=== PATIENT | female | born 1955 | race Caucasian/White ===

== ENCOUNTER 2020-11-18 19:48 | Emergency (ER) | payer BC, OTHER ==
[2020-11-18] MEDS ORDERED: BENADRYL 50 MG/ML IM ONE (20:22)
[2020-11-18] MEDS ORDERED: solu-MEDROL 125 MG, Sterile H2O 10 ml 2 ML IM ONE ×2 (20:22)
[2020-11-18] MEDS ORDERED: Pepcid 20 MG PO ONE (20:22)
--- NOTE | 2020-11-18 20:29 | ERPHSYRPT ---
- History of Present Illness Time Seen by Provider: 11/18/20 19:53 Source: patient Exam Limitations: no limitations Physician History: 67 years old left-handed dominant female, up to date with tetanus tetanus, history of diabetes mellitus, hypertension presented in the ER after got stung by bee while working in her yard in the right hand second metacarpal phalangeal joint area with associated increasing swelling and moderate intensity sharp throbbing pain without limitation movements of fingers. No difficulty breathing, throat closing sensation. No palpitations or chest pain reported. Timing/Duration: hour(s) (0.5), constant, sudden, worse Quality: burning, painful Severity: moderate Location: hands Possible Causes: insect sting Associated Symptoms: rash, swelling/mass/lumps Allergies/Adverse Reactions: erythromycin base Allergy (Intermediate, Verified 11/18/20 20:06) Nausea and Vomiting Penicillins Allergy (Intermediate, Verified 11/18/20 20:06) Nausea and Vomiting tetracycline Allergy (Intermediate, Verified 11/18/20 20:06) Nausea and Vomiting Home Medications: Amlodipine Besylate 5 mg [Norvasc 5 mg] 5 mg PO BID 11/18/20 [History] Apixaban [Eliquis] 5 mg PO BID 11/18/20 [History] Glipizide [Glipizide ER] 5 mg PO DAILY 11/18/20 [History] Hydrocortisone 10 mg PO BID 11/18/20 [History] Oxybutynin Chloride 5 mg PO DAILY 11/18/20 [History] PANTOPRAZOLE 40 mg Tablet [Protonix 40MG Tablet] 40 mg PO BID 11/18/20 [History] Prochlorperazine Maleate 10 mg [Compazine 10 mg] 10 mg PO Q4-6HPRN PRN 11/18/20 [History] lisinopriL [Lisinopril] 20 mg PO BID 11/18/20 [History] - Review of Systems Constitutional: No Symptoms Ears, Nose, & Throat: No Symptoms Respiratory: No Symptoms Cardiac: No Symptoms Musculoskeletal: No Symptoms Skin: Rash, Skin Lesions Neurological: No Symptoms Psychological: No Symptoms Endocrine: No Symptoms - Past Medical History Pertinent Past Medical History: Yes Neurological History: No Pertinent History ENT History: No Pertinent History Cardiac History: Hypertension Respiratory History: No Pertinent History Endocrine Medical History: Diabetes Type I Musculoskeletal History: No Pertinent History GI Medical History: GERD History: No Pertinent History Psycho-Social History: No Pertinent History Female Reproductive Disorders: No Pertinent History - Past Surgical History Past Surgical History: Yes Neuro Surgical History: No Pertinent History Cardiac: Cardiac Catheterization Respiratory: No Pertinent History Gastrointestinal: Cholecystectomy, Hernia Repair Genitourinary: No Pertinent History Musculoskeletal: Orthopedic Surgery Female Surgical History: Hysterectomy Other Surgical History: Left Knee Replacement. Fusion of 5th and 6th Vertebre - Social History Drug Use: none - Nursing Vital Signs Nursing Vital Signs: Initial Vital Signs Temperature 97.1 F 11/18/20 19:48 Pulse Rate 78 11/18/20 19:48 Respiratory Rate 20 11/18/20 19:48 Blood Pressure 142/71 11/18/20 19:48 O2 Sat by Pulse Oximetry 100 11/18/20 19:48 Pain Scale Pain Intensity 5 - Physical Exam General Appearance: no apparent distress, alert Eye Exam: PERRL/EOMI Ears, Nose, Throat Exam: normal ENT inspection, TMs normal, pharynx normal Neck Exam: normal inspection, non-tender, supple, full range of motion Respiratory Exam: normal breath sounds, lungs clear Cardiovascular Exam: regular rate/rhythm, normal heart sounds Extremity Exam: inflammation (Right hand dorsal lateral aspect at second metacarpophalangeal joint area sting migel with associated swelling extending proximally and mild distally on the index finger proximal phalanx. Warm and mildly tender to touch. Intact range of motion of the fingers. Distal neurovascular well intact. 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 We will continue with these meds to go home. She is advised to monitor her blood sugar regularly while being on steroids. Discussed signs symptoms of worsening needing return to ER which she seems understanding. No signs of anaphylaxis, lungs clear to auscultation, not in any distress, do not think needs any further evaluation or observation in the ER and is stable for discharge. Counseled pt/family regarding: diagnosis, need for follow-up - Departure Departure Disposition: Home Clinical Impression: Local reaction to bee sting Qualifiers: Encounter type: initial encounter Injury intent: accidental or unintentional Qualified Code(s): T63.441A - Toxic effect of venom of bees, accidental (unintentional), initial encounter Condition: Stable Critical Care Time: No Referrals: APURVA REEDER MD [Primary Care Provider] - (1-2 days for reevaluation) Instructions: Insect Bites and Stings (DC), Anaphylaxis (DC) Additional Instructions: Take Tylenol as needed for pain. Monitor your blood sugar regularly while being on steroids and call your primary care for adjustment in medication if needed. Follow-up with primary care physician for reevaluation. Return to ER for worsening swelling, difficulty movements of hand/finger etc. Prescriptions: Diphenhydramine HCl 25 mg [Benadryl 25 mg Capsule] 25 mg PO Q4H PRN PRN #20 cap PRN Reason: Allergies Hydrocortisone 1% Cream [Cortisone 1% Cream] 30 gm TP BID #1 Prednisone 20 mg [Deltasone 20 mg] 60 mg PO DAILY 5 Days #15 tablet Famotidine 20 mg [Pepcid 20 MG] 20 mg PO BID #10 tablet
[2020-11-18] MEDS ORDERED: BENADRYL 50 MG/ML ONE (20:53)
[2020-11-18] MEDS ORDERED: Sterile H2O 10 ml IJ ONE (20:54)
[2020-11-18] MEDS ORDERED: Pepcid 20 MG ONE (20:54)
[2020-11-18] MEDS ORDERED: solu-MEDROL ONE (20:54)
[2020-11-18 21:16] VITALS: BP 136/68; PULSE 76; O2SAT 99
== END 2020-11-18 21:13 | disposition home or self-care (01) ==
LOC: ED 19:48
DX: T63.441A Toxic effect of venom of bees, accidental (unintentional), initial encounter (principal); I10 Essential (primary) hypertension; Z79.01 Long term (current) use of anticoagulants; Z79.899 Other long term (current) drug therapy; E10.9 Type 1 diabetes mellitus without complications
CPT/HCPCS: 96372; 99283; J1200; J2930; A9270-GY

== ENCOUNTER 2020-11-20 11:38 | Emergency (ER) | payer OTHER ==
--- NOTE | 2020-11-20 12:06 | ERPHSYRPT ---
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 It hurts and tingles, my pain is a 10/10. Triage Nursing Assessment: Pt presents to ER with complaints of hornet sting to left 4th toe. Toe is slightly red and swollen. Pt rates pain 10/10 scale. Pt is alert and oriented x 3. Pt skin is pink, warm, and dry. Pt is able to ambulate. Pt respiations are unlabored at this time. Pt denies shortness of breath. Physician History: 65 yo wf stung by a hornet on L 2nd toe 1 hour before arrival. Pt was seen in the ER several days ago for a bee sting and was started on a steroid which she has not been taking. She denies dyspnea/dysphagia. Timing/Duration: other (1hr before arrival) Modifying Factors: Improves With: movement Associated Symptoms: No nausea, No vomiting, No abdominal pain, No shortness of breath, No heartburn, No diaphoresis, No cough, No chills, No chest pain, No fever, No headaches, No loss of appetite, No malaise, No rash, No syncope, No seizure, No weakness Allergies/Adverse Reactions: erythromycin base Allergy (Intermediate, Verified 11/20/20 11:48) Nausea and Vomiting Penicillins Allergy (Intermediate, Verified 11/20/20 11:48) Nausea and Vomiting tetracycline Allergy (Intermediate, Verified 11/20/20 11:48) Nausea and Vomiting Home Medications: Amlodipine Besylate 5 mg [Norvasc 5 mg] 5 mg PO BID 11/18/20 [History] Apixaban [Eliquis] 5 mg PO BID 11/18/20 [History] Glipizide [Glipizide ER] 5 mg PO DAILY 11/18/20 [History] Hydrocortisone 10 mg PO BID 11/18/20 [History] Oxybutynin Chloride 5 mg PO DAILY 11/18/20 [History] PANTOPRAZOLE 40 mg Tablet [Protonix 40MG Tablet] 40 mg PO BID 11/18/20 [History] Prochlorperazine Maleate 10 mg [Compazine 10 mg] 10 mg PO Q4-6HPRN PRN 11/18/20 [History] lisinopriL [Lisinopril] 20 mg PO BID 11/18/20 [History] Hx Tetanus, Diphtheria Vaccination/Date Given: Yes Hx Influenza Vaccination/Date Given: No Hx Pneumococcal Vaccination/Date Given: No Immunizations Up to Date: Yes Travel Risk - International Travel Have you traveled outside of the country in past 3 weeks: No - Coronavirus Screening Are you exhibiting any of the following symptoms?: No Close contact with a COVID-19 positive Pt in past 14-21 Days: No - Vaccine Status Have you recieved a Covid-19 vaccination: Yes 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: [employer] - Vaccination Dates Date of 2cond Vaccination (if applicable): unknown - Review of Systems Constitutional: No Symptoms Eyes: No Symptoms Ears, Nose, & Throat: No Symptoms Respiratory: No Symptoms Cardiac: No Symptoms Abdominal/Gastrointestinal: No Symptoms Genitourinary Symptoms: No Symptoms Musculoskeletal: No Symptoms Skin: Rash Neurological: No Symptoms Psychological: No Symptoms Endocrine: No Symptoms Hematologic/Lymphatic: No Symptoms Immunological/Allergic: No Symptoms - Past Medical History Pertinent Past Medical History: Yes Neurological History: No Pertinent History ENT History: No Pertinent History Cardiac History: Hypertension Respiratory History: No Pertinent History Endocrine Medical History: Diabetes Type I Musculoskeletal History: No Pertinent History GI Medical History: GERD History: No Pertinent History Psycho-Social History: No Pertinent History Female Reproductive Disorders: No Pertinent History - Past Surgical History Past Surgical History: Yes Neuro Surgical History: No Pertinent History Cardiac: Cardiac Catheterization Respiratory: No Pertinent History Gastrointestinal: Cholecystectomy, Hernia Repair Genitourinary: No Pertinent History Musculoskeletal: Orthopedic Surgery Female Surgical History: Hysterectomy Other Surgical History: Left Knee Replacement. Fusion of 5th and 6th Vertebre - Social History Smoking Status: Never smoker Exposure to second hand smoke: No Drug Use: none Patient Lives Alone: Yes Significant Family History: no pertinent family hx - Female History Hx Now: No - Nursing Vital Signs Nursing Vital Signs: Initial Vital Signs Temperature 97.4 F 11/20/20 11:44 Pulse Rate 95 H 11/20/20 11:44 Respiratory Rate 16 11/20/20 11:44 Blood Pressure 168/88 11/20/20 11:44 O2 Sat by Pulse Oximetry 99 11/20/20 11:44 Pain Scale Pain Intensity 10 Hypertensive - Physical Exam General Appearance: no apparent distress Eye Exam: PERRL/EOMI, eyes nml inspection Ears, Nose, Throat Exam: normal ENT inspection, TMs normal, pharynx normal, moist mucous membranes Neck Exam: normal inspection, non-tender, supple, full range of motion, No meningismus, No mass, No Brudzinski, No Kernig's, No carotid bruit Respiratory Exam: normal breath sounds, lungs clear, airway intact, No chest tenderness, No respiratory distress Cardiovascular Exam: regular rate/rhythm, normal heart sounds, normal peripheral pulses, No murmur Gastrointestinal/Abdomen Exam: soft, normal bowel sounds, No tenderness Back Exam: normal inspection, normal range of motion, No CVA tenderness, No vertebral tenderness Extremity Exam: other (Mild erythema and edema L 2nd toe/Good pedal pulse, distal sensation, and capillary return) Skin Exam: other (See exgtremity exam) Lymphatic Exam: No adenopathy SpO2 Interpretation: normal SpO2: 99 O2 Delivery: Room Air - Course Nursing assessment & vital signs reviewed: Yes - Progress Progress Note: 11/20/20 12:06 Most likely local reaction, will continue benadryl at home. Counseled pt/family regarding: diagnosis, need for follow-up - Departure Departure Disposition: Home Clinical Impression: Sting from hornet, wasp, or bee Condition: Stable Critical Care Time: No Referrals: APURVA REEDER MD [ACTIVE STAFF] - Instructions: Insect Bites and Stings (DC) Additional Instructions: Elevate foot Continue benadryl 25-50mg every 6 hours as needed EpiPen as needed Return to ER for increased swelling/redness/shortness of breath/Trouble swallowing Prescriptions: Epinephrine [Epipen] 0.3 mg IM BID PRN PRN #2 PRN Reason: Allergies Epinephrine [Epipen] 0.3 mg IM BIDPRN PRN #2 each PRN Reason: Allergies
[2020-11-20 12:38] VITALS: BP 138/81; PULSE 85
[2020-11-20 19:07] VITALS: O2SAT 99
== END 2020-11-20 12:38 | disposition home or self-care (01) ==
LOC: ED 11:38
DX: T63.441A Toxic effect of venom of bees, accidental (unintentional), initial encounter (principal); M79.675 Pain in left toe(s); R20.2 Paresthesia of skin; M79.89 Other specified soft tissue disorders; Z79.01 Long term (current) use of anticoagulants; Z79.899 Other long term (current) drug therapy
CPT/HCPCS: 99282

== ENCOUNTER 2020-11-21 16:23 | Emergency (ER) | payer OTHER ==
[2020-11-21] MEDS ORDERED: Sodium Chloride 0.9% 1000 ML 1,000 ML IV STA (16:43)
--- NOTE | 2020-11-21 16:43 | ERPHSYRPT ---
- History of Present Illness Time Seen by Provider: 11/21/20 16:35 Source: patient Physician History: Patient is a 65-year-old female with history of diabetes presents to our ED for evaluation of dizziness. Patient states that her blood glucose has been running approximately 400. Patient was in our ED a couple days ago and was treated for an allergic reaction to an insect bite. Patient was given a dose of steroids. Patient was advised that her blood glucose would go up. Patient is attributing her current symptoms to the hyperglycemia. Patient admits to feeling vague chest pressure. No veto chest pain. No nausea or vomiting. No diarrhea. Patient symptomology from the allergic reaction to the insect sting is significantly improved. Patient son at bedside. They voiced no other complaints or concerns at this time. Timing/Duration: today Severity: moderate Modifying Factors: Improves With: nothing Associated Symptoms: chest pain, No nausea, No vomiting, No shortness of breath, No diaphoresis, No cough, No chills, No fever, No headaches, No loss of appetite, No malaise, No rash, No syncope, No seizure, No weakness Allergies/Adverse Reactions: bee venom protein (honey bee) Allergy (Severe, Verified 11/21/20 16:43) Swelling erythromycin base Allergy (Intermediate, Verified 11/20/20 11:48) Nausea and Vomiting Penicillins Allergy (Intermediate, Verified 11/20/20 11:48) Nausea and Vomiting tetracycline Allergy (Intermediate, Verified 11/20/20 11:48) Nausea and Vomiting Home Medications: Amlodipine Besylate 5 mg [Norvasc 5 mg] 5 mg PO BID 11/18/20 [History] Apixaban [Eliquis] 5 mg PO BID 11/18/20 [History] Glipizide [Glipizide ER] 5 mg PO DAILY 11/18/20 [History] Hydrocortisone 10 mg PO BID 11/18/20 [History] Oxybutynin Chloride 5 mg PO DAILY 11/18/20 [History] PANTOPRAZOLE 40 mg Tablet [Protonix 40MG Tablet] 40 mg PO BID 11/18/20 [History] Prochlorperazine Maleate 10 mg [Compazine 10 mg] 10 mg PO Q4-6HPRN PRN 11/18/20 [History] lisinopriL [Lisinopril] 20 mg PO BID 11/18/20 [History] Hx Tetanus, Diphtheria Vaccination/Date Given: Yes Hx Influenza Vaccination/Date Given: No Hx Pneumococcal Vaccination/Date Given: No Travel Risk - Vaccine Status Have you recieved a Covid-19 vaccination: Yes [employer]: [employer] - Vaccination Dates Date of 2cond Vaccination (if applicable): unknown - Review of Systems Constitutional: No Symptoms, No Fever, No Chills Eyes: No Symptoms Ears, Nose, & Throat: No Symptoms Respiratory: No Symptoms, No Cough, No Dyspnea Cardiac: No Symptoms, No Chest Pain, No Edema, No Syncope Abdominal/Gastrointestinal: No Symptoms, No Abdominal Pain, No Nausea, No Vomiting, No Diarrhea Genitourinary Symptoms: No Symptoms, No Dysuria Musculoskeletal: No Symptoms, No Back Pain, No Neck Pain Skin: No Symptoms, No Rash Neurological: No Symptoms, No Dizziness, No Focal Weakness, No Sensory Changes Psychological: No Symptoms Endocrine: No Symptoms Hematologic/Lymphatic: No Symptoms Immunological/Allergic: No Symptoms All Other Systems: Reviewed and Negative - Past Medical History Pertinent Past Medical History: Yes Neurological History: No Pertinent History ENT History: No Pertinent History Cardiac History: Hypertension Respiratory History: No Pertinent History Endocrine Medical History: Diabetes Type I Musculoskeletal History: No Pertinent History GI Medical History: GERD History: No Pertinent History Psycho-Social History: No Pertinent History Female Reproductive Disorders: No Pertinent History - Past Surgical History Past Surgical History: Yes Neuro Surgical History: No Pertinent History Cardiac: Cardiac Catheterization Respiratory: No Pertinent History Gastrointestinal: Cholecystectomy, Hernia Repair Genitourinary: No Pertinent History Musculoskeletal: Orthopedic Surgery Female Surgical History: Hysterectomy Other Surgical History: Left Knee Replacement. Fusion of 5th and 6th Vertebre - Social History Smoking Status: Never smoker Exposure to second hand smoke: No Drug Use: none Patient Lives Alone: Yes Significant Family History: no pertinent family hx - Nursing Vital Signs Nursing Vital Signs: Initial Vital Signs Temperature 97.6 F 11/21/20 16:30 Pulse Rate 100 H 11/21/20 16:30 Respiratory Rate 24 11/21/20 16:30 Blood Pressure 190/101 11/21/20 16:30 O2 Sat by Pulse Oximetry 100 11/21/20 16:30 Pain Scale Pain Intensity 8 - Physical Exam General Appearance: no apparent distress, alert Eye Exam: PERRL/EOMI, eyes nml inspection Ears, Nose, Throat Exam: normal ENT inspection, TMs normal, pharynx normal, moist mucous membranes Neck Exam: normal inspection, non-tender, supple, full range of motion Respiratory Exam: normal breath sounds, lungs clear, No respiratory distress Cardiovascular Exam: regular rate/rhythm, normal heart sounds, normal peripheral pulses Gastrointestinal/Abdomen Exam: soft, normal bowel sounds, No tenderness, No mass Back Exam: normal inspection, normal range of motion, No CVA tenderness, No vertebral tenderness Extremity Exam: normal inspection, normal range of motion, pelvis stable Neurologic Exam: alert, oriented x 3, cooperative, normal mood/affect, nml cerebellar function, nml station & gait, sensation nml, No motor deficits Skin Exam: normal color, warm, dry, No rash Lymphatic Exam: No adenopathy - Course Nursing assessment & vital signs reviewed: Yes EKG Interpreted by Me: RATE (76), Sinus Rhythm, NORMAL AXIS, NORMAL INTERVALS - Radiology Exams Chest X-ray Interpretation: Teleradiologist Report (No infiltrates to suggest pneumonia or other acute cardiopulmonary disease is seen. The radiographic appearance of the lungs is similar to 05/24/2007. A loop recorder is seen overlying the medial left lung base.) Ordered Tests: Active Orders 24 hr Category Date Time Status Automotive Parts Specialist STAT Care 11/21/20 16:44 Active EKG-ER Only STAT Care 11/21/20 16:43 Active IV Insertion STAT Care 11/21/20 16:43 Active Pulse Oximetry (ED) STAT Care 11/21/20 16:43 Active CHEST 1 VIEW (PORTABLE) Stat Exams 11/21/20 16:44 Completed CBC W DIFF Stat Lab 11/21/20 18:08 Completed CMP Stat Lab 11/21/20 18:08 Completed CMP Stat Lab 11/21/20 21:20 Completed POCT GLUCOSE Stat Lab 11/21/20 21:25 Completed TROPONIN Q3H Lab 11/21/20 18:08 Completed TROPONIN Q3H Lab 11/21/20 19:45 Completed TROPONIN Q3H Lab 11/21/20 22:45 Ordered TROPONIN Q3H Lab 11/22/20 01:45 Ordered TROPONIN Q3H Lab 11/22/20 04:45 Ordered UA W/RFX UR CULTURE Stat Lab 11/21/20 16:44 Completed Medication Summary Discontinued Medications Generic Name Dose Route Start Last Admin Trade Name Freq PRN Reason Stop Dose Admin Acetaminophen 1,000 mg 11/21/20 18:29 11/21/20 18:32 Tylenol Extra Strength 500 Mg PO 11/21/20 18:30 1,000 mg STAT STA Administration Acetaminophen Confirm 11/21/20 18:30 Tylenol Extra Strength 500 Mg Administered 11/21/20 18:31 Dose 1,000 mg .ROUTE .STK-MED ONE Sodium Chloride 1,000 mls @ 999 mls/hr 11/21/20 16:43 11/21/20 19:48 Sodium Chloride 0.9% 1000 Ml IV 11/21/20 17:43 Infused .Q1H1M STA Infusion Sodium Chloride Confirm 11/21/20 18:30 Sodium Chloride 0.9% 1000 Ml Administered 11/21/20 18:31 Dose 1,000 mls @ ud .ROUTE .STK-MED ONE Insulin Human Regular 6 unit 11/21/20 19:10 11/21/20 19:14 Humulin R SQ 11/21/20 19:11 6 unit ONCE STA Administration Insulin Human Regular Confirm 11/21/20 19:13 Humulin R Administered 11/21/20 19:14 Dose 6 unit .ROUTE .STK-MED ONE Ondansetron HCl 4 mg 11/21/20 21:23 11/21/20 21:27 Zofran 4 Mg/2 Ml Vial IV 11/21/20 21:24 4 mg STAT ONE Administration Ondansetron HCl Confirm 11/21/20 21:26 Zofran 4 Mg/2 Ml Vial Administered 11/21/20 21:27 Dose 4 mg .ROUTE .STK-MED ONE Lab/Rad Data: Laboratory Result Diagrams 11/21/20 18:08 11/21/20 21:20 Laboratory Results 11/21/20 11/21/20 11/21/20 Range/Units 21:25 21:20 19:45 WBC (4.0-10.5) K/mm3 RBC (4.1-5.4) M/mm3 Hgb (12.0-16.0) gm/dl Hct (35-47) % MCV (78-100) fl MCH (26-32) pg MCHC (32-36) g/dl RDW (11.5-14.0) % Plt Count (150-450) K/mm3 MPV (7.5-11.0) fl Gran % (36.0-66.0) % Eos # (Auto) (0-0.5) Absolute Lymphs (auto) (1.0-4.6) Absolute Monos (auto) (0.0-1.3) Lymphocytes % (24.0-44.0) % Monocytes % (0.0-12.0) % Eosinophils % (0.00-5.0) % Basophils % (0.0-0.4) % Absolute Granulocytes (1.4-6.9) Basophils # (0-0.4) Sodium 133 L (137-145) mmol/L Potassium 4.0 (3.5-5.1) mmol/L Chloride 100 (98-107) mmol/L Carbon Dioxide 24 (22-30) mmol/L Anion Gap 12.9 (5-15) MEQ/L BUN 18 H (7-17) mg/dL Creatinine 0.67 (0.52-1.04) mg/dL Estimated GFR > 60.0 ML/MIN Glucose 236 H (74-106) mg/dL POC Glucometer 211 H (74 to 106) mg/dL Calcium 8.8 (8.4-10.2) mg/dL Total Bilirubin 0.40 (0.2-1.3) mg/dL AST 22 (14-36) U/L ALT 25 (0-35) U/L Alkaline Phosphatase 57 (38-126) U/L Troponin I < 0.012 (0.000-0.034) ng/mL Serum Total Protein 7.1 (6.3-8.2) g/dL Albumin 4.0 (3.5-5.0) g/dL Urine Color (YELLOW) Urine Appearance (CLEAR) Urine pH (5-6) Ur Specific [place] (1.005-1.025) Urine Protein (Negative) Urine Ketones (NEGATIVE) Urine Blood (0-5) Shaka/ul Urine Nitrite (NEGATIVE) Urine Bilirubin (NEGATIVE) Urine Urobilinogen (0-1) mg/dL Ur Leukocyte Esterase (NEGATIVE) Urine WBC (Auto) (0-5) /HPF Urine RBC (Auto) (0-2) /HPF U Epithel Cells (Auto) (FEW) /HPF Urine Bacteria (Auto) (NEGATIVE) /HPF Urine Mucus (Auto) (NEGATIVE) /HPF Urine Culture Reflexed (NO) Urine Glucose (NEGATIVE) mg/dL 08/18/21 08/18/21 08/18/21 Range/Units 18:08 18:08 18:08 WBC 10.4 (4.0-10.5) K/mm3 RBC 4.68 (4.1-5.4) M/mm3 Hgb 14.1 (12.0-16.0) gm/dl Hct 43.7 (35-47) % MCV 93.4 (78-100) fl MCH 30.1 (26-32) pg MCHC 32.3 (32-36) g/dl RDW 14.0 (11.5-14.0) % Plt Count 342 (150-450) K/mm3 MPV 9.3 (7.5-11.0) fl Gran % 90.2 H (36.0-66.0) % Eos # (Auto) 0 (0-0.5) Absolute Lymphs (auto) 0.74 L (1.0-4.6) Absolute Monos (auto) 0.27 (0.0-1.3) Lymphocytes % 7.1 L (24.0-44.0) % Monocytes % 2.6 (0.0-12.0) % Eosinophils % 0.0 (0.00-5.0) % Basophils % 0.1 (0.0-0.4) % Absolute Granulocytes 9.35 H (1.4-6.9) Basophils # 0.01 (0-0.4) Sodium 132 L (137-145) mmol/L Potassium 4.8 (3.5-5.1) mmol/L Chloride 94 L (98-107) mmol/L Carbon Dioxide 24 (22-30) mmol/L Anion Gap 17.9 H (5-15) MEQ/L BUN 21 H (7-17) mg/dL Creatinine 0.79 (0.52-1.04) mg/dL Estimated GFR > 60.0 ML/MIN Glucose 335 H (74-106) mg/dL POC Glucometer (74 to 106) mg/dL Calcium 9.7 (8.4-10.2) mg/dL Total Bilirubin 0.50 (0.2-1.3) mg/dL AST 23 (14-36) U/L ALT 27 (0-35) U/L Alkaline Phosphatase 63 (38-126) U/L Troponin I < 0.012 (0.000-0.034) ng/mL Serum Total Protein 7.4 (6.3-8.2) g/dL Albumin 4.3 (3.5-5.0) g/dL Urine Color (YELLOW) Urine Appearance (CLEAR) Urine pH (5-6) Ur Specific [place] (1.005-1.025) Urine Protein (Negative) Urine Ketones (NEGATIVE) Urine Blood (0-5) Shaka/ul Urine Nitrite (NEGATIVE) Urine Bilirubin (NEGATIVE) Urine Urobilinogen (0-1) mg/dL Ur Leukocyte Esterase (NEGATIVE) Urine WBC (Auto) (0-5) /HPF Urine RBC (Auto) (0-2) /HPF U Epithel Cells (Auto) (FEW) /HPF Urine Bacteria (Auto) (NEGATIVE) /HPF Urine Mucus (Auto) (NEGATIVE) /HPF Urine Culture Reflexed (NO) Urine Glucose (NEGATIVE) mg/dL 11/21/20 Range/Units 16:44 WBC (4.0-10.5) K/mm3 RBC (4.1-5.4) M/mm3 Hgb (12.0-16.0) gm/dl Hct (35-47) % MCV (78-100) fl MCH (26-32) pg MCHC (32-36) g/dl RDW (11.5-14.0) % Plt Count (150-450) K/mm3 MPV (7.5-11.0) fl Gran % (36.0-66.0) % Eos # (Auto) (0-0.5) Absolute Lymphs (auto) (1.0-4.6) Absolute Monos (auto) (0.0-1.3) Lymphocytes % (24.0-44.0) % Monocytes % (0.0-12.0) % Eosinophils % (0.00-5.0) % Basophils % (0.0-0.4) % Absolute Granulocytes (1.4-6.9) Basophils # (0-0.4) Sodium (137-145) mmol/L Potassium (3.5-5.1) mmol/L Chloride (98-107) mmol/L Carbon Dioxide (22-30) mmol/L Anion Gap (5-15) MEQ/L BUN (7-17) mg/dL Creatinine (0.52-1.04) mg/dL Estimated GFR ML/MIN Glucose (74-106) mg/dL POC Glucometer (74 to 106) mg/dL Calcium (8.4-10.2) mg/dL Total Bilirubin (0.2-1.3) mg/dL AST (14-36) U/L ALT (0-35) U/L Alkaline Phosphatase (38-126) U/L Troponin I (0.000-0.034) ng/mL Serum Total Protein (6.3-8.2) g/dL Albumin (3.5-5.0) g/dL Urine Color COLORLESS (YELLOW) Urine Appearance CLEAR (CLEAR) Urine pH 6.0 (5-6) Ur Specific [place] 1.008 (1.005-1.025) Urine Protein NEGATIVE (Negative) Urine Ketones NEGATIVE (NEGATIVE) Urine Blood NEGATIVE (0-5) Shaka/ul Urine Nitrite NEGATIVE (NEGATIVE) Urine Bilirubin NEGATIVE (NEGATIVE) Urine Urobilinogen NEGATIVE (0-1) mg/dL Ur Leukocyte Esterase NEGATIVE (NEGATIVE) Urine WBC (Auto) NONE (0-5) /HPF Urine RBC (Auto) 0-2 (0-2) /HPF U Epithel Cells (Auto) NONE (FEW) /HPF Urine Bacteria (Auto) NONE (NEGATIVE) /HPF Urine Mucus (Auto) SLIGHT (NEGATIVE) /HPF Urine Culture Reflexed NO (NO) Urine Glucose >=500 (NEGATIVE) mg/dL - Progress Progress: improved Progress Note: Patient reassessed. She feels much better. Patient mildly nauseous. She was treated with Zofran. A prescription for Zofran was forwarded the patient's pharmacy. It appears that the prednisone patient was prescribed is making her sick and increasing her blood sugar levels. Patient will discontinue the prednisone. She took a dose today she will skip tomorrow's dose. Patient will continue Benadryl and Pepcid. Patient does have EpiPen prescription as well. Patient advised to keep her EpiPen with her in the event that symptoms worsen. Patient will continue to monitor her symptoms. She states she is ready for discharge. She agrees to follow-up with her primary care doctor, Dr. Ortiz tomorrow morning for reevaluation. Patient voices no other complaints at this time. 11/21/20 22:00 Portions of this note were created with voice recognition technology. 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 The patient was counseled regarding Diagnosis,Lab results, Imaging studies, need for follow up and when to return to the Emergency Room. Prescriptions given: Discharge Note I have spoken with the patient and/or caregivers. I have explained the patient's condition, diagnosis and treatment plan based on the information available to me at this time. I have answered the patient's and/or caregiver's questions and addressed any concerns. The patient and/or caregivers have as good understanding of the patient's diagnosis, condition and treatment plan as can be expected at this point. The vital signs have been stable. The patient's condition is stable and appropriate for discharge from the emergency department. The patient will pursue further outpatient evaluation with the primary care physician or other designated or consulting physician as outlined in the discharge instructions. The patient and/or caregivers are agreeable to this plan of care and follow-up instructions have been explained in detail. The patient and/or caregivers have received these instruction. The patient/and or caregivers are aware that any significant change in condition or worsening of symptoms should prompt an immediate return to this or the closest emergency department or call 911. Prescriptions: Ondansetron ODT 4 MG [Zofran Odt 4 mg] 4 mg PO Q6H PRN PRN #10 tablet PRN Reason: Vomiting
--- NOTE | 2020-11-21 17:21 | XRAY ---
Exam: AP upright portable chest film from 11/21/2020. Comparison: Two-view chest from 05/24/2007. Indication: Pneumonia? The transverse heart size appears within normal limits. There is an electronic loop recorder overlying the medial left lung base. Minimal vascular calcification within aortic arch and mild tortuosity of the distal descending thoracic aorta are seen. The mor and mediastinal structures appear unremarkable. There is slight hazy density at the medial right lung base which is unchanged from 05/24/2007 and is believed to be due to the patient's pectus excavatum. I see no definite airspace infiltrate, vascular congestion, pneumothorax, or pleural fluid. Moderate lateral osteophyte formation is seen within the lower thoracic spine. Impression: 1. No infiltrates to suggest pneumonia or other other acute cardiopulmonary disease is seen. The radiographic appearance of the lungs is similar to 05/24/2007. 2. A loop recorder is seen overlying the medial left lung base.
[2020-11-21 17:38] LABS: Appearance CLEAR (CLEAR); Bilirubin NEGATIVE (NEGATIVE); Blood NEGATIVE Ery/ul (0-5); Glucose >=500 mg/dL (NEGATIVE); Ketones NEGATIVE (NEGATIVE); Leukocyte Esterase NEGATIVE (NEGATIVE); Mucus SLIGHT /HPF (NEGATIVE); Nitrite NEGATIVE (NEGATIVE); Protein,Urine Dip NEGATIVE (Negative); RBC 0-2 /HPF (0-2); Specific Gravity 1.008 (1.005-1.025); Urobilinogen NEGATIVE mg/dL (0-1)
[2020-11-21] MEDS ORDERED: TYLENOL EXTRA STRENGTH 500 MG PO STA (18:29)
[2020-11-21] MEDS ORDERED: TYLENOL EXTRA STRENGTH 500 MG ONE (18:30)
[2020-11-21] MEDS ORDERED: Sodium Chloride 0.9% 1000 ML 1,000 ML ONE (18:30)
[2020-11-21 18:38] LABS: Absolute Neutrophil Ct (ANC) 9.35 (1.4-6.9); BASOPHIL % 0.1 % (0.0-0.4); Basophil (Absolute #) 0.01 (0-0.4); Eosinophil (Absolute #) 0 (0-0.5); Hematocrit 43.7 % (35-47); Hemoglobin 14.1 gm/dl (12.0-16.0); Lymphocyte (Absolute #) 0.74 (1.0-4.6); Lymphocytes % 7.1 % (24.0-44.0); Mean Cell Volume 93.4 fl (78-100); Mean Corpuscular Hemoglobin 30.1 pg (26-32); Mean Corpuscular Hgb Concent. 32.3 g/dl (32-36); Mean Platelet Volume 9.3 fl (7.5-11.0); Monocyte (Absolute #) 0.27 (0.0-1.3); Monocytes % 2.6 % (0.0-12.0); Neutrophil % 90.2 % (36.0-66.0); Platelet Count 342 K/mm3 (150-450); Red Blood Count 4.68 M/mm3 (4.1-5.4); White Blood Count 10.4 K/mm3 (4.0-10.5)
[2020-11-21 18:46] LABS: ALBUMIN 4.3 g/dL (3.5-5.0); ALKALINE PHOSPHATASE 63 U/L (38-126); ANION GAP 17.9 MEQ/L (5-15); BLOOD UREA NITROGEN 21 mg/dL (7-17); CHLORIDE 94 mmol/L (98-107); Calcium 9.7 mg/dL (8.4-10.2); Carbon Dioxide 24 mmol/L (22-30); Creatinine 1 0.79 mg/dL (0.52-1.04); EST GLOMERULAR FILTRATION RATE > 60.0 ML/MIN; Glucose 335 mg/dL (74-106); Potassium 4.8 mmol/L (3.5-5.1); SGOT/AST 23 U/L (14-36); SGPT/ALT 27 U/L (0-35); SODIUM 132 mmol/L (137-145); Total Protein 7.4 g/dL (6.3-8.2)
[2020-11-21] MEDS ORDERED: HUMULIN R SQ STA (19:10)
[2020-11-21] MEDS ORDERED: HUMULIN R ONE (19:13)
[2020-11-21 20:32] VITALS: O2SAT 98
[2020-11-21] MEDS ORDERED: Zofran 4 MG/2 ML VIAL IV ONE (21:23)
[2020-11-21] MEDS ORDERED: Zofran 4 MG/2 ML VIAL ONE (21:26)
[2020-11-21 21:48] LABS: ALKALINE PHOSPHATASE 57 U/L (38-126); ANION GAP 12.9 MEQ/L (5-15); BLOOD UREA NITROGEN 18 mg/dL (7-17); CHLORIDE 100 mmol/L (98-107); Calcium 8.8 mg/dL (8.4-10.2); Carbon Dioxide 24 mmol/L (22-30); Creatinine 1 0.67 mg/dL (0.52-1.04); EST GLOMERULAR FILTRATION RATE > 60.0 ML/MIN; Glucose 236 mg/dL (74-106); SGOT/AST 22 U/L (14-36); SGPT/ALT 25 U/L (0-35); SODIUM 133 mmol/L (137-145); Total Protein 7.1 g/dL (6.3-8.2)
[2020-11-21 22:28] VITALS: BP 142/74; PULSE 76
== END 2020-11-21 22:37 | disposition home or self-care (01) ==
LOC: ED 16:23
DX: M47.814 Spondylosis without myelopathy or radiculopathy, thoracic region (principal); R42 Dizziness and giddiness; R07.9 Chest pain, unspecified; R11.0 Nausea; E10.65 Type 1 diabetes mellitus with hyperglycemia; I10 Essential (primary) hypertension; Z79.899 Other long term (current) drug therapy; Z79.01 Long term (current) use of anticoagulants
CPT/HCPCS: 36000; 36415; 71045; 80053; 81001; 82947; 84484; 85025; 93005; 93041; 94760; 96372; 96374; 99284; J1815; J2405; A9270-GY

== ENCOUNTER 2021-06-09 10:34 | Inpatient (IN) | payer OTHER ==
[2021-06-09] MEDS ORDERED: Sodium Chloride 0.9% 1000 ML 1,000 ML IV STA (10:53)
--- NOTE | 2021-06-09 10:53 | ERPHSYRPT ---
- History of Present Illness Time Seen by Provider: 06/09/21 10:49 Source: patient, family Exam Limitations: no limitations Physician History: pt had syncopal episode yesterday and fell down steps striking back and pelvis right knee and left ankle now wiuth swelling, and still having dizziness. May have hit head and is on Elliquis so discussed CT head and pt wishes to proceed. tender right knee and ankle with swelling. tender abd and pelvis and lower back slight tenderness back of head and neck. Occurred: yesterday Reason for Fall: fainted Injuries/Pain Location: head, neck, abdomen, back, pelvis, lower extremity Loss of Consciousness: brief (seconds) Quality: aching, sharpness Severity of Pain-Max: moderate Severity of Pain-Current: moderate Associated Symptoms (Fall): back pain, dizziness Allergies/Adverse Reactions: bee venom protein (honey bee) Allergy (Severe, Verified 06/09/21 10:50) Swelling erythromycin base Allergy (Intermediate, Verified 06/09/21 10:50) Nausea and Vomiting Penicillins Allergy (Intermediate, Verified 06/09/21 10:50) Nausea and Vomiting tetracycline Allergy (Intermediate, Verified 06/09/21 10:50) Nausea and Vomiting Home Medications: Amlodipine Besylate 5 mg [Norvasc 5 mg] 5 mg PO BID 11/18/20 [History] Apixaban [Eliquis] 5 mg PO BID 11/18/20 [History] Hydrocortisone 10 mg PO BID 11/18/20 [History] PANTOPRAZOLE 40 mg Tablet [Protonix 40MG Tablet] 40 mg PO DAILY 11/18/20 [History] lisinopriL [Lisinopril] 20 mg PO BID 11/18/20 [History] Ezetimibe 10 mg [Zetia 10 MG] 10 mg PO DAILY 06/09/21 [History] Gabapentin 300 mg [Neurontin 300 mg] 300 mg PO TID 06/09/21 [History] Liraglutide [Victoza 2-Kodak] 1.8 mg SQ DAILY 06/09/21 [History] Metoprolol Tartrate 25 mg [Lopressor 25MG Tab] 25 mg PO BID 06/09/21 [History] Mirtazapine 7.5 mg PO HS 06/09/21 [History] Hx Tetanus, Diphtheria Vaccination/Date Given: Yes Hx Influenza Vaccination/Date Given: No Hx Pneumococcal Vaccination/Date Given: No Travel Risk - Vaccine Status Have you recieved a Covid-19 vaccination: Yes 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[employer] - Vaccination Dates Date of 2cond Vaccination (if applicable): unknown - Review of Systems Constitutional: No Fever, No Chills Eyes: No Symptoms Ears, Nose, & Throat: No Symptoms Respiratory: No Cough, No Dyspnea Cardiac: No Chest Pain, No Edema, No Syncope Abdominal/Gastrointestinal: Abdominal Pain, No Nausea, No Vomiting, No Diarrhea Genitourinary Symptoms: No Dysuria Musculoskeletal: Joint Pain, Joint Swelling, No Back Pain, No Neck Pain Skin: No Rash Neurological: No Dizziness, No Focal Weakness, No Sensory Changes Psychological: No Symptoms Endocrine: No Symptoms All Other Systems: Reviewed and Negative - Past Medical History Pertinent Past Medical History: Yes Neurological History: No Pertinent History ENT History: No Pertinent History Cardiac History: Hypertension Respiratory History: No Pertinent History Endocrine Medical History: Diabetes Type I Musculoskeletal History: No Pertinent History GI Medical History: GERD History: No Pertinent History Psycho-Social History: No Pertinent History Female Reproductive Disorders: No Pertinent History - Past Surgical History Past Surgical History: Yes Neuro Surgical History: No Pertinent History Cardiac: Cardiac Catheterization Respiratory: No Pertinent History Gastrointestinal: Cholecystectomy, Hernia Repair Genitourinary: No Pertinent History Musculoskeletal: Orthopedic Surgery Female Surgical History: Hysterectomy Other Surgical History: Left Knee Replacement. Fusion of 5th and 6th Vertebre - Social History Smoking Status: Never smoker Exposure to second hand smoke: No Drug Use: none Patient Lives Alone: Yes Significant Family History: no pertinent family hx - Nursing Vital Signs Nursing Vital Signs: Initial Vital Signs Temperature 98.2 F 06/09/21 10:35 Pulse Rate 76 06/09/21 10:35 Respiratory Rate 18 06/09/21 10:35 Blood Pressure 145/85 06/09/21 10:35 O2 Sat by Pulse Oximetry 98 06/09/21 10:35 Pain Scale Pain Intensity 5 - Gerardo Coma Score Best Eye Response (Gerardo): (4) open spontaneously Best Verbal Response (Gerardo): (5) oriented Best Motor Response (Shasta): (6) obeys commands Shasta Total: 15 - Physical Exam General Appearance: no apparent distress, alert Head Injury: no evidence of injury Eye Exam: PERRL/EOMI ENT Exam: airway nml Neck Exam: normal inspection, No tenderness Respiratory/Chest Exam: normal breath sounds, No chest tenderness, No respiratory distress Cardiovascular Exam: normal heart sounds, regular rate/rhythm Gastrointestinal Exam: soft, tenderness, guarding, No distention, No ecchymosis Back Exam: normal inspection, vertebral tenderness, muscle spasm Extremity Exam: pelvis stable, contusions, joint swelling, limited range of motion, evidence of injury, No deformities Peripheral Pulses: carotid (R): 2+, carotid (L): 2+, femoral (R): 2+, femoral (L): 2+, dorsalis-pedis (R): 2+, dorsalis-pedis (L): 2+ Neurologic Exam: alert, oriented x 3, cooperative, transportation clerk II-XII nml as tested, sensation nml, No motor deficits Skin Exam: normal color, warm, dry SpO2 Interpretation: normal - Course Nursing assessment & vital signs reviewed: Yes EKG Interpreted by Me: Sinus Rhythm, Non-specific ST Changes, Other (LVH) - Radiology Exams Left Ankle X-ray Interpretation: Reviewed by me, Other (STS verticle line may be occult Fx) Right Knee X-ray Interpretation: Reviewed by me, Other (overlap may be nondisplaced tibial plateau fx. ) - CT Exams Head CT Interpretation: Tele-radiologist Report, No/Intracranial Hemorrhag Cervical Spine CT Interpretation: Tele-radiologist Report, DJD, No Fracture Chest CT Interpretation: Tele-radiologist Report, No Fracture, No PE Abdomen/Pelvis CT Interpretation: Tele-radiologist Report, Normal Appendix, No Fracture, Other (rt fkank stranding/contussion) Lumbar Spine CT Interpretation: Tele-radiologist Report, No Fracture Ordered Tests: Active Orders 24 hr Category Date Time Status EKG-ER Only STAT Care 06/09/21 10:53 Active IV Insertion STAT Care 06/09/21 10:53 Active ABDOMEN AND PELVIS W/0 CONTRAS [CT] Stat Exams 06/09/21 12:01 Taken ANKLE (3 VIEWS) Stat Exams 06/09/21 10:59 Taken CERVICAL SPINE WO CONTRAST [CT] Stat Exams 06/09/21 11:47 Taken CHEST WITH CONTRAST [CT] Stat Exams 06/09/21 12:18 Taken HEAD WITHOUT CONTRAST [CT] Stat Exams 06/09/21 10:56 Taken KNEE (3 VIEWS) Stat Exams 06/09/21 12:45 Taken RECONSTRUCTION [CT] Routine Exams 06/09/21 12:19 Taken CBC W DIFF Stat Lab 06/09/21 10:53 Completed CMP Stat Lab 06/09/21 10:53 Completed CULTURE,URINE Stat Lab 06/09/21 12:30 Received D-DIMER QUANTITATIVE Stat Lab 06/09/21 11:23 Completed HCG QUALITATIVE,SERUM Stat Lab 06/09/21 11:23 Completed INFLUENZA A+B ELISA Stat Lab 06/09/21 Completed Lactic Acid Stat Lab 06/09/21 10:53 Completed NT PRO BNP Stat Lab 06/09/21 10:53 Completed TROPONIN Q3H Lab 06/09/21 11:23 Completed TROPONIN Q3H Lab 06/09/21 14:00 Ordered TROPONIN Q3H Lab 06/09/21 17:00 Ordered TROPONIN Q3H Lab 06/09/21 20:00 Ordered TROPONIN Q3H Lab 06/09/21 23:00 Ordered UA W/RFX UR CULTURE Stat Lab 06/09/21 12:30 Completed Medication Summary Discontinued Medications Generic Name Dose Route Start Last Admin Trade Name Ruiz PRN Reason Stop Dose Admin Sodium Chloride 1,000 mls @ 999 mls/hr 06/09/21 10:53 06/09/21 12:21 Sodium Chloride 0.9% 1000 Ml IV 06/09/21 11:53 Infused .Q1H1M STA Infusion Sodium Chloride Confirm 06/09/21 11:17 Sodium Chloride 0.9% 1000 Ml Administered 06/09/21 11:18 Dose 1,000 mls @ ud .ROUTE .STK-MED ONE Lab/Rad Data: Laboratory Result Diagrams 06/09/21 10:53 06/09/21 10:53 Laboratory Results 06/09/21 06/09/21 06/09/21 Range/Units Unknown 12:30 11:23 WBC (4.0-10.5) K/mm3 RBC (4.1-5.4) M/mm3 Hgb (12.0-16.0) gm/dl Hct (35-47) % MCV (78-100) fl MCH (26-32) pg MCHC (32-36) g/dl RDW (11.5-14.0) % Plt Count (150-450) K/mm3 MPV (7.5-11.0) fl Gran % (36.0-66.0) % Eos # (Auto) (0-0.5) Absolute Lymphs (auto) (1.0-4.6) Absolute Monos (auto) (0.0-1.3) Lymphocytes % (24.0-44.0) % Monocytes % (0.0-12.0) % Eosinophils % (0.00-5.0) % Basophils % (0.0-0.4) % Absolute Granulocytes (1.4-6.9) Basophils # (0-0.4) D-Dimer 1751 H* (215-500) ng/mL Sodium (137-145) mmol/L Potassium (3.5-5.1) mmol/L Chloride (98-107) mmol/L Carbon Dioxide (22-30) mmol/L Anion Gap (5-15) MEQ/L BUN (7-17) mg/dL Creatinine (0.52-1.04) mg/dL Estimated GFR ML/MIN Glucose (74-106) mg/dL Lactic Acid (0.4-2.0) Calcium (8.4-10.2) mg/dL Total Bilirubin (0.2-1.3) mg/dL AST (14-36) U/L ALT (0-35) U/L Alkaline Phosphatase (38-126) U/L Troponin I (0.000-0.034) ng/mL NT-Pro-B Natriuret Pep (0-900) pg/mL Serum Total Protein (6.3-8.2) g/dL Albumin (3.5-5.0) g/dL Serum , Qual (Negative) Urine Color [place] (YELLOW) Urine Appearance CLOUDY (CLEAR) Urine pH 6.0 (5-6) Ur Specific [place] 1.024 (1.005-1.025) Urine Protein 100 (Negative) Urine Ketones TRACE (NEGATIVE) Urine Blood NEGATIVE (0-5) Shaka/ul Urine Nitrite NEGATIVE (NEGATIVE) Urine Bilirubin NEGATIVE (NEGATIVE) Urine Urobilinogen 4 (0-1) mg/dL Ur Leukocyte Esterase NEGATIVE (NEGATIVE) Urine WBC (Auto) 6-10 (0-5) /HPF Urine RBC (Auto) 0-2 (0-2) /HPF U Hyaline Cast (Auto) 3-5 (0-2) /LPF U Epithel Cells (Auto) RARE (FEW) /HPF Urine Bacteria (Auto) RARE (NEGATIVE) /HPF Urine Mucus (Auto) SLIGHT (NEGATIVE) /HPF Urine Culture Reflexed YES (NO) Urine Glucose NEGATIVE (NEGATIVE) mg/dL Influenza Type A Ag NEGATIVE (NEGATIVE) Influenza Type B Ag NEGATIVE (NEGATIVE) 06/09/21 06/09/21 06/09/21 Range/Units 11:23 11:23 10:53 WBC (4.0-10.5) K/mm3 RBC (4.1-5.4) M/mm3 Hgb (12.0-16.0) gm/dl Hct (35-47) % MCV (78-100) fl MCH (26-32) pg MCHC (32-36) g/dl RDW (11.5-14.0) % Plt Count (150-450) K/mm3 MPV (7.5-11.0) fl Gran % (36.0-66.0) % Eos # (Auto) (0-0.5) Absolute Lymphs (auto) (1.0-4.6) Absolute Monos (auto) (0.0-1.3) Lymphocytes % (24.0-44.0) % Monocytes % (0.0-12.0) % Eosinophils % (0.00-5.0) % Basophils % (0.0-0.4) % Absolute Granulocytes (1.4-6.9) Basophils # (0-0.4) D-Dimer (215-500) ng/mL Sodium 134 L (137-145) mmol/L Potassium 4.5 (3.5-5.1) mmol/L Chloride 97 L (98-107) mmol/L Carbon Dioxide 29 (22-30) mmol/L Anion Gap 12.0 (5-15) MEQ/L BUN 9 (7-17) mg/dL Creatinine 0.74 (0.52-1.04) mg/dL Estimated GFR > 60.0 ML/MIN Glucose 154 H (74-106) mg/dL Lactic Acid (0.4-2.0) Calcium 8.7 (8.4-10.2) mg/dL Total Bilirubin 0.80 (0.2-1.3) mg/dL AST 23 (14-36) U/L ALT 22 (0-35) U/L Alkaline Phosphatase 55 (38-126) U/L Troponin I < 0.012 (0.000-0.034) ng/mL NT-Pro-B Natriuret Pep 80.6 (0-900) pg/mL Serum Total Protein 7.6 (6.3-8.2) g/dL Albumin 4.3 (3.5-5.0) g/dL Serum , Qual NEGATIVE (Negative) Urine Color (YELLOW) Urine Appearance (CLEAR) Urine pH (5-6) Ur Specific [place] (1.005-1.025) Urine Protein (Negative) Urine Ketones (NEGATIVE) Urine Blood (0-5) Shaka/ul Urine Nitrite (NEGATIVE) Urine Bilirubin (NEGATIVE) Urine Urobilinogen (0-1) mg/dL Ur Leukocyte Esterase (NEGATIVE) Urine WBC (Auto) (0-5) /HPF Urine RBC (Auto) (0-2) /HPF U Hyaline Cast (Auto) (0-2) /LPF U Epithel Cells (Auto) (FEW) /HPF Urine Bacteria (Auto) (NEGATIVE) /HPF Urine Mucus (Auto) (NEGATIVE) /HPF Urine Culture Reflexed (NO) Urine Glucose (NEGATIVE) mg/dL Influenza Type A Ag (NEGATIVE) Influenza Type B Ag (NEGATIVE) 06/09/21 06/09/21 Range/Units 10:53 10:53 WBC 9.4 (4.0-10.5) K/mm3 RBC 4.69 (4.1-5.4) M/mm3 Hgb 14.4 (12.0-16.0) gm/dl Hct 43.1 (35-47) % MCV 91.9 (78-100) fl MCH 30.7 (26-32) pg MCHC 33.4 (32-36) g/dl RDW 13.6 (11.5-14.0) % Plt Count 356 (150-450) K/mm3 MPV 8.7 (7.5-11.0) fl Gran % 72.4 H (36.0-66.0) % Eos # (Auto) 0.10 (0-0.5) Absolute Lymphs (auto) 1.86 (1.0-4.6) Absolute Monos (auto) 0.59 (0.0-1.3) Lymphocytes % 19.8 L (24.0-44.0) % Monocytes % 6.3 (0.0-12.0) % Eosinophils % 1.1 (0.00-5.0) % Basophils % 0.4 (0.0-0.4) % Absolute Granulocytes 6.79 (1.4-6.9) Basophils # 0.04 (0-0.4) D-Dimer (215-500) ng/mL Sodium (137-145) mmol/L Potassium (3.5-5.1) mmol/L Chloride (98-107) mmol/L Carbon Dioxide (22-30) mmol/L Anion Gap (5-15) MEQ/L BUN (7-17) mg/dL Creatinine (0.52-1.04) mg/dL Estimated GFR ML/MIN Glucose (74-106) mg/dL Lactic Acid 1.7 (0.4-2.0) Calcium (8.4-10.2) mg/dL Total Bilirubin (0.2-1.3) mg/dL AST (14-36) U/L ALT (0-35) U/L Alkaline Phosphatase (38-126) U/L Troponin I (0.000-0.034) ng/mL NT-Pro-B Natriuret Pep (0-900) pg/mL Serum Total Protein (6.3-8.2) g/dL Albumin (3.5-5.0) g/dL Serum , Qual (Negative) Urine Color (YELLOW) Urine Appearance (CLEAR) Urine pH (5-6) Ur Specific [place] (1.005-1.025) Urine Protein (Negative) Urine Ketones (NEGATIVE) Urine Blood (0-5) Shaka/ul Urine Nitrite (NEGATIVE) Urine Bilirubin (NEGATIVE) Urine Urobilinogen (0-1) mg/dL Ur Leukocyte Esterase (NEGATIVE) Urine WBC (Auto) (0-5) /HPF Urine RBC (Auto) (0-2) /HPF U Hyaline Cast (Auto) (0-2) /LPF U Epithel Cells (Auto) (FEW) /HPF Urine Bacteria (Auto) (NEGATIVE) /HPF Urine Mucus (Auto) (NEGATIVE) /HPF Urine Culture Reflexed (NO) Urine Glucose (NEGATIVE) mg/dL Influenza Type A Ag (NEGATIVE) Influenza Type B Ag (NEGATIVE) - Progress Progress: improved, re-examined Progress Note: 06/09/21 14:47 DIscussed with pt and Dr. Arceo and all agree best to place pt in for obs and f ollow trops/monitor. and stay on elliquis but monitor hgb with flank bruise. Will also do PT for right knee and left ankle with Ortho f/u. Discussed with : Kirstin Will see patient in: hospital (observation) Counseled pt/family regarding: lab results, diagnosis, need for follow-up, rad results - Departure Departure Disposition: Observation Clinical Impression: Syncopal episodes, right knee occult fx concern, left ankle occult fx concern, right flank contussion /hematoma, Diabetes Condition: Good Critical Care Time: No Referrals: DOCTOR,NO FAMILY [Primary Care Provider] - Follow up/PCP as directed
[2021-06-09] MEDS ORDERED: Sodium Chloride 0.9% 1000 ML 1,000 ML ONE (11:17)
[2021-06-09 11:33] LABS: Absolute Neutrophil Ct (ANC) 6.79 (1.4-6.9); Basophil (Absolute #) 0.04 (0-0.4); Eosinophil % 1.1 % (0.00-5.0); Hematocrit 43.1 % (35-47); Hemoglobin 14.4 gm/dl (12.0-16.0); Lymphocyte (Absolute #) 1.86 (1.0-4.6); Lymphocytes % 19.8 % (24.0-44.0); Mean Cell Volume 91.9 fl (78-100); Mean Corpuscular Hemoglobin 30.7 pg (26-32); Mean Corpuscular Hgb Concent. 33.4 g/dl (32-36); Mean Platelet Volume 8.7 fl (7.5-11.0); Monocyte (Absolute #) 0.59 (0.0-1.3); Monocytes % 6.3 % (0.0-12.0); Neutrophil % 72.4 % (36.0-66.0); Platelet Count 356 K/mm3 (150-450); Red Blood Count 4.69 M/mm3 (4.1-5.4); Red Cell Distribution Width 13.6 % (11.5-14.0); White Blood Count 9.4 K/mm3 (4.0-10.5)
[2021-06-09 11:44] LABS: ALBUMIN 4.3 g/dL (3.5-5.0); ALKALINE PHOSPHATASE 55 U/L (38-126); BLOOD UREA NITROGEN 9 mg/dL (7-17); CHLORIDE 97 mmol/L (98-107); Calcium 8.7 mg/dL (8.4-10.2); Carbon Dioxide 29 mmol/L (22-30); Creatinine 1 0.74 mg/dL (0.52-1.04); EST GLOMERULAR FILTRATION RATE > 60.0 ML/MIN; Glucose 154 mg/dL (74-106); NT PRO BNP 80.6 pg/mL (0-900); Potassium 4.5 mmol/L (3.5-5.1); SGOT/AST 23 U/L (14-36); SGPT/ALT 22 U/L (0-35); SODIUM 134 mmol/L (137-145); Total Protein 7.6 g/dL (6.3-8.2)
[2021-06-09 12:48] LABS: Appearance CLOUDY (CLEAR); Bacteria RARE /HPF (NEGATIVE); Bilirubin NEGATIVE (NEGATIVE); Blood NEGATIVE Ery/ul (0-5); Epithelial Cells RARE /HPF (FEW); Glucose NEGATIVE (NEGATIVE); Ketones TRACE (NEGATIVE); Leukocyte Esterase NEGATIVE (NEGATIVE); Mucus SLIGHT /HPF (NEGATIVE); Nitrite NEGATIVE (NEGATIVE); Protein,Urine Dip 100 (Negative); RBC 0-2 /HPF (0-2); Specific Gravity 1.024 (1.005-1.025); Urobilinogen 4 mg/dL (0-1)
[2021-06-09 13:15] LABS: INFLUENZA A NEGATIVE (NEGATIVE); INFLUENZA B NEGATIVE (NEGATIVE)
[2021-06-09] MEDS ORDERED: MORPHINE SULFATE 10 MG/ML IV ONE (15:08)
[2021-06-09 15:53] LABS: INFLUENZA A NEGATIVE (NEGATIVE); INFLUENZA B NEGATIVE (NEGATIVE); RESPIRATORY SYNCTIAL VIRUS NEGATIVE (Negative); SARS-CoV-2 Xpert Express NEGATIVE (NEGATIVE)
[2021-06-09] MEDS ORDERED: MORPHINE SULFATE 4 MG INJ ONE (16:08)
[2021-06-09] MEDS: Sodium Chloride 0.9% 1000 ML 1,000 ML IV SCH (17:34)
[2021-06-09] MEDS: OXYCODONE-ACETAMINOPHEN 10-325 PO PRN ×2 (17:34→23:25)
[2021-06-09] MEDS ORDERED: Protonix 40MG Tablet PO ONE (18:00)
[2021-06-09] MEDS: Zofran 4 MG/2 ML VIAL IV PRN ×2 (18:46→23:26)
--- NOTE | 2021-06-09 18:56 | XRAY ---
Indication: Pain following fall. Comparison: None 3 view left ankle demonstrates soft tissue swelling, osteopenia, small heel spurs, and tiny spurring distal tibia. No other bony, articular, or soft tissue abnormalities.
--- NOTE | 2021-06-09 18:56 | XRAY ---
Indication: Pain following fall. Comparison: None 3 view right knee demonstrates osteopenia and mild/moderate tricompartmental degenerative changes greatest patellofemoral. 4mm well circumscribed heterotopic ossification medial to tibial spine. No other bony, articular, or soft tissue abnormalities.
--- NOTE | 2021-06-09 19:00 | XRAY ---
Indication: Status post fall. Flu symptoms. Weakness. Multiple contiguous axial images obtained through the head without contrast. Comparison: None Normal appearing brain parenchyma, ventricles, and bony calvarium for patient's age. Paranasal sinuses and mastoid air cells are clear. Impression: Normal CT head without contrast exam. Comment: Preliminary interpretation made by [facility]. No critical discrepancy.
--- NOTE | 2021-06-09 19:02 | XRAY ---
Indication: Status post fall. Flu symptoms. Weakness. Multiple contiguous axial images obtained through the cervical spine. Sagittal and coronal reformatted images obtained. Comparison: None Axial images negative for acute fracture, suspicious bony lesions, or spinal canal stenosis. Minimal/mild multilevel degenerative endplate spurring greatest at C5-C6. Also mild atlantoaxial degenerative arthropathy and multilevel bilateral degenerative facet hypertrophy. Sagittal and coronal reformatted images demonstrate normal alignment. C5-C6 disc space loss. No acute compression fracture, subluxation, or jumped facet. Normal appearing craniocervical junction. Visualized noncontrasted soft tissues demonstrates small heterogeneous thyroid gland. Major arteries and veins are normal in course and caliber. CT head and CT chest reported separately. Impression: 1. Negative acute fracture/subluxation. 2. Multilevel degenerative changes. Comment: Preliminary interpretation made by [facility]. No critical discrepancy.
--- NOTE | 2021-06-09 19:04 | XRAY ---
Indication: Status post fall. Positive flu. Weakness. Elevated d-dimer. Multiple contiguous axial images obtained through the chest using 100 cc Isovue 370 contrast and PE protocol. Comparison: None There is good opacification of the pulmonary arteries to include the lobar and segmental branches. No pulmonary embolus. Heart not enlarged. No pathologic mediastinal/hilar lymphadenopathy. Lungs are mistreats mild bilateral dependent atelectasis. No suspicious pulmonary mass, infiltrate, or effusion. Bony thorax intact with mild degenerative changes throughout the spine. CT abdomen/pelvis reported separately. Impression: Negative pulmonary embolus. No acute cardiopulmonary abnormalities or fracture. Comment: Preliminary interpretation made by [facility]. No critical discrepancy.
--- NOTE | 2021-06-09 19:09 | XRAY ---
Indication: Status post fall. Pain. Weakness. Multiple contiguous axial images obtained through the abdomen and pelvis without contrast. Comparison: None CT chest reported separately. Noncontrasted stomach and bowel loops appear nonobstructed with normal appendix. Mild diffuse scatter colonic fecal debris greatest in the ascending and transverse colon. Previous post cystectomy and hysterectomy. No free fluid/air. Remaining liver, pancreas, spleen, adrenal glands, kidneys, ureters, and bladder are unremarkable for noncontrast exam. Minimal scattered aortoiliac calcifications without AAA. Osseous structures intact with minimal/mild degenerative changes throughout the thoracolumbar spine and both hips. Right gluteus demonstrates mild subcutaneous induration either posttraumatic versus inflammatory/infectious. Impression: 1. Mild fecal stasis and chronic bony findings. 2. Right gluteal subcutaneous induration either posttraumatic versus inflammatory/infectious. 3. Remaining CT abdomen/pelvis without contrast exam is negative. Comment: Preliminary interpretation made by [facility]. No critical discrepancy.
--- NOTE | 2021-06-09 19:11 | XRAY ---
Indication: Status post fall. Low back/tailbone pain. Axial, coronal, and sagittal reformatted images of the lumbar spine obtained using the raw data from same-day CT abdomen/pelvis. Comparison: None Axial images negative for acute fracture, suspicious bony lesions, or spinal canal stenosis. Minimal/mild multilevel bilateral degenerative facet arthropathy and mild bilateral SI joint degenerative changes. Visualized sacrum unremarkable. Sagittal and coronal reformatted images demonstrate normal alignment with vertebral body heights/disc spaces maintained. No acute compression fracture or subluxation. CT abdomen/pelvis reported separately. Impression: Degenerative changes. No acute findings. Comment: Preliminary interpretation made by [facility] [place]. No critical discrepancy.
[2021-06-09] MEDS ORDERED: MORPHINE SULFATE 4 MG INJ IV PRN (20:45)
[2021-06-09] MEDS: MORPHINE SULFATE 10 MG/ML IV PRN (20:51)
[2021-06-09] MEDS ORDERED: REMERON 30 MG ONE (21:14)
[2021-06-09] MEDS: Lopressor 25MG Tab PO SCH (21:16)
[2021-06-09] MEDS: Zestril 20 MG PO SCH (21:17)
[2021-06-09] MEDS: NORVASC 5 MG PO SCH (21:17)
[2021-06-09] MEDS ORDERED: MIRTAZAPINE PO ONE (22:00)
[2021-06-10] MEDS: Zofran 4 MG/2 ML VIAL IV PRN ×4 (03:36→15:34)
[2021-06-10] MEDS: Sodium Chloride 0.9% 1000 ML 1,000 ML IV SCH ×2 (04:14→18:39)
[2021-06-10] MEDS: OXYCODONE-ACETAMINOPHEN 10-325 PO PRN (04:24)
[2021-06-10 06:13] LABS: Absolute Neutrophil Ct (ANC) 4.19 (1.4-6.9); Basophil (Absolute #) 0.04 (0-0.4); Eosinophil % 4.9 % (0.00-5.0); Eosinophil (Absolute #) 0.42 (0-0.5); Hematocrit 43.1 % (35-47); Hemoglobin 13.8 gm/dl (12.0-16.0); Lymphocytes % 37.3 % (24.0-44.0); Mean Cell Volume 95.6 fl (78-100); Mean Corpuscular Hemoglobin 30.6 pg (26-32); Monocyte (Absolute #) 0.74 (0.0-1.3); Monocytes % 8.6 % (0.0-12.0); Neutrophil % 48.7 % (36.0-66.0); Platelet Count 322 K/mm3 (150-450); Red Blood Count 4.51 M/mm3 (4.1-5.4); White Blood Count 8.6 K/mm3 (4.0-10.5)
[2021-06-10 06:27] LABS: ALBUMIN 3.5 g/dL (3.5-5.0); ALKALINE PHOSPHATASE 47 U/L (38-126); ANION GAP 10.2 MEQ/L (5-15); BLOOD UREA NITROGEN 9 mg/dL (7-17); CHLORIDE 104 mmol/L (98-107); Calcium 8.3 mg/dL (8.4-10.2); Carbon Dioxide 27 mmol/L (22-30); Creatinine 1 0.66 mg/dL (0.52-1.04); EST GLOMERULAR FILTRATION RATE > 60.0 ML/MIN; Glucose 90 mg/dL (74-106); Potassium 3.7 mmol/L (3.5-5.1); SGOT/AST 23 U/L (14-36); SGPT/ALT 19 U/L (0-35); SODIUM 138 mmol/L (137-145); Total Protein 6.5 g/dL (6.3-8.2)
[2021-06-10] MEDS: MORPHINE SULFATE 10 MG/ML IV PRN ×3 (07:30→15:33)
[2021-06-10] MEDS ORDERED: Cyclobenzaprine 10 MG PO PRN (08:42)
[2021-06-10] MEDS ORDERED: NON-FORMULARY ITEM (Apixaban [Eliquis] 5 MG Tablet) PO SCH (10:00)
[2021-06-10] MEDS ORDERED: NORVASC 5 MG PO SCH (10:00)
[2021-06-10] MEDS ORDERED: Ativan 2 MG/1 ML VIAL IV ONE (10:45)
[2021-06-10] MEDS ORDERED: Transderm Scop 1.5MG Patch TOP ONE (10:46)
[2021-06-10] MEDS: ELIQUIS 2.5 MG TABLET PO SCH (12:12)
[2021-06-10] MEDS: Lopressor 25MG Tab PO SCH (12:13)
[2021-06-10] MEDS: NEURONTIN 300 MG PO SCH ×2 (12:13→15:34)
[2021-06-10] MEDS: NORVASC 5 MG PO SCH (12:13)
[2021-06-10] MEDS: HYDROCORTISONE PO SCH ×2 (12:13→18:39)
[2021-06-10] MEDS: Zetia 10 MG PO SCH (12:13)
[2021-06-10] MEDS: Zestril 20 MG PO SCH (12:13)
--- NOTE | 2021-06-10 12:21 | PCM.HP ---
History of Present Illness - Chief Complaint Chief Complaint: Syncopal episodes, right knee/left ankle injuries, right flank contusion History of Present Illness: is a 65 year old female pt of Dr. Ortiz with MVP and paroxysmal tachycardia who was admitted through ER with syncope and falls. Two days ago, at 7:30 pm,she was walking down stairs and at 2 steps from the bottom she blacked out. Upon awakening, she crawled to the bar and pulled herself up. She had N and vertigo when she sat on the stool so she sat on the floor and on her way down had anther syncopal episode. Her CTs of the head, neck, abd/pelvis, and tailbone were all neg for acute fx. XR of knee and ankle neg for acute fracture. Her only other hx of syncope was 2 yrs ago when she was standing in line. She recently underwent a cardiac workup; had an event monitor of some type in Feb 2021 (saw Dr. Amezcua). Today she is c/o pain in the L ankle/foot, lower back, R knee. Hasn't been feeling well - her son's family has Flu A but she tested negative in ER. Has had sore throat x 5d with occ non-prod cough. She has not been tolerating po well while she's been feeling sick. - Review of Systems Ears, Nose, & Throat: Throat Pain Respiratory: Cough Cardiac: Edema (LE, intermittent - Dr. Feliz is to do a venous procedure), Palpitations (the other day) Abdominal/Gastrointestinal: Appetite Changes Genitourinary Symptoms: Dysuria All Other Systems: Reviewed and Negative Medications & Allergies Home Medications: Home Medication List Amlodipine Besylate 5 mg [Norvasc 5 mg] 5 mg PO BID 11/18/20 [History Confirmed 06/09/21] Apixaban [Eliquis] 5 mg PO BID 11/18/20 [History Confirmed 06/09/21] Hydrocortisone 10 mg PO DAILY 11/18/20 [History Confirmed 06/09/21] PANTOPRAZOLE 40 mg Tablet [Protonix 40MG Tablet] 40 mg PO 1800 11/18/20 [History Confirmed 06/09/21] lisinopriL [Lisinopril] 20 mg PO BID 11/18/20 [History Confirmed 06/09/21] Ezetimibe 10 mg [Zetia 10 MG] 10 mg PO DAILY 06/09/21 [History Confirmed 06/09/21] Gabapentin 300 mg [Neurontin 300 mg] 300 mg PO TID 06/09/21 [History Confirmed 06/09/21] Hydrocortisone 5 mg PO 1800 06/09/21 [History Confirmed 06/09/21] Liraglutide [Victoza 2-Kodak] 1.8 mg SQ DAILY 06/09/21 [History Confirmed 06/09/21] Metoprolol Tartrate 25 mg [Lopressor 25MG Tab] 25 mg PO BID 06/09/21 [History Confirmed 06/09/21] Mirtazapine 7.5 mg PO HS 06/09/21 [History Confirmed 06/09/21] Allergies/Adverse Reactions: Allergies Allergy/AdvReac Type Severity Reaction Status Date / Time bee venom protein (honey bee) Allergy Severe Swelling Verified 06/09/21 10:50 erythromycin base Allergy Intermediate Nausea and Verified 06/09/21 10:50 Vomiting Penicillins Allergy Intermediate Nausea and Verified 06/09/21 10:50 Vomiting tetracycline Allergy Intermediate Nausea and Verified 06/09/21 10:50 Vomiting - Past Medical History Past Medical History: Yes Neurological History: No Pertinent History ENT History: No Pertinent History Cardiac History: Angina, Arrhythmia, High Cholesterol, Hypertension Respiratory History: Asthma Endocrine Medical History: Diabetes Type II Musculoskelatal History: Fractures GI Medical History: GERD History: No Pertinent History Pyscho-Social History: No Pertinent History Reproductive Disorders: Abnormal Uterine Bleeding - Past Surgical History Past Surgical History: Yes Neuro Surgical History: No Pertinent History Cardiac History: Cardiac Catheterization, Other Respiratory Surgery: No Pertinent History GI Surgical History: Cholecystectomy, Hernia Repair Genitourinary Surgical Hx: No Pertinent History Musculskeletal Surgical Hx: Orthopedic Surgery Female Surgical History: Hysterectomy Other Surgical History: Left Knee Replacement. Fusion of 5th and 6th Vertebre - Social History Smoking Status: Never smoker Exposure to second hand smoke: No Alcohol: Occasionally Drug Use: none Significant Family History: no pertinent family hx - Physical Exam Vital Signs: Vital Signs - 24 hr Temp Pulse Resp BP Pulse Ox 06/10/21 07:53 97.9 F 82 16 177/105 94 L 06/10/21 07:29 94 L 06/10/21 03:43 98.0 F 64 20 95/54 95 06/10/21 00:04 97.3 F 61 14 113/55 95 06/09/21 23:38 95 06/09/21 19:56 97.7 F 73 17 113/62 95 06/09/21 17:22 98 06/09/21 16:42 98.0 F 78 15 162/77 93 L 06/09/21 16:30 98.0 F 78 16 162/77 93 L 06/09/21 16:23 98.0 F 78 16 162/77 93 L 06/09/21 14:00 81 18 135/83 100 06/09/21 13:00 82 18 136/82 98 General Appearance: mild distress, alert Neurologic Exam: oriented x 3, cooperative Eye Exam: eyes nml inspection Ears, Nose, Throat Exam: moist mucous membranes, No pharyngeal erythema Neck Exam: normal inspection, non-tender, No lymphadenopathy, No thyromegaly Cardiovascular Exam: regular rate/rhythm, normal heart sounds, No murmur Gastrointestinal/Abdomen Exam: soft, normal bowel sounds, other (L flank nttp), No tenderness, No distention, No mass, No guarding, No rebound Back Exam: normal inspection, No CVA tenderness, No rash Extremity Exam: other (L ankle in a brace. tr le edema L ankle with ttp and edema laterally; no crepitus.) Skin Exam: warm, dry, No rash Results - Labs Lab/Micro Results: Lab Results-Last 24 Hours 06/09/21 06/09/21 06/09/21 Range/Units 11:00 11:48 12:30 WBC (4.0-10.5) K/mm3 RBC (4.1-5.4) M/mm3 Hgb (12.0-16.0) gm/dl Hct (35-47) % MCV (78-100) fl MCH (26-32) pg MCHC (32-36) g/dl RDW (11.5-14.0) % Plt Count (150-450) K/mm3 MPV (7.5-11.0) fl Gran % (36.0-66.0) % Eos # (Auto) (0-0.5) Absolute Lymphs (auto) (1.0-4.6) Absolute Monos (auto) (0.0-1.3) Lymphocytes % (24.0-44.0) % Monocytes % (0.0-12.0) % Eosinophils % (0.00-5.0) % Basophils % (0.0-0.4) % Absolute Granulocytes (1.4-6.9) Basophils # (0-0.4) Sodium (137-145) mmol/L Potassium (3.5-5.1) mmol/L Chloride (98-107) mmol/L Carbon Dioxide (22-30) mmol/L Anion Gap (5-15) MEQ/L BUN (7-17) mg/dL Creatinine (0.52-1.04) mg/dL Estimated GFR ML/MIN Glucose (74-106) mg/dL POC Glucometer (74 to 106) mg/dL Hemoglobin A1c 6.53 H (4.5-6.0) % Calcium (8.4-10.2) mg/dL Total Bilirubin (0.2-1.3) mg/dL AST (14-36) U/L ALT (0-35) U/L Alkaline Phosphatase (38-126) U/L Troponin I (0.000-0.034) ng/mL Serum Total Protein (6.3-8.2) g/dL Albumin (3.5-5.0) g/dL Urine Color [place] (YELLOW) Urine Appearance CLOUDY (CLEAR) Urine pH 6.0 (5-6) Ur Specific Marcella 1.024 (1.005-1.025) Urine Protein 100 (Negative) Urine Ketones TRACE (NEGATIVE) Urine Blood NEGATIVE (0-5) Shaka/ul Urine Nitrite NEGATIVE (NEGATIVE) Urine Bilirubin NEGATIVE (NEGATIVE) Urine Urobilinogen 4 (0-1) mg/dL Ur Leukocyte Esterase NEGATIVE (NEGATIVE) Urine WBC (Auto) 6-10 (0-5) /HPF Urine RBC (Auto) 0-2 (0-2) /HPF U Hyaline Cast (Auto) 3-5 (0-2) /LPF U Epithel Cells (Auto) RARE (FEW) /HPF Urine Bacteria (Auto) RARE (NEGATIVE) /HPF Urine Mucus (Auto) SLIGHT (NEGATIVE) /HPF Urine Culture Reflexed YES (NO) Urine Glucose NEGATIVE (NEGATIVE) mg/dL Influenza Type A Ag NEGATIVE (NEGATIVE) Influenza Type B Ag NEGATIVE (NEGATIVE) RSV (PCR) NEGATIVE (Negative) SARS-CoV-2 (PCR) NEGATIVE (NEGATIVE) 06/09/21 06/09/21 06/09/21 Range/Units 15:15 16:52 17:24 WBC (4.0-10.5) K/mm3 RBC (4.1-5.4) M/mm3 Hgb (12.0-16.0) gm/dl Hct (35-47) % MCV (78-100) fl MCH (26-32) pg MCHC (32-36) g/dl RDW (11.5-14.0) % Plt Count (150-450) K/mm3 MPV (7.5-11.0) fl Gran % (36.0-66.0) % Eos # (Auto) (0-0.5) Absolute Lymphs (auto) (1.0-4.6) Absolute Monos (auto) (0.0-1.3) Lymphocytes % (24.0-44.0) % Monocytes % (0.0-12.0) % Eosinophils % (0.00-5.0) % Basophils % (0.0-0.4) % Absolute Granulocytes (1.4-6.9) Basophils # (0-0.4) Sodium (137-145) mmol/L Potassium (3.5-5.1) mmol/L Chloride (98-107) mmol/L Carbon Dioxide (22-30) mmol/L Anion Gap (5-15) MEQ/L BUN (7-17) mg/dL Creatinine (0.52-1.04) mg/dL Estimated GFR ML/MIN Glucose (74-106) mg/dL POC Glucometer 84 (74 to 106) mg/dL Hemoglobin A1c (4.5-6.0) % Calcium (8.4-10.2) mg/dL Total Bilirubin (0.2-1.3) mg/dL AST (14-36) U/L ALT (0-35) U/L Alkaline Phosphatase (38-126) U/L Troponin I < 0.012 < 0.012 (0.000-0.034) ng/mL Serum Total Protein (6.3-8.2) g/dL Albumin (3.5-5.0) g/dL Urine Color (YELLOW) Urine Appearance (CLEAR) Urine pH (5-6) Ur Specific Marcella (1.005-1.025) Urine Protein (Negative) Urine Ketones (NEGATIVE) Urine Blood (0-5) Shaka/ul Urine Nitrite (NEGATIVE) Urine Bilirubin (NEGATIVE) Urine Urobilinogen (0-1) mg/dL Ur Leukocyte Esterase (NEGATIVE) Urine WBC (Auto) (0-5) /HPF Urine RBC (Auto) (0-2) /HPF U Hyaline Cast (Auto) (0-2) /LPF U Epithel Cells (Auto) (FEW) /HPF Urine Bacteria (Auto) (NEGATIVE) /HPF Urine Mucus (Auto) (NEGATIVE) /HPF Urine Culture Reflexed (NO) Urine Glucose (NEGATIVE) mg/dL Influenza Type A Ag (NEGATIVE) Influenza Type B Ag (NEGATIVE) RSV (PCR) (Negative) SARS-CoV-2 (PCR) (NEGATIVE) 06/09/21 06/09/21 06/09/21 Range/Units 20:20 20:43 23:11 WBC (4.0-10.5) K/mm3 RBC (4.1-5.4) M/mm3 Hgb (12.0-16.0) gm/dl Hct (35-47) % MCV (78-100) fl MCH (26-32) pg MCHC (32-36) g/dl RDW (11.5-14.0) % Plt Count (150-450) K/mm3 MPV (7.5-11.0) fl Gran % (36.0-66.0) % Eos # (Auto) (0-0.5) Absolute Lymphs (auto) (1.0-4.6) Absolute Monos (auto) (0.0-1.3) Lymphocytes % (24.0-44.0) % Monocytes % (0.0-12.0) % Eosinophils % (0.00-5.0) % Basophils % (0.0-0.4) % Absolute Granulocytes (1.4-6.9) Basophils # (0-0.4) Sodium (137-145) mmol/L Potassium (3.5-5.1) mmol/L Chloride (98-107) mmol/L Carbon Dioxide (22-30) mmol/L Anion Gap (5-15) MEQ/L BUN (7-17) mg/dL Creatinine (0.52-1.04) mg/dL Estimated GFR ML/MIN Glucose (74-106) mg/dL POC Glucometer 99 (74 to 106) mg/dL Hemoglobin A1c (4.5-6.0) % Calcium (8.4-10.2) mg/dL Total Bilirubin (0.2-1.3) mg/dL AST (14-36) U/L ALT (0-35) U/L Alkaline Phosphatase (38-126) U/L Troponin I < 0.012 < 0.012 (0.000-0.034) ng/mL Serum Total Protein (6.3-8.2) g/dL Albumin (3.5-5.0) g/dL Urine Color (YELLOW) Urine Appearance (CLEAR) Urine pH (5-6) Ur Specific Marcella (1.005-1.025) Urine Protein (Negative) Urine Ketones (NEGATIVE) Urine Blood (0-5) Shaka/ul Urine Nitrite (NEGATIVE) Urine Bilirubin (NEGATIVE) Urine Urobilinogen (0-1) mg/dL Ur Leukocyte Esterase (NEGATIVE) Urine WBC (Auto) (0-5) /HPF Urine RBC (Auto) (0-2) /HPF U Hyaline Cast (Auto) (0-2) /LPF U Epithel Cells (Auto) (FEW) /HPF Urine Bacteria (Auto) (NEGATIVE) /HPF Urine Mucus (Auto) (NEGATIVE) /HPF Urine Culture Reflexed (NO) Urine Glucose (NEGATIVE) mg/dL Influenza Type A Ag (NEGATIVE) Influenza Type B Ag (NEGATIVE) RSV (PCR) (Negative) SARS-CoV-2 (PCR) (NEGATIVE) 06/09/21 06/10/21 06/10/21 Range/Units Unknown 05:30 05:30 WBC 8.6 (4.0-10.5) K/mm3 RBC 4.51 (4.1-5.4) M/mm3 Hgb 13.8 (12.0-16.0) gm/dl Hct 43.1 (35-47) % MCV 95.6 (78-100) fl MCH 30.6 (26-32) pg MCHC 32.0 (32-36) g/dl RDW 14.0 (11.5-14.0) % Plt Count 322 (150-450) K/mm3 MPV 9.0 (7.5-11.0) fl Gran % 48.7 (36.0-66.0) % Eos # (Auto) 0.42 (0-0.5) Absolute Lymphs (auto) 3.20 (1.0-4.6) Absolute Monos (auto) 0.74 (0.0-1.3) Lymphocytes % 37.3 (24.0-44.0) % Monocytes % 8.6 (0.0-12.0) % Eosinophils % 4.9 (0.00-5.0) % Basophils % 0.5 (0.0-0.4) % Absolute Granulocytes 4.19 (1.4-6.9) Basophils # 0.04 (0-0.4) Sodium 138 (137-145) mmol/L Potassium 3.7 (3.5-5.1) mmol/L Chloride 104 (98-107) mmol/L Carbon Dioxide 27 (22-30) mmol/L Anion Gap 10.2 (5-15) MEQ/L BUN 9 (7-17) mg/dL Creatinine 0.66 (0.52-1.04) mg/dL Estimated GFR > 60.0 ML/MIN Glucose 90 (74-106) mg/dL POC Glucometer (74 to 106) mg/dL Hemoglobin A1c (4.5-6.0) % Calcium 8.3 L (8.4-10.2) mg/dL Total Bilirubin 0.90 (0.2-1.3) mg/dL AST 23 (14-36) U/L ALT 19 (0-35) U/L Alkaline Phosphatase 47 (38-126) U/L Troponin I (0.000-0.034) ng/mL Serum Total Protein 6.5 (6.3-8.2) g/dL Albumin 3.5 (3.5-5.0) g/dL Urine Color (YELLOW) Urine Appearance (CLEAR) Urine pH (5-6) Ur Specific Marcella (1.005-1.025) Urine Protein (Negative) Urine Ketones (NEGATIVE) Urine Blood (0-5) Shaka/ul Urine Nitrite (NEGATIVE) Urine Bilirubin (NEGATIVE) Urine Urobilinogen (0-1) mg/dL Ur Leukocyte Esterase (NEGATIVE) Urine WBC (Auto) (0-5) /HPF Urine RBC (Auto) (0-2) /HPF U Hyaline Cast (Auto) (0-2) /LPF U Epithel Cells (Auto) (FEW) /HPF Urine Bacteria (Auto) (NEGATIVE) /HPF Urine Mucus (Auto) (NEGATIVE) /HPF Urine Culture Reflexed (NO) Urine Glucose (NEGATIVE) mg/dL Influenza Type A Ag NEGATIVE (NEGATIVE) Influenza Type B Ag NEGATIVE (NEGATIVE) RSV (PCR) (Negative) SARS-CoV-2 (PCR) (NEGATIVE) 06/10/21 06/10/21 Range/Units 07:35 12:00 WBC (4.0-10.5) K/mm3 RBC (4.1-5.4) M/mm3 Hgb (12.0-16.0) gm/dl Hct (35-47) % MCV (78-100) fl MCH (26-32) pg MCHC (32-36) g/dl RDW (11.5-14.0) % Plt Count (150-450) K/mm3 MPV (7.5-11.0) fl Gran % (36.0-66.0) % Eos # (Auto) (0-0.5) Absolute Lymphs (auto) (1.0-4.6) Absolute Monos (auto) (0.0-1.3) Lymphocytes % (24.0-44.0) % Monocytes % (0.0-12.0) % Eosinophils % (0.00-5.0) % Basophils % (0.0-0.4) % Absolute Granulocytes (1.4-6.9) Basophils # (0-0.4) Sodium (137-145) mmol/L Potassium (3.5-5.1) mmol/L Chloride (98-107) mmol/L Carbon Dioxide (22-30) mmol/L Anion Gap (5-15) MEQ/L BUN (7-17) mg/dL Creatinine (0.52-1.04) mg/dL Estimated GFR ML/MIN Glucose (74-106) mg/dL POC Glucometer 83 91 (74 to 106) mg/dL Hemoglobin A1c (4.5-6.0) % Calcium (8.4-10.2) mg/dL Total Bilirubin (0.2-1.3) mg/dL AST (14-36) U/L ALT (0-35) U/L Alkaline Phosphatase (38-126) U/L Troponin I (0.000-0.034) ng/mL Serum Total Protein (6.3-8.2) g/dL Albumin (3.5-5.0) g/dL Urine Color (YELLOW) Urine Appearance (CLEAR) Urine pH (5-6) Ur Specific Marcella (1.005-1.025) Urine Protein (Negative) Urine Ketones (NEGATIVE) Urine Blood (0-5) Shaka/ul Urine Nitrite (NEGATIVE) Urine Bilirubin (NEGATIVE) Urine Urobilinogen (0-1) mg/dL Ur Leukocyte Esterase (NEGATIVE) Urine WBC (Auto) (0-5) /HPF Urine RBC (Auto) (0-2) /HPF U Hyaline Cast (Auto) (0-2) /LPF U Epithel Cells (Auto) (FEW) /HPF Urine Bacteria (Auto) (NEGATIVE) /HPF Urine Mucus (Auto) (NEGATIVE) /HPF Urine Culture Reflexed (NO) Urine Glucose (NEGATIVE) mg/dL Influenza Type A Ag (NEGATIVE) Influenza Type B Ag (NEGATIVE) RSV (PCR) (Negative) SARS-CoV-2 (PCR) (NEGATIVE) Microbiology 06/09/21 12:30 Urine Culture - Preliminary Clean Catch Midstream <10K NORMAL SKIN MEE PROBABLE SKIN CONTAMINANT Accuchecks Date 06/10/21 Date 06/09/21 Time 12:00 Time 17:13 - Radiology Impressions Radiology Exams & Impressions: Radiology Procedures Category Date Time Status ABDOMEN AND PELVIS W/0 CONTRAS [CT] Stat Exams 06/09/21 12:01 Completed ANKLE (3 VIEWS) Stat Exams 06/09/21 10:59 Completed CERVICAL SPINE WO CONTRAST [CT] Stat Exams 06/09/21 11:47 Completed CHEST WITH CONTRAST [CT] Stat Exams 06/09/21 12:18 Completed ECHO W/2D AND DOPPLER [US] Routine Exams 06/10/21 Taken HEAD WITHOUT CONTRAST [CT] Stat Exams 06/09/21 10:56 Completed KNEE (3 VIEWS) Stat Exams 06/09/21 12:45 Completed MRI BRAIN W & W/O CONTRAST [MRI] Routine Exams 06/10/21 08:44 Ordered RECONSTRUCTION [CT] Routine Exams 06/09/21 12:19 Completed Assessment/Plan (1) Syncopal episodes Current Visit: Yes Status: Acute Qualifiers: Syncope type: unspecified Qualified Code(s): R55 - Syncope and collapse Assessment & Plan: Workup in progress. Consult cardiology as sounds like they had begun a cardiac workup late last year. Code(s): R55 - SYNCOPE AND COLLAPSE (2) Left ankle pain Current Visit: Yes Status: Acute Qualifiers: Chronicity: acute Qualified Code(s): M25.572 - Pain in left ankle and joints of left foot Assessment & Plan: No fracture. Brace in place (likely sprain). PT consulted. Code(s): M25.572 - PAIN IN LEFT ANKLE AND JOINTS OF LEFT FOOT (3) Right knee pain Current Visit: Yes Status: Acute Qualifiers: Chronicity: acute Qualified Code(s): M25.561 - Pain in right knee Code(s): M25.561 - PAIN IN RIGHT KNEE
[2021-06-10] MEDS: ANTIVERT 25 MG PO SCH (15:34)
[2021-06-10] MEDS ORDERED: Ativan 2 MG/1 ML VIAL IV PRN (16:55)
[2021-06-10] MEDS: Protonix 40MG Tablet PO SCH (18:39)
--- NOTE | 2021-06-10 18:55 | XRAY ---
Indication: Syncope. Sagittal, coronal, and axial MRI brain performed using pre-and post T1, T2, FLAIR, diffusion, and ADC sequences. 25 cc Dotarem contrast used. Comparison: None Several images/sequences are slightly degraded by motion. Age-appropriate global atrophy and mild periventricular degenerative micro-ischemia signal bilaterally. No acute intracranial hemorrhage, abnormal extra-axial fluid collection, or mass effect. Diffusion images are negative for restricted signal. Following gadolinium, there is no abnormal enhancing intra or extra-axial mass. Fourth ventricle is midline without hydrocephalus. 7/8 cranial nerve complex bilaterally symmetric. Normal flow void signal within the major intracerebral circulation. Normal appearing craniocervical junction and sella turcica. Minimal mucosal thickening both ethmoid sinuses. Impression: 1. Motion artifact. 2. Atrophy and degenerative micro-ischemia within normal limits for patient's age. 3. Minimal paranasal sinus disease. 4. Remaining MRI brain with contrast exam is negative.
[2021-06-10] MEDS ORDERED: NON-FORMULARY ITEM (Mirtazapine [Mirtazapine] 7.5 MG Tablet) PO SCH (22:00)
[2021-06-11] MEDS: Zestril 20 MG PO SCH ×2 (00:29→09:19)
[2021-06-11] MEDS: NORVASC 5 MG PO SCH ×2 (00:29→09:19)
[2021-06-11] MEDS: Lopressor 25MG Tab PO SCH ×2 (00:29→09:19)
[2021-06-11] MEDS: NEURONTIN 300 MG PO SCH ×3 (00:29→15:04)
[2021-06-11] MEDS: ANTIVERT 25 MG PO SCH ×3 (00:29→15:05)
[2021-06-11] MEDS: ELIQUIS 2.5 MG TABLET PO SCH ×2 (00:29→09:18)
[2021-06-11] MEDS: Sodium Chloride 0.9% 1000 ML 1,000 ML IV SCH ×2 (00:30→16:40)
[2021-06-11] MEDS: MIRTAZAPINE PO SCH (00:30)
[2021-06-11] MEDS: OXYCODONE-ACETAMINOPHEN 10-325 PO PRN (08:02)
[2021-06-11] MEDS: Zofran 4 MG/2 ML VIAL IV PRN ×2 (08:06→20:12)
--- NOTE | 2021-06-11 08:12 | PCM.NOTE ---
Date and Time: 06/11/21806 Subjective Assessment: Pt feeling "lousy" this morning, very sore. Some relief with flexeril. I woke pt; she does c/o 10/10 pain currently. No pain meds recently per pt. She was seen by ortho [employer] LEAD and cardiology yesterday, thank you. Feels like L ankle is more swollen medially this morning. Has very poor appetite. - Review of Systems Constitutional: No Fever Abdominal/Gastrointestinal: Appetite Changes Musculoskeletal: Injury, Joint Pain Objective Exam General Appearance: mild distress, alert (speaking to me quietly) Neurologic Exam: oriented x 3, cooperative Skin Exam: normal color, warm, dry, No rash Eye Exam: eyes nml inspection Ears, Nose, Throat Exam: moist mucous membranes Respiratory Exam: normal breath sounds, lungs clear, No crackles/rales, No rhonchi, No wheezing Cardiovascular Exam: regular rate/rhythm, normal heart sounds, No murmur Gastrointestinal/Abdomen Exam: soft, normal bowel sounds, No tenderness, No distention, No mass, No guarding, No rebound Extremity Exam: other (R knee in brace L ankle in brace to knee) OBJECTIVE DATA Vital Signs: Vital Signs - 24 hr Temp Pulse Resp BP Pulse Ox 06/11/21 04:00 98.6 F 104 H 16 133/60 92 L 06/11/21 00:00 97.3 F 86 16 140/67 94 L 06/10/21 20:06 97 06/10/21 19:34 97.1 F 70 16 162/82 92 L 06/10/21 16:00 97.9 F 76 17 136/64 95 06/10/21 12:00 98.4 F 72 13 134/70 91 L Pain Assessment - Last Documented Pain Intensity 10 Pain Scale Used 0-10 Pain Scale Intake and Output: Intake & Output 06/08/21 06/09/21 06/10/21 06/11/21 11:59 11:59 11:59 11:59 Intake Total 2388 240 Output Total 400 300 Balance 1987 Weight 98.4 kg 96.8 kg Lab Results: Lab Results-Last 24 Hours 06/10/21 06/10/21 06/10/21 Range/Units 12:00 16:00 16:44 POC Glucometer 91 93 (74 to 106) mg/dL Vitamin B12 564 (239-931) pg/mL 06/10/21 06/11/21 Range/Units 21:23 07:42 POC Glucometer 84 123 H (74 to 106) mg/dL Vitamin B12 (239-931) pg/mL Radiology Exams: Radiology Procedures Category Date Time Status ABDOMEN AND PELVIS W/0 CONTRAS [CT] Stat Exams 06/09/21 12:01 Completed ANKLE (3 VIEWS) Stat Exams 06/09/21 10:59 Completed CAROTID BILATERAL [US] Routine Exams 06/11/21 Ordered CERVICAL SPINE WO CONTRAST [CT] Stat Exams 06/09/21 11:47 Completed CHEST WITH CONTRAST [CT] Stat Exams 06/09/21 12:18 Completed ECHO W/2D AND DOPPLER [US] Routine Exams 06/10/21 Taken HEAD WITHOUT CONTRAST [CT] Stat Exams 06/09/21 10:56 Completed KNEE (3 VIEWS) Stat Exams 06/09/21 12:45 Completed LUMBAR LIMITED (2 OR 3 VIEWS) Routine Exams 06/10/21 18:40 Taken MRI BRAIN W & W/O CONTRAST [MRI] Routine Exams 06/10/21 08:44 Completed RECONSTRUCTION [CT] Routine Exams 06/09/21 12:19 Completed SACRUM AND COCCYX Routine Exams 06/10/21 18:40 Taken Assessment/Plan (1) Syncopal episodes Current Visit: Yes Status: Acute Qualifiers: Syncope type: unspecified Qualified Code(s): R55 - Syncope and collapse Assessment & Plan: Cardiology consulted, thank you. Agreed with current testing and added B12, TSH, and carotid doppler. Otherwise she is to f/u outpatient. Code(s): R55 - SYNCOPE AND COLLAPSE (2) Left ankle pain Current Visit: Yes Status: Acute Qualifiers: Chronicity: acute Qualified Code(s): M25.572 - Pain in left ankle and joints of left foot Assessment & Plan: Per ortho, thank you, she has a different brace. Await ortho and PT recs moving forward. Code(s): M25.572 - PAIN IN LEFT ANKLE AND JOINTS OF LEFT FOOT (3) Right knee pain Current Visit: Yes Status: Acute Qualifiers: Chronicity: acute Qualified Code(s): M25.561 - Pain in right knee Code(s): M25.561 - PAIN IN RIGHT KNEE (4) Poor appetite Current Visit: Yes Status: Acute Code(s): R63.0 - ANOREXIA (5) Fall Current Visit: Yes Status: Acute Qualifiers: Encounter type: subsequent encounter Qualified Code(s): W19.XXXD - Unspecified fall, subsequent encounter Assessment & Plan: somewhat better on flexeril; will change to baclofen to see if that helps more. Code(s): W19.XXXA - UNSPECIFIED FALL, INITIAL ENCOUNTER
--- NOTE | 2021-06-11 08:41 | XRAY ---
Indication: Pain following fall 2 days ago. Comparison: CT abdomen/pelvis one day earlier. 3 view sacrum/coccyx again demonstrates mild osteopenia, mild pubic symphysis degenerative changes, and a few pelvic phleboliths. No new/acute bony, articular, or soft tissue abnormalities.
--- NOTE | 2021-06-11 08:41 | XRAY ---
Indication: Pain following fall 2 days ago. Comparison: CT lumbar spine one day earlier. 3 view lumbar spine again demonstrates 5 lumbar segments in normal alignment with mild osteopenia and minimal/mild multilevel degenerative spondylosis. No new/acute bony, articular, or soft tissue abnormalities.
[2021-06-11] MEDS: Zetia 10 MG PO SCH (09:19)
[2021-06-11] MEDS: HYDROCORTISONE PO SCH ×2 (09:19→17:29)
[2021-06-11] MEDS: LIORESAL 10 MG PO SCH ×2 (11:18→15:04)
[2021-06-11] MEDS: Protonix 40MG Tablet PO SCH (17:28)
[2021-06-11] MEDS: PERCOCET TABLET 5/325MG PO PRN (17:28)
[2021-06-11] MEDS: MORPHINE SULFATE 10 MG/ML IV PRN (20:12)
[2021-06-12] MEDS: ELIQUIS 2.5 MG TABLET PO SCH ×3 (00:15→21:29)
[2021-06-12] MEDS: Sodium Chloride 0.9% 1000 ML 1,000 ML IV SCH ×3 (02:19→22:17)
[2021-06-12] MEDS: Lopressor 25MG Tab PO SCH ×3 (03:07→21:28)
[2021-06-12] MEDS: NEURONTIN 300 MG PO SCH ×4 (03:08→21:28)
[2021-06-12] MEDS: NORVASC 5 MG PO SCH ×3 (03:08→21:29)
[2021-06-12] MEDS: MIRTAZAPINE PO SCH ×2 (03:08→21:29)
[2021-06-12] MEDS: Zestril 20 MG PO SCH ×3 (03:09→21:29)
[2021-06-12] MEDS: MORPHINE SULFATE 10 MG/ML IV PRN (05:20)
[2021-06-12] MEDS: LIORESAL 10 MG PO SCH ×4 (05:32→21:28)
[2021-06-12] MEDS: ANTIVERT 25 MG PO SCH ×4 (05:33→21:29)
[2021-06-12 06:16] LABS: Appearance CLEAR (CLEAR); Bacteria MANY /HPF (NEGATIVE); Bilirubin NEGATIVE (NEGATIVE); Blood NEGATIVE Ery/ul (0-5); Epithelial Cells RARE /HPF (FEW); Glucose NEGATIVE (NEGATIVE); Ketones NEGATIVE (NEGATIVE); Leukocyte Esterase NEGATIVE (NEGATIVE); Nitrite NEGATIVE (NEGATIVE); Protein,Urine Dip NEGATIVE (Negative); RBC 0-2 /HPF (0-2); Specific Gravity 1.004 (1.005-1.025); Urobilinogen NEGATIVE mg/dL (0-1)
[2021-06-12] MEDS: Zofran 4 MG/2 ML VIAL IV PRN ×2 (06:32→11:58)
[2021-06-12 10:01] LABS: INFLUENZA A NEGATIVE (NEGATIVE); INFLUENZA B NEGATIVE (NEGATIVE)
--- NOTE | 2021-06-12 10:07 | XRAY ---
Indication: Pain. Comparison: None 3 view right ankle demonstrates soft tissue swelling, osteopenia, and small posterior/plantar heel spurs. No other bony, articular, or soft tissue abnormalities.
[2021-06-12] MEDS: PERCOCET TABLET 5/325MG PO PRN ×3 (10:29→18:24)
[2021-06-12] MEDS: Zetia 10 MG PO SCH (10:31)
[2021-06-12] MEDS: HYDROCORTISONE PO SCH ×2 (10:33→18:25)
[2021-06-12] MEDS: CHLORASEPTIC SPRAY 180 ML PO PRN (10:38)
[2021-06-12] MEDS: Mucinex 600MG ER Tabs PO SCH ×2 (10:39→21:28)
[2021-06-12] MEDS: HUMULIN R SQ PRN (11:54)
--- NOTE | 2021-06-12 13:12 | PCM.NOTE ---
Date and Time: 06/12/21 1305 Subjective Assessment: Pt still not feeling great today, having pain, however more awake than yesterday. Tells RN after visit that she is having R foot pain. After taking 10mg percocet yesterday she was quite somnolent, had a hard time working with PT then was sleeping soundly. We decreased the percocet to 5/325. This morning it looks like she last took it at 5:30 last night and then had IV morphine about 5:30 this morning. She is up in the chair eating. Family at bedside. - Review of Systems Constitutional: No Fever Abdominal/Gastrointestinal: No Vomiting Objective Exam General Appearance: no apparent distress, alert Neurologic Exam: oriented x 3, cooperative, normal mood/affect Skin Exam: normal color, warm, dry, No rash Eye Exam: eyes nml inspection Ears, Nose, Throat Exam: moist mucous membranes Neck Exam: normal inspection Respiratory Exam: normal breath sounds, lungs clear, No crackles/rales, No rhonchi, No wheezing Cardiovascular Exam: regular rate/rhythm, normal heart sounds, No murmur Gastrointestinal/Abdomen Exam: soft, normal bowel sounds, No tenderness, No distention, No mass, No guarding, No rebound Extremity Exam: other (L ankle in brace to knee.) OBJECTIVE DATA Vital Signs: Vital Signs - 24 hr Temp Pulse Resp BP Pulse Ox 06/12/21 12:00 97.5 F 56 L 16 128/58 100 06/12/21 08:14 94 L 06/12/21 07:30 97.1 F 54 L 16 116/56 99 06/12/21 03:32 97.1 F 60 18 132/62 94 L 06/11/21 23:49 97.1 F 63 18 108/58 100 06/11/21 20:00 97.3 F 65 18 107/60 95 06/11/21 18:50 95 06/11/21 16:00 96.3 F 64 19 105/57 95 Pain Assessment - Last Documented Pain Intensity 9 Pain Scale Used 0-10 Pain Scale Intake and Output: Intake & Output 06/10/21 06/11/21 06/12/21 06/13/21 11:59 11:59 11:59 11:59 Intake Total 2388 240 2548 Output Total 801 289 2503 Balance 1987 48 Weight 96.8 kg 99.8 kg 99.8 kg Lab Results: Lab Results-Last 24 Hours 06/10/21 06/11/21 06/11/21 Range/Units 05:00 16:09 20:50 POC Glucometer 153 H 126 H (74 to 106) mg/dL Urine Color STRAW (YELLOW) Urine Appearance CLEAR (CLEAR) Urine pH 6.0 (5-6) Ur Specific [place] 1.004 (1.005-1.025) Urine Protein NEGATIVE (Negative) Urine Ketones NEGATIVE (NEGATIVE) Urine Blood NEGATIVE (0-5) Shaka/ul Urine Nitrite NEGATIVE (NEGATIVE) Urine Bilirubin NEGATIVE (NEGATIVE) Urine Urobilinogen NEGATIVE (0-1) mg/dL Ur Leukocyte Esterase NEGATIVE (NEGATIVE) Urine WBC (Auto) 3-5 (0-5) /HPF Urine RBC (Auto) 0-2 (0-2) /HPF U Epithel Cells (Auto) RARE (FEW) /HPF Urine Bacteria (Auto) MANY (NEGATIVE) /HPF Urine Culture Reflexed YES (NO) Urine Glucose NEGATIVE (NEGATIVE) mg/dL Influenza Type A Ag (NEGATIVE) Influenza Type B Ag (NEGATIVE) Group A Strep Antibody (NEGATIVE) 06/12/21 06/12/21 06/12/21 Range/Units 07:12 09:35 09:35 POC Glucometer 123 H (74 to 106) mg/dL Urine Color (YELLOW) Urine Appearance (CLEAR) Urine pH (5-6) Ur Specific [place] (1.005-1.025) Urine Protein (Negative) Urine Ketones (NEGATIVE) Urine Blood (0-5) Shaka/ul Urine Nitrite (NEGATIVE) Urine Bilirubin (NEGATIVE) Urine Urobilinogen (0-1) mg/dL Ur Leukocyte Esterase (NEGATIVE) Urine WBC (Auto) (0-5) /HPF Urine RBC (Auto) (0-2) /HPF U Epithel Cells (Auto) (FEW) /HPF Urine Bacteria (Auto) (NEGATIVE) /HPF Urine Culture Reflexed (NO) Urine Glucose (NEGATIVE) mg/dL Influenza Type A Ag NEGATIVE (NEGATIVE) Influenza Type B Ag NEGATIVE (NEGATIVE) Group A Strep Antibody NOT DETECTED (NEGATIVE) 06/12/21 06/12/21 06/12/21 Range/Units 11:35 11:35 11:35 POC Glucometer 163 H 163 H 163 H (74 to 106) mg/dL Urine Color (YELLOW) Urine Appearance (CLEAR) Urine pH (5-6) Ur Specific [place] (1.005-1.025) Urine Protein (Negative) Urine Ketones (NEGATIVE) Urine Blood (0-5) Shaka/ul Urine Nitrite (NEGATIVE) Urine Bilirubin (NEGATIVE) Urine Urobilinogen (0-1) mg/dL Ur Leukocyte Esterase (NEGATIVE) Urine WBC (Auto) (0-5) /HPF Urine RBC (Auto) (0-2) /HPF U Epithel Cells (Auto) (FEW) /HPF Urine Bacteria (Auto) (NEGATIVE) /HPF Urine Culture Reflexed (NO) Urine Glucose (NEGATIVE) mg/dL Influenza Type A Ag (NEGATIVE) Influenza Type B Ag (NEGATIVE) Group A Strep Antibody (NEGATIVE) Radiology Exams: Radiology Procedures Category Date Time Status ANKLE (3 VIEWS) Routine Exams 06/12/21 09:43 Completed CAROTID BILATERAL [US] Routine Exams 06/11/21 13:53 Taken Multi-Disciplinary Progress Notes: Multi-Disciplinary Progress Notes 06/12/21 12:32 Case Management Note by Teresa Herbert REFERRAL FAXED TO [facility]- THEY WILL NEED NOTIFIED AT TIME OF DC AT [phone]. THEY WILL NEED FAXED THE DC INSTRUCTIONS, DC MED LIST, AND DC SUMMARY ( IF AVAILABLE) TO [phone] Initialized on 06/12/21 12:32 - END OF NOTE 06/12/21 12:31 Case Management Note by Teresa Herbert S/W PATIENT- SHE IS AGREEABLE TO [facility]. SHE HOWEVER PLANS TO RETURN HOME TO HER OWN HOME AT TIME OF DC INSTEAD OF STAYING WITH FAMILY SUGGESTED. PATIENT AGREEABLE TO [facility] THEY ARE IN NETWORK WITH HER INSURANCE. REFERRAL FAXED AT THIS TIME. ONEIDA BRAND ALSO ORDER THRU [facility] FOR DELIVERY TO HER HOME Initialized on 06/12/21 12:31 - END OF NOTE 06/11/21 13:55 Physical Therapy Note by [email or web address]/[id number] PT. SEEN BY Kaylee THIS A.M. REPORTS L ANKLE AND LBP AT 9.5/10. PT. LETHARGIC, STARING AT TIMES, AND SLIHGTLY DELAYED W/ REPONSES IN CONVERSATION. PT. NEEDED TO USE THE TOILET. PERFORMED SUPINE TO SIT W/ MIN ASSIST. PT. ABLE TO MAINTAIN BALANCE IN SITTING ON SIDE OF BED. SIT TO STAND PERFORMED W/ MIN ASSIST. TRANSFERRED TO COMMODE W/ MIN ASSIST WHILE WEARING CAM BOOT ON L ANKLE AND KNEE BRACE R KNEE. PT. ABLE TO DOFF PANTS AND UNDERWEAR W/ MIN ASSIST. PT. STOOD FROM COMMODE W/ CGA-MIN ASSIST. PT. PRIMARILY NEEDED CLOSE ASSIST D/T LETHARGY AND DECREASED ALERTNESS. PT. AMBULATED ~ 40' W/ ROLLER WALKER AND CGA-MIN ASSIST - C/O FEELING DIZZY AND NEEDING TO SIT DOWN ON BED BEFORE GETTING TO CHAIR BUT WAS ABLE TO MAKE IT TO CHAIR W/ MIN ASSIST. PT. ABLE TO DOFF PANTS W/ MIN ASSIST AND REMOVED BRACES FOR HER TO APPLY CP TO R KNEE AND L ANKLE. NOTED MODERATE TO SEVERE L ANKLE EDEMA. ASSISTED PT. W/ DONNING CLEAN UNDERWEAR AND PANTS AND THEN CP WAS APPLIED TO BOTH JOINTS. INSTRUCTED ONLINE MEDIA DIRECTOR TO LEAVE CP ON FOR 30' IF POSSIBLE. APPLIED TUBIGRIP TO L LL FOR EDEMA MG'T. PT. WOULD BENEFIT FROM CONT. P.T. EITHER VIA C OR OP UPON D/C. FEEL PN MED MG'T IS PRIORITY TO ALLOW FOR PN CONTROL W/ PROPER ALERTNESS FOR SAFETY. WILL CONT. P.T. 5X/WK UNTIL D/C. RX TIME - 11:15-11:55 Initialized on 06/11/21 13:55 - END OF NOTE Assessment/Plan (1) Syncopal episodes Current Visit: Yes Status: Acute Qualifiers: Syncope type: unspecified Qualified Code(s): R55 - Syncope and collapse Assessment & Plan: No more syncope here. Cardiac workup done; should f/u [facility] cardiology and neurology outpatient. Goal would be pain mgmt po, if pt can get around independently and pain is controlled, may be able to d/c home tonight or tomorrow. D/c morphine, start percocet 5 on more regular basis Code(s): R55 - SYNCOPE AND COLLAPSE (2) Left ankle pain Current Visit: Yes Status: Acute Qualifiers: Chronicity: acute Qualified Code(s): M25.572 - Pain in left ankle and joints of left foot Code(s): M25.572 - PAIN IN LEFT ANKLE AND JOINTS OF LEFT FOOT (3) Right knee pain Current Visit: Yes Status: Acute Qualifiers: Chronicity: acute Qualified Code(s): M25.561 - Pain in right knee Code(s): M25.561 - PAIN IN RIGHT KNEE (4) Poor appetite Current Visit: Yes Status: Acute Code(s): R63.0 - ANOREXIA (5) Fall Current Visit: Yes Status: Acute Qualifiers: Encounter type: subsequent encounter Qualified Code(s): W19.XXXD - Unspecified fall, subsequent encounter Code(s): W19.XXXA - UNSPECIFIED FALL, INITIAL ENCOUNTER
[2021-06-12] MEDS: Protonix 40MG Tablet PO SCH (18:25)
--- NOTE | 2021-06-13 08:51 | PCM.NOTE ---
Date and Time: 06/13/21 0847 Subjective Assessment: Pt had altered mental status last night, was confused, tore out her IV and thought she was in her car. Tearful this morning due to the events of last night. Eating well. Was up walking well yesterday. - Review of Systems Constitutional: No Fever Abdominal/Gastrointestinal: No Vomiting Psychological: Other (confusion) Objective Exam General Appearance: mild distress, alert Neurologic Exam: oriented x 3, cooperative Skin Exam: normal color, warm, dry, No rash Eye Exam: eyes nml inspection Ears, Nose, Throat Exam: moist mucous membranes Neck Exam: normal inspection Respiratory Exam: normal breath sounds, lungs clear, No crackles/rales, No rhonchi, No wheezing Cardiovascular Exam: regular rate/rhythm, normal heart sounds, No murmur Gastrointestinal/Abdomen Exam: soft, normal bowel sounds, No tenderness, No distention, No mass, No guarding, No rebound Extremity Exam: other (L ankle in brace to knee trace edema RLE) Back Exam: normal inspection, No rash OBJECTIVE DATA Vital Signs: Vital Signs - 24 hr Temp Pulse Resp BP Pulse Ox 06/13/21 08:00 97.5 F 73 16 137/65 100 06/13/21 07:00 96 06/13/21 04:00 59 L 20 96 06/13/21 00:00 97.3 F 58 L 20 140/67 96 06/12/21 20:00 97.0 F 63 20 139/74 98 06/12/21 18:30 94 L 06/12/21 16:00 97.5 F 63 18 139/66 98 06/12/21 12:00 97.5 F 56 L 16 128/58 100 Pain Assessment - Last Documented Pain Intensity 9 Pain Scale Used 0-10 Pain Scale Intake and Output: Intake & Output 06/10/21 06/11/21 06/12/21 06/13/21 11:59 11:59 11:59 11:59 Intake Total 2388 240 2548 1685 Output Total 377 447 2772 2625 Balance 1987 48 -940 Weight 96.8 kg 99.8 kg 99.8 kg 100 kg Lab Results: Lab Results-Last 24 Hours 06/12/21 06/12/21 06/12/21 Range/Units 09:35 09:35 11:35 POC Glucometer 163 H (74 to 106) mg/dL Influenza Type A Ag NEGATIVE (NEGATIVE) Influenza Type B Ag NEGATIVE (NEGATIVE) Group A Strep Antibody NOT DETECTED (NEGATIVE) 06/12/21 06/12/21 06/12/21 Range/Units 11:35 11:35 16:41 POC Glucometer 163 H 163 H 139 H (74 to 106) mg/dL Influenza Type A Ag (NEGATIVE) Influenza Type B Ag (NEGATIVE) Group A Strep Antibody (NEGATIVE) 06/12/21 Range/Units 16:41 POC Glucometer 139 H (74 to 106) mg/dL Influenza Type A Ag (NEGATIVE) Influenza Type B Ag (NEGATIVE) Group A Strep Antibody (NEGATIVE) Radiology Exams: Radiology Procedures Category Date Time Status ANKLE (3 VIEWS) Routine Exams 06/12/21 09:43 Completed CAROTID BILATERAL [US] Routine Exams 06/11/21 13:53 Taken CHEST 2 VIEWS (PA AND LAT) Routine Exams 06/13/21 Ordered Multi-Disciplinary Progress Notes: Multi-Disciplinary Progress Notes 06/12/21 16:58 Physical Therapy Note by [email or web address]/[id number],Aubree RX TIME- [id number] PT. SEEN BY P.T AGAIN THIS PM. RATES L ANKLE AND TAILBONE PN AT 6-10/13. IN BED ASLEEP UPON P.T. ARRIVAL TO ROOM. PT. AGREEABLE TO P.T. PERFORMED SUPINE TO SIT AND SIT TO STAND MOD I W/ RW. PT. AMBULATED ~ 100' W/ RW AND SBA-MOD I. DOES C/O L HEEL PN W/ WB. PT. DID MUCH BETTER W/ GAIT PATTERN AND PROPER NEGOTIATION OF WALKER THIS PM. PT. ABLE TO USE BEDSIDE COMMODE PERFORMING COMM ODE TRANSFER AND HYGIENE WELL DON/DOFF PANTS MOD I. PT. USED CP ON L ANKLE AND R KNEE INTERMITTENTLY THROUGHOUT THE DAY. PT. ALSO C/O COLD SX. PT. WILL CONT. TO HAVE C/O L ANKLE PN D/T SOFT TISSUE INJURY AND R KNEE PN D/T DJD A RESULT OF FALL FOR SEVERAL WKS. PT. IS SAFE TO D/C HOME W/ HHC AT THIS TIME FROM A MOBILITY STANDPOINT. WILL PROVIDE W/ HEP TO INITIATE ROM IN L ANKLE AND R KNEE. PT. DID ASK FOR PN MED AT END OF P.T. SESSION. DISCUSSED W/ PT'S RN AND IT WAS NOT TIME TO GIVE ANOTHER DOSE YET. WILL CONT. P.T. UNTIL D/C. Initialized on 06/12/21 16:58 - END OF NOTE 06/12/21 14:20 Physical Therapy Note by Rebeca/[id number],Amy PT. SEEN BY P.T. AGAIN THIS A.M. SON AND DAUGHTER PRESENT FOR RX. PT. C/O TAILBONE AND L ANKLE PN AT 10/13. HAS CAM BOOT ON L ANKLE AND KNEE BRACE ON R KNEE. PT. MORE ALERT TODAY D/T DECREASE IN PN MEDS. IN BED UPON P.T. ARRIVAL TO ROOM. SUPINE TO SIT PERFORMED W/ SBA. SIT TO STAND SBA. PT. AMBULATED ~ 80' W/ RW AND CGA-SBA. REQUIRED V.C. TO ROLL WALKER VS PICKING IT UP TO ADVANCE TO ALLOW FOR NL GAIT PATTERN. PT. EXHIBITED NL LICHA AND SLIGHTLY SHORTENED STRIDE LENGTH. PT. REPORTS SLIGHT DIZZINESS DURING WALK. SPOKE W/ PT., DAUGHTER, AND SON RE: CONCERNS ABOUT [facility] HOME SET-UP. PT. HAS BATHROOM ON LOWER LEVEL AND UPPER LEVELS ONLY WHICH REQUIRES STEP NEGOTIATION. PT. DOES NOT WANT TO STAY W/ CHILDREN. PT. WOULD BENEFIT FROM [facility] NSG AND P.T. TO INCREASE STRENGTH WELL R KNEE AND L ANKLE MOBILITY AND GAIT INDEPENDENCE. WILL CONT. P.T. 5X/WK TO ADDRESS FUNCTIONAL DEFICITS UNTIL D/C. Addendum entered and electronically signed by Rebeca/[id number],Amy, PT 06/12/21 17:06: RX TIME [id number] Initialized on 06/12/21 14:20 - END OF NOTE 06/12/21 12:32 Case Management Note by Teresa Herbert REFERRAL FAXED TO [facility]- THEY WILL NEED NOTIFIED AT TIME OF DC AT [phone]. THEY WILL NEED FAXED THE DC INSTRUCTIONS, DC MED LIST, AND DC SUMMARY ( IF AVAILABLE) TO [phone] Initialized on 06/12/21 12:32 - END OF NOTE 06/12/21 12:31 Case Management Note by Teresa Herbert S/W PATIENT- SHE IS AGREEABLE TO [facility]. SHE HOWEVER PLANS TO RETURN HOME TO HER OWN HOME AT TIME OF DC INSTEAD OF STAYING WITH FAMILY SUGGESTED. PATIENT AGREEABLE TO [facility] THEY ARE IN NETWORK WITH HER INSURANCE. REFERRAL FAXED AT THIS TIME. ONEIDA BRAND ALSO ORDER THRU [facility] FOR DELIVERY TO HER HOME Initialized on 06/12/21 12:31 - END OF NOTE Assessment/Plan (1) AMS (altered mental status) Current Visit: Yes Status: Acute Qualifiers: Altered mental status type: delirium Qualified Code(s): R41.0 - Disorientation, unspecified Assessment & Plan: resolved this morning. WIll do workup; already had MRI of the brain. Code(s): R41.82 - ALTERED MENTAL STATUS, UNSPECIFIED (2) Syncopal episodes Current Visit: Yes Status: Acute Qualifiers: Syncope type: unspecified Qualified Code(s): R55 - Syncope and collapse Assessment & Plan: Has been evaluated by cardiology - will f/u with cardiology and neurology outpatient. Code(s): R55 - SYNCOPE AND COLLAPSE (3) Left ankle pain Current Visit: Yes Status: Acute Qualifiers: Chronicity: acute Qualified Code(s): M25.572 - Pain in left ankle and joints of left foot Code(s): M25.572 - PAIN IN LEFT ANKLE AND JOINTS OF LEFT FOOT (4) Right knee pain Current Visit: Yes Status: Acute Qualifiers: Chronicity: acute Qualified Code(s): M25.561 - Pain in right knee Code(s): M25.561 - PAIN IN RIGHT KNEE (5) Poor appetite Current Visit: Yes Status: Resolved Code(s): R63.0 - ANOREXIA (6) Fall Current Visit: Yes Status: Acute Qualifiers: Encounter type: subsequent encounter Qualified Code(s): W19.XXXD - Uns pecified fall, subsequent encounter Code(s): W19.XXXA - UNSPECIFIED FALL, INITIAL ENCOUNTER
--- NOTE | 2021-06-13 09:24 | ECHO ---
DATE OF PROCEDURE: 06/10/2021 CLINICAL INFORMATION: Syncope. The M-mode 2D, and Doppler echocardiogram including color flow Doppler shows the left ventricle is normal in size at 4.3 cm. There is no thrombus present. The septal wall thickness is 1.1 cm. The left ventricular posterior wall thickness is 1.1 cm. There is normal contractility of the left ventricle. The ejection fraction is calculated to be 60%. The right ventricle is grossly normal. The left atrium is normal in size at 3.7 cm. The interatrial septum is intact. The right atrium is normal. The aortic valve opens well. There is no aortic regurgitation. The mitral valve is normal. The tricuspid valve is normal. The pulmonic valve is not well visualized. The aortic root is normal at 3.0 cm. There is no pericardial effusion present. IMPRESSION: 1) NORMAL CONTRACTILITY OF THE LEFT VENTRICLE. 2) BORDERLINE CONCENTRIC LEFT VENTRICULAR HYPERTROPHY.
--- NOTE | 2021-06-13 09:52 | XRAY ---
Indication: Acute mental status change. Syncope. Comparison: November 21, 2020. PA/lateral chest now demonstrate minimal left base discoid atelectasis/scarring. Remaining heart and lungs unremarkable. Bony thorax intact again with mild osteopenia and degenerative changes. Impression: Continued nonacute chest with chronic features.
[2021-06-13] MEDS: HYDROCODONE-ACETAMIN 10-325 MG PO PRN ×3 (10:31→21:37)
[2021-06-13] MEDS: ELIQUIS 2.5 MG TABLET PO SCH ×2 (10:32→21:38)
[2021-06-13] MEDS: ANTIVERT 25 MG PO SCH ×3 (10:32→21:38)
[2021-06-13] MEDS: CHLORASEPTIC SPRAY 180 ML PO PRN (10:32)
[2021-06-13] MEDS: Zetia 10 MG PO SCH (10:32)
[2021-06-13] MEDS: Cyclobenzaprine 10 MG PO SCH ×3 (10:32→21:51)
[2021-06-13] MEDS: NORVASC 5 MG PO SCH ×2 (10:32→21:39)
[2021-06-13] MEDS: Mucinex 600MG ER Tabs PO SCH ×2 (10:32→21:39)
[2021-06-13] MEDS: Lopressor 25MG Tab PO SCH ×2 (10:32→21:39)
[2021-06-13] MEDS: NEURONTIN 300 MG PO SCH ×3 (10:32→21:39)
[2021-06-13] MEDS: Zestril 20 MG PO SCH ×2 (10:33→21:38)
[2021-06-13] MEDS: HYDROCORTISONE PO SCH ×2 (10:33→17:20)
[2021-06-13 11:02] LABS: Absolute Neutrophil Ct (ANC) 4.39 (1.4-6.9); Basophil (Absolute #) 0.02 (0-0.4); Eosinophil % 6.4 % (0.00-5.0); Eosinophil (Absolute #) 0.47 (0-0.5); Hematocrit 41.6 % (35-47); Hemoglobin 13.3 gm/dl (12.0-16.0); Lymphocytes % 27.4 % (24.0-44.0); Mean Cell Volume 95.4 fl (78-100); Mean Corpuscular Hemoglobin 30.5 pg (26-32); Monocyte (Absolute #) 0.41 (0.0-1.3); Monocytes % 5.6 % (0.0-12.0); Neutrophil % 60.3 % (36.0-66.0); Platelet Count 307 K/mm3 (150-450); Red Blood Count 4.36 M/mm3 (4.1-5.4); Red Cell Distribution Width 13.8 % (11.5-14.0); White Blood Count 7.3 K/mm3 (4.0-10.5)
[2021-06-13 11:03] LABS: ALBUMIN 3.7 g/dL (3.5-5.0); ALKALINE PHOSPHATASE 49 U/L (38-126); ANION GAP 9.4 MEQ/L (5-15); BLOOD UREA NITROGEN 7 mg/dL (7-17); CHLORIDE 103 mmol/L (98-107); Calcium 8.5 mg/dL (8.4-10.2); Carbon Dioxide 30 mmol/L (22-30); Creatinine 1 0.69 mg/dL (0.52-1.04); EST GLOMERULAR FILTRATION RATE > 60.0 ML/MIN; Glucose 247 mg/dL (74-106); Potassium 3.9 mmol/L (3.5-5.1); SGOT/AST 23 U/L (14-36); SGPT/ALT 16 U/L (0-35); SODIUM 139 mmol/L (137-145); Total Protein 6.8 g/dL (6.3-8.2)
[2021-06-13 11:44] LABS: Appearance CLEAR (CLEAR); Bacteria MANY /HPF (NEGATIVE); Bilirubin NEGATIVE (NEGATIVE); Blood NEGATIVE Ery/ul (0-5); Epithelial Cells RARE /HPF (FEW); Glucose 50 mg/dL (NEGATIVE); Ketones NEGATIVE (NEGATIVE); Leukocyte Esterase NEGATIVE (NEGATIVE); Mucus SLIGHT /HPF (NEGATIVE); Nitrite NEGATIVE (NEGATIVE); Protein,Urine Dip NEGATIVE (Negative); Specific Gravity 1.008 (1.005-1.025); Urobilinogen 2 mg/dL (0-1)
[2021-06-13] MEDS: HUMULIN R SQ PRN ×3 (12:05→21:37)
[2021-06-13] MEDS: Protonix 40MG Tablet PO SCH (17:19)
[2021-06-13] MEDS: MIRTAZAPINE PO SCH (21:40)
[2021-06-14] MEDS: HYDROCODONE-ACETAMIN 10-325 MG PO PRN ×2 (02:24→06:16)
[2021-06-14 07:41] VITALS: BP 127/68; PULSE 75; O2SAT 96
--- NOTE | 2021-06-14 08:49 | PCM.DS ---
Discharge Summary Date of Admission: 06/11/21 08:00 Admitting Physician: JUANA COPELAND Consults: Consults on Case 06/09/21 16:23 Consult Ortho ROUTINE 06/10/21 08:41 Consult Cardiology ROUTINE Primary Care Provider: NO FAMILY DOCTOR Allergies Allergies bee venom protein (honey bee) Allergy (Severe, Verified 06/09/21 10:50) Swelling erythromycin base Allergy (Intermediate, Verified 06/09/21 10:50) Nausea and Vomiting Penicillins Allergy (Intermediate, Verified 06/09/21 10:50) Nausea and Vomiting tetracycline Allergy (Intermediate, Verified 06/09/21 10:50) Nausea and Vomiting Hospital Summary - Hospital Course Hospital Course: (patient was seen and cared for entire stay by Dr Arceo until date of discharge when she was seen by me) patient admitted through ER, had a syncopal episode with a fall, cardiology consult and brain MRI negative. c/o right knee, left ankle/foot and low back pain. xrays are all negative for fracture, admitted because she lives alone and for pain control, became very confused and agitated and required meds, workup was negative so likely related to medication reaction. she is alert, had a good night last night, able to ambulate with boot on left lower extremity and with right knee brace. no chest pain - Vitals & Intake/Output Vital Signs: Vital Signs Temperature 97.7 F 06/14/21 07:39 Pulse Rate 75 06/14/21 07:39 Respiratory Rate 18 06/14/21 07:39 Blood Pressure 127/68 06/14/21 07:39 O2 Sat by Pulse Oximetry 96 06/14/21 07:39 Intake & Output: Intake & Output 06/11/21 06/12/21 06/13/21 06/14/21 11:59 11:59 11:59 11:59 Intake Total 240 2548 1685 680 Output Total 300 5455 2629 2700 Balance -60 48 -940 -2020 Weight 99.8 kg 99.8 kg 100 kg 100.2 kg - Lab Result Diagrams: 06/13/21 10:51 06/13/21 10:51 Lab Results-Last 24 Hrs: Lab Results-Last 24 Hours 06/10/21 06/12/21 06/13/21 Range/Units 12:46 21:27 07:16 WBC (4.0-10.5) K/mm3 RBC (4.1-5.4) M/mm3 Hgb (12.0-16.0) gm/dl Hct (35-47) % MCV (78-100) fl MCH (26-32) pg MCHC (32-36) g/dl RDW (11.5-14.0) % Plt Count (150-450) K/mm3 MPV (7.5-11.0) fl Gran % (36.0-66.0) % Eos # (Auto) (0-0.5) Absolute Lymphs (auto) (1.0-4.6) Absolute Monos (auto) (0.0-1.3) Lymphocytes % (24.0-44.0) % Monocytes % (0.0-12.0) % Eosinophils % (0.00-5.0) % Basophils % (0.0-0.4) % Absolute Granulocytes (1.4-6.9) Basophils # (0-0.4) Sodium (137-145) mmol/L Potassium (3.5-5.1) mmol/L Chloride (98-107) mmol/L Carbon Dioxide (22-30) mmol/L Anion Gap (5-15) MEQ/L BUN (7-17) mg/dL Creatinine (0.52-1.04) mg/dL Estimated GFR ML/MIN Glucose (74-106) mg/dL POC Glucometer 148 H 95 (74 to 106) mg/dL Calcium (8.4-10.2) mg/dL Total Bilirubin (0.2-1.3) mg/dL AST (14-36) U/L ALT (0-35) U/L Alkaline Phosphatase (38-126) U/L Ammonia (9-30) umol/L Serum Total Protein (6.3-8.2) g/dL Albumin (3.5-5.0) g/dL TSH 3rd Generation 12.300 H (0.47-4.68) mIU/L Urine Color (YELLOW) Urine Appearance (CLEAR) Urine pH (5-6) Ur Specific [place] (1.005-1.025) Urine Protein (Negative) Urine Ketones (NEGATIVE) Urine Blood (0-5) Shaka/ul Urine Nitrite (NEGATIVE) Urine Bilirubin (NEGATIVE) Urine Urobilinogen (0-1) mg/dL Ur Leukocyte Esterase (NEGATIVE) Urine WBC (Auto) (0-5) /HPF Urine RBC (Auto) (0-2) /HPF U Epithel Cells (Auto) (FEW) /HPF Urine Bacteria (Auto) (NEGATIVE) /HPF Urine Mucus (Auto) (NEGATIVE) /HPF Urine Culture Reflexed (NO) Urine Glucose (NEGATIVE) mg/dL 06/13/21 06/13/21 06/13/21 Range/Units 10:51 10:51 10:51 WBC 7.3 (4.0-10.5) K/mm3 RBC 4.36 (4.1-5.4) M/mm3 Hgb 13.3 (12.0-16.0) gm/dl Hct 41.6 (35-47) % MCV 95.4 (78-100) fl MCH 30.5 (26-32) pg MCHC 32.0 (32-36) g/dl RDW 13.8 (11.5-14.0) % Plt Count 307 (150-450) K/mm3 MPV 9.0 (7.5-11.0) fl Gran % 60.3 (36.0-66.0) % Eos # (Auto) 0.47 (0-0.5) Absolute Lymphs (auto) 2.00 (1.0-4.6) Absolute Monos (auto) 0.41 (0.0-1.3) Lymphocytes % 27.4 (24.0-44.0) % Monocytes % 5.6 (0.0-12.0) % Eosinophils % 6.4 H (0.00-5.0) % Basophils % 0.3 (0.0-0.4) % Absolute Granulocytes 4.39 (1.4-6.9) Basophils # 0.02 (0-0.4) Sodium 139 (137-145) mmol/L Potassium 3.9 (3.5-5.1) mmol/L Chloride 103 (98-107) mmol/L Carbon Dioxide 30 (22-30) mmol/L Anion Gap 9.4 (5-15) MEQ/L BUN 7 (7-17) mg/dL Creatinine 0.69 (0.52-1.04) mg/dL Estimated GFR > 60.0 ML/MIN Glucose 247 H (74-106) mg/dL POC Glucometer (74 to 106) mg/dL Calcium 8.5 (8.4-10.2) mg/dL Total Bilirubin 0.70 (0.2-1.3) mg/dL AST 23 (14-36) U/L ALT 16 (0-35) U/L Alkaline Phosphatase 49 (38-126) U/L Ammonia < 9 L (9-30) umol/L Serum Total Protein 6.8 (6.3-8.2) g/dL Albumin 3.7 (3.5-5.0) g/dL TSH 3rd Generation (0.47-4.68) mIU/L Urine Color (YELLOW) Urine Appearance (CLEAR) Urine pH (5-6) Ur Specific [place] (1.005-1.025) Urine Protein (Negative) Urine Ketones (NEGATIVE) Urine Blood (0-5) Shaka/ul Urine Nitrite (NEGATIVE) Urine Bilirubin (NEGATIVE) Urine Urobilinogen (0-1) mg/dL Ur Leukocyte Esterase (NEGATIVE) Urine WBC (Auto) (0-5) /HPF Urine RBC (Auto) (0-2) /HPF U Epithel Cells (Auto) (FEW) /HPF Urine Bacteria (Auto) (NEGATIVE) /HPF Urine Mucus (Auto) (NEGATIVE) /HPF Urine Culture Reflexed (NO) Urine Glucose (NEGATIVE) mg/dL 06/13/21 06/13/21 06/13/21 Range/Units 11:39 15:52 21:32 WBC (4.0-10.5) K/mm3 RBC (4.1-5.4) M/mm3 Hgb (12.0-16.0) gm/dl Hct (35-47) % MCV (78-100) fl MCH (26-32) pg MCHC (32-36) g/dl RDW (11.5-14.0) % Plt Count (150-450) K/mm3 MPV (7.5-11.0) fl Gran % (36.0-66.0) % Eos # (Auto) (0-0.5) Absolute Lymphs (auto) (1.0-4.6) Absolute Monos (auto) (0.0-1.3) Lymphocytes % (24.0-44.0) % Monocytes % (0.0-12.0) % Eosinophils % (0.00-5.0) % Basophils % (0.0-0.4) % Absolute Granulocytes (1.4-6.9) Basophils # (0-0.4) Sodium (137-145) mmol/L Potassium (3.5-5.1) mmol/L Chloride (98-107) mmol/L Carbon Dioxide (22-30) mmol/L Anion Gap (5-15) MEQ/L BUN (7-17) mg/dL Creatinine (0.52-1.04) mg/dL Estimated GFR ML/MIN Glucose (74-106) mg/dL POC Glucometer 241 H 180 H 202 H (74 to 106) mg/dL Calcium (8.4-10.2) mg/dL Total Bilirubin (0.2-1.3) mg/dL AST (14-36) U/L ALT (0-35) U/L Alkaline Phosphatase (38-126) U/L Ammonia (9-30) umol/L Serum Total Protein (6.3-8.2) g/dL Albumin (3.5-5.0) g/dL TSH 3rd Generation (0.47-4.68) mIU/L Urine Color (YELLOW) Urine Appearance (CLEAR) Urine pH (5-6) Ur Specific [place] (1.005-1.025) Urine Protein (Negative) Urine Ketones (NEGATIVE) Urine Blood (0-5) Shaka/ul Urine Nitrite (NEGATIVE) Urine Bilirubin (NEGATIVE) Urine Urobilinogen (0-1) mg/dL Ur Leukocyte Esterase (NEGATIVE) Urine WBC (Auto) (0-5) /HPF Urine RBC (Auto) (0-2) /HPF U Epithel Cells (Auto) (FEW) /HPF Urine Bacteria (Auto) (NEGATIVE) /HPF Urine Mucus (Auto) (NEGATIVE) /HPF Urine Culture Reflexed (NO) Urine Glucose (NEGATIVE) mg/dL 06/13/21 06/14/21 Range/Units Unknown 07:03 WBC (4.0-10.5) K/mm3 RBC (4.1-5.4) M/mm3 Hgb (12.0-16.0) gm/dl Hct (35-47) % MCV (78-100) fl MCH (26-32) pg MCHC (32-36) g/dl RDW (11.5-14.0) % Plt Count (150-450) K/mm3 MPV (7.5-11.0) fl Gran % (36.0-66.0) % Eos # (Auto) (0-0.5) Absolute Lymphs (auto) (1.0-4.6) Absolute Monos (auto) (0.0-1.3) Lymphocytes % (24.0-44.0) % Monocytes % (0.0-12.0) % Eosinophils % (0.00-5.0) % Basophils % (0.0-0.4) % Absolute Granulocytes (1.4-6.9) Basophils # (0-0.4) Sodium (137-145) mmol/L Potassium (3.5-5.1) mmol/L Chloride (98-107) mmol/L Carbon Dioxide (22-30) mmol/L Anion Gap (5-15) MEQ/L BUN (7-17) mg/dL Creatinine (0.52-1.04) mg/dL Estimated GFR ML/MIN Glucose (74-106) mg/dL POC Glucometer 72 L (74 to 106) mg/dL Calcium (8.4-10.2) mg/dL Total Bilirubin (0.2-1.3) mg/dL AST (14-36) U/L ALT (0-35) U/L Alkaline Phosphatase (38-126) U/L Ammonia (9-30) umol/L Serum Total Protein (6.3-8.2) g/dL Albumin (3.5-5.0) g/dL TSH 3rd Generation (0.47-4.68) mIU/L Urine Color YELLOW (YELLOW) Urine Appearance CLEAR (CLEAR) Urine pH 6.0 (5-6) Ur Specific [place] 1.008 (1.005-1.025) Urine Protein NEGATIVE (Negative) Urine Ketones NEGATIVE (NEGATIVE) Urine Blood NEGATIVE (0-5) Shaka/ul Urine Nitrite NEGATIVE (NEGATIVE) Urine Bilirubin NEGATIVE (NEGATIVE) Urine Urobilinogen 2 (0-1) mg/dL Ur Leukocyte Esterase NEGATIVE (NEGATIVE) Urine WBC (Auto) 3-5 (0-5) /HPF Urine RBC (Auto) NONE (0-2) /HPF U Epithel Cells (Auto) RARE (FEW) /HPF Urine Bacteria (Auto) MANY (NEGATIVE) /HPF Urine Mucus (Auto) SLIGHT (NEGATIVE) /HPF Urine Culture Reflexed YES (NO) Urine Glucose 50 (NEGATIVE) mg/dL Micro Results-Entire Visit: Microbiology 06/10/21 05:00 Urine Culture - Final Clean Catch Midstream <10K NORMAL SKIN MEE PROBABLE SKIN CONTAMINANT 06/09/21 12:30 Urine Culture - Final Clean Catch Midstream <10K NORMAL SKIN MEE PROBABLE SKIN CONTAMINANT Accuchecks Date 06/13/21 Date 06/13/21 Date 06/13/21 Time 17:21 Time 12:09 - Radiology Exams Ordered Rad Exams-Entire Visit: Radiology Procedures Category Date Time Status ANKLE (3 VIEWS) Routine Exams 06/12/21 09:43 Completed CHEST 2 VIEWS (PA AND LAT) Routine Exams 06/13/21 09:37 Completed - Procedures and Test Procedures and Tests throughout Hospitalization: Therapy Orders & Screens 06/09/21 16:23 Respiratory Therapy Consult ROUTINE Comment: Reason For Exam: 06/10/21 08:44 PT Eval & Treat (MD Order) ONCE Reason for Eval:: fall, pain Diagnosis: Syncopal episodes, right knee/left ankle injuries, right flank contusion Discharge Exam General Appearance: no apparent distress, alert Neurologic Exam: alert, oriented x 3 Respiratory Exam: normal breath sounds, lungs clear, No respiratory distress Cardiovascular Exam: regular rate/rhythm, normal heart sounds Gastrointestinal/Abdomen Exam: soft, No tenderness, No mass Extremity Exam: other (boot on left lower foot/ankle, lateral ankle swelling and tenderness over deltoid ligaments. right knee in brace, no obvious laxity or bony deformity) Final Diagnosis/Problem List - Final Discharge Diagnosis/Problem (1) Syncopal episodes Current Visit: Yes Status: Acute Assessment & Plan: workup negative, will f/u with Dr Ortiz, MRI brain negative cardiology consult and workup negative, no further episodes. I insist she goes home with her son over the weekend and f/u with her PCP next week. Code(s): R55 - SYNCOPE AND COLLAPSE (2) AMS (altered mental status) Current Visit: Yes Status: Acute Code(s): R41.82 - ALTERED MENTAL STATUS, UNSPECIFIED (3) Fall Current Visit: Yes Status: Acute Code(s): W19.XXXA - UNSPECIFIED FALL, INITIAL ENCOUNTER (4) Left ankle pain Current Visit: Yes Status: Acute Code(s): M25.572 - PAIN IN LEFT ANKLE AND JOINTS OF LEFT FOOT (5) Right knee pain Current Visit: Yes Status: Acute Code(s): M25.561 - PAIN IN RIGHT KNEE - Discharge Disposition: Home, Self-Care Condition: Good Prescriptions: New Hydrocodone/Acetaminophen [Hydrocodone-Acetamin 10-325 mg] 1 tablet PO Q6H PRN PRN #20 tablet MDD 4 PRN Reason: Pain Hydrocodone/Acetaminophen [Hydrocodone-Acetamin 10-325 mg] 1 tablet PO Q6H PRN PRN #20 tablet MDD 4 PRN Reason: Pain Continue Hydrocortisone 10 mg PO DAILY Amlodipine Besylate 5 mg [Norvasc 5 mg] 5 mg PO BID PANTOPRAZOLE 40 mg Tablet [Protonix 40MG Tablet] 40 mg PO 1800 lisinopriL [Lisinopril] 20 mg PO BID Apixaban [Eliquis] 5 mg PO BID Ezetimibe 10 mg [Zetia 10 MG] 10 mg PO DAILY Metoprolol Tartrate 25 mg [Lopressor 25MG Tab] 25 mg PO BID Liraglutide [Victoza 2-Kodak] 1.8 mg SQ DAILY Gabapentin 300 mg [Neurontin 300 mg] 300 mg PO TID Hydrocortisone 5 mg PO 1800 Discontinued Mirtazapine 7.5 mg PO HS Additional Instructions: REFERRAL WAS SENT TO [facility]. THEY WILL MAKE CONTACT TO ARRANGE A VISIT. THEIR PHONE NUMBER IS [phone] Follow up with: NINO FUENTES [CONSULTING PHYSICIAN] - BRE ORTIZ [NON-STAFF PHY W/O PRIVILEGES] - 1 Week
[2021-06-14] MEDS: Zestril 20 MG PO SCH (09:55)
[2021-06-14] MEDS: ANTIVERT 25 MG PO SCH (09:55)
[2021-06-14] MEDS: NEURONTIN 300 MG PO SCH (09:55)
[2021-06-14] MEDS: Zetia 10 MG PO SCH (09:55)
[2021-06-14] MEDS: Mucinex 600MG ER Tabs PO SCH (09:55)
[2021-06-14] MEDS: NORVASC 5 MG PO SCH (09:55)
[2021-06-14] MEDS: Lopressor 25MG Tab PO SCH (09:55)
[2021-06-14] MEDS: ELIQUIS 2.5 MG TABLET PO SCH (09:55)
[2021-06-14] MEDS: HYDROCORTISONE PO SCH (09:56)
[2021-06-14] MEDS: Cyclobenzaprine 10 MG PO SCH (09:56)
--- NOTE | 2021-06-17 07:48 | XRAY ---
Indication: Syncope. Two-dimensional sonogram and color Doppler imaging of the carotid arteries of the neck performed. Comparison: None Examination of the right carotid circulation demonstrates widely patent common carotid, carotid bulb, internal carotid, and external carotid arteries. PSV of the CCA is 91 cm/s. PSV of the ICA is 89 cm/s. ICA/CC ratio is 1.0. Normal antegrade vertebral artery flow. Examination of the left carotid circulation demonstrates widely patent common carotid, carotid bulb, internal carotid, and external carotid arteries. PSV of the CCA is 98 cm/s. PSV of the ICA is 89 cm/s. ICA/CCA ratio 0.9. Normal antegrade vertebral artery flow. Impression: Left and right carotid arteries of the neck negative for critical stenosis/obstruction. Velocity measurements and ratios are also negative for hemodynamically significant flow-limiting stenosis.
== END 2021-06-14 11:30 | disposition home or self-care (01) | DRG 312 ==
LOC: ED 10:34 → MED SURG 16:20 → OBSVTOIN 06-11 08:00
PROVIDERS: ADMIT Family Medicine; ATTEND Family Medicine
DX: R55 Syncope and collapse (principal); R41.82 Altered mental status, unspecified; W19.XXXA Unspecified fall, initial encounter; M25.572 Pain in left ankle and joints of left foot; M25.561 Pain in right knee; E11.9 Type 2 diabetes mellitus without complications; I34.1 Nonrheumatic mitral (valve) prolapse; I47.9 Paroxysmal tachycardia, unspecified; I10 Essential (primary) hypertension; E78.00 Pure hypercholesterolemia, unspecified; R63.0 Anorexia; Z79.01 Long term (current) use of anticoagulants; Z79.899 Other long term (current) drug therapy
CPT/HCPCS: 0241U; 36000; 36415; 70450; 70553; 71046; 71260; 72100; 72125; 72220; 73562; 73610; 74176; 76376; 80053; 81001; 81025; 82140; 82607; 82947; 83036; 83605; 83880; 84443; 84484; 85025; 85379; 87086; 87400; 87651; 93005; 93268; 93306; 93880; 94762; 96360; 96374; 96375; 99284; J1815; J2060; J2270; J2405; L1830; Q3014; 97110-GP; A9270-GY; G0378

== ENCOUNTER 2021-12-13 05:52 | Day surgery (SDC) | payer OTHER ==
[2021-12-13] MEDS ORDERED: XYLOCAINE 1% HCL 20 ML MDV ONE (06:24)
[2021-12-13] MEDS ORDERED: Epinephrine Preservative Free 1 MG/ML ONE ×2 (06:24→08:21)
[2021-12-13] MEDS ORDERED: Marcaine Mpf 0.5% Vial 30 Ml ONE (06:30)
[2021-12-13] MEDS ORDERED: Lactated Ringers 1,000 ML IV SCH (06:30)
[2021-12-13] MEDS ORDERED: Decadron 4 MG INJ ONE ×2 (06:48→08:56)
[2021-12-13] MEDS ORDERED: Zofran 4 MG/2 ML VIAL ONE (06:48)
[2021-12-13] MEDS ORDERED: Xylocaine-Mpf 2% 5 Ml Vial ONE ×2 (06:48→08:56)
[2021-12-13] MEDS ORDERED: BRIDION 200MG/2ML IV ONE (06:49)
[2021-12-13] MEDS ORDERED: SUBLIMAZE 100 MCG/2 ML ONE ×2 (06:50→10:04)
[2021-12-13] MEDS ORDERED: CLINDAMYCIN-D5W 900 MG/50 ML IV ONE (07:19)
[2021-12-13] MEDS ORDERED: Pre-Attached Lta Kit TP ONE (07:38)
[2021-12-13] MEDS ORDERED: OFIRMEV 100 ML IV ONE (07:38)
[2021-12-13] MEDS ORDERED: Ephedrine Sulfate 50 MG/ML ONE (07:56)
[2021-12-13] MEDS ORDERED: DEXMEDETOMIDINE 80 MCG/20ML-NS IV ONE (08:47)
[2021-12-13] MEDS ORDERED: Marcaine 0.5%/Epinephrine 10 ML ONE (08:56)
[2021-12-13 10:40] VITALS: O2SAT 93
[2021-12-13 11:34] VITALS: BP 130/72
[2021-12-13 11:36] VITALS: PULSE 81
--- NOTE | 2021-12-13 11:57 | OP ---
SURGERY DATE/TIME: 12/13/2021 0740 PREOPERATIVE DIAGNOSES: 1) Left ankle synovitis. 2) Left ankle pain. 3) Loose body left ankle. 4) Peroneal tenosynovitis. 5) Peroneus brevis partial split tear. POSTOPERATIVE DIAGNOSES: 1) Left ankle synovitis. 2) Left ankle pain. 3) Loose body left ankle. 4) Peroneal tenosynovitis. 5) Peroneus brevis partial split tear. PROCEDURES: 1) Left ankle arthroscopy with synovectomy and removal of loose body. 2) Peroneal tendon tenosynovectomy. 3) Peroneus brevis tendon primary repair with tubularization. SURGEON: Kwame White DPM. CAMPUS SAFETY OFFICER: None. ANESTHESIA: General plus a postoperative regional block. See anesthesia report for details. HEMOSTASIS: Thigh tourniquet set to 350 mm of Mercury for approximately 25 minutes. ESTIMATED BLOOD LOSS: Less than 10 cc. INJECTABLES: See anesthesia report for details. INDICATION FOR PROCEDURE: Maggi is a very pleasant 66-year-old female who is well-known to my service for suffering an isolated posterior malleolar fracture approximately six months ago. The patient was dealt with conservatively as the posterior malleolar fracture was nondisplaced and MRI and CT scan demonstrated no other abnormalities other than the posterior malleolar fracture. Since then the patient has been having significant amount of ankle pain. The patient does admit that there was ankle pain prior to the injury. However at this point, the pain is excruciating. On clinical examination, she does have a positive Nicole's exam as well as catching within her ankle with weight bearing and gait. At this time she has started developing peroneal tendon pain and pain with eversion of the foot. We have tried anti-inflammatories, immobilization as well as physical therapy at this time with no success or at least no skilled nursing success of her symptoms. At this time, we have decided to proceed with ankle arthroscopy with synovectomy and definitive removal of loose bodies if encountered as well as peroneal tendon debridement. On MRI no tears were discovered on review of the imaging. However this has been made clear that MRI's are sometimes notorious for being unable to assess peroneal tendon pathology and for that reason we have left the peroneal tendon debridement, possibility of retubularization and possibility of transfer at the discretion of what is encountered intraoperatively. No guarantees were provided as to the outcome of surgical intervention at this time. Plenty of time was allowed for the patient to ask questions to her apparent satisfaction. It is with that we decided to proceed. DESCRIPTION OF PROCEDURE AND FINDINGS: The patient is brought into the OR and placed on the OR table in the supine position. At this time the patient was administered adequate anesthesia and the patient was sedated. The left lower extremity was prepped and draped in the typical sterile fashion. A well-padded thigh tourniquet was applied to the left thigh and the tourniquet was set to 350 mm of Mercury. At this time the left lower extremity was prepped and draped in the typical sterile fashion. Attention was directed to the anterior aspect of the ankle where mapping at the medial malleolus, lateral malleolus and the palpable dell at the articulation of the tibiotalar joint was palpated and mapped out for planning our scope. An anteromedial and anterolateral incision was made through the skin with an 11 blade and then probed down to the capsule utilizing a mini-curved hemostat. 30 cc of lactated Ringer's was introduced into the ankle joint to insufflate the joint. A blunt trocar and probe obturator was introduced into the anteromedial aspect of the joint. The obturator was then removed and the 30 degree 4.0 mm camera was introduced into the portal. The joint was then flushed and lights were turned off. Under internal scope visualization, the shaver was introduced to the lateral portal and synovectomy was performed. At this time relatively quickly the patient had a significant amount of synovitis and scar tissue as well as fibrous bands that were resected utilizing a combination of a shaver, punch, dye as well as graspers. Two relatively large loose bodies were encountered approximately 5 mm and 3 mm in length respectively. They were removed from the site. Final pictures were taken of the ankle joint. Under assessment of the ankle joint, the lateral aspect of the tibiotalar articulation at the talus was worn down similar to that groves or tire tracks within the talus this is likely due to the loose bodies in the articulation of them against the ankle joint with weightbearing. At this time the scopes were removed from this site. Esmarch was utilized to exsanguinate the leg and the tourniquet was inflated to 350 mm of Mercury. At this time a small incision was made approximately at the distal third of the lateral aspect of the leg just behind the fibula and a small incision was made just inferior to the superior peroneal retinaculum. The 4.0 mm 30 degree scope was introduced into this portal in order to visualize the peroneal tendon. The peroneus longus tendon sheath was entered and the peroneal tendon was deemed to be healthy this was then further down the peroneus brevis tendon sheath and a split tear was identified. At the distal aspect of the incision site, it was continued to lateral aspect of the foot exposing the peroneal tendon. The tenosynovitis was identified of the peroneus longus tendon which was resected and sent for pathological assessment. After this the peroneus brevis was identified in a split tear with these tendons identified approximately 4 cm in length. At this time the split tear was debrided of any diseased appearing tissue and retubularized utilizing a 4.0 PDS suture. The split tear was less than 50% of the tendon itself therefore repairing the tendon was deemed to be adequate. At this time the excursion was tested and deemed to be within normal limits. At this time copious amounts of sterile saline were utilized to flush the surgical site. 2-0 Vicryl were utilized to coapt the subcutaneous skin edges and the skin edges were coapted utilizing 3-0 Nylon in a horizontal mattress-type fashion to both incisions at the lateral aspect of the leg and ankle as well as the portal sites for the surgical intervention. The tourniquet was let down at 25 minutes total tourniquet time. A dressing consisting of Betadine, Adaptic, 4x4, Kerlix and a well-padded posterior splint was applied to the patient's left foot and ankle with the foot orthogonal relative to the longitudinal axis of the leg. At this time the patient was provided a postoperative popliteal and saphenous block. See anesthesia report for details. The patient was then returned to the postoperative anesthesia care unit with vital signs stable and vascular status intact. The patient handled the procedure as well as anesthesia without significant complication. Postoperative orders as indicated in the patient's discharge chart.
== END 2021-12-13 11:35 | disposition home or self-care (01) ==
LOC: SDC 05:52
PROVIDERS: ATTEND Podiatrist Foot & Ankle Surgery
DX: M65.872 Other synovitis and tenosynovitis, left ankle and foot (principal); M25.572 Pain in left ankle and joints of left foot; M24.072 Loose body in left ankle; S86.392A Other injury of muscle(s) and tendon(s) of peroneal muscle group at lower leg level, left leg, initial encounter; E11.9 Type 2 diabetes mellitus without complications
CPT/HCPCS: 27626; 28200; 29894; 64450; 76937; 76942; 82947; J0171; J1100; J2405; J3010

== ENCOUNTER 2022-07-24 12:19 | Observation (INO) | payer OTHER ==
--- NOTE | 2022-07-24 12:26 | ERPHSYRPT ---
- History of Present Illness Time Seen by Provider: 07/24/22 12:26 Source: patient Exam Limitations: no limitations Physician History: This is a 66-year-old white female patient who has noticed headache, body aches, nausea vomiting and diarrhea for 2 days. She has also been dizzy. She denies head trauma. She does state this is one of the worst headache she has had. Patient has a history of hypertension, she has a history of arrhythmias and she is on Eliquis. She has a history of gastroesophageal reflux disease, hypothyroidism, diabetes, asthma/bronchitis, hyperlipidemia and mitral valve prolapse. She also has a history of degenerative disc disease. Patient drove herself to the emergency department but states she can get a ride home. Patient denies chest pain. She denies cough. She denies shortness of breath. She denies abdominal pain. Timing/Duration: day(s) (2) Quality: throbbing Head Pain Location: global Severity of Pain-Max: moderate Severity of Pain-Current: moderate Recent Head Trauma: no recent headache/trauma, occasional headaches Modifying Factors: Improves With: exposure to light, noise Associated Symptoms: dizziness, nausea/vomiting, sensitive to light, No loss of consciousness, No neck pain, No speech problems, No vision changes Previous symptoms: no prior history, no recent treatment Allergies/Adverse Reactions: bee venom protein (honey bee) Allergy (Severe, Verified 12/13/21 06:05) Swelling erythromycin base Allergy (Intermediate, Verified 12/13/21 06:05) Nausea and Vomiting Penicillins Allergy (Intermediate, Verified 12/13/21 06:05) Nausea and Vomiting tetracycline Allergy (Intermediate, Verified 12/13/21 06:05) Nausea and Vomiting Home Medications: Amlodipine Besylate 5 mg [Norvasc 5 mg] 5 mg PO BID 11/18/20 [History] Apixaban [Eliquis] 5 mg PO BID 11/18/20 [History] Hydrocortisone 10 mg PO BID 11/18/20 [History] PANTOPRAZOLE 40 mg Tablet [Protonix 40MG Tablet] 40 mg PO BID 11/18/20 [History] lisinopriL [Lisinopril] 20 mg PO BID 11/18/20 [History] Ezetimibe 10 mg [Zetia 10 MG] 10 mg PO DAILY 06/09/21 [History] Gabapentin [Neurontin ] 300 mg PO BID 06/09/21 [History] Alendronate Sodium [Fosamax] 70 mg PO WEEKLY 12/05/21 [History] Furosemide 40 mg PO DAILY 12/05/21 [History] Levothyroxine Sodium [Euthyrox] 75 mcg PO DAILY 12/05/21 [History] Meclizine HCl 25 mg PO DAILY 12/05/21 [History] Metoprolol Tartrate 25 mg [Lopressor 25MG Tab] 25 mg PO DAILY 12/05/21 [History] Mirtazapine 7.5 mg PO HS 12/05/21 [History] Semaglutide [Ozempic] 2 mg SQ WEEKLY 12/05/21 [History] terbinafine HCL [Terbinafine HCl] 250 mg PO DAILY 12/05/21 [History] Potassium Chloride [Klor-Con 10] 10 meq PO DAILY 07/24/22 [History] Hx Tetanus, Diphtheria Vaccination/Date Given: Yes Hx Influenza Vaccination/Date Given: No Hx Pneumococcal Vaccination/Date Given: No Travel Risk - International Travel Have you traveled outside of the country in past 3 weeks: No - Coronavirus Screening Are you exhibiting any of the following symptoms?: No Close contact with a COVID-19 positive Pt in past 14-21 Days: No - Vaccine Status Have you recieved a Covid-19 vaccination: Yes 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[employer] - Vaccination Dates Date of 2cond Vaccination (if applicable): 06/25/20 - Review of Systems Constitutional: Weakness, No Fever Eyes: No Symptoms Ears, Nose, & Throat: No Symptoms Respiratory: No Symptoms Cardiac: No Symptoms Abdominal/Gastrointestinal: Nausea, Vomiting, Diarrhea Genitourinary Symptoms: No Symptoms Musculoskeletal: Arthralgias, Myalgias Skin: No Symptoms Neurological: Dizziness, Headache Psychological: No Symptoms Endocrine: No Symptoms Hematologic/Lymphatic: No Symptoms Immunological/Allergic: No Symptoms All Other Systems: Reviewed and Negative - Past Medical History Pertinent Past Medical History: Yes Neurological History: No Pertinent History ENT History: No Pertinent History Cardiac History: Arrhythmia, High Cholesterol, Hypertension, Other Respiratory History: Asthma, Bronchitis Endocrine Medical History: Diabetes Type I, Hypothyroidism Musculoskeletal History: Degenerative Disk Disease, Osteoarthritis, Other GI Medical History: GERD History: No Pertinent History Psycho-Social History: No Pertinent History Female Reproductive Disorders: Abnormal Uterine Bleeding Other Medical History: MITRAL VALVE PROLAPSE, HX LEFT FOOT SURGERY FOR TENDON/LIGAMENT DAMAGE 12/26, CERVICAL FUSION C5-6, LEFT KNEE REPLACEMENT 2010 - Past Surgical History Past Surgical History: Yes Neuro Surgical History: No Pertinent History Cardiac: Cardiac Catheterization, Other Respiratory: No Pertinent History Gastrointestinal: Cholecystectomy, Hernia Repair Genitourinary: No Pertinent History Musculoskeletal: Orthopedic Surgery Female Surgical History: Hysterectomy, Tubal Ligation Other Surgical History: Left Knee Replacement. Fusion of 5th and 6th Vertebre - Social History Smoking Status: Never smoker Exposure to second hand smoke: No Drug Use: none Patient Lives Alone: Yes Significant Family History: no pertinent family hx - Nursing Vital Signs Nursing Vital Signs: Initial Vital Signs Temperature 97.9 F 07/24/22 12:32 Pulse Rate 95 H 07/24/22 12:32 Respiratory Rate 20 07/24/22 12:32 Blood Pressure 175/94 07/24/22 12:32 O2 Sat by Pulse Oximetry 99 07/24/22 12:32 Pain Scale Pain Intensity 4 - Physical Exam General Appearance: mild distress, alert, anxiety Eye Exam: PERRL/EOMI, eyes nml inspection Ears, Nose, Throat Exam: normal ENT inspection, moist mucous membranes Neck Exam: normal inspection, non-tender, supple, full range of motion Respiratory Exam: normal breath sounds, lungs clear, airway intact, No chest tenderness, No respiratory distress Cardiovascular Exam: regular rate/rhythm, normal heart sounds, normal peripheral pulses Gastrointestinal/Abdominal Exam: soft, normal bowel sounds, No tenderness Back Exam: normal inspection, normal range of motion, No CVA tenderness Extremity Exam: normal inspection, normal range of motion, pelvis stable Mental Status Exam: alert, oriented x 3, 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 Exam: normal hearing, normal speech, PERRL Coordination/Gait Exam: normal finger to nose, normal gait, normal cerebellar function Motor/Sensory Exam: no motor deficit, no sensory deficit Skin Exam: normal color, warm, dry Lymphatic Exam: No adenopathy SpO2 Interpretation: normal O2 Delivery: Room Air - Course Nursing assessment & vital signs reviewed: Yes EKG Interpreted by Me: RATE (72), Sinus Rhythm, NORMAL AXIS, NORMAL INTERVALS, NORMAL QRS, NORMAL ST-T, Other (No acute ischemic changes on today's twelve-lead EKG) Ordered Tests: Active Orders 24 hr Category Date Time 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 Machine 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 STAT Care 07/24/22 12:40 Active EKG-ER Only STAT Care 07/24/22 12:40 Active IV Insertion STAT Care 07/24/22 12:40 Active Pulse Oximetry (ED) STAT Care 07/24/22 12:40 Active HEAD WITHOUT CONTRAST [CT] Stat Exams 07/24/22 12:40 Completed BLOOD CULTURE Stat Lab 07/24/22 13:15 Received CBC W DIFF Stat Lab 07/24/22 13:10 Completed CMP Stat Lab 07/24/22 13:10 Completed CULTURE,URINE Stat Lab 07/24/22 12:42 Received MONO SCREEN Stat Lab 07/24/22 13:10 Completed POTASSIUM, URINE RANDOM Stat Lab 07/24/22 14:31 Ordered Sodium, Urine Stat Lab 07/24/22 14:30 Ordered UA W/RFX UR CULTURE Stat Lab 07/24/22 12:42 Completed Transfer Order Routine Transfer 07/24/22 Ordered Medication Summary Discontinued Medications Generic Name Dose Route Start Last Admin Trade Name Freq PRN Reason Stop Dose Admin Sodium Chloride 500 mls @ 500 mls/hr 07/24/22 12:41 07/24/22 13:57 Sodium Chloride 0.9% 500 Ml IV 07/24/22 13:40 Infused .Q1H ONE Infusion Sodium Chloride Confirm 07/24/22 12:53 Sodium Chloride 0.9% 500 Ml Administered 07/24/22 12:54 Dose 500 mls @ ud IV .STK-MED ONE Sodium Chloride 1,000 mls @ 999 mls/hr 07/24/22 14:34 07/24/22 14:42 Sodium Chloride 0.9% 1000 Ml IV 07/24/22 15:34 999 mls/hr .Q1H1M STA Administration Levofloxacin/Dextrose 500 mg in 100 mls @ 100 mls/hr 07/24/22 14:34 07/24/22 14:42 Levofloxacin 500mg/100ml D5w IV 07/24/22 15:33 100 mls/hr STAT STA 100 mls/hr Administration Sodium Chloride Confirm 07/24/22 14:40 Sodium Chloride 0.9% 1000 Ml Administered 07/24/22 14:41 Dose 1,000 mls @ ud .ROUTE .STK-MED ONE Levofloxacin/Dextrose Confirm 07/24/22 14:40 Levofloxacin 500mg/100ml D5w Administered 07/24/22 14:41 Dose 500 mg in 100 mls @ ud IV .STK-MED ONE Morphine Sulfate 4 mg 07/24/22 14:01 07/24/22 14:10 Morphine Sulfate 4 Mg/Ml Injection IV 07/24/22 14:02 4 mg STAT ONE Administration Morphine Sulfate Confirm 07/24/22 14:09 Morphine Sulfate 4 Mg/Ml Injection Administered 07/24/22 14:10 Dose 4 mg .ROUTE .STK-MED ONE Morphine Sulfate 4 mg 07/24/22 15:15 07/24/22 15:20 Morphine Sulfate 4 Mg/Ml Injection IV 07/24/22 15:16 4 mg STAT ONE Administration Morphine Sulfate Confirm 07/24/22 15:19 Morphine Sulfate 4 Mg/Ml Injection Administered 07/24/22 15:20 Dose 4 mg .ROUTE .STK-MED ONE Ondansetron HCl 4 mg 07/24/22 14:01 07/24/22 14:10 Ondansetron Hcl 4 Mg/2 Ml Vial IV 07/24/22 14:02 4 mg STAT ONE Administration Ondansetron HCl Confirm 07/24/22 14:09 Ondansetron Hcl 4 Mg/2 Ml Vial Administered 07/24/22 14:10 Dose 4 mg .ROUTE .STK-MED ONE Lab/Rad Data: Laboratory Result Diagrams 07/24/22 13:10 07/24/22 13:10 Laboratory Results 07/24/22 07/24/22 07/24/22 Range/Units 13:10 13:10 13:10 WBC (4.0-10.5) x10^3/uL RBC (4.1-5.4) x10^6/uL Hgb (12.0-16.0) g/dL Hct (35-47) % MCV (78-100) fL MCH (26-32) pg MCHC (32-36) g/dL RDW (11.5-14.0) % Plt Count (150-450) x10^3/uL MPV (7.5-11.0) fL Gran % (36.0-66.0) % Immature Gran % (Auto) (0.00-0.4) % Nucleat RBC Rel Count (0.00-0.1) % Eos # (Auto) (0-0.5) x10^3/uL Immature Gran # (Auto) (0.00-0.03) x10^3u/L Absolute Lymphs (auto) (1.0-4.6) x10^3/uL Absolute Monos (auto) (0.0-1.3) x10^3/uL Absolute Nucleated RBC (0.00-0.01) x10^3u/L Lymphocytes % (24.0-44.0) % Monocytes % (0.0-12.0) % Eosinophils % (0.00-5.0) % Basophils % (0.0-0.4) % Absolute Granulocytes (1.4-6.9) x10^3/uL Basophils # (0-0.4) x10^3/uL Sodium (137-145) mmol/L Potassium (3.5-5.1) mmol/L Chloride (98-107) mmol/L Carbon Dioxide (22-30) mmol/L Anion Gap (5-15) MEQ/L BUN (7-17) mg/dL Creatinine (0.52-1.04) mg/dL Estimated GFR ML/MIN Glucose (74-106) mg/dL Calcium (8.4-10.2) mg/dL Total Bilirubin (0.2-1.3) mg/dL AST (14-36) U/L ALT (0-35) U/L Alkaline Phosphatase (38-126) U/L Serum Total Protein (6.3-8.2) g/dL Albumin (3.5-5.0) g/dL Urine Color (Yellow) Urine Appearance (Clear) Urine pH (4.6-8.0) Ur Specific Ewing (1.005-1.030) Urine Protein (Negative) Urine Glucose (UA) (Negative) mg/dL Urine Ketones (Negative) Urine Blood (Negative) Urine Nitrite (Negative) Urine Bilirubin (Negative) Urine Urobilinogen (0.2) mg/dL Ur Leukocyte Esterase (Negative) U Hyaline Cast (Auto) (0-2) /LPF Urine Microscopic RBC (0-5) /HPF Urine Microscopic WBC (0-5) /HPF Ur Epithelial Cells (None Seen) /HPF Urine Bacteria (None Seen) /HPF Urine Culture Reflexed (NO) Monoscreen NEGATIVE (NEGATIVE) Influenza Type A Ag NEGATIVE (NEGATIVE) Influenza Type B Ag NEGATIVE (NEGATIVE) RSV (PCR) NEGATIVE (NEGATIVE) SARS-CoV-2 (PCR) NEGATIVE (NEGATIVE) Group A Strep Antibody NOT DETECTED (NEGATIVE) 07/24/22 07/24/22 07/24/22 Range/Units 13:10 13:10 12:42 WBC 7.3 (4.0-10.5) x10^3/uL RBC 3.98 L (4.1-5.4) x10^6/uL Hgb 12.4 (12.0-16.0) g/dL Hct 35.6 (35-47) % MCV 89.4 (78-100) fL MCH 31.2 (26-32) pg MCHC 34.8 (32-36) g/dL RDW 13.0 (11.5-14.0) % Plt Count 337 (150-450) x10^3/uL MPV 8.5 (7.5-11.0) fL Gran % 57.8 (36.0-66.0) % Immature Gran % (Auto) 0.3 (0.00-0.4) % Nucleat RBC Rel Count 0.0 (0.00-0.1) % Eos # (Auto) 0.45 (0-0.5) x10^3/uL Immature Gran # (Auto) 0.02 (0.00-0.03) x10^3u/L Absolute Lymphs (auto) 1.84 (1.0-4.6) x10^3/uL Absolute Monos (auto) 0.71 (0.0-1.3) x10^3/uL Absolute Nucleated RBC 0.00 (0.00-0.01) x10^3u/L Lymphocytes % 25.3 (24.0-44.0) % Monocytes % 9.8 (0.0-12.0) % Eosinophils % 6.2 H (0.00-5.0) % Basophils % 0.6 (0.0-0.4) % Absolute Granulocytes 4.21 (1.4-6.9) x10^3/uL Basophils # 0.04 (0-0.4) x10^3/uL Sodium 124 L (137-145) mmol/L Potassium 4.4 (3.5-5.1) mmol/L Chloride 93 L (98-107) mmol/L Carbon Dioxide 21 L (22-30) mmol/L Anion Gap 14.2 (5-15) MEQ/L BUN 7 (7-17) mg/dL Creatinine 0.70 (0.52-1.04) mg/dL Estimated GFR > 60.0 ML/MIN Glucose 107 H (74-106) mg/dL Calcium 8.4 (8.4-10.2) mg/dL Total Bilirubin 0.80 (0.2-1.3) mg/dL AST 38 H (14-36) U/L ALT 24 (0-35) U/L Alkaline Phosphatase 51 (38-126) U/L Serum Total Protein 6.5 (6.3-8.2) g/dL Albumin 3.5 (3.5-5.0) g/dL Urine Color Dark Yellow A (Yellow) Urine Appearance Cloudy A (Clear) Urine pH 6.5 (4.6-8.0) Ur Specific Ewing 1.025 (1.005-1.030) Urine Protein 30 (Negative) Urine Glucose (UA) Negative (Negative) mg/dL Urine Ketones Trace A (Negative) Urine Blood Negative (Negative) Urine Nitrite Negative (Negative) Urine Bilirubin Small A (Negative) Urine Urobilinogen 1.0 A (0.2) mg/dL Ur Leukocyte Esterase Trace A (Negative) U Hyaline Cast (Auto) 3-5 A (0-2) /LPF Urine Microscopic RBC 3-5 (0-5) /HPF Urine Microscopic WBC 11-20 A (0-5) /HPF Ur Epithelial Cells Few (None Seen) /HPF Urine Bacteria Moderate A (None Seen) /HPF Urine Culture Reflexed YES (NO) Monoscreen (NEGATIVE) Influenza Type A Ag (NEGATIVE) Influenza Type B Ag (NEGATIVE) RSV (PCR) (NEGATIVE) SARS-CoV-2 (PCR) (NEGATIVE) Group A Strep Antibody (NEGATIVE) - Progress Progress: improved, re-examined, unchanged Air Movement: good Progress Note: 07/24/22 14:33 CT scan of the head without contrast was interpreted by the radiologist. I reviewed the impression. There are no acute intracranial abnormalities. 07/24/22 16:01 This patient's medical issue is 1 of high complexity. The level of complexity in the work-up performed is based on the patient's past medical history, review of the patient's medication list, review of the patient's drug allergy list, history of present illness and the physical findings on examination. Work-up includes placement of intravenous IV, infusion of normal saline solution, CAT scan of the head without contrast, twelve-lead EKG, urinalysis, CBC, CMP. Work- up results were evaluated by me. The patient has hyponatremia, headache and urinary tract infection as well as mild dehydration. I discussed this with the patient. I also contacted Dr. Hickey who is the hospitalist on-call at this time. I reviewed the above-stated history, physical exam findings of significance, work-up results. Together he and I formulated a plan to admit this patient in the hospital and provide her with IV hydration, recheck labs in the morning, antiemetic, pain medicine for headache, antibiotics to treat urinary tract infection and infusion of normal saline solution. Patient's symptoms have only mildly improved with treatment provided in the emergency department. She will need longer treatment and we will place her in observation. 07/24/22 16:04 Blood Culture(s) Obtained: Yes Antibiotics given: Yes Counseled pt/family regarding: lab results, diagnosis, need for follow-up, rad results Medical Desision Making - Discussion of managment Reviewed:: Test results, Need for additional workup Agreed on:: Treatment plan, decision to admit Will see patient: in hospital - Diagnostic Testing Diagnostic test were ordered, analyzed, and reviewed by me: Yes Radiological Interpretation: Reviewed by me, Teleradiologist Report - Risk of complications The pt has a high risk of morbidity or mortality based on: Decision regarding hospitilization or escalation of hosp level of care - Departure Departure Disposition: Observation Clinical Impression: Headache, Hyponatremia, Urinary tract infection, Dehydration Condition: Stable Critical Care Time: No Referrals: BRE HERNANDEZ [Primary Care Provider] - Follow up/PCP as directed
[2022-07-24] MEDS ORDERED: Sodium Chloride 0.9% 500 ML 500 ML IV ONE ×2 (12:41→12:53)
[2022-07-24 13:22] LABS: Absolute Neutrophil Ct (ANC) 4.21 x10^3/uL (1.4-6.9); BASOPHIL % 0.6 % (0.0-0.4); Basophil (Absolute #) 0.04 x10^3/uL (0-0.4); Eosinophil % 6.2 % (0.00-5.0); Eosinophil (Absolute #) 0.45 x10^3/uL (0-0.5); Hematocrit 35.6 % (35-47); Hemoglobin 12.4 g/dL (12.0-16.0); IMMATURE GRAN # 0.02 x10^3u/L (0.00-0.03); IMMATURE GRAN % 0.3 % (0.00-0.4); Lymphocyte (Absolute #) 1.84 x10^3/uL (1.0-4.6); Lymphocytes % 25.3 % (24.0-44.0); Mean Cell Volume 89.4 fL (78-100); Mean Corpuscular Hemoglobin 31.2 pg (26-32); Mean Corpuscular Hgb Concent. 34.8 g/dL (32-36); Mean Platelet Volume 8.5 fL (7.5-11.0); Monocyte (Absolute #) 0.71 x10^3/uL (0.0-1.3); Monocytes % 9.8 % (0.0-12.0); Neutrophil % 57.8 % (36.0-66.0); Platelet Count 337 x10^3/uL (150-450); Red Blood Count 3.98 x10^6/uL (4.1-5.4); White Blood Count 7.3 x10^3/uL (4.0-10.5)
[2022-07-24 13:29] LABS: Appearance Cloudy (Clear); Bilirubin Small (Negative); Blood Negative (Negative); Glucose, Urine Negative (Negative); Ketones Trace (Negative); Leukocyte Esterase Trace (Negative); Nitrite Negative (Negative); Ph 6.5 (4.6-8.0); Protein,Urine Dip 30 (Negative); Specific Gravity 1.025 (1.005-1.030)
[2022-07-24 13:40] LABS: ALBUMIN 3.5 g/dL (3.5-5.0); ALKALINE PHOSPHATASE 51 U/L (38-126); ANION GAP 14.2 MEQ/L (5-15); BLOOD UREA NITROGEN 7 mg/dL (7-17); CHLORIDE 93 mmol/L (98-107); Calcium 8.4 mg/dL (8.4-10.2); Carbon Dioxide 21 mmol/L (22-30); EST GLOMERULAR FILTRATION RATE > 60.0 ML/MIN; Glucose 107 mg/dL (74-106); Potassium 4.4 mmol/L (3.5-5.1); SGOT/AST 38 U/L (14-36); SGPT/ALT 24 U/L (0-35); SODIUM 124 mmol/L (137-145); Total Protein 6.5 g/dL (6.3-8.2)
[2022-07-24 13:49] LABS: ADD URINE CULTURE? YES (NO); Bacteria Moderate /HPF (None Seen); Epithelial Cells Few /HPF (None Seen)
[2022-07-24 14:01] LABS: INFLUENZA A NEGATIVE (NEGATIVE); INFLUENZA B NEGATIVE (NEGATIVE); RESPIRATORY SYNCTIAL VIRUS NEGATIVE (NEGATIVE); SARS-CoV-2 Xpert Express NEGATIVE (NEGATIVE)
[2022-07-24] MEDS ORDERED: Zofran 4 MG/2 ML VIAL IV ONE (14:01)
[2022-07-24] MEDS ORDERED: MORPHINE SULFATE 4 MG INJ IV ONE ×2 (14:01→15:15)
[2022-07-24] MEDS ORDERED: Zofran 4 MG/2 ML VIAL ONE (14:09)
[2022-07-24] MEDS ORDERED: MORPHINE SULFATE 4 MG INJ ONE ×2 (14:09→15:19)
--- NOTE | 2022-07-24 14:16 | XRAY ---
Indication: Headache and dizziness. Multiple contiguous axial images obtained through the head without contrast. Comparison: June 09, 2021 Normal appearing brain parenchyma, ventricles, and bony calvarium for patient's age. Visualized paranasal sinuses and mastoid air cells are clear. Impression: Continued normal CT head without contrast exam.
[2022-07-24] MEDS ORDERED: Levofloxacin 500MG/100ML D5W 500 MG/100 ML BAG IV STA (14:34)
[2022-07-24] MEDS ORDERED: Sodium Chloride 0.9% 1000 ML 1,000 ML IV STA (14:34)
[2022-07-24] MEDS ORDERED: Levofloxacin 500MG/100ML D5W 500 MG/100 ML BAG IV ONE (14:40)
[2022-07-24] MEDS ORDERED: Sodium Chloride 0.9% 1000 ML 1,000 ML ONE (14:40)
[2022-07-24] MEDS: TYLENOL 325 MG PO PRN ×2 (18:23→23:00)
[2022-07-24] MEDS ORDERED: NEURONTIN PO PRN (19:08)
[2022-07-24] MEDS ORDERED: Nitrostat 0.4 MG Tablet SL PRN (19:13)
[2022-07-24] MEDS ORDERED: ANTIVERT 25 MG PO PRN (19:15)
[2022-07-24] MEDS ORDERED: MIRTAZAPINE PO SCH (22:00)
[2022-07-24] MEDS: Zestril 20 MG PO SCH (23:00)
[2022-07-24] MEDS: NEURONTIN PO SCH (23:00)
[2022-07-24] MEDS: ELIQUIS 2.5 MG TABLET PO SCH (23:00)
[2022-07-24] MEDS: NORVASC 5 MG PO SCH (23:00)
[2022-07-24] MEDS: Protonix 40MG Tablet PO SCH (23:01)
[2022-07-24] MEDS: REMERON 30 MG PO SCH (23:04)
[2022-07-24] MEDS: HYDROCORTISONE PO SCH (23:07)
[2022-07-25] MEDS: TYLENOL 325 MG PO PRN ×3 (04:59→14:28)
[2022-07-25 05:19] LABS: Absolute Neutrophil Ct (ANC) 2.89 x10^3/uL (1.4-6.9); BASOPHIL % 0.6 % (0.0-0.4); Basophil (Absolute #) 0.03 x10^3/uL (0-0.4); Eosinophil % 6.5 % (0.00-5.0); Eosinophil (Absolute #) 0.33 x10^3/uL (0-0.5); Hematocrit 36.8 % (35-47); Hemoglobin 12.5 g/dL (12.0-16.0); IMMATURE GRAN # 0.02 x10^3u/L (0.00-0.03); IMMATURE GRAN % 0.4 % (0.00-0.4); Lymphocytes % 25.7 % (24.0-44.0); Mean Corpuscular Hemoglobin 31.3 pg (26-32); Mean Platelet Volume 8.7 fL (7.5-11.0); Monocyte (Absolute #) 0.49 x10^3/uL (0.0-1.3); Monocytes % 9.7 % (0.0-12.0); Neutrophil % 57.1 % (36.0-66.0); Platelet Count 315 x10^3/uL (150-450); Red Cell Distribution Width 13.4 % (11.5-14.0); White Blood Count 5.1 x10^3/uL (4.0-10.5)
[2022-07-25 05:39] LABS: ALBUMIN 3.5 g/dL (3.5-5.0); ALKALINE PHOSPHATASE 50 U/L (38-126); ANION GAP 10.5 MEQ/L (5-15); BLOOD UREA NITROGEN 5 mg/dL (7-17); CHLORIDE 98 mmol/L (98-107); Calcium 8.5 mg/dL (8.4-10.2); Carbon Dioxide 29 mmol/L (22-30); Creatinine 1 0.78 mg/dL (0.52-1.04); EST GLOMERULAR FILTRATION RATE > 60.0 ML/MIN; Glucose 101 mg/dL (74-106); Potassium 4.6 mmol/L (3.5-5.1); SGOT/AST 30 U/L (14-36); SGPT/ALT 21 U/L (0-35); SODIUM 133 mmol/L (137-145); Total Protein 6.5 g/dL (6.3-8.2)
[2022-07-25] MEDS ORDERED: NON-FORMULARY ITEM (Semaglutide [Ozempic] 2 MG/0.75 ML Pen.Injctr) SQ SCH (07:00)
[2022-07-25] MEDS ORDERED: MEDICATION INTERVENTION MC SCH ×2 (07:15)
[2022-07-25] MEDS: NEURONTIN PO SCH ×2 (08:31→21:43)
[2022-07-25] MEDS: MORPHINE SULFATE 4 MG INJ IV PRN ×3 (09:32→21:48)
[2022-07-25] MEDS: ELIQUIS 2.5 MG TABLET PO SCH ×2 (09:35→21:42)
[2022-07-25] MEDS: Imdur 60MG PO SCH (09:39)
[2022-07-25] MEDS: NORVASC 5 MG PO SCH ×2 (09:40→21:43)
[2022-07-25] MEDS: Klor Con PO SCH (09:40)
[2022-07-25] MEDS: Zetia 10 MG PO SCH (09:40)
[2022-07-25] MEDS: Lopressor 25MG Tab PO SCH (09:40)
[2022-07-25] MEDS: Protonix 40MG Tablet PO SCH ×2 (09:40→21:42)
[2022-07-25] MEDS: Zestril 20 MG PO SCH ×2 (09:42→21:49)
[2022-07-25] MEDS: Lasix 40 MG PO SCH (09:42)
[2022-07-25] MEDS: HYDROCORTISONE PO SCH ×2 (09:43→21:43)
[2022-07-25] MEDS: lamISIL 250 MG PO SCH (09:43)
[2022-07-25] MEDS: Glucotrol Xl 2.5 MG PO SCH (09:43)
[2022-07-25] MEDS ORDERED: SYNTHROID 75 MCG PO SCH (10:00)
[2022-07-25] MEDS ORDERED: PHENTERMINE HCL 37.5 MG PO SCH (10:00)
[2022-07-25] MEDS ORDERED: SYNTHROID 50 MCG PO SCH (10:00)
[2022-07-25] MEDS: Levofloxacin 500MG/100ML D5W 500 MG/100 ML BAG IV SCH (10:06)
[2022-07-25] MEDS: TORAdol 30 mg Injection IV PRN ×2 (12:25→20:11)
[2022-07-25] MEDS: Sodium Chloride 0.9% 1000 ML 1,000 ML IV SCH ×2 (12:38→21:49)
[2022-07-25] MEDS: Zofran 4 MG/2 ML VIAL IV PRN (18:48)
--- NOTE | 2022-07-25 19:51 | PCM.HP ---
History of Present Illness - Chief Complaint Chief Complaint: c/o headache for 1-2 days History of Present Illness: is a 66 year old female.who has noticed headache, body aches, nausea vomiting and diarrhea for 2 days. She has also been dizzy. She denies head trauma. She does state this is one of the worst headache she has had. Patient has a history of hypertension, she has a history of arrhythmias and she is on Eliquis. She has a history of gastroesophageal reflux disease, hypothyroidism, diabetes, asthma/bronchitis, hyperlipidemia and mitral valve prolapse. She also has a history of degenerative disc disease. Patient drove herself to the emergency department but states she can get a ride home. Patient denies chest pain. She denies cough. She denies shortness of breath. She denies abdominal pain. - Review of Systems Constitutional: Fatigue, Weakness, No Fever, No Chills Eyes: No Symptoms Ears, Nose, & Throat: No Symptoms Respiratory: No Cough, No Short Of Breath Cardiac: No Chest Pain, No Edema, No Syncope Abdominal/Gastrointestinal: No Abdominal Pain, No Nausea, No Vomiting, No Diarrhea Genitourinary Symptoms: No Dysuria Musculoskeletal: No Back Pain, No Neck Pain Skin: No Rash Neurological: Headache, No Dizziness, No Focal Weakness, No Sensory Changes Psychological: No Symptoms Endocrine: No Symptoms Hematologic/Lymphatic: No Symptoms Immunological/Allergic: No Symptoms Medications & Allergies Home Medications: Home Medication List Amlodipine Besylate 5 mg [Norvasc 5 mg] 2.5 mg PO BID 11/18/20 [History Confirmed 07/24/22] Apixaban [Eliquis] 5 mg PO BID 11/18/20 [History Confirmed 07/24/22] Hydrocortisone 10 mg PO BID 11/18/20 [History Confirmed 07/24/22] PANTOPRAZOLE 40 mg Tablet [Protonix 40MG Tablet] 40 mg PO BID 11/18/20 [History Confirmed 07/24/22] lisinopriL [Lisinopril] 20 mg PO BID 11/18/20 [History Confirmed 07/24/22] Ezetimibe 10 mg [Zetia 10 MG] 10 mg PO DAILY 06/09/21 [History Confirmed 07/24/22] Gabapentin [Neurontin ] 300 mg PO DAILY 06/09/21 [History Confirmed 07/24/22] Alendronate Sodium [Fosamax] 70 mg PO WEEKLY 12/05/21 [History Confirmed 07/24/22] Furosemide 40 mg PO DAILY 12/05/21 [History Confirmed 07/24/22] Levothyroxine Sodium [Euthyrox] 50 mcg PO DAILY 12/05/21 [History Confirmed 07/24/22] Meclizine HCl 25 mg PO TID PRN 12/05/21 [History Confirmed 07/24/22] Metoprolol Tartrate 25 mg [Lopressor 25MG Tab] 25 mg PO DAILY 12/05/21 [History Confirmed 07/24/22] Mirtazapine 7.5 mg PO HS 12/05/21 [History Confirmed 07/24/22] Semaglutide [Ozempic] 2 mg SQ WEEKLY 12/05/21 [History Confirmed 07/24/22] terbinafine HCL [Terbinafine HCl] 250 mg PO DAILY 12/05/21 [History Confirmed 07/24/22] Gabapentin [Neurontin ] 600 mg PO HS 07/24/22 [History Confirmed 07/24/22] Isosorbide Mononitrate [Isosorbide Mononitrate ER] 60 mg PO DAILY 07/24/22 [History Confirmed 07/24/22] Nitroglycerin 0.4 mg Tablet [Nitrostat 0.4 MG Tablet] 0.4 mg SL UD PRN 07/24/22 [History Confirmed 07/24/22] Phentermine HCl 37.5 mg PO DAILY 07/24/22 [History Confirmed 07/24/22] Potassium Chloride [Klor-Con 10] 20 meq PO DAILY 07/24/22 [History Confirmed 07/24/22] glipiZIDE [Glipizide ER] 2.5 mg PO DAILY 07/24/22 [History Confirmed 07/24/22] Allergies/Adverse Reactions: Allergies Allergy/AdvReac Type Severity Reaction Status Date / Time bee venom protein (honey bee) Allergy Severe Swelling Verified 12/13/21 06:05 erythromycin base Allergy Intermediate Nausea and Verified 12/13/21 06:05 Vomiting Penicillins Allergy Intermediate Nausea and Verified 12/13/21 06:05 Vomiting tetracycline Allergy Intermediate Nausea and Verified 12/13/21 06:05 Vomiting - Past Medical History Past Medical History: Yes Neurological History: No Pertinent History ENT History: No Pertinent History Cardiac History: Arrhythmia, High Cholesterol, Hypertension, Other Respiratory History: Asthma, Bronchitis Endocrine Medical History: Diabetes Type I, Hypothyroidism Musculoskelatal History: Degenerative Disk Disease, Osteoarthritis, Other GI Medical History: GERD History: No Pertinent History Pyscho-Social History: No Pertinent History Reproductive Disorders: Abnormal Uterine Bleeding Comment: MITRAL VALVE PROLAPSE, HX LEFT FOOT SURGERY FOR TENDON/LIGAMENT DAMAGE 12/26, CERVICAL FUSION C5-6, LEFT KNEE REPLACEMENT 2010 - Female History Are you now?: No - Past Surgical History Past Surgical History: Yes Neuro Surgical History: No Pertinent History Cardiac History: Cardiac Catheterization, Other Respiratory Surgery: No Pertinent History GI Surgical History: Cholecystectomy, Hernia Repair Genitourinary Surgical Hx: No Pertinent History Musculskeletal Surgical Hx: Orthopedic Surgery Female Surgical History: Hysterectomy, Tubal Ligation Other Surgical History: Left Knee Replacement. Fusion of 5th and 6th Vertebre - Social History Smoking Status: Never smoker Exposure to second hand smoke: No Alcohol: Occasionally Drug Use: none Significant Family History: no pertinent family hx - Physical Exam Vital Signs: Vital Signs - 24 hr Temp Pulse Resp BP Pulse Ox 07/25/22 19:47 97.0 F 68 18 133/68 96 07/25/22 16:00 97.1 F 69 17 137/76 95 07/25/22 11:31 97.1 F 69 17 137/76 95 07/25/22 06:48 96.9 F 63 17 111/60 95 07/25/22 04:00 97.5 F 67 17 145/70 93 L 07/25/22 00:00 18 07/24/22 23:38 97.5 F 75 18 115/59 94 L 07/24/22 20:00 16 General Appearance: no apparent distress, alert Neurologic Exam: alert, oriented x 3, cooperative, normal mood/affect, nml cerebellar function, nml station & gait, sensation nml, No motor deficits Eye Exam: PERRL/EOMI, eyes nml inspection Ears, Nose, Throat Exam: normal ENT inspection, TMs normal, pharynx normal, moist mucous membranes Neck Exam: normal inspection, non-tender, supple, full range of motion Respiratory Exam: normal breath sounds, lungs clear, No respiratory distress Cardiovascular Exam: regular rate/rhythm, normal heart sounds, normal peripheral pulses Gastrointestinal/Abdomen Exam: soft, normal bowel sounds, No tenderness, No mass Back Exam: normal inspection, normal range of motion, No CVA tenderness, No vertebral tenderness Extremity Exam: normal inspection, normal range of motion, pelvis stable Skin Exam: normal color, warm, dry, No rash Lymphatic Exam: No adenopathy Results - Labs Lab/Micro Results: Lab Results-Last 24 Hours 07/24/22 07/25/22 07/25/22 Range/Units 21:57 04:45 04:45 WBC 5.1 (4.0-10.5) x10^3/uL RBC 4.00 L (4.1-5.4) x10^6/uL Hgb 12.5 (12.0-16.0) g/dL Hct 36.8 (35-47) % MCV 92.0 (78-100) fL MCH 31.3 (26-32) pg MCHC 34.0 (32-36) g/dL RDW 13.4 (11.5-14.0) % Plt Count 315 (150-450) x10^3/uL MPV 8.7 (7.5-11.0) fL Gran % 57.1 (36.0-66.0) % Immature Gran % (Auto) 0.4 (0.00-0.4) % Nucleat RBC Rel Count 0.0 (0.00-0.1) % Eos # (Auto) 0.33 (0-0.5) x10^3/uL Immature Gran # (Auto) 0.02 (0.00-0.03) x10^3u/L Absolute Lymphs (auto) 1.30 (1.0-4.6) x10^3/uL Absolute Monos (auto) 0.49 (0.0-1.3) x10^3/uL Absolute Nucleated RBC 0.00 (0.00-0.01) x10^3u/L Lymphocytes % 25.7 (24.0-44.0) % Monocytes % 9.7 (0.0-12.0) % Eosinophils % 6.5 H (0.00-5.0) % Basophils % 0.6 (0.0-0.4) % Absolute Granulocytes 2.89 (1.4-6.9) x10^3/uL Basophils # 0.03 (0-0.4) x10^3/uL Sodium 133 L D (137-145) mmol/L Potassium 4.6 (3.5-5.1) mmol/L Chloride 98 (98-107) mmol/L Carbon Dioxide 29 (22-30) mmol/L Anion Gap 10.5 (5-15) MEQ/L BUN 5 L (7-17) mg/dL Creatinine 0.78 (0.52-1.04) mg/dL Estimated GFR > 60.0 ML/MIN Glucose 101 (74-106) mg/dL POC Glucometer 78 (74 to 106) mg/dL Calcium 8.5 (8.4-10.2) mg/dL Total Bilirubin 0.60 (0.2-1.3) mg/dL AST 30 (14-36) U/L ALT 21 (0-35) U/L Alkaline Phosphatase 50 (38-126) U/L Serum Total Protein 6.5 (6.3-8.2) g/dL Albumin 3.5 (3.5-5.0) g/dL 07/25/22 07/25/22 07/25/22 Range/Units 06:37 11:05 16:09 WBC (4.0-10.5) x10^3/uL RBC (4.1-5.4) x10^6/uL Hgb (12.0-16.0) g/dL Hct (35-47) % MCV (78-100) fL MCH (26-32) pg MCHC (32-36) g/dL RDW (11.5-14.0) % Plt Count (150-450) x10^3/uL MPV (7.5-11.0) fL Gran % (36.0-66.0) % Immature Gran % (Auto) (0.00-0.4) % Nucleat RBC Rel Count (0.00-0.1) % Eos # (Auto) (0-0.5) x10^3/uL Immature Gran # (Auto) (0.00-0.03) x10^3u/L Absolute Lymphs (auto) (1.0-4.6) x10^3/uL Absolute Monos (auto) (0.0-1.3) x10^3/uL Absolute Nucleated RBC (0.00-0.01) x10^3u/L Lymphocytes % (24.0-44.0) % Monocytes % (0.0-12.0) % Eosinophils % (0.00-5.0) % Basophils % (0.0-0.4) % Absolute Granulocytes (1.4-6.9) x10^3/uL Basophils # (0-0.4) x10^3/uL Sodium (137-145) mmol/L Potassium (3.5-5.1) mmol/L Chloride (98-107) mmol/L Carbon Dioxide (22-30) mmol/L Anion Gap (5-15) MEQ/L BUN (7-17) mg/dL Creatinine (0.52-1.04) mg/dL Estimated GFR ML/MIN Glucose (74-106) mg/dL POC Glucometer 112 H 96 92 (74 to 106) mg/dL Calcium (8.4-10.2) mg/dL Total Bilirubin (0.2-1.3) mg/dL AST (14-36) U/L ALT (0-35) U/L Alkaline Phosphatase (38-126) U/L Serum Total Protein (6.3-8.2) g/dL Albumin (3.5-5.0) g/dL Microbiology 07/24/22 12:42 Urine Culture - Preliminary Urine, Void NO GROWTH TO DATE Accuchecks Date 07/25/22 Date 07/25/22 Date 07/24/22 Time 16:23 Time 06:47 Time 22:05 - Radiology Impressions Radiology Exams & Impressions: Radiology Procedures Category Date Time Status HEAD WITHOUT CONTRAST [CT] Stat Exams 07/24/22 12:[address]/HEAD WITHOUT CONTRAST Indication: Headache and dizziness. Multiple contiguous axial images obtained through the head without contrast. Comparison: June 09, 2021 Normal appearing brain parenchyma, ventricles, and bony calvarium for patient's age. Visualized paranasal sinuses and mastoid air cells are clear. Impression: Continued normal CT head without contrast exam. Assessment/Plan (1) Hyponatremia Current Visit: Yes Status: Acute Assessment & Plan: Chief Complaint Diagnosis hyponatremia Allergies Allergy/AdvReac Type Severity Reaction Status Date / Time bee venom protein (honey bee) Allergy Severe Swelling Verified 12/13/21 06:05 erythromycin base Allergy Intermediate Nausea and Verified 12/13/21 06:05 Vomiting Penicillins Allergy Intermediate Nausea and Verified 12/13/21 06:05 Vomiting tetracycline Allergy Intermediate Nausea and Verified 12/13/21 06:05 Vomiting Vital Signs (Last 24 hours) Temp Pulse Resp BP Pulse Ox 07/25/22 19:47 97.0 F 68 18 133/68 96 07/25/22 16:00 97.1 F 69 17 137/76 95 07/25/22 11:31 97.1 F 69 17 137/76 95 07/25/22 06:48 96.9 F 63 17 111/60 95 07/25/22 04:00 97.5 F 67 17 145/70 93 L 07/25/22 00:00 18 07/24/22 23:38 97.5 F 75 18 115/59 94 L 07/24/22 20:00 16 Home Medications Medication Instructions Recorded Confirmed Last Taken Type Gabapentin [Neurontin ] 600 mg PO HS 07/24/22 07/24/22 Unknown History Isosorbide Mononitrate [Isosorbide 60 mg PO DAILY 07/24/22 07/24/22 Unknown History Mononitrate ER] Nitroglycerin 0.4 mg Tablet 0.4 mg SL UD PRN 07/24/22 07/24/22 Unknown History [Nitrostat 0.4 MG Tablet] Phentermine HCl 37.5 mg PO DAILY 07/24/22 07/24/22 Unknown History Potassium Chloride [Klor-Con 10] 20 meq PO DAILY 07/24/22 07/24/22 Unknown History glipiZIDE [Glipizide ER] 2.5 mg PO DAILY 07/24/22 07/24/22 Unknown History Current Medications Generic Name Dose Route Start Last Admin Trade Name Freq PRN Reason Stop Dose Admin Acetaminophen 650 mg 07/24/22 17:03 07/25/22 14:28 Acetaminophen 325 Mg Tablet PO 08/23/22 17:02 650 mg Q4H PRN PRN Administration PAIN, FEVER, HEADACHE Alendronate Sodium 70 mg 07/27/22 06:00 Alendronate Sodium 70 Mg Tablet PO 08/26/22 05:59 [place]ma RAE Amlodipine Besylate 2.5 mg 07/24/22 22:00 07/25/22 09:40 Amlodipine Besylate 5 Mg Tablet PO 08/23/22 21:59 2.5 mg BID RAE Administration Apixaban 5 mg 07/24/22 22:00 07/25/22 09:35 Apixaban 2.5 Mg Tablet PO 08/23/22 21:59 5 mg BID RAE Administration Ezetimibe 10 mg 07/25/22 10:00 07/25/22 09:40 Ezetimibe 10 Mg Tab PO 08/24/22 09:59 10 mg DAILY RAE Administration Furosemide 40 mg 07/25/22 10:00 07/25/22 09:42 Furosemide 40 Mg Tablet PO 08/24/22 09:59 40 mg DAILY RAE Administration Gabapentin 300 mg 07/25/22 10:00 07/25/22 08:31 Gabapentin 300 Mg Capsule PO 08/24/22 09:59 300 mg 1000 RAE Administration Gabapentin 600 mg 07/24/22 22:00 07/24/22 23:00 Gabapentin 300 Mg Capsule PO 08/23/22 21:59 600 mg HS RAE Administration Glipizide 2.5 mg 07/25/22 10:00 07/25/22 09:43 Glipizide 2.5 Mg Xl Tablet PO 08/24/22 09:59 2.5 mg DAILY RAE Administration Hydrocortisone 10 mg 07/24/22 22:00 07/25/22 09:43 Hydrocortisone 10 Mg Tablet PO 08/23/22 21:59 10 mg BID RAE Administration Levofloxacin/Dextrose 500 mg in 100 mls @ 100 mls/hr 07/25/22 10:00 07/25/22 10:06 Levofloxacin 500mg/100ml D5w IV 08/24/22 09:59 100 mls/hr Q24H10 RAE Administration Sodium Chloride 1,000 mls @ 100 mls/hr 07/25/22 12:00 07/25/22 12:38 Sodium Chloride 0.9% 1000 Ml IV 08/24/22 11:59 100 mls/hr .Q10H RAE Administration Isosorbide Mononitrate 60 mg 07/25/22 10:00 07/25/22 09:39 Isosorbide Mononitrate 60 Mg Tab PO 08/24/22 09:59 60 mg DAILY RAE Administration Ketorolac Tromethamine 30 mg 07/25/22 11:56 07/25/22 12:25 Ketorolac Tromethamine 30 Mg/Ml Inj IV 07/30/22 11:55 30 mg Q8H PRN PRN Administration PAIN Levothyroxine Sodium 50 mcg 07/26/22 06:00 Levothyroxine Sodium 50 Mcg Tablet PO 08/24/22 09:59 0600 RAE Lisinopril 20 mg 07/24/22 22:00 07/25/22 09:42 Lisinopril 20 Mg Tablet PO 08/23/22 21:59 20 mg BID RAE Administration Meclizine HCl 25 mg 07/24/22 19:15 Meclizine Hcl 25 Mg Tablet PO 08/23/22 19:14 TID PRN PRN dizziness Metoprolol Tartrate 25 mg 07/25/22 10:00 07/25/22 09:40 Metoprolol Tartrate 25 Mg Tab PO 08/24/22 09:59 25 mg DAILY RAE Administration Mirtazapine 7.5 mg 07/24/22 22:00 07/24/22 23:04 Mirtazapine 30 Mg Tablet PO 08/23/22 21:59 7.5 mg HS RAE Administration Miscellaneous Information 1 each 07/25/22 07:15 Medication Intervention 1 Each Each 08/24/22 07:14 .RN TO CHECK WITH PT RAE Miscellaneous Information 1 each 07/25/22 07:15 Medication Intervention 1 Each Each 08/24/22 07:14 .RN TO CHECK RAE Morphine Sulfate 4 mg 07/24/22 17:03 07/25/22 17:25 Morphine Sulfate 4 Mg/Ml Injection IV 07/29/22 17:02 4 mg Q4H PRN PRN Administration PAIN Nitroglycerin 0.4 mg 07/24/22 19:13 Nitroglycerin 0.4 Mg Tablet Bottle SL 08/23/22 19:12 Q5MIN PRN MR X 3 PRN CHEST PAIN Ondansetron HCl 4 mg 07/24/22 17:03 07/25/22 18:48 Ondansetron Hcl 4 Mg/2 Ml Vial IV 08/23/22 17:02 4 mg Q6H PRN PRN Administration NAUSEA/VOMITING Pantoprazole Sodium 40 mg 07/24/22 22:00 07/25/22 09:40 Protonix (Pantoprazole) 40 Mg Tablet PO 08/23/22 21:59 40 mg BID RAE Administration Potassium Chloride 20 meq 07/25/22 10:00 07/25/22 09:40 Potassium Chloride Tab 10 Meq Tab PO 08/24/22 09:59 20 meq DAILY RAE Administration Terbinafine HCl 250 mg 07/25/22 10:00 07/25/22 09:43 Terbinafine Hcl 250 Mg Tablet PO 08/24/22 09:59 250 mg DAILY RAE Administration Discontinued Medications Generic Name Dose Route Start Last Admin Trade Name Ruiz PRN Reason Stop Dose Admin Gabapentin 300 mg 07/24/22 19:08 Gabapentin 300 Mg Capsule PO 08/23/22 19:07 PRN PRN PAIN Sodium Chloride 500 mls @ 500 mls/hr 07/24/22 12:41 07/24/22 13:57 Sodium Chloride 0.9% 500 Ml IV 07/24/22 13:40 Infused .Q1H ONE Infusion Sodium Chloride Confirm 07/24/22 12:53 Sodium Chloride 0.9% 500 Ml Administered 07/24/22 12:54 Dose 500 mls @ ud IV .STK-MED ONE Sodium Chloride 1,000 mls @ 999 mls/hr 07/24/22 14:34 07/24/22 16:21 Sodium Chloride 0.9% 1000 Ml IV 07/24/22 15:34 Infused .Q1H1M STA Infusion Levofloxacin/Dextrose 500 mg in 100 mls @ 100 mls/hr 07/24/22 14:34 07/24/22 16:20 Levofloxacin 500mg/100ml D5w IV 07/24/22 15:33 Infused STAT STA Infusion Sodium Chloride Confirm 07/24/22 14:40 Sodium Chloride 0.9% 1000 Ml Administered 07/24/22 14:41 Dose 1,000 mls @ ud .ROUTE .STK-MED ONE Levofloxacin/Dextrose Confirm 07/24/22 14:40 Levofloxacin 500mg/100ml D5w Administered 07/24/22 14:41 Dose 500 mg in 100 mls @ ud IV .STK-MED ONE Sodium Chloride 1,000 mls @ 100 mls/hr 07/24/22 17:03 07/25/22 06:39 Sodium Chloride 0.45% 1000 Ml IV 08/23/22 17:02 100 mls/hr .Q10H RAE Administration Levothyroxine Sodium 50 mcg 07/25/22 10:00 07/25/22 09:39 Levothyroxine Sodium 50 Mcg Tablet PO 08/24/22 09:59 50 mcg DAILY RAE Administration Morphine Sulfate 4 mg 07/24/22 14:01 07/24/22 14:10 Morphine Sulfate 4 Mg/Ml Injection IV 07/24/22 14:02 4 mg STAT ONE Administration Morphine Sulfate Confirm 07/24/22 14:09 Morphine Sulfate 4 Mg/Ml Injection Administered 07/24/22 14:10 Dose 4 mg .ROUTE .STK-MED ONE Morphine Sulfate 4 mg 07/24/22 15:15 07/24/22 15:20 Morphine Sulfate 4 Mg/Ml Injection IV 07/24/22 15:16 4 mg STAT ONE Administration Morphine Sulfate Confirm 07/24/22 15:19 Morphine Sulfate 4 Mg/Ml Injection Administered 07/24/22 15:20 Dose 4 mg .ROUTE .STK-MED ONE Ondansetron HCl 4 mg 07/24/22 14:01 07/24/22 14:10 Ondansetron Hcl 4 Mg/2 Ml Vial IV 07/24/22 14:02 4 mg STAT ONE Administration Ondansetron HCl Confirm 07/24/22 14:09 Ondansetron Hcl 4 Mg/2 Ml Vial Administered 07/24/22 14:10 Dose 4 mg .ROUTE .STK-MED ONE Intake & Output (Last 24 hours) 07/23/22 07/24/22 07/25/22 07/26/22 11:59 11:59 11:59 11:59 Intake Total 3202 1826 Output Total 4200 1500 Balance -998 326 Weight 98.5 kg Microbiology Results (Last 24 hours) 07/24/22 12:42 Urine, Void Urine Culture - Preliminary NO GROWTH TO DATE Laboratory Results (Last 24 hours) 07/25/22 07/25/22 07/25/22 16:09 11:05 06:37 WBC RBC Hgb Hct MCV MCH MCHC RDW Plt Count MPV Gran % Immature Gran % (Auto) Nucleat RBC Rel Count Eos # (Auto) Immature Gran # (Auto) Absolute Lymphs (auto) Absolute Monos (auto) Absolute Nucleated RBC Lymphocytes % Monocytes % Eosinophils % Basophils % Absolute Granulocytes Basophils # Sodium Potassium Chloride Carbon Dioxide Anion Gap BUN Creatinine Estimated GFR Glucose POC Glucometer 92 96 112 H Calcium Total Bilirubin AST ALT Alkaline Phosphatase Serum Total Protein Albumin 07/25/22 07/25/22 07/24/22 04:45 04:45 21:57 WBC 5.1 RBC 4.00 L Hgb 12.5 Hct 36.8 MCV 92.0 MCH 31.3 MCHC 34.0 RDW 13.4 Plt Count 315 MPV 8.7 Gran % 57.1 Immature Gran % (Auto) 0.4 Nucleat RBC Rel Count 0.0 Eos # (Auto) 0.33 Immature Gran # (Auto) 0.02 Absolute Lymphs (auto) 1.30 Absolute Monos (auto) 0.49 Absolute Nucleated RBC 0.00 Lymphocytes % 25.7 Monocytes % 9.7 Eosinophils % 6.5 H Basophils % 0.6 Absolute Granulocytes 2.89 Basophils # 0.03 Sodium 133 L D Potassium 4.6 Chloride 98 Carbon Dioxide 29 Anion Gap 10.5 BUN 5 L Creatinine 0.78 Estimated GFR > 60.0 Glucose 101 POC Glucometer 78 Calcium 8.5 Total Bilirubin 0.60 AST 30 ALT 21 Alkaline Phosphatase 50 Serum Total Protein 6.5 Albumin 3.5 Orders (Last 24 hours) Category Date Time Status POCT Glucose Check [facility] Care 07/24/22 19:08 Active CBC W DIFF AM.LAB Lab 07/25/22 04:45 Completed CBC W DIFF AM.LAB Lab 07/26/22 04:00 Ordered CMP AM.LAB Lab 07/25/22 04:45 Completed CMP AM.LAB Lab 07/26/22 04:00 Ordered POCT GLUCOSE Stat Lab 07/24/22 21:57 Completed POCT GLUCOSE Stat Lab 07/25/22 06:37 Completed POCT GLUCOSE Stat Lab 07/25/22 11:05 Completed POCT GLUCOSE Stat Lab 07/25/22 16:09 Completed Alendronate Sodium 70 mg [Fosamax 70 MG] Med 07/27/22 06:00 Active 70 mg PO [place] Amlodipine Besylate 5 mg [Norvasc 5 mg] Med 07/24/22 22:00 Active 2.5 mg PO BID Apixaban [Eliquis 2.5 mg Tablet] Med 07/24/22 22:00 Active 5 mg PO BID Ezetimibe 10 mg [Zetia 10 MG] Med 07/25/22 10:00 Active 10 mg PO DAILY Furosemide 40 mg [Lasix 40 MG] Med 07/25/22 10:00 Active 40 mg PO DAILY Gabapentin [Neurontin ] Med 07/25/22 10:00 Active 300 mg PO 1000 Gabapentin [Neurontin ] Med 07/24/22 19:08 Discontinued 300 mg PO PRN PRN Gabapentin [Neurontin ] Med 07/24/22 22:00 Active 600 mg PO HS Glipizide 2.5 mg [Glucotrol Xl 2.5 MG] Med 07/25/22 10:00 Active 2.5 mg PO DAILY Hydrocortisone Med 07/24/22 22:00 Active 10 mg PO BID Isosorbide Mononitrate 60 mg [Imdur 60MG] Med 07/25/22 10:00 Active 60 mg PO DAILY KETOROLAC trometh 30 mg Inj [TORAdol 30 mg Injection Med 07/25/22 11:56 Active ] 30 mg IV Q8H PRN PRN Levofloxacin [Levofloxacin 500MG/100ML D5W] Med 07/25/22 10:00 Active 500 mg in 100 ml IV Q24H10 Levothyroxine Sodium 50 Mcg [Synthroid 50 Mcg] Med 07/26/22 06:00 Active 50 mcg PO 0600 Levothyroxine Sodium 50 Mcg [Synthroid 50 Mcg] Med 07/25/22 10:00 Discontinued 50 mcg PO DAILY Lisinopril 20 mg [Zestril 20 MG] Med 07/24/22 22:00 Active 20 mg PO BID Meclizine HCl 25 mg [Antivert 25 mg] Med 07/24/22 19:15 Active 25 mg PO TID PRN PRN Medication Intervention Med 07/25/22 07:15 Active 1 each MC .RN TO CHECK Medication Intervention Med 07/25/22 07:15 Active 1 each MC .RN TO CHECK WITH PT Metoprolol Tartrate 25 mg [Lopressor 25MG Tab] Med 07/25/22 10:00 Active 25 mg PO DAILY Mirtazapine 30 mg [Remeron 30 mg] Med 07/24/22 22:00 Active 7.5 mg PO HS NaCl 0.9% 1000 ml [Sodium Chloride 0.9% 1000 ML] 1,000 Med 07/25/22 12:00 Active ml IV 100 mls/hr Nitroglycerin 0.4 mg Tablet [Nitrostat 0.4 MG Tablet Med 07/24/22 19:13 Active ] 0.4 mg SL Q5MIN PRN MR X 3 PRN PANTOPRAZOLE 40 mg Tablet [Protonix 40MG Tablet] Med 07/24/22 22:00 Active 40 mg PO BID Potassium Chloride Tab* [Klor Con] Med 07/25/22 10:00 Active 20 meq PO DAILY Terbinafine HCl 250 mg [lamISIL 250 MG] Med 07/25/22 10:00 Active 250 mg PO DAILY Patient Care Notes (Last 24 hours) 07/25/22 12:02 Nursing Note by Padmini Wagner Rounded with Dr Hickey. Orders received. Initialized on 07/25/22 12:02 - END OF NOTE 07/25/22 09:27 Nursing Note by Padmini Wagner Spoke with Dr Hickey regarding pt continued headache as well as serum sodium level. No further orders received. Initialized on 07/25/22 09:27 - END OF NOTE Code(s): E87.1 - HYPO-OSMOLALITY AND HYPONATREMIA (2) Dehydration Current Visit: Yes Status: Acute Assessment & Plan: Last Vital Signs Temp 97.0 F 07/25/22 19:47 Pulse 68 07/25/22 19:47 Resp 18 07/25/22 19:47 BP 133/68 07/25/22 19:47 Pulse Ox 96 07/25/22 19:47 Allergies bee venom protein (honey bee) Allergy (Severe, Verified 12/13/21 06:05) Swelling erythromycin base Allergy (Intermediate, Verified 12/13/21 06:05) Nausea and Vomiting Penicillins Allergy (Intermediate, Verified 12/13/21 06:05) Nausea and Vomiting tetracycline Allergy (Intermediate, Verified 12/13/21 06:05) Nausea and Vomiting Active Medications Acetaminophen (Acetaminophen 325 Mg Tablet) 650 mg PO Q4H PRN PRN PRN Reason: PAIN, FEVER, HEADACHE Stop: 08/23/22 17:02 Last Admin: 07/25/22 14:28 Dose: 650 mg Alendronate Sodium (Alendronate Sodium 70 Mg Tablet) 70 mg PO [place]ma RAE Stop: 08/26/22 05:59 Amlodipine Besylate (Amlodipine Besylate 5 Mg Tablet) 2.5 mg PO BID RAE Stop: 08/23/22 21:59 Last Admin: 07/25/22 09:40 Dose: 2.5 mg Apixaban (Apixaban 2.5 Mg Tablet) 5 mg PO BID RAE Stop: 08/23/22 21:59 Last Admin: 07/25/22 09:35 Dose: 5 mg Ezetimibe (Ezetimibe 10 Mg Tab) 10 mg PO DAILY RAE Stop: 08/24/22 09:59 Last Admin: 07/25/22 09:40 Dose: 10 mg Furosemide (Furosemide 40 Mg Tablet) 40 mg PO DAILY RAE Stop: 08/24/22 09:59 Last Admin: 07/25/22 09:42 Dose: 40 mg Gabapentin (Gabapentin 300 Mg Capsule) 300 mg PO 1000 RAE Stop: 08/24/22 09:59 Last Admin: 07/25/22 08:31 Dose: 300 mg Gabapentin (Gabapentin 300 Mg Capsule) 600 mg PO HS RAE Stop: 08/23/22 21:59 Last Admin: 07/24/22 23:00 Dose: 600 mg Glipizide (Glipizide 2.5 Mg Xl Tablet) 2.5 mg PO DAILY RAE Stop: 08/24/22 09:59 Last Admin: 07/25/22 09:43 Dose: 2.5 mg Hydrocortisone (Hydrocortisone 10 Mg Tablet) 10 mg PO BID RAE Stop: 08/23/22 21:59 Last Admin: 07/25/22 09:43 Dose: 10 mg Levofloxacin/Dextrose (Levofloxacin 500mg/100ml D5w) 500 mg in 100 mls @ 100 mls/hr IV Q24H10 RAE Stop: 08/24/22 09:59 Last Admin: 07/25/22 10:06 Dose: 100 mls/hr Sodium Chloride (Sodium Chloride 0.9% 1000 Ml) 1,000 mls @ 100 mls/hr IV .Q10H RAE Stop: 08/24/22 11:59 Last Admin: 07/25/22 12:38 Dose: 100 mls/hr Isosorbide Mononitrate (Isosorbide Mononitrate 60 Mg Tab) 60 mg PO DAILY RAE Stop: 08/24/22 09:59 Last Admin: 07/25/22 09:39 Dose: 60 mg Ketorolac Tromethamine (Ketorolac Tromethamine 30 Mg/Ml Inj) 30 mg IV Q8H PRN PRN PRN Reason: PAIN Stop: 07/30/22 11:55 Last Admin: 07/25/22 12:25 Dose: 30 mg Levothyroxine Sodium (Levothyroxine Sodium 50 Mcg Tablet) 50 mcg PO 0600 RAE Stop: 08/24/22 09:59 Lisinopril (Lisinopril 20 Mg Tablet) 20 mg PO BID RAE Stop: 08/23/22 21:59 Last Admin: 07/25/22 09:42 Dose: 20 mg Meclizine HCl (Meclizine Hcl 25 Mg Tablet) 25 mg PO TID PRN PRN PRN Reason: dizziness Stop: 08/23/22 19:14 Metoprolol Tartrate (Metoprolol Tartrate 25 Mg Tab) 25 mg PO DAILY RAE Stop: 08/24/22 09:59 Last Admin: 07/25/22 09:40 Dose: 25 mg Mirtazapine (Mirtazapine 30 Mg Tablet) 7.5 mg PO HS RAE Stop: 08/23/22 21:59 Last Admin: 07/24/22 23:04 Dose: 7.5 mg Miscellaneous Information (Medication Intervention 1 Each Each) 1 each MC .RN TO CHECK WITH PT RAE Stop: 08/24/22 07:14 Miscellaneous Information (Medication Intervention 1 Each Each) 1 each MC .RN TO CHECK RAE Stop: 08/24/22 07:14 Morphine Sulfate (Morphine Sulfate 4 Mg/Ml Injection) 4 mg IV Q4H PRN PRN PRN Reason: PAIN Stop: 07/29/22 17:02 Last Admin: 07/25/22 17:25 Dose: 4 mg Nitroglycerin (Nitroglycerin 0.4 Mg Tablet Bottle) 0.4 mg SL Q5MIN PRN MR X 3 PRN PRN Reason: CHEST PAIN Stop: 08/23/22 19:12 Ondansetron HCl (Ondansetron Hcl 4 Mg/2 Ml Vial) 4 mg IV Q6H PRN PRN PRN Reason: NAUSEA/VOMITING Stop: 08/23/22 17:02 Last Admin: 04/21/23 18:48 Dose: 4 mg Pantoprazole Sodium (Protonix (Pantoprazole) 40 Mg Tablet) 40 mg PO BID [facility] Stop: 08/23/22 21:59 Last Admin: 07/25/22 09:40 Dose: 40 mg Potassium Chloride (Potassium Chloride Tab 10 Meq Tab) 20 meq PO DAILY RAE Stop: 08/24/22 09:59 Last Admin: 07/25/22 09:40 Dose: 20 meq Terbinafine HCl (Terbinafine Hcl 250 Mg Tablet) 250 mg PO DAILY RAE Stop: 08/24/22 09:59 Last Admin: 07/25/22 09:43 Dose: 250 mg Intake & Output 07/25/22 07/26/22 11:59 11:59 Intake Total 3202 1826 Output Total 4200 1500 Balance -998 326 Weight 98.5 kg Orders 07/24/22 19:08 POCT Glucose Check ACHS 07/24/22 19:13 Nitroglycerin 0.4 mg Tablet [Nitrostat 0.4 MG Tablet] 0.4 mg SL Q5MIN PRN MR X 3 PRN 07/24/22 19:15 Meclizine HCl 25 mg [Antivert 25 mg] 25 mg PO TID PRN PRN 07/24/22 22:00 Amlodipine Besylate 5 mg [Norvasc 5 mg] 2.5 mg PO BID Apixaban [Eliquis 2.5 mg Tablet] 5 mg PO BID Gabapentin [Neurontin ] 600 mg PO HS Hydrocortisone 10 mg PO BID Lisinopril 20 mg [Zestril 20 MG] 20 mg PO BID Mirtazapine 30 mg [Remeron 30 mg] 7.5 mg PO HS PANTOPRAZOLE 40 mg Tablet [Protonix 40MG Tablet] 40 mg PO BID 07/25/22 07:15 Medication Intervention 1 each MC .RN TO CHECK Medication Intervention 1 each MC .RN TO CHECK WITH PT 07/25/22 10:00 Ezetimibe 10 mg [Zetia 10 MG] 10 mg PO DAILY Furosemide 40 mg [Lasix 40 MG] 40 mg PO DAILY Gabapentin [Neurontin ] 300 mg PO 1000 Glipizide 2.5 mg [Glucotrol Xl 2.5 MG] 2.5 mg PO DAILY Isosorbide Mononitrate 60 mg [Imdur 60MG] 60 mg PO DAILY Metoprolol Tartrate 25 mg [Lopressor 25MG Tab] 25 mg PO DAILY Potassium Chloride Tab* [Klor Con] 20 meq PO DAILY Terbinafine HCl 250 mg [lamISIL 250 MG] 250 mg PO DAILY 07/25/22 11:56 KETOROLAC trometh 30 mg Inj [TORAdol 30 mg Injection] 30 mg IV Q8H PRN PRN 07/25/22 12:00 NaCl 0.9% 1000 ml [Sodium Chloride 0.9% 1000 ML] 1,000 ml IV 100 mls/hr 07/26/22 04:00 CBC W DIFF AM.LAB CMP AM.LAB 07/26/22 06:00 Levothyroxine Sodium 50 Mcg [Synthroid 50 Mcg] 50 mcg PO 0600 07/27/22 06:00 Alendronate Sodium 70 mg [Fosamax 70 MG] 70 mg PO [place] Lab Tests 07/24/22 07/25/22 07/25/22 21:57 04:45 04:45 WBC 5.1 RBC 4.00 L Hgb 12.5 Hct 36.8 MCV 92.0 MCH 31.3 MCHC 34.0 RDW 13.4 Plt Count 315 MPV 8.7 Gran % 57.1 Immature Gran % (Auto) 0.4 Nucleat RBC Rel Count 0.0 Eos # (Auto) 0.33 Immature Gran # (Auto) 0.02 Absolute Lymphs (auto) 1.30 Absolute Monos (auto) 0.49 Absolute Nucleated RBC 0.00 Lymphocytes % 25.7 Monocytes % 9.7 Eosinophils % 6.5 H Basophils % 0.6 Absolute Granulocytes 2.89 Basophils # 0.03 Sodium 133 L D Potassium 4.6 Chloride 98 Carbon Dioxide 29 Anion Gap 10.5 BUN 5 L Creatinine 0.78 Estimated GFR > 60.0 Glucose 101 POC Glucometer 78 Calcium 8.5 Total Bilirubin 0.60 AST 30 ALT 21 Alkaline Phosphatase 50 Serum Total Protein 6.5 Albumin 3.5 07/25/22 07/25/22 07/25/22 06:37 11:05 16:09 WBC RBC Hgb Hct MCV MCH MCHC RDW Plt Count MPV Gran % Immature Gran % (Auto) Nucleat RBC Rel Count Eos # (Auto) Immature Gran # (Auto) Absolute Lymphs (auto) Absolute Monos (auto) Absolute Nucleated RBC Lymphocytes % Monocytes % Eosinophils % Basophils % Absolute Granulocytes Basophils # Sodium Potassium Chloride Carbon Dioxide Anion Gap BUN Creatinine Estimated GFR Glucose POC Glucometer 112 H 96 92 Calcium Total Bilirubin AST ALT Alkaline Phosphatase Serum Total Protein Albumin Microbiology 07/24/22 12:42 Urine, Void Urine Culture - Preliminary NO GROWTH TO DATE Code(s): E86.0 - DEHYDRATION (3) Headache Current Visit: Yes Status: Acute Qualifiers: Headache type: tension-type Code(s): R51.9 - HEADACHE, UNSPECIFIED (4) Urinary tract infection Current Visit: Yes Status: Acute Code(s): N39.0 - URINARY TRACT INFECTION, SITE NOT SPECIFIED
[2022-07-25] MEDS: REMERON 30 MG PO SCH (21:42)
[2022-07-26] MEDS: Zofran 4 MG/2 ML VIAL IV PRN (00:18)
[2022-07-26] MEDS: MORPHINE SULFATE 4 MG INJ IV PRN ×2 (03:56→08:32)
[2022-07-26] MEDS: SYNTHROID 50 MCG PO SCH (05:45)
[2022-07-26 06:14] LABS: Absolute Neutrophil Ct (ANC) 2.29 x10^3/uL (1.4-6.9); BASOPHIL % 0.7 % (0.0-0.4); Basophil (Absolute #) 0.04 x10^3/uL (0-0.4); Eosinophil % 9.2 % (0.00-5.0); Hematocrit 36.1 % (35-47); Hemoglobin 11.8 g/dL (12.0-16.0); IMMATURE GRAN # 0.01 x10^3u/L (0.00-0.03); IMMATURE GRAN % 0.2 % (0.00-0.4); Lymphocyte (Absolute #) 2.11 x10^3/uL (1.0-4.6); Lymphocytes % 38.9 % (24.0-44.0); Mean Corpuscular Hemoglobin 31.1 pg (26-32); Mean Corpuscular Hgb Concent. 32.7 g/dL (32-36); Mean Platelet Volume 8.4 fL (7.5-11.0); Monocyte (Absolute #) 0.48 x10^3/uL (0.0-1.3); Monocytes % 8.8 % (0.0-12.0); Neutrophil % 42.2 % (36.0-66.0); Platelet Count 308 x10^3/uL (150-450); Red Cell Distribution Width 13.4 % (11.5-14.0); White Blood Count 5.4 x10^3/uL (4.0-10.5)
[2022-07-26 06:44] LABS: ALBUMIN 3.3 g/dL (3.5-5.0); ALKALINE PHOSPHATASE 44 U/L (38-126); ANION GAP 11.2 MEQ/L (5-15); BLOOD UREA NITROGEN 6 mg/dL (7-17); CHLORIDE 100 mmol/L (98-107); Calcium 8.1 mg/dL (8.4-10.2); Carbon Dioxide 29 mmol/L (22-30); Creatinine 1 0.79 mg/dL (0.52-1.04); EST GLOMERULAR FILTRATION RATE > 60.0 ML/MIN; Glucose 86 mg/dL (74-106); Potassium 4.1 mmol/L (3.5-5.1); SGOT/AST 23 U/L (14-36); SGPT/ALT 18 U/L (0-35); SODIUM 136 mmol/L (137-145); Total Protein 6.3 g/dL (6.3-8.2)
[2022-07-26] MEDS: Glucotrol Xl 2.5 MG PO SCH (10:04)
[2022-07-26] MEDS: lamISIL 250 MG PO SCH ×2 (10:04→10:05)
[2022-07-26] MEDS: HYDROCORTISONE PO SCH ×2 (10:05→22:19)
[2022-07-26] MEDS: Protonix 40MG Tablet PO SCH ×2 (10:06→22:20)
[2022-07-26] MEDS: Imdur 60MG PO SCH (10:06)
[2022-07-26] MEDS: Zetia 10 MG PO SCH (10:06)
[2022-07-26] MEDS: ELIQUIS 2.5 MG TABLET PO SCH ×2 (10:06→22:19)
[2022-07-26] MEDS: NORVASC 5 MG PO SCH ×2 (10:06→22:20)
[2022-07-26] MEDS: Lopressor 25MG Tab PO SCH (10:06)
[2022-07-26] MEDS: Klor Con PO SCH (10:07)
[2022-07-26] MEDS: Lasix 40 MG PO SCH (10:17)
[2022-07-26] MEDS: Compazine 5 MG PO PRN ×2 (10:17→18:13)
[2022-07-26] MEDS: BENADRYL 50 MG/ML IV PRN ×2 (10:18→18:13)
[2022-07-26] MEDS: Zestril 20 MG PO SCH ×2 (10:31→22:21)
[2022-07-26] MEDS: NEURONTIN PO SCH ×2 (10:31→22:20)
[2022-07-26] MEDS: Levofloxacin 500MG/100ML D5W 500 MG/100 ML BAG IV SCH (10:31)
[2022-07-26] MEDS: Reglan 10 MG PO SCH ×2 (11:21→16:19)
[2022-07-26] MEDS: TORAdol 30 mg Injection IV PRN ×2 (13:11→22:26)
[2022-07-26] MEDS: Sodium Chloride 0.9% 1000 ML 1,000 ML IV SCH (18:12)
[2022-07-26] MEDS: REMERON 30 MG PO SCH (22:20)
[2022-07-27] MEDS: Sodium Chloride 0.9% 1000 ML 1,000 ML IV SCH (05:32)
[2022-07-27] MEDS: SYNTHROID 50 MCG PO SCH (05:33)
[2022-07-27] MEDS ORDERED: Fosamax 70 MG PO SCH (06:00)
[2022-07-27 06:56] VITALS: O2SAT 97
[2022-07-27] MEDS: Reglan 10 MG PO SCH ×2 (06:58→11:27)
[2022-07-27] MEDS: TORAdol 30 mg Injection IV PRN (07:02)
[2022-07-27] MEDS: Protonix 40MG Tablet PO SCH (09:29)
[2022-07-27] MEDS: HYDROCORTISONE PO SCH (09:29)
[2022-07-27] MEDS: Glucotrol Xl 2.5 MG PO SCH (09:29)
[2022-07-27] MEDS: Zetia 10 MG PO SCH (09:29)
[2022-07-27] MEDS: ELIQUIS 2.5 MG TABLET PO SCH (09:29)
[2022-07-27] MEDS: Klor Con PO SCH (09:30)
[2022-07-27] MEDS: Imdur 60MG PO SCH (09:30)
[2022-07-27] MEDS: Zestril 20 MG PO SCH (09:30)
[2022-07-27] MEDS: Lopressor 25MG Tab PO SCH (09:30)
[2022-07-27] MEDS: Lasix 40 MG PO SCH (09:31)
[2022-07-27] MEDS: Levofloxacin 500MG/100ML D5W 500 MG/100 ML BAG IV SCH (09:31)
[2022-07-27] MEDS: NORVASC 5 MG PO SCH (09:31)
[2022-07-27] MEDS: NEURONTIN PO SCH (09:32)
[2022-07-27 10:13] LABS: Hematocrit 39.3 % (35-47); Hemoglobin 12.6 g/dL (12.0-16.0); Mean Cell Volume 97.5 fL (78-100); Mean Corpuscular Hemoglobin 31.3 pg (26-32); Mean Corpuscular Hgb Concent. 32.1 g/dL (32-36); Mean Platelet Volume 8.2 fL (7.5-11.0); Platelet Count 307 x10^3/uL (150-450); Red Blood Count 4.03 x10^6/uL (4.1-5.4); Red Cell Distribution Width 13.2 % (11.5-14.0); White Blood Count 6.3 x10^3/uL (4.0-10.5)
[2022-07-27 10:26] LABS: ALBUMIN 3.7 g/dL (3.5-5.0); ALKALINE PHOSPHATASE 47 U/L (38-126); ANION GAP 10.9 MEQ/L (5-15); BLOOD UREA NITROGEN 8 mg/dL (7-17); CHLORIDE 99 mmol/L (98-107); Calcium 8.4 mg/dL (8.4-10.2); Carbon Dioxide 31 mmol/L (22-30); Creatinine 1 0.92 mg/dL (0.52-1.04); EST GLOMERULAR FILTRATION RATE > 60.0 ML/MIN; Glucose 125 mg/dL (74-106); Potassium 4.5 mmol/L (3.5-5.1); SGOT/AST 24 U/L (14-36); SGPT/ALT 18 U/L (0-35); SODIUM 136 mmol/L (137-145); Total Protein 6.9 g/dL (6.3-8.2)
[2022-07-27 11:28] VITALS: BP 123/69; PULSE 69
--- NOTE | 2022-08-03 16:59 | PCM.DS ---
Discharge Summary Date of Admission: 07/24/22 17:01 Date of Discharge: 07/27/2022 Admitting Physician: KRISTOPHER RESTREPO Primary Care Provider: BRE HERNANDEZ Allergies Allergies bee venom protein (honey bee) Allergy (Severe, Verified 12/13/21 06:05) Swelling erythromycin base Allergy (Intermediate, Verified 12/13/21 06:05) Nausea and Vomiting Penicillins Allergy (Intermediate, Verified 12/13/21 06:05) Nausea and Vomiting tetracycline Allergy (Intermediate, Verified 12/13/21 06:05) Nausea and Vomiting Hospital Summary - Hospital Course Hospital Course: Pt. admitted to hospital with UTI, headache, hyponatremia, dehydration, after a couple of day of iv antibiotics and ivf, pt. was feeling much better and ready for discharge to home - Vitals & Intake/Output Vital Signs: Vital Signs Temperature 97.8 F 07/27/22 11:28 Pulse Rate 69 07/27/22 11:28 Respiratory Rate 16 07/27/22 12:00 Blood Pressure 123/69 07/27/22 11:28 O2 Sat by Pulse Oximetry 97 07/27/22 11:28 - Lab Result Diagrams: 07/27/22 10:10 07/27/22 10:10 Micro Results-Entire Visit: Microbiology 07/24/22 13:10 Blood Culture - Final Blood 07/24/22 13:15 Blood Culture - Final Blood 07/24/22 12:42 Urine Culture - Final Urine, Void MIXED MEE; 3 OR MORE TYPES. NO PREDOMINANT ORGANISM. NO FURTHER WORKUP. PLEASE RESUBMIT IF CLINICALLY INDICATED. Discharge Exam General Appearance: no apparent distress, alert Neurologic Exam: alert, oriented x 3, cooperative, normal mood/affect, nml cerebellar function, sensation nml, No motor deficits Eye Exam: PERRL, EOMI, eyes nml inspection Ears, Nose, Throat Exam: normal ENT inspection, pharynx normal, moist mucous membranes Neck Exam: normal inspection, non-tender, supple, full range of motion Respiratory Exam: normal breath sounds, lungs clear, No respiratory distress Cardiovascular Exam: regular rate/rhythm, normal heart sounds Gastrointestinal/Abdomen Exam: soft, No tenderness, No mass Pelvic Exam: deferred Rectal Exam: deferred Back Exam: normal inspection, normal range of motion, No CVA tenderness, No vertebral tenderness Extremity Exam: normal inspection, normal range of motion Skin Exam: normal color, warm, dry Final Diagnosis/Problem List - Final Discharge Diagnosis/Problem (1) Dehydration Status: Acute Code(s): E86.0 - DEHYDRATION (2) Headache Status: Acute Code(s): R51.9 - HEADACHE, UNSPECIFIED (3) Hyponatremia Status: Acute Code(s): E87.1 - HYPO-OSMOLALITY AND HYPONATREMIA (4) Urinary tract infection Status: Acute Code(s): N39.0 - URINARY TRACT INFECTION, SITE NOT SPECIFIED - Discharge Discharge Date: 07/27/22 Disposition: Home, Self-Care Condition: Stable Prescriptions: New levoFLOXacin [Levofloxacin] 500 mg PO DAILY 7 Days #7 tablet Metoclopramide HCl [Reglan] 5 mg PO AC 5 Days #16 tab Continue Hydrocortisone 10 mg PO BID Amlodipine Besylate 5 mg [Norvasc 5 mg] 2.5 mg PO BID PANTOPRAZOLE 40 mg Tablet [Protonix 40MG Tablet] 40 mg PO BID lisinopriL [Lisinopril] 20 mg PO BID Apixaban [Eliquis] 5 mg PO BID Ezetimibe 10 mg [Zetia 10 MG] 10 mg PO DAILY Gabapentin [Neurontin ] 300 mg PO DAILY Levothyroxine Sodium [Euthyrox] 50 mcg PO DAILY Alendronate Sodium [Fosamax] 70 mg PO WEEKLY terbinafine HCL [Terbinafine HCl] 250 mg PO DAILY Meclizine HCl 25 mg PO TID PRN PRN Reason: Dizziness Mirtazapine 7.5 mg PO HS Metoprolol Tartrate 25 mg [Lopressor 25MG Tab] 25 mg PO DAILY Semaglutide [Ozempic] 2 mg SQ WEEKLY Furosemide 40 mg PO DAILY Potassium Chloride [Klor-Con 10] 20 meq PO DAILY Phentermine HCl 37.5 mg PO DAILY Isosorbide Mononitrate [Isosorbide Mononitrate ER] 60 mg PO DAILY glipiZIDE [Glipizide ER] 2.5 mg PO DAILY Nitroglycerin 0.4 mg Tablet [Nitrostat 0.4 MG Tablet] 0.4 mg SL UD PRN PRN Reason: Chest Pain Gabapentin [Neurontin ] 600 mg PO HS Instructions: Urinary Tract Infection, Adult (DC), Hyponatremia (DC) Follow up with: BRE HERNANDEZ [Primary Care Provider] -
== END 2022-07-27 12:45 | disposition home or self-care (01) ==
LOC: ED 12:19 → MED SURG 17:01
PROVIDERS: ADMIT General Practice; ATTEND General Practice
DX: E86.0 Dehydration (principal); E87.1 Hypo-osmolality and hyponatremia; N39.0 Urinary tract infection, site not specified; R51.9 Headache, unspecified; I10 Essential (primary) hypertension; E78.5 Hyperlipidemia, unspecified; E10.9 Type 1 diabetes mellitus without complications; Z79.01 Long term (current) use of anticoagulants; Z79.899 Other long term (current) drug therapy; Z20.828 Contact with and (suspected) exposure to other viral communicable diseases
CPT/HCPCS: 0241U; 36000; 36415; 70450; 80053; 81001; 82947; 83036; 84133; 84300; 85025; 85027; 86308; 87040; 87086; 87651; 93005; 93041; 94760; 96360; 96361; 96365; 96374; 96375; 96376; 99285; G0378; J1200; J1885; J1956; J2270; J2405; A9270-GY

== ENCOUNTER 2022-09-07 17:58 | Emergency (ER) | payer OTHER ==
[2022-09-07] MEDS ORDERED: Sodium Chloride 0.9% 1000 ML 1,000 ML IV STA ×2 (18:33→19:29)
[2022-09-07] MEDS ORDERED: Zofran 4 MG/2 ML VIAL IV ONE ×2 (18:33→19:50)
[2022-09-07] MEDS ORDERED: Zofran 4 MG/2 ML VIAL ONE ×2 (18:40→19:53)
[2022-09-07] MEDS ORDERED: Sodium Chloride 0.9% 1000 ML 1,000 ML ONE ×2 (18:40→19:53)
[2022-09-07 18:49] LABS: Absolute Neutrophil Ct (ANC) 3.05 x10^3/uL (1.4-6.9); BASOPHIL % 1.1 % (0.0-0.4); Basophil (Absolute #) 0.07 x10^3/uL (0-0.4); Eosinophil % 5.1 % (0.00-5.0); Eosinophil (Absolute #) 0.34 x10^3/uL (0-0.5); Hematocrit 40.7 % (35-47); Hemoglobin 13.2 g/dL (12.0-16.0); IMMATURE GRAN # 0.02 x10^3u/L (0.00-0.03); IMMATURE GRAN % 0.3 % (0.00-0.4); Lymphocyte (Absolute #) 2.67 x10^3/uL (1.0-4.6); Lymphocytes % 40.4 % (24.0-44.0); Mean Cell Volume 94.7 fL (78-100); Mean Corpuscular Hemoglobin 30.7 pg (26-32); Mean Corpuscular Hgb Concent. 32.4 g/dL (32-36); Mean Platelet Volume 8.8 fL (7.5-11.0); Monocyte (Absolute #) 0.46 x10^3/uL (0.0-1.3); Neutrophil % 46.1 % (36.0-66.0); Platelet Count 409 x10^3/uL (150-450); Red Cell Distribution Width 13.3 % (11.5-14.0); White Blood Count 6.6 x10^3/uL (4.0-10.5)
[2022-09-07 18:55] LABS: Appearance Cloudy (Clear); Bacteria Many /HPF (None Seen); Bilirubin Small (Negative); Blood Negative (Negative); Epithelial Cells Many /HPF (None Seen); Glucose, Urine Negative (Negative); Ketones Trace (Negative); Leukocyte Esterase Trace (Negative); Nitrite Negative (Negative); Protein,Urine Dip 30 (Negative); RBC 0-2 /HPF (0-5); Specific Gravity >=1.030 (1.005-1.030)
[2022-09-07 18:56] LABS: ADD URINE CULTURE? YES (NO)
[2022-09-07 19:01] LABS: ANION GAP 14.5 MEQ/L (5-15); BILIRUBIN,TOTAL 0.7 mg/dL (0.2-1.3); Creatinine 1 1.09 mg/dL (0.52-1.04); EST GLOMERULAR FILTRATION RATE 53.7 ML/MIN; Potassium 3.6 mmol/L (3.5-5.1); Total Protein 7.4 g/dL (6.3-8.2)
[2022-09-07 19:03] VITALS: O2SAT 98
--- NOTE | 2022-09-07 19:04 | ERPHSYRPT ---
- History of Present Illness Historian: patient Exam Limitations: no limitations Patient Subjective Stated Complaint: Pt states "I have been throwing up on and off since thursday. Nothing is staying down." Triage Nursing Assessment: Pt presented alert and oriented X 3, skin pwd. pt ambulates with an upright steady gait, able to speak in clear full sentences. Pt in no apparent respiratory distress. Physician History: 66 yo WF w N/V x 7 days. Pt has been taking Ozempic x 2 years and has not increased the dose. She has minimal intermittant abdominal pain. Pt denies diarrhea/melena/hematochezia/dysuria/hematruia/fever/cough/coryza/dysuria/hemat uria/chest pain. Timing/Duration: other (7 days) Abdominal Pain Onset Location: generalized abdomen Pain Radiation: no radiation Severity of Pain-Max: mild Severity of Pain-Current: none Modifying Factors: Improves With: nothing Associated Symptoms: nausea, vomiting Previous symptoms: no prior history Allergies/Adverse Reactions: bee venom protein (honey bee) Allergy (Severe, Verified 12/13/21 06:05) Swelling erythromycin base Allergy (Intermediate, Verified 12/13/21 06:05) Nausea and Vomiting Penicillins Allergy (Intermediate, Verified 12/13/21 06:05) Nausea and Vomiting tetracycline Allergy (Intermediate, Verified 12/13/21 06:05) Nausea and Vomiting Home Medications: Amlodipine Besylate 5 mg [Norvasc 5 mg] 2.5 mg PO BID 11/18/20 [History] Apixaban [Eliquis] 5 mg PO BID 11/18/20 [History] PANTOPRAZOLE 40 mg Tablet [Protonix 40MG Tablet] 40 mg PO BID 11/18/20 [History] lisinopriL [Lisinopril] 20 mg PO BID 11/18/20 [History] Ezetimibe 10 mg [Zetia 10 MG] 10 mg PO DAILY 06/09/21 [History] Gabapentin [Neurontin ] 300 mg PO DAILY 06/09/21 [History] Alendronate Sodium [Fosamax] 70 mg PO WEEKLY 12/05/21 [History] Levothyroxine Sodium [Euthyrox] 50 mcg PO DAILY 12/05/21 [History] Meclizine HCl 25 mg PO TID PRN 12/05/21 [History] Metoprolol Tartrate 25 mg [Lopressor 25MG Tab] 25 mg PO DAILY 12/05/21 [History] Mirtazapine 7.5 mg PO HS 12/05/21 [History] Semaglutide [Ozempic] 2 mg SQ WEEKLY 12/05/21 [History] Gabapentin [Neurontin ] 600 mg PO HS 07/24/22 [History] Isosorbide Mononitrate [Isosorbide Mononitrate ER] 60 mg PO DAILY 07/24/22 [History] Nitroglycerin 0.4 mg Tablet [Nitrostat 0.4 MG Tablet] 0.4 mg SL UD PRN 07/24/22 [History] Phentermine HCl 37.5 mg PO DAILY 07/24/22 [History] Potassium Chloride [Klor-Con 10] 20 meq PO DAILY 07/24/22 [History] glipiZIDE [Glipizide ER] 2.5 mg PO DAILY 07/24/22 [History] Hx Tetanus, Diphtheria Vaccination/Date Given: No Hx Influenza Vaccination/Date Given: No Hx Pneumococcal Vaccination/Date Given: No Immunizations Up to Date: Yes Travel Risk - International Travel Have you traveled outside of the country in past 3 weeks: No - Coronavirus Screening Are you exhibiting any of the following symptoms?: Yes Symptoms: Vomiting/Diarrhea Close contact with a COVID-19 positive Pt in past 14-21 Days: No - Vaccine Status Have you recieved a Covid-19 vaccination: Yes 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: [employer] - Vaccination Dates Date of 2cond Vaccination (if applicable): 2020 - Review of Systems Constitutional: No Symptoms, Lethargy, Malaise, Weakness Eyes: No Symptoms Ears, Nose, & Throat: No Symptoms Respiratory: No Symptoms Cardiac: No Symptoms Abdominal/Gastrointestinal: No Symptoms, Nausea, Vomiting Genitourinary Symptoms: No Symptoms Musculoskeletal: No Symptoms Skin: No Symptoms Neurological: No Symptoms Psychological: No Symptoms Endocrine: No Symptoms Hematologic/Lymphatic: No Symptoms Immunological/Allergic: No Symptoms - Past Medical History Pertinent Past Medical History: Yes Neurological History: No Pertinent History ENT History: No Pertinent History Cardiac History: Arrhythmia, High Cholesterol, Hypertension, Other Respiratory History: Asthma, Bronchitis Endocrine Medical History: Diabetes Type I, Hypothyroidism Musculoskeletal History: Degenerative Disk Disease, Osteoarthritis, Other GI Medical History: GERD History: No Pertinent History Psycho-Social History: No Pertinent History Female Reproductive Disorders: Abnormal Uterine Bleeding Other Medical History: MITRAL VALVE PROLAPSE, HX LEFT FOOT SURGERY FOR TENDON/LIGAMENT DAMAGE 12/26, CERVICAL FUSION C5-6, LEFT KNEE REPLACEMENT 2010 - Past Surgical History Past Surgical History: Yes Neuro Surgical History: No Pertinent History Cardiac: Cardiac Catheterization, Other Respiratory: No Pertinent History Gastrointestinal: Cholecystectomy, Hernia Repair Genitourinary: No Pertinent History Musculoskeletal: Orthopedic Surgery Female Surgical History: Hysterectomy, Tubal Ligation Other Surgical History: Left Knee Replacement. Fusion of 5th and 6th Vertebre - Social History Smoking Status: Never smoker Exposure to second hand smoke: Yes Drug Use: none Patient Lives Alone: Yes Significant Family History: no pertinent family hx - Nursing Vital Signs Nursing Vital Signs: Initial Vital Signs Temperature 97.7 F 09/07/22 18:14 Pulse Rate 106 H 09/07/22 18:14 Respiratory Rate 20 09/07/22 18:14 Blood Pressure 128/80 09/07/22 18:14 O2 Sat by Pulse Oximetry 100 09/07/22 18:14 Pain Scale Pain Intensity 0 Tachy - Physical Exam General Appearance: no apparent distress Eye Exam: PERRL/EOMI, eyes nml inspection Ears, Nose, Throat Exam: normal ENT inspection, TMs normal, pharynx normal, moist mucous membranes Neck Exam: normal inspection, non-tender, supple, full range of motion, No meningismus, No mass, No Brudzinski, No Kernig's Respiratory Exam: normal breath sounds, lungs clear, airway intact, No chest tenderness, No respiratory distress Cardiovascular Exam: tachycardia, capillary refill <2 sec, No murmur Gastrointestinal/Abdomen Exam: soft, normal bowel sounds, tenderness (Mild LUQ wo guarding or rebound) Back Exam: normal inspection, normal range of motion, No CVA tenderness, No vertebral tenderness Extremity Exam: normal inspection, normal range of motion Neurologic Exam: alert, oriented x 3, cooperative, 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 II-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 nml as tested, no rmal mood/affect, nml cerebellar function, nml station & gait, sensation nml, No motor deficits, No sensory deficit Skin Exam: normal color Lymphatic Exam: No adenopathy SpO2 Interpretation: normal SpO2: 98 O2 Delivery: Room Air - Course Nursing assessment & vital signs reviewed: Yes - CT Exams Abdomen/Pelvis CT Interpretation: Tele-radiologist Report (Nothing acute) Ordered Tests: Active Orders 24 hr Category Date Time Status ABDOMEN AND PELVIS W/0 CONTRAS [CT] Stat Exams 09/07/22 18:58 Completed AMYLASE Stat Lab 09/07/22 18:45 Completed CBC W DIFF Stat Lab 09/07/22 18:45 Completed CMP Stat Lab 09/07/22 18:45 Completed CULTURE,URINE Stat Lab 09/07/22 18:35 Received LIPASE Stat Lab 09/07/22 18:45 Completed Lactic Acid Stat Lab 09/07/22 19:30 Completed TROPONIN Q4H Lab 09/07/22 19:00 Completed TROPONIN Q4H Lab 09/08/22 01:00 Ordered TROPONIN Q4H Lab 09/08/22 05:00 Ordered UA W/RFX UR CULTURE Stat Lab 09/07/22 18:35 Completed Medication Summary Discontinued Medications Generic Name Dose Route Start Last Admin Trade Name Freq PRN Reason Stop Dose Admin Sodium Chloride 1,000 mls @ 999 mls/hr 09/07/22 18:33 09/07/22 20:00 Sodium Chloride 0.9% 1000 Ml IV 09/07/22 19:33 Infused .Q1H1M STA Infusion Sodium Chloride Confirm 09/07/22 18:40 Sodium Chloride 0.9% 1000 Ml Administered 09/07/22 18:41 Dose 1,000 mls @ ud .ROUTE .STK-MED ONE Sodium Chloride 1,000 mls @ 999 mls/hr 09/07/22 19:29 09/07/22 19:54 Sodium Chloride 0.9% 1000 Ml IV 09/07/22 20:29 999 mls/hr .Q1H1M STA Administration Sodium Chloride Confirm 09/07/22 19:53 Sodium Chloride 0.9% 1000 Ml Administered 09/07/22 19:54 Dose 1,000 mls @ ud .ROUTE .STK-MED ONE Ceftriaxone Sodium/Dextrose 1 g in 50 mls @ 100 mls/hr 09/07/22 20:45 09/07/22 20:51 Rocephin 1 Gm-D5w 50 Ml Bag IV 09/07/22 21:14 100 ml/hr STAT STA 100 mls/hr Administration Ceftriaxone Sodium/Dextrose Confirm 09/07/22 20:50 Rocephin 1 Gm-D5w 50 Ml Bag Administered 09/07/22 20:51 Dose 1 g in 50 mls @ ud IV .STK-MED ONE Ondansetron HCl 4 mg 09/07/22 18:33 09/07/22 18:43 Ondansetron Hcl 4 Mg/2 Ml Vial IV 09/07/22 18:34 4 mg STAT ONE Administration Ondansetron HCl Confirm 09/07/22 18:40 Ondansetron Hcl 4 Mg/2 Ml Vial Administered 09/07/22 18:41 Dose 4 mg .ROUTE .STK-MED ONE Ondansetron HCl 4 mg 09/07/22 19:50 09/07/22 19:54 Ondansetron Hcl 4 Mg/2 Ml Vial IV 09/07/22 19:51 4 mg STAT ONE Administration Ondansetron HCl Confirm 09/07/22 19:53 Ondansetron Hcl 4 Mg/2 Ml Vial Administered 09/07/22 19:54 Dose 4 mg .ROUTE .STK-MED ONE Lab/Rad Data: Laboratory Result Diagrams 09/07/22 18:45 09/07/22 18:45 Laboratory Results 09/07/22 09/07/22 09/07/22 Range/Units 19:30 19:00 18:45 WBC (4.0-10.5) x10^3/uL RBC (4.1-5.4) x10^6/uL Hgb (12.0-16.0) g/dL Hct (35-47) % MCV (78-100) fL MCH (26-32) pg MCHC (32-36) g/dL RDW (11.5-14.0) % Plt Count (150-450) x10^3/uL MPV (7.5-11.0) fL Gran % (36.0-66.0) % Immature Gran % (Auto) (0.00-0.4) % Nucleat RBC Rel Count (0.00-0.1) % Eos # (Auto) (0-0.5) x10^3/uL Immature Gran # (Auto) (0.00-0.03) x10^3u/L Absolute Lymphs (auto) (1.0-4.6) x10^3/uL Absolute Monos (auto) (0.0-1.3) x10^3/uL Absolute Nucleated RBC (0.00-0.01) x10^3u/L Lymphocytes % (24.0-44.0) % Monocytes % (0.0-12.0) % Eosinophils % (0.00-5.0) % Basophils % (0.0-0.4) % Absolute Granulocytes (1.4-6.9) x10^3/uL Basophils # (0-0.4) x10^3/uL Sodium 134 L (137-145) mmol/L Potassium 3.6 (3.5-5.1) mmol/L Chloride 98 (98-107) mmol/L Carbon Dioxide 26 (22-30) mmol/L Anion Gap 14.5 (5-15) MEQ/L BUN 11 (7-17) mg/dL Creatinine 1.09 H (0.52-1.04) mg/dL Estimated GFR 53.7 ML/MIN Glucose 170 H (74-106) mg/dL Lactic Acid 1.8 (0.4-2.0) Calcium 9.0 (8.4-10.2) mg/dL Total Bilirubin 0.70 (0.2-1.3) mg/dL AST 32 (14-36) U/L ALT 20 (0-35) U/L Alkaline Phosphatase 48 (38-126) U/L Troponin I < 0.012 (0.000-0.034) ng/mL Serum Total Protein 7.4 (6.3-8.2) g/dL Albumin 4.0 (3.5-5.0) g/dL Amylase 54 (30-110) U/L Lipase 97 (23-300) U/L Urine Color (Yellow) Urine Appearance (Clear) Urine pH (4.6-8.0) Ur Specific [place] (1.005-1.030) Urine Protein (Negative) Urine Glucose (UA) (Negative) mg/dL Urine Ketones (Negative) Urine Blood (Negative) Urine Nitrite (Negative) Urine Bilirubin (Negative) Urine Urobilinogen (0.2) mg/dL Ur Leukocyte Esterase (Negative) U Hyaline Cast (Auto) (0-2) /LPF Urine Microscopic RBC (0-5) /HPF Urine Microscopic WBC (0-5) /HPF Ur Epithelial Cells (None Seen) /HPF Urine Bacteria (None Seen) /HPF Urine Culture Reflexed (NO) 09/07/22 09/07/22 Range/Units 18:45 18:35 WBC 6.6 (4.0-10.5) x10^3/uL RBC 4.30 (4.1-5.4) x10^6/uL Hgb 13.2 (12.0-16.0) g/dL Hct 40.7 (35-47) % MCV 94.7 (78-100) fL MCH 30.7 (26-32) pg MCHC 32.4 (32-36) g/dL RDW 13.3 (11.5-14.0) % Plt Count 409 (150-450) x10^3/uL MPV 8.8 (7.5-11.0) fL Gran % 46.1 (36.0-66.0) % Immature Gran % (Auto) 0.3 (0.00-0.4) % Nucleat RBC Rel Count 0.0 (0.00-0.1) % Eos # (Auto) 0.34 (0-0.5) x10^3/uL Immature Gran # (Auto) 0.02 (0.00-0.03) x10^3u/L Absolute Lymphs (auto) 2.67 (1.0-4.6) x10^3/uL Absolute Monos (auto) 0.46 (0.0-1.3) x10^3/uL Absolute Nucleated RBC 0.00 (0.00-0.01) x10^3u/L Lymphocytes % 40.4 (24.0-44.0) % Monocytes % 7.0 (0.0-12.0) % Eosinophils % 5.1 H (0.00-5.0) % Basophils % 1.1 (0.0-0.4) % Absolute Granulocytes 3.05 (1.4-6.9) x10^3/uL Basophils # 0.07 (0-0.4) x10^3/uL Sodium (137-145) mmol/L Potassium (3.5-5.1) mmol/L Chloride (98-107) mmol/L Carbon Dioxide (22-30) mmol/L Anion Gap (5-15) MEQ/L BUN (7-17) mg/dL Creatinine (0.52-1.04) mg/dL Estimated GFR ML/MIN Glucose (74-106) mg/dL Lactic Acid (0.4-2.0) Calcium (8.4-10.2) mg/dL Total Bilirubin (0.2-1.3) mg/dL AST (14-36) U/L ALT (0-35) U/L Alkaline Phosphatase (38-126) U/L Troponin I (0.000-0.034) ng/mL Serum Total Protein (6.3-8.2) g/dL Albumin (3.5-5.0) g/dL Amylase (30-110) U/L Lipase (23-300) U/L Urine Color Dark Yellow A (Yellow) Urine Appearance Cloudy A (Clear) Urine pH 5.0 (4.6-8.0) Ur Specific [place] >=1.030 A (1.005-1.030) Urine Protein 30 (Negative) Urine Glucose (UA) Negative (Negative) mg/dL Urine Ketones Trace A (Negative) Urine Blood Negative (Negative) Urine Nitrite Negative (Negative) Urine Bilirubin Small A (Negative) Urine Urobilinogen 1.0 A (0.2) mg/dL Ur Leukocyte Esterase Trace A (Negative) U Hyaline Cast (Auto) 3-5 A (0-2) /LPF Urine Microscopic RBC 0-2 (0-5) /HPF Urine Microscopic WBC 6-10 A (0-5) /HPF Ur Epithelial Cells Many A (None Seen) /HPF Urine Bacteria Many A (None Seen) /HPF Urine Culture Reflexed YES (NO) - Progress Progress: improved Progress Note: 09/07/22 22:00 Nursing note and vital signs reviewed No food or housing insecurities noted 1L NS bolus x2/4mg IV Zofran x 2 w improvement Nausea/vomiting due to UTI vs viral/Ozempic use All labs reviewed and shared w pt/daughter Additional history per daughter CT result reviewed and shared w pt/daughter 1gm IV Rocephin for UTI 09/07/22 22:03 Counseled pt/family regarding: lab results, diagnosis, need for follow-up, rad results Medical Desision Making - Independent Historian Additional History obtained from: Child - Diagnostic Testing Radiological Interpretation: Reviewed by me, Teleradiologist Report - Risk of complications The pt has a mod risk of morbidity or mortality based on: Need for prescription drug management - Departure Departure Disposition: Home Clinical Impression: UTI (urinary tract infection), Nausea & vomiting Condition: Stable Critical Care Time: No Referrals: BRE HERNANDEZ [Primary Care Provider] - Follow up/PCP as directed Instructions: Urinary Tract Infection, Adult (DC), Nausea and Vomiting, Adult (DC) Additional Instructions: Fluids Start Bactrim in the morning for Urinary tract infection Zofran for nausea/vomiting Follow up with your family MD in 1-2 days Return to ER for inability to hold down fluids, increasing abdominal pain, or temperature greater than 100.5 Prescriptions: Ondansetron ODT 4 MG [Zofran Odt 4 mg] 4 mg PO Q6H PRN PRN #10 tablet PRN Reason: Nausea Sulfamethoxazole/Trimethoprim [Bactrim Ds Tablet] 1 each PO BID #10 tablet
--- NOTE | 2022-09-07 20:39 | XRAY ---
CLINICAL HISTORY:Nausea/vomiting; COMPARISON:06/09/2021; TECHNIQUES:Contiguous, multislice, nonenhanced CT scan of the abdomen and pelvis in the axial plane with multiplanar reconstructions. Total exam DLP-515.29; CTDI-8.56; FINDINGS: Normal-sized liver showing homogeneous attenuation with no obvious focal mass lesion within the limitations of non-contrast study. Status postcholecystectomy. Normal-sized portal vein and CBD. Pancreas and spleen appear unremarkable. No adrenal mass. Both kidneys appear normal in size, shows normal contour and attenuation. Mild prominent extrarenal pelvis on both sides. No calculus, mass in either kidney. Mild perinephric fat stranding around both kidneys, stable when compared with prior study. No ascites. No para-aortic lymphadenopathy. Mild atherosclerotic calcification of the abdominal aorta and iliac vessels. Partially filled urinary bladder, appear free from intraluminal stones, mass or diverticular outpouching. Uterus is not visualized, likely surgically removed. No adnexal mass. No significant bowel wall thickening. No bowel dilatation. Multiple pelvic phleboliths. No acute osseous abnormalities or suspicious bony lesions. Degenerative changes in the visualized spine. Osteopenic bones. Visualized sections of lower chest shows no focal mass or consolidation. Age-related changes showing prominent lung markings especially basal with subpleural groundglass attenuation and interstitial changes. IMPRESSION: No acute intra-abdominal abnormality. Stable intra-abdominal subtle findings compared to the prior study. Electronically Signed by: Ralph Aj MD. (09/07/2022 19:27:47 CITY ADMINISTRATOR)
[2022-09-07] MEDS ORDERED: ROCEPHIN 1 Gm-D5w 50 ml Bag** 1 G/50 ML IVPB IV STA (20:45)
[2022-09-07] MEDS ORDERED: ROCEPHIN 1 Gm-D5w 50 ml Bag** 1 G/50 ML IVPB IV ONE (20:50)
[2022-09-07 21:19] VITALS: BP 149/70; PULSE 87
== END 2022-09-07 22:07 | disposition home or self-care (01) ==
LOC: ED 17:58
DX: N39.0 Urinary tract infection, site not specified (principal); R11.2 Nausea with vomiting, unspecified; E78.5 Hyperlipidemia, unspecified; I10 Essential (primary) hypertension; E10.9 Type 1 diabetes mellitus without complications; Z79.01 Long term (current) use of anticoagulants; Z79.85 Long-term (current) use of injectable non-insulin antidiabetic drugs; Z79.84 Long term (current) use of oral hypoglycemic drugs; Z79.899 Other long term (current) drug therapy
CPT/HCPCS: 36415; 74176; 80053; 81001; 82150; 83605; 83690; 84484; 85025; 87086; 96360; 96374; 99284; J0696; J2405

== ENCOUNTER 2022-09-13 21:55 | Emergency (ER) | payer OTHER ==
[2022-09-13] MEDS ORDERED: Sodium Chloride 0.9% 1000 ML 1,000 ML ONE (22:18)
[2022-09-13] MEDS ORDERED: Sodium Chloride 0.9% 1000 ML 1,000 ML IV STA (22:35)
[2022-09-13] MEDS ORDERED: MORPHINE SULFATE 4 MG INJ IV ONE (22:35)
[2022-09-13] MEDS ORDERED: Zofran 4 MG/2 ML VIAL IV ONE (22:35)
--- NOTE | 2022-09-13 22:40 | ERPHSYRPT ---
- History of Present Illness Time Seen by Provider: 09/13/22 22:01 Historian: patient Exam Limitations: no limitations Patient Subjective Stated Complaint: came to er with intractable vomiting one week ago. was diagnosed with uti and stopped a new diabetic med. was better until tonight and began severe shooting abdominal pain rating 9 on 1-10 pain scale also has vomited 6 times in past few hours. Triage Nursing Assessment: pt states she feels weak and nauseous. bowel sounds q4 quads. states pain has been constant sharp shooting for past 3-4 hours Physician History: 66 years old female with history of hypertension, diabetes mellitus, recent UTI presented in the ER with sudden onset periumbilical pain with multiple episodes of nonprojectile, nonbilious vomiting almost couple of hours ago. Patient denies any diarrhea fever or chills. Having similar episodes little over a week ago, was diagnosed with UTI at that time. Feeling weak fatigued tired and dehydrated. Timing/Duration: hour(s) (2), gradual onset, worse Activities at Onset: rest Quality: sharpness Abdominal Pain Onset Location: periumbilical, generalized abdomen Pain Radiation: no radiation Severity of Pain-Max: severe Severity of Pain-Current: severe Modifying Factors: Worsens With: vomiting Associated Symptoms: nausea, vomiting Previous symptoms: no prior history Allergies/Adverse Reactions: bee venom protein (honey bee) Allergy (Severe, Verified 09/13/22 22:15) Swelling erythromycin base Allergy (Intermediate, Verified 09/13/22 22:15) Nausea and Vomiting Penicillins Allergy (Intermediate, Verified 09/13/22 22:15) Nausea and Vomiting tetracycline Allergy (Intermediate, Verified 09/13/22 22:15) Nausea and Vomiting Home Medications: Amlodipine Besylate 5 mg [Norvasc 5 mg] 2.5 mg PO BID 11/18/20 [History] Apixaban [Eliquis] 5 mg PO BID 11/18/20 [History] PANTOPRAZOLE 40 mg Tablet [Protonix 40MG Tablet] 40 mg PO BID 11/18/20 [History] lisinopriL [Lisinopril] 20 mg PO BID 11/18/20 [History] Ezetimibe 10 mg [Zetia 10 MG] 10 mg PO DAILY 06/09/21 [History] Gabapentin [Neurontin ] 300 mg PO DAILY 06/09/21 [History] Alendronate Sodium [Fosamax] 70 mg PO WEEKLY 12/05/21 [History] Levothyroxine Sodium [Euthyrox] 50 mcg PO DAILY 12/05/21 [History] Meclizine HCl 25 mg PO TID PRN 12/05/21 [History] Metoprolol Tartrate 25 mg [Lopressor 25MG Tab] 25 mg PO DAILY 12/05/21 [History] Mirtazapine 7.5 mg PO HS 12/05/21 [History] Semaglutide [Ozempic] 2 mg SQ WEEKLY 12/05/21 [History] Gabapentin [Neurontin ] 600 mg PO HS 07/24/22 [History] Isosorbide Mononitrate [Isosorbide Mononitrate ER] 60 mg PO DAILY 07/24/22 [History] Nitroglycerin 0.4 mg Tablet [Nitrostat 0.4 MG Tablet] 0.4 mg SL UD PRN 07/24/22 [History] Phentermine HCl 37.5 mg PO DAILY 07/24/22 [History] Potassium Chloride [Klor-Con 10] 20 meq PO DAILY 07/24/22 [History] glipiZIDE [Glipizide ER] 2.5 mg PO DAILY 07/24/22 [History] Hx Tetanus, Diphtheria Vaccination/Date Given: No Hx Influenza Vaccination/Date Given: No Hx Pneumococcal Vaccination/Date Given: No Travel Risk - International Travel Have you traveled outside of the country in past 3 weeks: No - Coronavirus Screening Are you exhibiting any of the following symptoms?: Yes Symptoms: Vomiting/Diarrhea - Vaccine Status Have you recieved a Covid-19 vaccination: Yes 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[employer] - Vaccination Dates Date of 2cond Vaccination (if applicable): 2020 - Review of Systems Constitutional: Fatigue, Weakness Eyes: No Symptoms Ears, Nose, & Throat: No Symptoms Respiratory: No Symptoms Cardiac: No Symptoms Abdominal/Gastrointestinal: Abdominal Pain, Nausea, Vomiting Genitourinary Symptoms: No Symptoms Musculoskeletal: No Symptoms Skin: No Symptoms Neurological: No Symptoms Psychological: No Symptoms Endocrine: No Symptoms Hematologic/Lymphatic: No Symptoms Immunological/Allergic: No Symptoms - Past Medical History Pertinent Past Medical History: Yes Neurological History: No Pertinent History ENT History: No Pertinent History Cardiac History: Arrhythmia, High Cholesterol, Hypertension, Other Respiratory History: Asthma, Bronchitis Endocrine Medical History: Diabetes Type I, Hypothyroidism Musculoskeletal History: Degenerative Disk Disease, Osteoarthritis, Other GI Medical History: GERD History: No Pertinent History Psycho-Social History: No Pertinent History Female Reproductive Disorders: Abnormal Uterine Bleeding Other Medical History: MITRAL VALVE PROLAPSE, HX LEFT FOOT SURGERY FOR TENDON/LIGAMENT DAMAGE 12/26, CERVICAL FUSION C5-6, LEFT KNEE REPLACEMENT 2010 - Past Surgical History Past Surgical History: Yes Neuro Surgical History: No Pertinent History Cardiac: Cardiac Catheterization, Other Respiratory: No Pertinent History Gastrointestinal: Cholecystectomy, Hernia Repair Genitourinary: No Pertinent History Musculoskeletal: Orthopedic Surgery Female Surgical History: Hysterectomy, Tubal Ligation Other Surgical History: Left Knee Replacement. Fusion of 5th and 6th Vertebre - Social History Smoking Status: Never smoker Exposure to second hand smoke: Yes Drug Use: none Patient Lives Alone: Yes Significant Family History: no pertinent family hx - Nursing Vital Signs Nursing Vital Signs: Initial Vital Signs Temperature 96.0 F 09/13/22 22:01 Pulse Rate 79 09/13/22 22:01 Respiratory Rate 16 09/13/22 22:01 Blood Pressure 133/63 09/13/22 22:01 O2 Sat by Pulse Oximetry 97 09/13/22 22:01 Pain Scale Pain Intensity 8 - Physical Exam General Appearance: no apparent distress, alert Eye Exam: PERRL/EOMI Ears, Nose, Throat Exam: normal ENT inspection, TMs normal, pharynx normal, moist mucous membranes Neck Exam: normal inspection, non-tender, supple, full range of motion Respiratory Exam: normal breath sounds, lungs clear Cardiovascular Exam: regular rate/rhythm, normal heart sounds Gastrointestinal/Abdomen Exam: soft, tenderness (Hypoactive generalized), No normal bowel sounds Back Exam: normal inspection, normal range of motion Extremity Exam: normal inspection, normal range of motion Neurologic Exam: alert, oriented x 3, cooperative, film reader II-XII nml as tested, normal mood/affect, sensation nml, No motor deficits Skin Exam: normal color Lymphatic Exam: inguinal node tender (L) SpO2: 97 O2 Delivery: Room Air Ordered Tests: Active Orders 24 hr Category Date Time Status IV Insertion STAT Care 09/13/22 22:35 Active NPO (ED) STAT Care 09/13/22 22:35 Active ABDOMEN AND PELVIS W/0 CONTRAS [CT] Stat Exams 09/13/22 22:36 Completed CBC W DIFF Stat Lab 09/13/22 23:31 Completed CMP Stat Lab 09/13/22 23:31 Completed CULTURE,URINE Stat Lab 09/13/22 22:35 Received LIPASE Stat Lab 09/13/22 23:31 Completed UA W/RFX UR CULTURE Stat Lab 09/13/22 22:35 Completed Medication Summary Discontinued Medications Generic Name Dose Route Start Last Admin Trade Name Ruiz PRN Reason Stop Dose Admin Sodium Chloride Confirm 09/13/22 22:18 Sodium Chloride 0.9% 1000 Ml Administered 09/13/22 22:19 Dose 1,000 mls @ ud .ROUTE .STK-MED ONE Sodium Chloride 1,000 mls @ 999 mls/hr 09/13/22 22:35 09/14/22 01:15 Sodium Chloride 0.9% 1000 Ml IV 09/13/22 23:35 Infused .Q1H1M STA Infusion Ketorolac Tromethamine 30 mg 09/14/22 00:16 09/14/22 01:17 Ketorolac Tromethamine 30 Mg/Ml Inj IV 09/14/22 00:17 30 mg STAT ONE Administration Ketorolac Tromethamine Confirm 09/14/22 01:17 Ketorolac Tromethamine 30 Mg/Ml Inj Administered 09/14/22 01:18 Dose 30 mg .ROUTE .STK-MED ONE Morphine Sulfate 4 mg 09/13/22 22:35 09/13/22 23:11 Morphine Sulfate 4 Mg/Ml Injection IV 09/13/22 22:36 4 mg STAT ONE Administration Morphine Sulfate Confirm 09/13/22 22:44 Morphine Sulfate 4 Mg/Ml Injection Administered 09/13/22 22:45 Dose 4 mg .ROUTE .STK-MED ONE Ondansetron HCl 4 mg 09/13/22 22:35 09/13/22 23:11 Ondansetron Hcl 4 Mg/2 Ml Vial IV 09/13/22 22:36 4 mg STAT ONE Administration Ondansetron HCl Confirm 09/13/22 22:44 Ondansetron Hcl 4 Mg/2 Ml Vial Administered 09/13/22 22:45 Dose 4 mg .ROUTE .STK-MED ONE Lab/Rad Data: Laboratory Result Diagrams 09/13/22 23:31 09/13/22 23:31 Laboratory Results 09/13/22 09/13/22 09/13/22 Range/Units 23:31 23:31 22:35 WBC 11.0 H (4.0-10.5) x10^3/uL RBC 4.61 (4.1-5.4) x10^6/uL Hgb 14.2 (12.0-16.0) g/dL Hct 44.1 (35-47) % MCV 95.7 (78-100) fL MCH 30.8 (26-32) pg MCHC 32.2 (32-36) g/dL RDW 13.5 (11.5-14.0) % Plt Count 264 (150-450) x10^3/uL MPV 9.2 (7.5-11.0) fL Gran % 82.3 H (36.0-66.0) % Immature Gran % (Auto) 0.5 H (0.00-0.4) % Nucleat RBC Rel Count 0.0 (0.00-0.1) % Eos # (Auto) 0.16 (0-0.5) x10^3/uL Immature Gran # (Auto) 0.05 H (0.00-0.03) x10^3u/L Absolute Lymphs (auto) 1.14 (1.0-4.6) x10^3/uL Absolute Monos (auto) 0.54 (0.0-1.3) x10^3/uL Absolute Nucleated RBC 0.00 (0.00-0.01) x10^3u/L Lymphocytes % 10.3 L (24.0-44.0) % Monocytes % 4.9 (0.0-12.0) % Eosinophils % 1.5 (0.00-5.0) % Basophils % 0.5 (0.0-0.4) % Absolute Granulocytes 9.08 H (1.4-6.9) x10^3/uL Basophils # 0.05 (0-0.4) x10^3/uL Sodium 135 L (137-145) mmol/L Potassium 4.3 (3.5-5.1) mmol/L Chloride 99 (98-107) mmol/L Carbon Dioxide 28 (22-30) mmol/L Anion Gap 12.5 (5-15) MEQ/L BUN 10 (7-17) mg/dL Creatinine 1.05 H (0.52-1.04) mg/dL Estimated GFR 56.1 ML/MIN Glucose 117 H (74-106) mg/dL Calcium 8.6 (8.4-10.2) mg/dL Total Bilirubin 0.60 (0.2-1.3) mg/dL AST 29 (14-36) U/L ALT 18 (0-35) U/L Alkaline Phosphatase 65 (38-126) U/L Serum Total Protein 6.8 (6.3-8.2) g/dL Albumin 3.8 (3.5-5.0) g/dL Lipase 143 (23-300) U/L Urine Color Dark Yellow A (Yellow) Urine Appearance Cloudy A (Clear) Urine pH 6.0 (4.6-8.0) Ur Specific [place] 1.015 (1.005-1.030) Urine Protein Negative (Negative) Urine Glucose (UA) Negative (Negative) mg/dL Urine Ketones Negative (Negative) Urine Blood Negative (Negative) Urine Nitrite Negative (Negative) Urine Bilirubin Negative (Negative) Urine Urobilinogen 1.0 A (0.2) mg/dL Ur Leukocyte Esterase Small A (Negative) U Hyaline Cast (Auto) 3-5 A (0-2) /LPF Urine Microscopic RBC 0-2 (0-5) /HPF Urine Microscopic WBC 11-20 A (0-5) /HPF Ur Epithelial Cells Many A (None Seen) /HPF Urine Bacteria None Seen (None Seen) /HPF Urine Culture Reflexed YES (NO) - Progress Progress: improved, re-examined Progress Note: 09/13/22 22:40 66 years old female with history of hypertension, diabetes mellitus, recent UTI presented in the ER with sudden onset periumbilical pain with multiple episodes of nonprojectile, nonbilious vomiting almost couple of hours ago. Patient denies any diarrhea fever or chills. Having similar episodes little over a week ago, was diagnosed with UTI at that time. Feeling weak fatigued tired and dehydrated. Abdominal exam is soft with generalized tenderness and will obtain acute abdomen labs along with CT abdomen pelvis. We will give her hydration, symptomatic treatment with morphine and Zofran. 09/14/22 02:07 Patient is feeling much better on reevaluation after fluids and symptomatic treatment. Work-up showed white count of 11, fairly unremarkable chemistries and no definitive UTI. CT abdomen pelvis is negative for obstruction, perforat ion, acute pyelonephritis/stone, pancreatitis, did show some element of constipation. I have shared the results of lab work and CT with patient/family, recommended Tylenol and Zofran as needed for symptomatic relief and outpatient follow-up. Daily MiraLAX/stool softeners. Discussed signs symptoms of worsening needing return to ER which she seems understanding 09/14/22 02:11 Counseled pt/family regarding: lab results, diagnosis, need for follow-up, rad results Medical Desision Making - Independent Historian Additional History obtained from: Child - Diagnostic Testing Diagnostic test were ordered, analyzed, and reviewed by me: Yes Radiological Interpretation: Reviewed by me, Teleradiologist Report - Departure Departure Disposition: Home Clinical Impression: Periumbilical pain, Constipation, Nausea & vomiting Condition: Stable Critical Care Time: No Referrals: BRE HERNANDEZ [Primary Care Provider] - Follow up with PCP 1 day Instructions: Severe Abdominal Pain Additional Instructions: Take Tylenol/Zofran as needed. Daily MiraLAX and stool softener. Follow-up with primary care for reevaluation. Return to ER for any worsening of pain, intractable nausea vomiting/fever chills etc. Prescriptions: Ondansetron ODT 4 MG [Zofran Odt 4 mg] 1 ea PO QIDPRN PRN #7 tablet PRN Reason: n/v
[2022-09-13] MEDS ORDERED: MORPHINE SULFATE 4 MG INJ ONE (22:44)
[2022-09-13] MEDS ORDERED: Zofran 4 MG/2 ML VIAL ONE (22:44)
[2022-09-13 23:36] LABS: Absolute Neutrophil Ct (ANC) 9.08 x10^3/uL (1.4-6.9); BASOPHIL % 0.5 % (0.0-0.4); Basophil (Absolute #) 0.05 x10^3/uL (0-0.4); Eosinophil % 1.5 % (0.00-5.0); Eosinophil (Absolute #) 0.16 x10^3/uL (0-0.5); Hematocrit 44.1 % (35-47); Hemoglobin 14.2 g/dL (12.0-16.0); IMMATURE GRAN # 0.05 x10^3u/L (0.00-0.03); IMMATURE GRAN % 0.5 % (0.00-0.4); Lymphocyte (Absolute #) 1.14 x10^3/uL (1.0-4.6); Lymphocytes % 10.3 % (24.0-44.0); Mean Cell Volume 95.7 fL (78-100); Mean Corpuscular Hemoglobin 30.8 pg (26-32); Mean Corpuscular Hgb Concent. 32.2 g/dL (32-36); Mean Platelet Volume 9.2 fL (7.5-11.0); Monocyte (Absolute #) 0.54 x10^3/uL (0.0-1.3); Monocytes % 4.9 % (0.0-12.0); Neutrophil % 82.3 % (36.0-66.0); Platelet Count 264 x10^3/uL (150-450); Red Blood Count 4.61 x10^6/uL (4.1-5.4); Red Cell Distribution Width 13.5 % (11.5-14.0)
--- NOTE | 2022-09-13 23:46 | XRAY ---
CLINICAL HISTORY:vomiting/periubilical pain COMPARISON:None; TECHNIQUES:CT of the abdomen and pelvis was performed with axial images as well as sagittal and coronal reconstruction images without intravenous contrast. DLP: 399.82 mGy*cm. CTDI: 6.81 mGy; FINDINGS: The liver is normal in size, morphology and appears unremarkable with no intrahepatic or extrahepatic bile duct dilation. Gall bladder is surgically absent. Surgical kathe are noted in the gall bladder fossa. Unremarkable appearing pancreas. No pancreatic mass or ductal dilatation is seen. Unremarkable appearing spleen. The adrenal glands are normal. The kidneys appear unremarkable with no cysts, calculi, masses or hydronephrosis. Bilateral perinephric fat stranding again noted. The ureters are normal with no stones. Unremarkable abdominal aorta without specific evidence of aneurysm or dissection. IVC is normal. The stomach appears unremarkable. Unremarkable appearing duodenum. Small Bowel and colon are non-distended with no abnormality. Mild colonic fecal impaction. No CT findings to suggest acute appendicitis. No free air and no ascites. No free intraperitoneal air is seen. Bladder is unremarkable with no stones. Uterus is surgically absent. The vaginal stump is unremarkable. No adnexal or pelvic mass is seen. Mild degenerative changes seen in the visualized spine. No other bony abnormality detected. IMPRESSION: Mild colonic fecal impaction. No CT findings to suggest acute appendicitis. Rest of the findings are stable as the previous study. Electronically Signed by: Ralph Aj MD. 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
[2022-09-13 23:48] LABS: ALBUMIN 3.8 g/dL (3.5-5.0); ANION GAP 12.5 MEQ/L (5-15); BILIRUBIN,TOTAL 0.6 mg/dL (0.2-1.3); Calcium 8.6 mg/dL (8.4-10.2); Creatinine 1 1.05 mg/dL (0.52-1.04); EST GLOMERULAR FILTRATION RATE 56.1 ML/MIN; Potassium 4.3 mmol/L (3.5-5.1); Total Protein 6.8 g/dL (6.3-8.2)
[2022-09-14] MEDS ORDERED: TORAdol 30 mg Injection IV ONE (00:16)
[2022-09-14] MEDS ORDERED: TORAdol 30 mg Injection ONE (01:17)
[2022-09-14 01:55] LABS: ADD URINE CULTURE? YES (NO); Appearance Cloudy (Clear); Bacteria None Seen /HPF (None Seen); Bilirubin Negative (Negative); Blood Negative (Negative); Epithelial Cells Many /HPF (None Seen); Glucose, Urine Negative (Negative); Ketones Negative (Negative); Leukocyte Esterase Small (Negative); Nitrite Negative (Negative); Protein,Urine Dip Negative (Negative); RBC 0-2 /HPF (0-5); Specific Gravity 1.015 (1.005-1.030)
[2022-09-14 02:12] VITALS: O2SAT 97
[2022-09-14 02:54] VITALS: BP 117/65; PULSE 82
[2022-09-14] MEDS ORDERED: NORCO 5/325 MG ONE (02:55)
[2022-09-14] MEDS ORDERED: NORCO 5/325 MG PO ONE (03:00)
== END 2022-09-14 03:54 | disposition home or self-care (01) ==
LOC: ED 21:55
DX: R11.2 Nausea with vomiting, unspecified (principal); K59.00 Constipation, unspecified; R10.33 Periumbilical pain; R53.1 Weakness; R53.83 Other fatigue; I10 Essential (primary) hypertension; E11.9 Type 2 diabetes mellitus without complications; Z79.01 Long term (current) use of anticoagulants; Z79.85 Long-term (current) use of injectable non-insulin antidiabetic drugs; Z79.84 Long term (current) use of oral hypoglycemic drugs; Z79.899 Other long term (current) drug therapy
CPT/HCPCS: 36415; 74176; 80053; 81001; 83690; 85025; 87086; 96360; 96374; 96375; 99284; J1885; J2270; J2405; A9270-GY

== ENCOUNTER 2022-09-17 09:38 | Day surgery (SDC) | payer OTHER ==
[2022-09-17] MEDS ORDERED: Depo-Medrol 40 MG/ML IM ONE (09:39)
[2022-09-17] MEDS ORDERED: LIDOCAINE HCL 2% 100 MG/5 ML IJ ONE (09:39)
[2022-09-17] MEDS ORDERED: DIPRIVAN 200 MG/20 ML IV ONE (11:14)
[2022-09-17] MEDS ORDERED: Xylocaine-Mpf 2% 5 Ml Vial ONE (11:17)
--- NOTE | 2022-09-17 12:53 | XRAY ---
Indication: Bilateral L4-S1 MBB. Intraoperative fluoroscopy provided for 7 seconds. Single digital spot image submitted for interpretation demonstrates posterior needle tips projecting over the expected left and right L4-S1 nerve roots. Correlate with intraoperative findings/report.
--- NOTE | 2022-09-17 13:39 | XRAY ---
7 seconds of fluoroscopy was used in surgery for a bilateral L4-S1 MBB.
[2022-09-17] MEDS ORDERED: Lactated Ringers 1,000 ML IV ONE (15:44)
== END 2022-09-17 11:40 | disposition home or self-care (01) ==
LOC: SDC-PAIN 09:38
PROVIDERS: ATTEND Psychiatry & Neurology Pain Medicine
DX: M47.816 Spondylosis without myelopathy or radiculopathy, lumbar region (principal); E11.9 Type 2 diabetes mellitus without complications; Z79.899 Other long term (current) drug therapy
CPT/HCPCS: 64493; 64494; 72020; 77002; 82947; J1030; J2704

== ENCOUNTER 2022-10-30 09:27 | Day surgery (SDC) | payer OTHER ==
[2022-10-30] MEDS ORDERED: BUPIVACAINE 0.5% VIAL IJ ONE ×2 (09:28)
[2022-10-30] MEDS ORDERED: LIDOCAINE HCL 1% 50 MG/5 ML VL PF IJ ONE (09:28)
[2022-10-30] MEDS ORDERED: Depo-Medrol 40 MG/ML IM ONE ×2 (09:28)
[2022-10-30] MEDS ORDERED: DIPRIVAN 200 MG/20 ML IV ONE (11:36)
[2022-10-30] MEDS ORDERED: Lactated Ringers 1,000 ML IV ONE (12:30)
--- NOTE | 2022-10-30 13:15 | XRAY ---
Indication: Bilateral L4-S1 MBB. Intraoperative fluoroscopy provided for 14 seconds. Single digital spot image submitted for interpretation demonstrates posterior needle tips projecting over the expected left and right L4-S1 nerve roots. Correlate with intraoperative findings/report.
--- NOTE | 2022-10-30 13:22 | XRAY ---
14 seconds of fluoroscopy was used in surgery for a bilateral L4-S1 MBB.
== END 2022-10-30 12:04 | disposition home or self-care (01) ==
LOC: SDC-PAIN 09:27
PROVIDERS: ATTEND Psychiatry & Neurology Pain Medicine
DX: M47.816 Spondylosis without myelopathy or radiculopathy, lumbar region (principal); E11.9 Type 2 diabetes mellitus without complications; Z79.899 Other long term (current) drug therapy
CPT/HCPCS: 64493; 64494; 72020; 77002; 82947; J1030; J2001; J2704

== ENCOUNTER 2022-12-10 09:06 | Day surgery (SDC) | payer MEDICARE ==
[2022-12-10] MEDS ORDERED: Depo-Medrol 40 MG/ML IM ONE (09:07)
[2022-12-10] MEDS ORDERED: LIDOCAINE HCL 1% 50 MG/5 ML VL PF IJ ONE (09:07)
[2022-12-10] MEDS ORDERED: BUPIVACAINE 0.5% VIAL IJ ONE (09:07)
[2022-12-10] MEDS ORDERED: DIPRIVAN 200 MG/20 ML IV ONE (10:22)
--- NOTE | 2022-12-10 10:51 | XRAY ---
Indication: Right L4-S1 RFA. Intraoperative fluoroscopy provided for 16 seconds. 3 digital spot image submitted for interpretation demonstrates posterior needle tips projecting over the right L4-S1 nerve roots. Correlate with intraoperative findings/report.
--- NOTE | 2022-12-10 10:53 | XRAY ---
16 seconds of fluoroscopy was used in surgery for a right L4-S1 RFA.
[2022-12-10] MEDS ORDERED: Lactated Ringers 1,000 ML IV ONE (14:09)
== END 2022-12-10 10:51 | disposition home or self-care (01) ==
LOC: SDC-PAIN 09:06
PROVIDERS: ATTEND Psychiatry & Neurology Pain Medicine
DX: M47.816 Spondylosis without myelopathy or radiculopathy, lumbar region (principal); E11.9 Type 2 diabetes mellitus without complications; Z79.899 Other long term (current) drug therapy
CPT/HCPCS: 64635; 64636; 72100; 77002; 82947; J1030; J2001; J2704

== ENCOUNTER 2023-04-08 10:03 | Day surgery (SDC) | payer MEDICARE, OTHER ==
[2023-04-08] MEDS ORDERED: Depo-Medrol 40 MG/ML IM ONE (10:04)
[2023-04-08] MEDS ORDERED: XYLOCAINE-MPF 1% 5ML SDV IJ ONE (10:04)
[2023-04-08] MEDS ORDERED: BUPIVACAINE 0.5% VIAL IJ ONE (10:04)
[2023-04-08] MEDS ORDERED: DIPRIVAN 200 MG/20 ML IV ONE (12:10)
[2023-04-08] MEDS ORDERED: MORPHINE SULFATE 2 MG INJ ONE ×2 (12:33→12:57)
[2023-04-08] MEDS ORDERED: Zofran 4 MG/2 ML VIAL ONE (12:41)
--- NOTE | 2023-04-08 13:06 | XRAY ---
Indication: Left L4-S1 RFA. Intraoperative fluoroscopy provided for 22 seconds. 3 digital spot images submitted for interpretation demonstrates posterior needle tips projecting over the expected left L4-S1 nerve roots. Correlate with intraoperative findings/report.
--- NOTE | 2023-04-08 13:26 | XRAY ---
22 seconds of fluoroscopy was used in surgery for a left L4-S1 RFA.
[2023-04-08] MEDS ORDERED: Lactated Ringers 1,000 ML IV ONE (16:47)
== END 2023-04-08 13:17 | disposition home or self-care (01) ==
LOC: SDC-PAIN 10:03
PROVIDERS: ATTEND Psychiatry & Neurology Pain Medicine
DX: M47.817 Spondylosis without myelopathy or radiculopathy, lumbosacral region (principal); E11.9 Type 2 diabetes mellitus without complications
CPT/HCPCS: 64635; 64636; 72100; 77002; 82947; J1030; J2270; J2405; J2704

== ENCOUNTER 2023-06-27 16:54 | Emergency (ER) | payer MEDICARE, OTHER ==
[2023-06-27 18:09] VITALS: RESP 18; TEMP 97.9; O2SAT 99
[2023-06-27] MEDS ORDERED: Zofran 4 MG/2 ML VIAL IM ONE (18:13)
--- NOTE | 2023-06-27 18:19 | ERPHSYRPT ---
- History of Present Illness Time Seen by Provider: 06/27/23 18:14 Patient Subjective Stated Complaint: C/O nausea for a few weeks. Patient indicates she received Monjero injections weekly on Mondays and that they increased her dose a few weeks ago shortly before the symptoms began. Triage Nursing Assessment: Patient ambulated back to ER. She is alert and oriented. No cough. no SOB. Skin tone normal. [place] WNL. Denies abdominal pain. Physician History: C/O nausea for a few weeks. Patient indicates she received Monjero injections weekly on Mondays and that they increased her dose a few weeks ago shortly before the symptoms began. Timing/Duration: day(s) Activities at Onset: none Associated Symptoms: loss of appetite, nausea Allergies/Adverse Reactions: bee venom protein (honey bee) Allergy (Severe, Verified 06/27/23 17:44) Swelling erythromycin base Allergy (Intermediate, Verified 06/27/23 17:44) Nausea and Vomiting Penicillins Allergy (Intermediate, Verified 06/27/23 17:44) Nausea and Vomiting tetracycline Allergy (Intermediate, Verified 06/27/23 17:44) Nausea and Vomiting Home Medications: Amlodipine Besylate 5 mg [Norvasc 5 mg] 2.5 mg PO BID 11/18/20 [History] Apixaban [Eliquis] 5 mg PO BID 11/18/20 [History] PANTOPRAZOLE 40 mg Tablet [Protonix 40MG Tablet] 40 mg PO BID 11/18/20 [History] lisinopriL [Lisinopril] 20 mg PO BID 11/18/20 [History] Ezetimibe 10 mg [Zetia 10 MG] 10 mg PO DAILY 06/09/21 [History] Gabapentin [Neurontin ] 300 mg PO DAILY 06/09/21 [History] Alendronate Sodium [Fosamax] 70 mg PO WEEKLY 12/05/21 [History] Levothyroxine Sodium [Euthyrox] 50 mcg PO DAILY 12/05/21 [History] Meclizine HCl 25 mg PO TID PRN 12/05/21 [History] Metoprolol Tartrate 25 mg [Lopressor 25MG Tab] 25 mg PO DAILY 12/05/21 [History] Mirtazapine 7.5 mg PO HS 12/05/21 [History] Semaglutide [Ozempic] 2 mg SQ WEEKLY 12/05/21 [History] Gabapentin [Neurontin ] 600 mg PO HS 07/24/22 [History] Isosorbide Mononitrate [Isosorbide Mononitrate ER] 60 mg PO DAILY 07/24/22 [History] Nitroglycerin 0.4 mg Tablet [Nitrostat 0.4 MG Tablet] 0.4 mg SL UD PRN 07/24/22 [History] Phentermine HCl 37.5 mg PO DAILY 07/24/22 [History] Potassium Chloride [Klor-Con 10] 20 meq PO DAILY 07/24/22 [History] glipiZIDE [Glipizide ER] 2.5 mg PO DAILY 07/24/22 [History] Hx Tetanus, Diphtheria Vaccination/Date Given: Yes Hx Influenza Vaccination/Date Given: No Hx Pneumococcal Vaccination/Date Given: Yes Immunizations Up to Date: Yes Travel Risk - International Travel Have you traveled outside of the country in past 3 weeks: No - Emerging Infectious Disease Are you exhibiting symptoms associated with any current EIDs: Yes Symptoms: Vomitting - Review of Systems Constitutional: No Fever, No Chills Eyes: No Symptoms Ears, Nose, & Throat: No Symptoms Respiratory: No Cough, No Dyspnea Cardiac: No Chest Pain, No Edema, No Syncope Abdominal/Gastrointestinal: Nausea, No Abdominal Pain, No Vomiting, No Diarrhea Genitourinary Symptoms: No Dysuria Musculoskeletal: No Back Pain, No Neck Pain Skin: No Rash Neurological: No Dizziness, No Focal Weakness, No Sensory Changes Psychological: No Symptoms Endocrine: No Symptoms All Other Systems: Reviewed and Negative - Past Medical History Pertinent Past Medical History: Yes Neurological History: No Pertinent History ENT History: No Pertinent History Cardiac History: Arrhythmia, High Cholesterol, Hypertension, Other Respiratory History: Asthma, Bronchitis Endocrine Medical History: Diabetes Type I, Hypothyroidism Musculoskeletal History: Degenerative Disk Disease, Osteoarthritis, Other GI Medical History: GERD, Gallbladder Disease, Hernia History: No Pertinent History Psycho-Social History: No Pertinent History Female Reproductive Disorders: Abnormal Uterine Bleeding Other Medical History: MITRAL VALVE PROLAPSE, HX LEFT FOOT SURGERY FOR TENDON/LIGAMENT DAMAGE 12/26, CERVICAL FUSION C5-6, LEFT KNEE REPLACEMENT 2010 - Past Surgical History Past Surgical History: Yes Neuro Surgical History: No Pertinent History Cardiac: Cardiac Catheterization, Other Respiratory: No Pertinent History Gastrointestinal: Cholecystectomy, Hernia Repair Genitourinary: No Pertinent History Musculoskeletal: Orthopedic Surgery Female Surgical History: Hysterectomy, Tubal Ligation Other Surgical History: Left Knee Replacement. Fusion of 5th and 6th Vertebre Significant Family History: no pertinent family hx - Social History Smoking Status: Never smoker Exposure to second hand smoke: Yes Drug Use: none Patient Lives Alone: Yes - Nursing Vital Signs Nursing Vital Signs: Initial Vital Signs Temperature 97.9 F 06/27/23 17:40 Pulse Rate 76 06/27/23 17:40 Respiratory Rate 18 06/27/23 17:40 Blood Pressure 174/83 06/27/23 17:40 O2 Sat by Pulse Oximetry 99 06/27/23 17:40 Pain Scale Pain Intensity 0 - Physical Exam General Appearance: no apparent distress, alert Eye Exam: PERRL/EOMI, eyes nml inspection Ears, Nose, Throat Exam: normal ENT inspection, pharynx normal, moist mucous membranes Neck Exam: normal inspection, non-tender, supple, full range of motion Respiratory Exam: normal breath sounds, lungs clear, No respiratory distress Cardiovascular Exam: regular rate/rhythm, normal heart sounds Gastrointestinal/Abdomen Exam: soft, No tenderness, No mass Back Exam: normal inspection, normal range of motion, No CVA tenderness, No vert ebral tenderness Extremity Exam: normal inspection, normal range of motion, pelvis stable Neurologic Exam: alert, oriented x 3, cooperative, normal mood/affect, nml cerebellar function, sensation nml, No motor deficits Skin Exam: normal color, warm, dry SpO2: 99 - Course Nursing assessment & vital signs reviewed: Yes Ordered Tests: Active Orders 24 hr Category Date Time Status ABDOMEN AND PELVIS W/0 CONTRAS [CT] Stat Exams 06/27/23 17:51 Stop Req Medication Summary Generic Name Dose Route Start Last Admin Trade Name Freq PRN Reason Stop Dose Admin Ondansetron HCl 4 mg 06/27/23 18:13 Ondansetron Hcl 4 Mg/2 Ml Vial IM 06/27/23 18:14 STAT ONE - Progress Progress: unchanged Counseled pt/family regarding: diagnosis, need for follow-up Medical Desision Making - Independent Historian Additional History obtained from: Family - Diagnostic Testing Diagnostic test were ordered, analyzed, and reviewed by me: No - Risk of complications Minimal Risk: Minimal risk of morbidity - Departure Departure Disposition: Home Clinical Impression: Nausea in adult patient Adverse drug effect Qualifiers: Encounter type: initial encounter Qualified Code(s): T50.905A - Adverse effect of unspecified drugs, medicaments and biological substances, initial encounter Condition: Stable Critical Care Time: No Referrals: BRE HERNNADEZ [Primary Care Provider] - Follow up/PCP as directed Instructions: Adverse Drug Reactions, Adult (DC) Additional Instructions: You are experiencing side effects of Mounjaro which you have recently increased the dose. Please stop your 2 next dose which you are taking every Thursday of Mounjaro and then go back to 5 mg weekly dose. Let your insurance plan specialist know about this change. We have prescribed you some nausea medication take it as needed. Discharge/Care Plan LANIE CARLSON was seen on 06/27/23 in the Emergency Room. The patient was counseled regarding Diagnosis,Lab results, Imaging studies, need for follow up and when to return to the Emergency Room. Prescriptions given: Discharge Note I have spoken with the patient and/or caregivers. I have explained the patient's condition, diagnosis and treatment plan based on the information available to me at this time. I have answered the patient's and/or caregiver's questions and addressed any concerns. The patient and/or caregivers have as good understanding of the patient's diagnosis, condition and treatment plan as can be expected at this point. The vital signs have been stable. The patient's condition is stable and appropriate for discharge from the emergency department. The patient will pursue further outpatient evaluation with the primary care physician or other designated or consulting physician as outlined in the discharge instructions. The patient and/or caregivers are agreeable to this plan of care and follow-up instructions have been explained in detail. The patient and/or caregivers have received these instruction. The patient/and or caregivers are aware that any significant change in condition or worsening of symptoms should prompt an immediate return to this or the closest emergency department or call 911. LANIE CARLSON was seen on 06/27/23 n the Emergency Room. At that time you were treated for an emergent condition, during your visit Laboratory, Radiology and/or other procedures may have been ordered. It is very important that you follow-up with your Primary Care Physician BRE HERNANDEZ within the next 24-48 hours to review your Emergency Room visit and the final results of testing that was ordered. Some test results such as Urine Cultures, Blood Cultures, and other cultures if ordered will not be finalized for 24-48 hours. If you do not have a Primary Care Provider please call the medical records department at [phone] ext [phone] to obtain a copy of your results or you may sign into our patient portal to obtain these results by visiting us @ [email or web address] and completing the following steps: 1. Click on the Patient Portal link 2. Click the Patient Self Enrollment Link to complete the enrollment form and entering your 3. Once the enrollment form is completed you will receive an email with a temporary ID and password at the email address you provided. 4. Next choose a user name and password. Your user name must be at least 4 characters long and your password must be at least 4 characters long. 5. Choose a security question from the list and provide your answer to the question. If you already have signed into the Health Portal you may access your Health Care Information 27/10 by the following steps: 1. Login to our website @ [email or web address] 2. Enter your original user name and password. FAQS The [facility] Health Portal is an online tool that contains your Lab Results, Radiology Reports, Visit History, Discharge Instructions and Health Summary Lab and Radiology Results will not be available for 72 hours on the portal. The Portal is a secure site, passwords are encryted and URLs are re-written so they cannot be copied and pasted. You and authorized family members are the only ones who can access your Portal. Also there is a timeout feature that protects your information if you leave the Portal page open. If you have technical difficulty please use the Contact Us link on the page this will allow you to submit any questions you have regarding the Portal or you may contact the Medical Record Department at [phone] ext [phone]. Prescriptions: Ondansetron ODT 4 MG [Zofran Odt 4 mg] 1 ea PO QIDPRN PRN #7 tablet PRN Reason: n/v
[2023-06-27] MEDS ORDERED: ZOFRAN ODT 4 MG ONE (19:18)
[2023-06-27] MEDS: ZOFRAN ODT 4 MG PO ONE (19:19)
[2023-06-27 19:23] VITALS: BP 161/77; PULSE 77
== END 2023-06-27 19:28 | disposition home or self-care (01) ==
LOC: ED 16:54
DX: R11.0 Nausea (principal); T50.995A Adverse effect of other drugs, medicaments and biological substances, initial encounter; E78.5 Hyperlipidemia, unspecified; I10 Essential (primary) hypertension; E10.9 Type 1 diabetes mellitus without complications; Z79.01 Long term (current) use of anticoagulants; Z79.84 Long term (current) use of oral hypoglycemic drugs; Z79.85 Long-term (current) use of injectable non-insulin antidiabetic drugs; Z79.899 Other long term (current) drug therapy
CPT/HCPCS: 99281; Q0162

== ENCOUNTER 2023-08-22 17:06 | Emergency (ER) | payer MEDICARE ==
--- NOTE | 2023-08-22 17:09 | ERPHSYRPT ---
- History of Present Illness Time Seen by Provider: 08/22/23 17:08 Source: patient, family, EMS Exam Limitations: no limitations Physician History: This is a 67-year-old white female patient of Dr. Ortiz and quality assurance inspector Dr. Amezcua. Patient was brought in to the emergency department by the paramedics. Patient is syncopal episode. Paramedics provided additional, independent history. Patient was quiet and felt tired. She denies any type of pain. She is not short of breath. 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 She did lose consciousness. A standby individual who is currently at the bedside stated that it appeared as though she had a seizure. It was brief. Patient woke up seeing people standing all around here. Patient was given some jelly. Blood sugar at the scene was approximately 200. Patient is diabetic. Patient arrives to the emergency department with her vital signs stable. She denies headache. She denies chest pain. She did not have any visual changes. She denies hitting her head at any time prior to this event. Patient has never had anything like this in the past. Patient states that she is not under any different level of stress than typical for her. Patient denies new medications in her drug regimen. Patient has a history of hypertension, gastroesophageal reflux disease, hypothyroidism, diabetes, arrhythmia, degenerative disc disease and hyperlipidemia. Patient's orthostatic vital signs are negative. That is, they are within normal limits Timing/Duration: today Severity: mild Character of Deficits: none Deficits: no difficulties Baseline/Normal Cognition: alert oriented x 3 Current Cognition: alert oriented x 3 Baseline Gait: walks w/o assistance Associated Symptoms: other (Patient feels a little tired) Allergies/Adverse Reactions: bee venom protein (honey bee) Allergy (Severe, Verified 08/22/23 17:10) Swelling erythromycin base Allergy (Intermediate, Verified 08/22/23 17:10) Nausea and Vomiting Penicillins Allergy (Intermediate, Verified 08/22/23 17:10) Nausea and Vomiting tetracycline Allergy (Intermediate, Verified 08/22/23 17:10) Nausea and Vomiting Home Medications: Amlodipine Besylate 5 mg [Norvasc 5 mg] 2.5 mg PO BID 11/18/20 [History] Apixaban [Eliquis] 5 mg PO BID 11/18/20 [History] PANTOPRAZOLE 40 mg Tablet [Protonix 40MG Tablet] 40 mg PO BID 11/18/20 [History] lisinopriL [Lisinopril] 20 mg PO BID 11/18/20 [History] Ezetimibe 10 mg [Zetia 10 MG] 10 mg PO DAILY 06/09/21 [History] Gabapentin [Neurontin ] 300 mg PO DAILY 06/09/21 [History] Alendronate Sodium [Fosamax] 70 mg PO WEEKLY 12/05/21 [History] Levothyroxine Sodium [Euthyrox] 50 mcg PO DAILY 12/05/21 [History] Meclizine HCl 25 mg PO TID PRN 12/05/21 [History] Metoprolol Tartrate 25 mg [Lopressor 25MG Tab] 25 mg PO DAILY 12/05/21 [History] Mirtazapine 7.5 mg PO HS 12/05/21 [History] Semaglutide [Ozempic] 2 mg SQ WEEKLY 12/05/21 [History] Gabapentin [Neurontin ] 600 mg PO HS 07/24/22 [History] Isosorbide Mononitrate [Isosorbide Mononitrate ER] 60 mg PO DAILY 07/24/22 [History] Nitroglycerin 0.4 mg Tablet [Nitrostat 0.4 MG Tablet] 0.4 mg SL UD PRN 07/24/22 [History] Phentermine HCl 37.5 mg PO DAILY 07/24/22 [History] Potassium Chloride [Klor-Con 10] 20 meq PO DAILY 07/24/22 [History] glipiZIDE [Glipizide ER] 2.5 mg PO DAILY 07/24/22 [History] Hx Tetanus, Diphtheria Vaccination/Date Given: Yes Hx Influenza Vaccination/Date Given: No Hx Pneumococcal Vaccination/Date Given: Yes Travel Risk - International Travel Have you traveled outside of the country in past 3 weeks: No - Emerging Infectious Disease Are you exhibiting symptoms associated with any current EIDs: Yes Symptoms: Vomitting - Review of Systems Constitutional: Other (Patient states she feels a little tired) Eyes: No Symptoms Ears, Nose, & Throat: No Symptoms Respiratory: No Symptoms Cardiac: No Symptoms Abdominal/Gastrointestinal: No Symptoms Genitourinary Symptoms: No Symptoms Musculoskeletal: No Symptoms Skin: No Symptoms Neurological: Dizziness, Other (Lightheadedness, syncopal episode), No Headache Psychological: No Symptoms Endocrine: No Symptoms Hematologic/Lymphatic: No Symptoms Immunological/Allergic: No Symptoms All Other Systems: Reviewed and Negative - Past Medical History Pertinent Past Medical History: Yes Neurological History: No Pertinent History ENT History: No Pertinent History Cardiac History: Arrhythmia, High Cholesterol, Hypertension, Other Respiratory History: Asthma, Bronchitis Endocrine Medical History: Diabetes Type I, Hypothyroidism Musculoskeletal History: Degenerative Disk Disease, Osteoarthritis, Other GI Medical History: GERD, Gallbladder Disease, Hernia History: No Pertinent History Psycho-Social History: No Pertinent History Female Reproductive Disorders: Abnormal Uterine Bleeding Other Medical History: MITRAL VALVE PROLAPSE, HX LEFT FOOT SURGERY FOR TENDON/LIGAMENT DAMAGE 12/26, CERVICAL FUSION C5-6, LEFT KNEE REPLACEMENT 2010 - Past Surgical History Past Surgical History: Yes Neuro Surgical History: No Pertinent History Cardiac: Cardiac Catheterization, Other Respiratory: No Pertinent History Gastrointestinal: Cholecystectomy, Hernia Repair Genitourinary: No Pertinent History Musculoskeletal: Orthopedic Surgery Female Surgical History: Hysterectomy, Tubal Ligation Other Surgical History: Left Knee Replacement. Fusion of 5th and 6th Vertebre Significant Family History: no pertinent family hx - Social History Smoking Status: Never smoker Exposure to second hand smoke: Yes Drug Use: none Patient Lives Alone: Yes - Nursing Vital Signs Nursing Vital Signs: Initial Vital Signs Pulse Rate 61 08/22/23 17:11 Respiratory Rate 18 08/22/23 17:11 Blood Pressure 135/71 08/22/23 17:11 O2 Sat by Pulse Oximetry 99 08/22/23 17:11 Pain Scale Pain Intensity 0 - Gerardo Coma Scale Best Eye Response (Gerardo): (4) open spontaneously Best Verbal Response ([place]): (5) oriented Best Motor Response (Gerardo): (6) obeys commands Seymour Total: 15 - Physical Exam General Appearance: no apparent distress, alert, anxiety Eye Exam: bilateral eye: normal inspection, PERRL, EOMI Ears, Nose, Throat Exam: normal ENT inspection, moist mucous membranes Neck Exam: normal inspection, non-tender, supple, full range of motion Respiratory: normal breath sounds, lungs clear, airway intact, No chest tenderness, No respiratory distress Cardiovascular: regular rate/rhythm, normal heart sounds Gastrointestinal: soft, normal bowel sounds, No tenderness Pelvic Exam: not done Rectal Exam: not done Back Exam: normal inspection, normal range of motion, No CVA tenderness, No vertebral tenderness Extremity Exam: normal inspection, normal range of motion, pelvis stable Mental Status: alert, oriented x 3, 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 There are no changes on today's twelve-lead EKG when compared to EKG dated 07/24/2022) Ordered Tests: Active Orders 24 hr Category Date Time Status Machine Inspector STAT Care 08/22/23 18:21 Active Clean Catch Urine Specimen STAT Care 08/22/23 18:21 Active EKG-ER Only STAT Care 08/22/23 18:21 Active IV Insertion STAT Care 08/22/23 18:21 Active Pulse Oximetry (ED) STAT Care 08/22/23 18:21 Active HEAD WITHOUT CONTRAST [CT] Stat Exams 08/22/23 18:21 Completed CBC W DIFF Stat Lab 08/22/23 18:25 Completed CMP Stat Lab 08/22/23 18:25 Completed ETHYL ALCOHOL Stat Lab 08/22/23 18:25 Completed TROPONIN Q4H Lab 08/22/23 18:25 Completed TROPONIN Q4H Lab 08/22/23 22:30 Ordered TSH, 3RD Generation Stat Lab 08/22/23 18:25 Completed UA W/RFX UR CULTURE Stat Lab 08/22/23 19:31 Completed Urine Triage Profile Stat Lab 08/22/23 19:31 Received Medication Summary Discontinued Medications Generic Name Dose Route Start Last Admin Trade Name Freq PRN Reason Stop Dose Admin Sodium Chloride 500 mls @ 500 mls/hr 08/22/23 18:22 08/22/23 18:52 Sodium Chloride 0.9% 500 Ml IV 08/22/23 19:21 500 mls/hr .Q1H ONE Administration Sodium Chloride Confirm 08/22/23 18:49 Sodium Chloride 0.9% 500 Ml Administered 08/22/23 18:50 Dose 500 mls @ ud IV .STK-MED ONE Lab/Rad Data: Laboratory Result Diagrams 08/22/23 18:25 08/22/23 18:25 Laboratory Results 08/22/23 08/22/23 08/22/23 Range/Units 19:31 18:25 18:25 WBC (4.0-10.5) x10^3/uL RBC (4.1-5.4) x10^6/uL Hgb (12.0-16.0) g/dL Hct (35-47) % MCV (78-100) fL MCH (26-32) pg MCHC (32-36) g/dL RDW (11.5-14.0) % Plt Count (150-450) x10^3/uL MPV (7.5-11.0) fL Gran % (36.0-66.0) % Immature Gran % (Auto) (0.00-0.4) % Nucleat RBC Rel Count (0.00-0.1) % Eos # (Auto) (0-0.5) x10^3/uL Immature Gran # (Auto) (0.00-0.03) x10^3u/L Absolute Lymphs (auto) (1.0-4.6) x10^3/uL Absolute Monos (auto) (0.0-1.3) x10^3/uL Absolute Nucleated RBC (0.00-0.01) x10^3u/L Lymphocytes % (24.0-44.0) % Monocytes % (0.0-12.0) % Eosinophils % (0.00-5.0) % Basophils % (0.0-0.4) % Absolute Granulocytes (1.4-6.9) x10^3/uL Basophils # (0-0.4) x10^3/uL Sodium (135-145) mmol/L Potassium (3.5-5.1) mmol/L Chloride (98-107) mmol/L Carbon Dioxide (22-30) mmol/L Anion Gap (5-15) MEQ/L BUN (7-17) mg/dL Creatinine (0.52-1.04) mg/dL Estimated GFR ML/MIN Glucose (74-106) mg/dL Calcium (8.4-10.2) mg/dL Total Bilirubin (0.2-1.3) mg/dL AST (14-36) U/L ALT (0-35) U/L Alkaline Phosphatase (38-126) U/L Troponin I < 0.012 (0.000-0.033) ng/mL Serum Total Protein (6.3-8.2) g/dL Albumin (3.5-5.0) g/dL Free T4 1.18 (0.78-2.19) ng/dL TSH 3rd Generation 1.320 (0.470-4.680) mIU/L Urine Color Yellow (Yellow) Urine Appearance Clear (Clear) Urine pH 6.0 (4.6-8.0) Ur Specific [place] 1.010 (1.005-1.030) Urine Protein Negative (Negative) Urine Glucose (UA) Negative (Negative) mg/dL Urine Ketones Negative (Negative) Urine Blood Negative (Negative) Urine Nitrite Negative (Negative) Urine Bilirubin Negative (Negative) Urine Urobilinogen 1.0 A (0.2) mg/dL Ur Leukocyte Esterase Trace A (Negative) U Hyaline Cast (Auto) 6-10 A (0-2) /LPF Urine Microscopic RBC 0-2 (0-5) /HPF Urine Microscopic WBC 3-5 (0-5) /HPF Ur Epithelial Cells Few (None Seen) /HPF Urine Bacteria Few A (None Seen) /HPF Urine Culture Reflexed NO (NO) Ethyl Alcohol (0-10) mg/dL 08/22/23 08/22/23 Range/Units 18:25 18:25 WBC 9.9 (4.0-10.5) x10^3/uL RBC 3.91 L (4.1-5.4) x10^6/uL Hgb 11.8 L (12.0-16.0) g/dL Hct 35.8 (35-47) % MCV 91.6 (78-100) fL MCH 30.2 (26-32) pg MCHC 33.0 (32-36) g/dL RDW 15.0 H (11.5-14.0) % Plt Count 298 (150-450) x10^3/uL MPV 8.8 (7.5-11.0) fL Gran % 66.3 H (36.0-66.0) % Immature Gran % (Auto) 0.4 (0.00-0.4) % Nucleat RBC Rel Count 0.0 (0.00-0.1) % Eos # (Auto) 0.53 H (0-0.5) x10^3/uL Immature Gran # (Auto) 0.04 H (0.00-0.03) x10^3u/L Absolute Lymphs (auto) 1.95 (1.0-4.6) x10^3/uL Absolute Monos (auto) 0.79 (0.0-1.3) x10^3/uL Absolute Nucleated RBC 0.00 (0.00-0.01) x10^3u/L Lymphocytes % 19.7 L (24.0-44.0) % Monocytes % 8.0 (0.0-12.0) % Eosinophils % 5.3 H (0.00-5.0) % Basophils % 0.3 (0.0-0.4) % Absolute Granulocytes 6.57 (1.4-6.9) x10^3/uL Basophils # 0.03 (0-0.4) x10^3/uL Sodium 135 (135-145) mmol/L Potassium 4.0 (3.5-5.1) mmol/L Chloride 100 (98-107) mmol/L Carbon Dioxide 29 (22-30) mmol/L Anion Gap 9.7 (5-15) MEQ/L BUN 10 (7-17) mg/dL Creatinine 1.18 H (0.52-1.04) mg/dL Estimated GFR 51.3 ML/MIN Glucose 141 H (74-106) mg/dL Calcium 9.0 (8.4-10.2) mg/dL Total Bilirubin 0.80 (0.2-1.3) mg/dL AST 23 (14-36) U/L ALT 14 (0-35) U/L Alkaline Phosphatase 51 (38-126) U/L Troponin I (0.000-0.033) ng/mL Serum Total Protein 7.0 (6.3-8.2) g/dL Albumin 3.9 (3.5-5.0) g/dL Free T4 (0.78-2.19) ng/dL TSH 3rd Generation (0.470-4.680) mIU/L Urine Color (Yellow) Urine Appearance (Clear) Urine pH (4.6-8.0) Ur Specific [place] (1.005-1.030) Urine Protein (Negative) Urine Glucose (UA) (Negative) mg/dL Urine Ketones (Negative) Urine Blood (Negative) Urine Nitrite (Negative) Urine Bilirubin (Negative) Urine Urobilinogen (0.2) mg/dL Ur Leukocyte Esterase (Negative) U Hyaline Cast (Auto) (0-2) /LPF Urine Microscopic RBC (0-5) /HPF Urine Microscopic WBC (0-5) /HPF Ur Epithelial Cells (None Seen) /HPF Urine Bacteria (None Seen) /HPF Urine Culture Reflexed (NO) Ethyl Alcohol < 10 (0-10) mg/dL - Progress Progress: improved, re-examined Progress Note: 08/22/23 19:55 My decision making the assignment of moderate complexity to this patient's medical issue today is based on review of the patient's past medical history, review the patient's medication list, review patient drug allergy list, history present illness and physical findings on examination. The workup in this patient includes placement of intravenous line, infusion of normal saline solution, twelve-lead EKG, troponin level, urinalysis, urine drug screen, orthostatic vital signs, CT scan of the head. Differential diagnosis includes anxiety, stress, arrhythmia, electrolyte abnormality, dehydration, urinary tract infection, vasovagal response, CVA, TIA, myocardial infarction CT scan of the head without contrast was interpreted by the radiologist and I reviewed the impression. CT scan of the head without contrast is unremarkable per radiologist reading. Patient just informed me that she has an appointment to see her quality assurance inspector on 08/24/2023. 08/22/23 20:04 Patient has no history of coronary artery disease. She sees a quality assurance inspector because of her mitral valve prolapse. Counseled pt/family regarding: lab results, diagnosis, need for follow-up, rad results Medical Desision Making - Independent Historian Additional History obtained from: Family - Diagnostic Testing Diagnostic test were ordered, analyzed, and reviewed by me: Yes Radiological Interpretation: Reviewed by me, Teleradiologist Report - Risk of complications Low Risk: Low risk of morbidity from additional dx testing or treatment - Departure Departure Disposition: Home Clinical Impression: Episode of syncope Condition: Stable Critical Care Time: No Referrals: BRE ORTIZ [Primary Care Provider] - Follow up/PCP as directed Additional Instructions: Drink plenty of fluids. Keep your appointment with your quality assurance inspector on 08/24/2023. Stay at home in a cool comfortable environment over the weekend. Take all your medications as prescribed. Avoid driving and using machinery over the weekend. Call your primary care provider on 08/24/2023, to make arrangements for follow-up appointment to be seen in the next 3 days.
[2023-08-22 18:34] LABS: Absolute Neutrophil Ct (ANC) 6.57 x10^3/uL (1.4-6.9); BASOPHIL % 0.3 % (0.0-0.4); Basophil (Absolute #) 0.03 x10^3/uL (0-0.4); Eosinophil % 5.3 % (0.00-5.0); Eosinophil (Absolute #) 0.53 x10^3/uL (0-0.5); Hematocrit 35.8 % (35-47); Hemoglobin 11.8 g/dL (12.0-16.0); IMMATURE GRAN # 0.04 x10^3u/L (0.00-0.03); IMMATURE GRAN % 0.4 % (0.00-0.4); Lymphocyte (Absolute #) 1.95 x10^3/uL (1.0-4.6); Lymphocytes % 19.7 % (24.0-44.0); Mean Cell Volume 91.6 fL (78-100); Mean Corpuscular Hemoglobin 30.2 pg (26-32); Mean Platelet Volume 8.8 fL (7.5-11.0); Monocyte (Absolute #) 0.79 x10^3/uL (0.0-1.3); Neutrophil % 66.3 % (36.0-66.0); Platelet Count 298 x10^3/uL (150-450); Red Blood Count 3.91 x10^6/uL (4.1-5.4); White Blood Count 9.9 x10^3/uL (4.0-10.5)
[2023-08-22] MEDS ORDERED: Sodium Chloride 0.9% 500 ML 500 ML IV ONE (18:49)
[2023-08-22] MEDS: Sodium Chloride 0.9% 500 ML 500 ML IV ONE (18:52)
[2023-08-22 18:53] LABS: ALBUMIN 3.9 g/dL (3.5-5.0); ALKALINE PHOSPHATASE 51 U/L (38-126); ANION GAP 9.7 MEQ/L (5-15); BLOOD UREA NITROGEN 10 mg/dL (7-17); CHLORIDE 100 mmol/L (98-107); Carbon Dioxide 29 mmol/L (22-30); Creatinine 1 1.18 mg/dL (0.52-1.04); EST GLOMERULAR FILTRATION RATE 51.3 ML/MIN; ETHYL ALCOHOL < 10 mg/dL (0-10); Glucose 141 mg/dL (74-106); SGOT/AST 23 U/L (14-36); SGPT/ALT 14 U/L (0-35); SODIUM 135 mmol/L (135-145)
--- NOTE | 2023-08-22 19:10 | XRAY ---
CLINICAL HISTORY: Episode of syncope COMPARISON: None TECHNIQUE: An axial non-contrast CT scan of the brain was performed from the skull base to the high parietal region. Coronal and sagittal images were also acquired. One of the following dose reduction techniques was utilized for this exam: Automated exposure control, adjustment of the mA and/or kV according to patient size, and use of iterative reconstruction. FINDINGS: The cerebral parenchyma exhibits normal attenuation. Hoffman-white differentiation is well preserved. The ventricular system and subarachnoid CSF spaces are unremarkable. No midline shift was seen. Faint bilateral basal ganglia hyperdensities noted, nonspecific The brainstem and cerebellum are normal in morphology and attenuation. No fracture was seen. IMPRESSION: 1. Unremarkable non-enhanced CT study of the brain. 2. Early changes of acute stroke may sometimes not be detected on CT scans. If clinically needed, MRI with diffusion-weighted imaging may be recommended for further evaluation. Electronically Signed by: Ralph Aj MD. (08/22/2023 19:06:36 EDT)
[2023-08-22 19:30] LABS: TROPONIN < 0.012 ng/mL (0.000-0.033)
[2023-08-22 19:45] LABS: ADD URINE CULTURE? NO (NO); Appearance Clear (Clear); Bacteria Few /HPF (None Seen); Bilirubin Negative (Negative); Blood Negative (Negative); Epithelial Cells Few /HPF (None Seen); Glucose, Urine Negative (Negative); Ketones Negative (Negative); Leukocyte Esterase Trace (Negative); Nitrite Negative (Negative); Protein,Urine Dip Negative (Negative); RBC 0-2 /HPF (0-5)
[2023-08-22 19:54] LABS: Amphetamine,Urine NEGATIVE (NEGATIVE); Barbiturate,Urine NEGATIVE (NEGATIVE); Benzodiazepine,Urine NEGATIVE (NEGATIVE); Cocaine,Urine NEGATIVE (NEGATIVE); Methadone,Urine NEGATIVE (NEGATIVE); Opiate,Urine POSITIVE (NEGATIVE); PCP,Urine NEGATIVE (NEGATIVE); THC,Urine NEGATIVE (NEGATIVE)
[2023-08-22 20:13] VITALS: BP 129/67; PULSE 76; RESP 20; O2SAT 97
== END 2023-08-22 20:47 | disposition home or self-care (01) ==
LOC: ED 17:06
DX: R55 Syncope and collapse (principal); I10 Essential (primary) hypertension; E10.9 Type 1 diabetes mellitus without complications; E78.5 Hyperlipidemia, unspecified; Z79.01 Long term (current) use of anticoagulants; Z79.85 Long-term (current) use of injectable non-insulin antidiabetic drugs; Z79.84 Long term (current) use of oral hypoglycemic drugs; Z79.899 Other long term (current) drug therapy
CPT/HCPCS: 36000; 36415; 70450; 80053; 80307; 81001; 82077; 84439; 84443; 84484; 85025; 93005; 93041; 94760; 99284

== ENCOUNTER 2023-09-07 15:59 | Observation (INO) | payer MEDICARE ==
[2023-09-07] MEDS ORDERED: Sodium Chloride 0.9% 1000 ML 1,000 ML ONE ×3 (16:37→19:22)
[2023-09-07] MEDS: Sodium Chloride 0.9% 1000 ML 1,000 ML IV STA ×3 (16:41→19:22)
[2023-09-07 16:43] LABS: Absolute Neutrophil Ct (ANC) 8.63 x10^3/uL (1.4-6.9); BASOPHIL % 0.3 % (0.0-0.4); Basophil (Absolute #) 0.03 x10^3/uL (0-0.4); Eosinophil (Absolute #) 0 x10^3/uL (0-0.5); IMMATURE GRAN # 0.07 x10^3u/L (0.00-0.03); IMMATURE GRAN % 0.7 % (0.00-0.4); Lymphocyte (Absolute #) 0.91 x10^3/uL (1.0-4.6); Lymphocytes % 8.7 % (24.0-44.0); Mean Cell Volume 86.1 fL (78-100); Mean Corpuscular Hemoglobin 30.4 pg (26-32); Mean Corpuscular Hgb Concent. 35.3 g/dL (32-36); Mean Platelet Volume 8.7 fL (7.5-11.0); Monocytes % 7.7 % (0.0-12.0); Neutrophil % 82.6 % (36.0-66.0); Platelet Count 219 x10^3/uL (150-450); Red Blood Count 3.95 x10^6/uL (4.1-5.4); Red Cell Distribution Width 14.6 % (11.5-14.0); White Blood Count 10.4 x10^3/uL (4.0-10.5)
[2023-09-07 16:59] LABS: ALBUMIN 3.5 g/dL (3.5-5.0); ANION GAP 12.9 MEQ/L (5-15); BILIRUBIN,TOTAL 1.4 mg/dL (0.2-1.3); Calcium 8.2 mg/dL (8.4-10.2); Creatinine 1 1.35 mg/dL (0.52-1.04); EST GLOMERULAR FILTRATION RATE 43.6 ML/MIN; Potassium 3.5 mmol/L (3.5-5.1); Total Protein 7.2 g/dL (6.3-8.2)
[2023-09-07 17:11] LABS: INR 1.06 (0.8-3.0); PROTIME 11.5 SECONDS (9.4-12.5)
--- NOTE | 2023-09-07 17:12 | ERPHSYRPT ---
- History of Present Illness Patient Subjective Stated Complaint: Weakness Triage Nursing Assessment: Patient brought back to ED per w/c and transferred to bed with assist of 1. Patient A+O X 3. Patient's skin pink, warm and dry. Patient complains of weakness that has gotten worse since Thursday. Patient states she started vomiting and had fever on Thursday and has layed in bed all weekend. Patient states she is weak. Patient's lips noted to be dry. Patient denies pain or discomfort. Timing/Duration: day(s) (4) Activities at Onset: none Abdominal Pain Onset Location: generalized abdomen Severity of Pain-Max: mild Severity of Pain-Current: none Modifying Factors: Improves With: vomiting Associated Symptoms: nausea, vomiting, weakness Hx Tetanus, Diphtheria Vaccination/Date Given: Yes Hx Influenza Vaccination/Date Given: No Hx Pneumococcal Vaccination/Date Given: Yes Immunizations Up to Date: Yes <ROBBIE ISLAS - Last Filed: 09/07/23 19:32> - History of Present Illness Exam Limitations: no limitations <RANGEL HARPER - Last Filed: 09/07/23 20:50> - History of Present Illness Time Seen by Provider: 09/07/23 16:25 Physician History: Patient is a 67-year-old female who presents to the ER with complaint of weakness since Thursday she also has had nausea and vomiting multiple times.She became ill on Thursday or 4 days ago. She has minimal abdominal pain at present her oral membranes are dry and she appears dehydrated. (ROBBIE ISLAS) Allergies/Adverse Reactions: bee venom protein (honey bee) Allergy (Severe, Verified 09/07/23 16:15) Swelling erythromycin base Allergy (Intermediate, Verified 09/07/23 16:15) Nausea and Vomiting Penicillins Allergy (Intermediate, Verified 09/07/23 16:15) Nausea and Vomiting tetracycline Allergy (Intermediate, Verified 09/07/23 16:15) Nausea and Vomiting Home Medications: Amlodipine Besylate 5 mg [Norvasc 5 mg] 2.5 mg PO BID 11/18/20 [History] Apixaban [Eliquis] 5 mg PO BID 11/18/20 [History] PANTOPRAZOLE 40 mg Tablet [Protonix 40MG Tablet] 40 mg PO BID 11/18/20 [History] lisinopriL [Lisinopril] 20 mg PO BID 11/18/20 [History] Ezetimibe 10 mg [Zetia 10 MG] 10 mg PO DAILY 06/09/21 [History] Gabapentin [Neurontin ] 300 mg PO DAILY 06/09/21 [History] Alendronate Sodium [Fosamax] 70 mg PO WEEKLY 12/05/21 [History] Levothyroxine Sodium [Euthyrox] 50 mcg PO DAILY 12/05/21 [History] Meclizine HCl 25 mg PO TID PRN 12/05/21 [History] Metoprolol Tartrate 25 mg [Lopressor 25MG Tab] 25 mg PO DAILY 12/05/21 [History] Mirtazapine 7.5 mg PO HS 12/05/21 [History] Semaglutide [Ozempic] 2 mg SQ WEEKLY 12/05/21 [History] Gabapentin [Neurontin ] 600 mg PO HS 07/24/22 [History] Isosorbide Mononitrate [Isosorbide Mononitrate ER] 60 mg PO DAILY 07/24/22 [History] Nitroglycerin 0.4 mg Tablet [Nitrostat 0.4 MG Tablet] 0.4 mg SL UD PRN 07/24/22 [History] Phentermine HCl 37.5 mg PO DAILY 07/24/22 [History] Potassium Chloride [Klor-Con 10] 20 meq PO DAILY 07/24/22 [History] glipiZIDE [Glipizide ER] 2.5 mg PO DAILY 07/24/22 [History] Travel Risk - International Travel Have you traveled outside of the country in past 3 weeks: No - Emerging Infectious Disease Are you exhibiting symptoms associated with any current EIDs: No Symptoms: Vomitting <ROBBIE ISLAS - Last Filed: 09/07/23 19:32> - Review of Systems Constitutional: No Fever, No Chills Eyes: No Symptoms Ears, Nose, & Throat: No Symptoms Respiratory: No Cough, No Dyspnea Cardiac: No Chest Pain, No Edema, No Syncope Abdominal/Gastrointestinal: Nausea, Vomiting, No Abdominal Pain, No Diarrhea Genitourinary Symptoms: No Dysuria Musculoskeletal: No Back Pain, No Neck Pain Skin: No Rash Neurological: No Dizziness, No Focal Weakness, No Sensory Changes Psychological: No Symptoms Endocrine: No Symptoms All Other Systems: Reviewed and Negative <ROBBIE ISLAS - Last Filed: 09/07/23 19:32> - Past Medical History Pertinent Past Medical History: Yes Neurological History: No Pertinent History ENT History: No Pertinent History Cardiac History: Arrhythmia, High Cholesterol, Hypertension, Other Respiratory History: Asthma, Bronchitis Endocrine Medical History: Diabetes Type I, Hypothyroidism Musculoskeletal History: Degenerative Disk Disease, Osteoarthritis, Other GI Medical History: GERD, Gallbladder Disease, Hernia History: No Pertinent History Psycho-Social History: No Pertinent History Female Reproductive Disorders: Abnormal Uterine Bleeding Other Medical History: MITRAL VALVE PROLAPSE, HX LEFT FOOT SURGERY FOR TENDON/LIGAMENT DAMAGE 12/26, CERVICAL FUSION C5-6, LEFT KNEE REPLACEMENT 2010 - Past Surgical History Past Surgical History: Yes Neuro Surgical History: No Pertinent History Cardiac: Cardiac Catheterization, Other Respiratory: No Pertinent History Gastrointestinal: Cholecystectomy, Hernia Repair Genitourinary: No Pertinent History Musculoskeletal: Orthopedic Surgery Female Surgical History: Hysterectomy, Tubal Ligation Other Surgical History: Left Knee Replacement. Fusion of 5th and 6th Vertebre Significant Family History: no pertinent family hx - Social History Smoking Status: Never smoker Exposure to second hand smoke: Yes Drug Use: none Patient Lives Alone: Yes - Social Determinants of Health Will the patient participate in the screening: Yes Do you worry about a steady place to live?: No Do you have any problems with any of the following?: No known problems In the past 12 months,have you had to go without utilities?: No Transportation Issues: No Has anyone in your support network made you feel unsafe?: No Have you or anyone in your house had to go without enough: No <ROBBIE ISLAS - Last Filed: 09/07/23 19:32> - Physical Exam General Appearance: moderate distress, alert Eye Exam: PERRL/EOMI, eyes nml inspection Ears, Nose, Throat Exam: normal ENT inspection, pharynx normal, dry mucous membranes Neck Exam: normal inspection, non-tender, supple, full range of motion Respiratory Exam: normal breath sounds, lungs clear, No respiratory distress Cardiovascular Exam: regular rate/rhythm, normal heart sounds Gastrointestinal/Abdomen Exam: soft, No tenderness, No mass Back Exam: normal inspection, normal range of motion, No CVA tenderness, No vertebral tenderness Extremity Exam: normal inspection, normal range of motion, pelvis stable Neurologic Exam: alert, oriented x 3, cooperative, normal mood/affect, nml cerebellar function, sensation nml, No motor deficits Skin Exam: normal color, warm, dry SpO2: 98 <ROBBIE ISLAS - Last Filed: 09/07/23 19:32> - Nursing Vital Signs Nursing Vital Signs: Initial Vital Signs Temperature 98.4 F 09/07/23 16:10 Pulse Rate 108 H 09/07/23 16:10 Respiratory Rate 23 09/07/23 16:10 Blood Pressure 151/97 09/07/23 16:10 O2 Sat by Pulse Oximetry 98 09/07/23 16:10 Pain Scale Pain Intensity 0 - Radiology Exams Chest X-ray Interpretation: Reviewed by me, Negative, No Pneumonia, No Pneumothorax, No Infiltrates, Other (Comparison: January 15, 2023) <RANGEL HARPER - Last Filed: 09/07/23 20:50> Ordered Tests: Active Orders 24 hr Category Date Time Status EKG-ER Only STAT Care 09/07/23 16:21 Active IV Insertion STAT Care 09/07/23 16:21 Active ABDOMEN AND PELVIS W/0 CONTRAS [CT] Stat Exams 09/07/23 16:22 Taken CHEST 1 VIEW (PORTABLE) Stat Exams 09/07/23 16:22 Completed CBC W DIFF Stat Lab 09/07/23 16:35 Completed CMP Stat Lab 09/07/23 16:35 Completed LIPASE Stat Lab 09/07/23 16:35 Completed Lactic Acid Stat Lab 09/07/23 16:40 Completed MAGNESIUM Stat Lab 09/07/23 20:25 Received PROTIME WITH INR Stat Lab 09/07/23 16:35 Completed TROPONIN Q4H Lab 09/07/23 16:35 Completed TROPONIN Q4H Lab 09/07/23 20:25 Received TROPONIN Q4H Lab 09/08/23 00:30 Ordered UA W/RFX UR CULTURE Stat Lab 09/07/23 16:22 Ordered Medication Summary Discontinued Medications Generic Name Dose Route Start Last Admin Trade Name Freq PRN Reason Stop Dose Admin Droperidol 1.25 mg 09/07/23 16:21 09/07/23 16:40 Droperidol 5 Mg/2 Ml Vial IV 09/07/23 16:22 1.25 mg STAT ONE Administration Droperidol Confirm 09/07/23 16:37 Droperidol 5 Mg/2 Ml Vial Administered 09/07/23 16:38 Dose 5 mg .ROUTE .STK-MED ONE Sodium Chloride 1,000 mls @ 999 mls/hr 09/07/23 16:21 09/07/23 17:53 Sodium Chloride 0.9% 1000 Ml IV 09/07/23 17:21 Infused .Q1H1M STA Infusion Sodium Chloride 1,000 mls @ 999 mls/hr 09/07/23 16:24 09/07/23 19:06 Sodium Chloride 0.9% 1000 Ml IV 09/07/23 17:24 Infused .Q1H1M STA Infusion Sodium Chloride Confirm 09/07/23 16:37 Sodium Chloride 0.9% 1000 Ml Administered 09/07/23 16:38 Dose 1,000 mls @ ud .ROUTE .STK-MED ONE Sodium Chloride Confirm 09/07/23 17:54 Sodium Chloride 0.9% 1000 Ml Administered 09/07/23 17:55 Dose 1,000 mls @ ud .ROUTE .STK-MED ONE Sodium Chloride 1,000 mls @ 999 mls/hr 09/07/23 19:18 09/07/23 19:22 Sodium Chloride 0.9% 1000 Ml IV 09/07/23 20:18 999 mls/hr .Q1H1M STA Administration Sodium Chloride Confirm 09/07/23 19:22 Sodium Chloride 0.9% 1000 Ml Administered 09/07/23 19:23 Dose 1,000 mls @ ud .ROUTE .STK-MED ONE Lab/Rad Data: Laboratory Result Diagrams 09/07/23 16:35 09/07/23 16:35 Laboratory Results 09/07/23 09/07/23 09/07/23 Range/Units 16:40 16:35 16:35 WBC (4.0-10.5) x10^3/uL RBC (4.1-5.4) x10^6/uL Hgb (12.0-16.0) g/dL Hct (35-47) % MCV (78-100) fL MCH (26-32) pg MCHC (32-36) g/dL RDW (11.5-14.0) % Plt Count (150-450) x10^3/uL MPV (7.5-11.0) fL Gran % (36.0-66.0) % Immature Gran % (Auto) (0.00-0.4) % Nucleat RBC Rel Count (0.00-0.1) % Eos # (Auto) (0-0.5) x10^3/uL Immature Gran # (Auto) (0.00-0.03) x10^3u/L Absolute Lymphs (auto) (1.0-4.6) x10^3/uL Absolute Monos (auto) (0.0-1.3) x10^3/uL Absolute Nucleated RBC (0.00-0.01) x10^3u/L Lymphocytes % (24.0-44.0) % Monocytes % (0.0-12.0) % Eosinophils % (0.00-5.0) % Basophils % (0.0-0.4) % Absolute Granulocytes (1.4-6.9) x10^3/uL Basophils # (0-0.4) x10^3/uL PT 11.5 (9.4-12.5) SECONDS INR 1.06 (0.8-3.0) Sodium (135-145) mmol/L Potassium (3.5-5.1) mmol/L Chloride (98-107) mmol/L Carbon Dioxide (22-30) mmol/L Anion Gap (5-15) MEQ/L BUN (7-17) mg/dL Creatinine (0.52-1.04) mg/dL Estimated GFR ML/MIN Glucose (74-106) mg/dL Lactic Acid 1.5 (0.4-2.0) Calcium (8.4-10.2) mg/dL Total Bilirubin (0.2-1.3) mg/dL AST (14-36) U/L ALT (0-35) U/L Alkaline Phosphatase (38-126) U/L Troponin I < 0.012 (0.000-0.033) ng/mL Serum Total Protein (6.3-8.2) g/dL Albumin (3.5-5.0) g/dL Lipase (23-300) U/L 09/07/23 09/07/23 Range/Units 16:35 16:35 WBC 10.4 (4.0-10.5) x10^3/uL RBC 3.95 L (4.1-5.4) x10^6/uL Hgb 12.0 (12.0-16.0) g/dL Hct 34.0 L (35-47) % MCV 86.1 (78-100) fL MCH 30.4 (26-32) pg MCHC 35.3 (32-36) g/dL RDW 14.6 H (11.5-14.0) % Plt Count 219 (150-450) x10^3/uL MPV 8.7 (7.5-11.0) fL Gran % 82.6 H (36.0-66.0) % Immature Gran % (Auto) 0.7 H (0.00-0.4) % Nucleat RBC Rel Count 0.0 (0.00-0.1) % Eos # (Auto) 0 (0-0.5) x10^3/uL Immature Gran # (Auto) 0.07 H (0.00-0.03) x10^3u/L Absolute Lymphs (auto) 0.91 L (1.0-4.6) x10^3/uL Absolute Monos (auto) 0.80 (0.0-1.3) x10^3/uL Absolute Nucleated RBC 0.00 (0.00-0.01) x10^3u/L Lymphocytes % 8.7 L (24.0-44.0) % Monocytes % 7.7 (0.0-12.0) % Eosinophils % 0.0 (0.00-5.0) % Basophils % 0.3 (0.0-0.4) % Absolute Granulocytes 8.63 H (1.4-6.9) x10^3/uL Basophils # 0.03 (0-0.4) x10^3/uL PT (9.4-12.5) SECONDS INR (0.8-3.0) Sodium 128 L (135-145) mmol/L Potassium 3.5 (3.5-5.1) mmol/L Chloride 95 L (98-107) mmol/L Carbon Dioxide 24 (22-30) mmol/L Anion Gap 12.9 (5-15) MEQ/L BUN 22 H (7-17) mg/dL Creatinine 1.35 H (0.52-1.04) mg/dL Estimated GFR 43.6 ML/MIN Glucose 206 H (74-106) mg/dL Lactic Acid (0.4-2.0) Calcium 8.2 L (8.4-10.2) mg/dL Total Bilirubin 1.40 H (0.2-1.3) mg/dL AST 19 (14-36) U/L ALT 13 (0-35) U/L Alkaline Phosphatase 64 (38-126) U/L Troponin I (0.000-0.033) ng/mL Serum Total Protein 7.2 (6.3-8.2) g/dL Albumin 3.5 (3.5-5.0) g/dL Lipase 46 (23-300) U/L - Progress Progress: improved <ROBBIE ISLAS - Last Filed: 09/07/23 19:32> - Progress Discussed with : Other (@20:43, Discussed the patient,Dr Richardson, Hospitalist, who accept the patient for observation further evaluation, monitoring and treatment) Will see patient in: hospital (observation) Counseled pt/family regarding: lab results, diagnosis, need for follow-up, rad results <RANGEL HARPER DUNCAN - Last Filed: 09/07/23 20:50> - Progress Progress Note: 09/07/23 20:38 On my reevaluation, patient had no complaints abdominal tenderness but still feeling nauseous, and she had no tenderness guarding rebound repeat evaluation of her abdomen (VARLASRANGEL DUNCAN) Medical Desision Making - Discussion of managment Care discussed with:: hospitalist Reviewed:: Test results, Need for additional workup Agreed on:: Treatment plan, need for follow-up, place in obs Will see patient: in hospital <RANGEL HARPER DUNCAN - Last Filed: 09/07/23 20:50> - Departure Departure Disposition: Home Critical Care Time: No <ROBBIE ISLAS - Last Filed: 09/07/23 19:32> - Departure Departure Disposition: Observation <RANGEL HARPER - Last Filed: 09/07/23 20:50> - Departure Clinical Impression: Dehydration, MAREN (acute kidney injury), Hyperbilirubinemia Condition: Fair Referrals: BRE HERNANDEZ [Primary Care Provider] - Follow up/PCP as directed
--- NOTE | 2023-09-07 17:21 | XRAY ---
Indication: Pain, nausea, and vomiting. Comparison: January 15, 2023 Portable chest less inflated and clear. Heart not enlarged. Bony thorax intact again with osteopenia and mild degenerative changes. Impression: Nonacute underinflated chest.
[2023-09-07] MEDS ORDERED: BENADRYL 50 MG/ML ONE (21:02)
[2023-09-07] MEDS: BENADRYL 50 MG/ML IV ONE (21:05)
--- NOTE | 2023-09-07 22:51 | PCM.HP ---
History of Present Illness - Chief Complaint Chief Complaint: MAREN, Dehydration, Hyperbilirubinemia Date: 09/07/23 History of Present Illness: is a 67 year old female with a history of remote cholecystectomy (several decades ago) who presents to the ED with intractable nausea and vomiting as well as subjective fevers which began approximately 4 days prior to presentation. The patient does not report any recent exotic travel and denies any sick contacts with similar symptoms. She denies diarrhea and also has not had any abdominal pain. However, she has been unable to hold down liquids for this time period and has become profoundly weak. - Review of Systems Constitutional: Fever Eyes: No Symptoms Ears, Nose, & Throat: No Symptoms Respiratory: No Symptoms Cardiac: No Symptoms Abdominal/Gastrointestinal: Nausea, Vomiting Genitourinary Symptoms: No Symptoms Musculoskeletal: No Symptoms Neurological: No Symptoms Psychological: No Symptoms Endocrine: No Symptoms Hematologic/Lymphatic: No Symptoms Immunological/Allergic: No Symptoms All Other Systems: Reviewed and Negative Medications & Allergies Home Medications: Home Medication List Amlodipine Besylate 5 mg [Norvasc 5 mg] 2.5 mg PO BID 11/18/20 [History Confirmed 09/07/22] Apixaban [Eliquis] 5 mg PO BID 11/18/20 [History Confirmed 09/07/22] PANTOPRAZOLE 40 mg Tablet [Protonix 40MG Tablet] 40 mg PO BID 11/18/20 [History Confirmed 09/07/22] lisinopriL [Lisinopril] 20 mg PO BID 11/18/20 [History Confirmed 09/07/22] Ezetimibe 10 mg [Zetia 10 MG] 10 mg PO DAILY 06/09/21 [History Confirmed 09/07/22] Gabapentin [Neurontin ] 300 mg PO DAILY 06/09/21 [History Confirmed 09/07/22] Alendronate Sodium [Fosamax] 70 mg PO WEEKLY 12/05/21 [History Confirmed 09/07/22] Levothyroxine Sodium [Euthyrox] 50 mcg PO DAILY 12/05/21 [History Confirmed 09/07/22] Meclizine HCl 25 mg PO TID PRN 12/05/21 [History Confirmed 09/07/22] Metoprolol Tartrate 25 mg [Lopressor 25MG Tab] 25 mg PO DAILY 12/05/21 [History Confirmed 09/07/22] Mirtazapine 7.5 mg PO HS 12/05/21 [History Confirmed 09/07/22] Semaglutide [Ozempic] 2 mg SQ WEEKLY 12/05/21 [History Confirmed 09/07/22] Gabapentin [Neurontin ] 600 mg PO HS 07/24/22 [History Confirmed 09/07/22] Isosorbide Mononitrate [Isosorbide Mononitrate ER] 60 mg PO DAILY 07/24/22 [History Confirmed 09/07/22] Nitroglycerin 0.4 mg Tablet [Nitrostat 0.4 MG Tablet] 0.4 mg SL UD PRN 07/24/22 [History Confirmed 09/07/22] Phentermine HCl 37.5 mg PO DAILY 07/24/22 [History Confirmed 09/07/22] Potassium Chloride [Klor-Con 10] 20 meq PO DAILY 07/24/22 [History Confirmed 09/07/22] glipiZIDE [Glipizide ER] 2.5 mg PO DAILY 07/24/22 [History Confirmed 09/07/22] Metoclopramide HCl [Reglan] 5 mg PO AC 5 Days #16 tab 07/27/22 [Rx Confirmed 09/07/22] Ondansetron ODT 4 MG [Zofran Odt 4 mg] 4 mg PO Q6H PRN PRN #10 tablet 07/27 [Rx] Sulfamethoxazole/Trimethoprim [Bactrim Ds Tablet] 1 each PO BID #10 tablet 09/07/22 [Rx] Ondansetron ODT 4 MG [Zofran Odt 4 mg] 1 ea PO QIDPRN PRN #7 tablet 06/27/23 [Rx] Allergies/Adverse Reactions: Allergies Allergy/AdvReac Type Severity Reaction Status Date / Time bee venom protein (honey bee) Allergy Severe Swelling Verified 09/07/23 16:15 erythromycin base Allergy Intermediate Nausea and Verified 09/07/23 16:15 Vomiting Penicillins Allergy Intermediate Nausea and Verified 09/07/23 16:15 Vomiting tetracycline Allergy Intermediate Nausea and Verified 09/07/23 16:15 Vomiting - Past Medical History Past Medical History: Yes Neurological History: No Pertinent History ENT History: No Pertinent History Cardiac History: Arrhythmia, High Cholesterol, Hypertension, Other Respiratory History: Asthma, Bronchitis Endocrine Medical History: Diabetes Type I, Hypothyroidism Musculoskelatal History: Degenerative Disk Disease, Osteoarthritis, Other GI Medical History: GERD, Gallbladder Disease, Hernia History: No Pertinent History Pyscho-Social History: No Pertinent History Reproductive Disorders: Abnormal Uterine Bleeding Comment: MITRAL VALVE PROLAPSE, HX LEFT FOOT SURGERY FOR TENDON/LIGAMENT DAMAGE 12/26, CERVICAL FUSION C5-6, LEFT KNEE REPLACEMENT 2010 - Past Surgical History Past Surgical History: Yes Neuro Surgical History: No Pertinent History Cardiac History: Cardiac Catheterization, Other Respiratory Surgery: No Pertinent History GI Surgical History: Cholecystectomy, Hernia Repair Genitourinary Surgical Hx: No Pertinent History Musculskeletal Surgical Hx: Orthopedic Surgery Female Surgical History: Hysterectomy, Tubal Ligation Other Surgical History: Left Knee Replacement. Fusion of 5th and 6th Vertebre Significant Family History: no pertinent family hx - Social History Smoking Status: Never smoker Exposure to second hand smoke: Yes Alcohol: None Drug Use: none - Social Determinants of Health Will the patient participate in the screening: Yes Do you worry about a steady place to live?: No Do you have any problems with any of the following?: No known problems In the past 12 months,have you had to go without utilities?: No Have you or anyone in your house had to go without enough: No Transportation Issues: No Has anyone in your support network made you feel unsafe?: No - Physical Exam Vital Signs: Vital Signs - 24 hr Temp Pulse Resp BP BP Pulse Ox 09/07/23 21:00 98 H 24 175/87 96 09/07/23 20:30 100 H 27 H 179/84 94 L 09/07/23 20:00 102 H 26 H 170/94 98 09/07/23 19:33 98 09/07/23 19:30 102 H 24 155/110 09/07/23 19:01 97 H 19 167/61 98 09/07/23 18:30 90 19 166/99 98 09/07/23 18:00 90 21 155/78 98 09/07/23 17:30 92 H 20 162/87 96 09/07/23 17:00 97 H 24 147/85 96 09/07/23 16:20 101 H 25 H 151/97 98 09/07/23 16:10 98.4 F 108 H 23 151/97 98 General Appearance: mild distress, alert Neurologic Exam: alert, oriented x 3, cooperative, braided rug maker II-XII nml as tested, normal mood/affect, nml cerebellar function Eye Exam: PERRL/EOMI, eyes nml inspection Ears, Nose, Throat Exam: normal ENT inspection Neck Exam: normal inspection, non-tender, supple, full range of motion Respiratory Exam: normal breath sounds, lungs clear Cardiovascular Exam: regular rate/rhythm, normal heart sounds Gastrointestinal/Abdomen Exam: soft, normal bowel sounds Back Exam: normal range of motion Extremity Exam: normal inspection, normal range of motion Skin Exam: normal color Results - Labs Lab/Micro Results: Lab Results-Last 24 Hours 09/07/23 09/07/23 09/07/23 Range/Units 16:35 16:35 16:35 WBC 10.4 (4.0-10.5) x10^3/uL RBC 3.95 L (4.1-5.4) x10^6/uL Hgb 12.0 (12.0-16.0) g/dL Hct 34.0 L (35-47) % MCV 86.1 (78-100) fL MCH 30.4 (26-32) pg MCHC 35.3 (32-36) g/dL RDW 14.6 H (11.5-14.0) % Plt Count 219 (150-450) x10^3/uL MPV 8.7 (7.5-11.0) fL Gran % 82.6 H (36.0-66.0) % Immature Gran % (Auto) 0.7 H (0.00-0.4) % Nucleat RBC Rel Count 0.0 (0.00-0.1) % Eos # (Auto) 0 (0-0.5) x10^3/uL Immature Gran # (Auto) 0.07 H (0.00-0.03) x10^3u/L Absolute Lymphs (auto) 0.91 L (1.0-4.6) x10^3/uL Absolute Monos (auto) 0.80 (0.0-1.3) x10^3/uL Absolute Nucleated RBC 0.00 (0.00-0.01) x10^3u/L Lymphocytes % 8.7 L (24.0-44.0) % Monocytes % 7.7 (0.0-12.0) % Eosinophils % 0.0 (0.00-5.0) % Basophils % 0.3 (0.0-0.4) % Absolute Granulocytes 8.63 H (1.4-6.9) x10^3/uL Basophils # 0.03 (0-0.4) x10^3/uL PT 11.5 (9.4-12.5) SECONDS INR 1.06 (0.8-3.0) Sodium 128 L (135-145) mmol/L Potassium 3.5 (3.5-5.1) mmol/L Chloride 95 L (98-107) mmol/L Carbon Dioxide 24 (22-30) mmol/L Anion Gap 12.9 (5-15) MEQ/L BUN 22 H (7-17) mg/dL Creatinine 1.35 H (0.52-1.04) mg/dL Estimated GFR 43.6 ML/MIN Glucose 206 H (74-106) mg/dL Lactic Acid (0.4-2.0) Calcium 8.2 L (8.4-10.2) mg/dL Magnesium (1.6-2.3) mg/dL Total Bilirubin 1.40 H (0.2-1.3) mg/dL AST 19 (14-36) U/L ALT 13 (0-35) U/L Alkaline Phosphatase 64 (38-126) U/L Troponin I (0.000-0.033) ng/mL Serum Total Protein 7.2 (6.3-8.2) g/dL Albumin 3.5 (3.5-5.0) g/dL Lipase 46 (23-300) U/L 09/07/23 09/07/23 09/07/23 Range/Units 16:35 16:40 20:25 WBC (4.0-10.5) x10^3/uL RBC (4.1-5.4) x10^6/uL Hgb (12.0-16.0) g/dL Hct (35-47) % MCV (78-100) fL MCH (26-32) pg MCHC (32-36) g/dL RDW (11.5-14.0) % Plt Count (150-450) x10^3/uL MPV (7.5-11.0) fL Gran % (36.0-66.0) % Immature Gran % (Auto) (0.00-0.4) % Nucleat RBC Rel Count (0.00-0.1) % Eos # (Auto) (0-0.5) x10^3/uL Immature Gran # (Auto) (0.00-0.03) x10^3u/L Absolute Lymphs (auto) (1.0-4.6) x10^3/uL Absolute Monos (auto) (0.0-1.3) x10^3/uL Absolute Nucleated RBC (0.00-0.01) x10^3u/L Lymphocytes % (24.0-44.0) % Monocytes % (0.0-12.0) % Eosinophils % (0.00-5.0) % Basophils % (0.0-0.4) % Absolute Granulocytes (1.4-6.9) x10^3/uL Basophils # (0-0.4) x10^3/uL PT (9.4-12.5) SECONDS INR (0.8-3.0) Sodium (135-145) mmol/L Potassium (3.5-5.1) mmol/L Chloride (98-107) mmol/L Carbon Dioxide (22-30) mmol/L Anion Gap (5-15) MEQ/L BUN (7-17) mg/dL Creatinine (0.52-1.04) mg/dL Estimated GFR ML/MIN Glucose (74-106) mg/dL Lactic Acid 1.5 (0.4-2.0) Calcium (8.4-10.2) mg/dL Magnesium (1.6-2.3) mg/dL Total Bilirubin (0.2-1.3) mg/dL AST (14-36) U/L ALT (0-35) U/L Alkaline Phosphatase (38-126) U/L Troponin I < 0.012 < 0.012 (0.000-0.033) ng/mL Serum Total Protein (6.3-8.2) g/dL Albumin (3.5-5.0) g/dL Lipase (23-300) U/L 09/07/23 Range/Units 20:25 WBC (4.0-10.5) x10^3/uL RBC (4.1-5.4) x10^6/uL Hgb (12.0-16.0) g/dL Hct (35-47) % MCV (78-100) fL MCH (26-32) pg MCHC (32-36) g/dL RDW (11.5-14.0) % Plt Count (150-450) x10^3/uL MPV (7.5-11.0) fL Gran % (36.0-66.0) % Immature Gran % (Auto) (0.00-0.4) % Nucleat RBC Rel Count (0.00-0.1) % Eos # (Auto) (0-0.5) x10^3/uL Immature Gran # (Auto) (0.00-0.03) x10^3u/L Absolute Lymphs (auto) (1.0-4.6) x10^3/uL Absolute Monos (auto) (0.0-1.3) x10^3/uL Absolute Nucleated RBC (0.00-0.01) x10^3u/L Lymphocytes % (24.0-44.0) % Monocytes % (0.0-12.0) % Eosinophils % (0.00-5.0) % Basophils % (0.0-0.4) % Absolute Granulocytes (1.4-6.9) x10^3/uL Basophils # (0-0.4) x10^3/uL PT (9.4-12.5) SECONDS INR (0.8-3.0) Sodium (135-145) mmol/L Potassium (3.5-5.1) mmol/L Chloride (98-107) mmol/L Carbon Dioxide (22-30) mmol/L Anion Gap (5-15) MEQ/L BUN (7-17) mg/dL Creatinine (0.52-1.04) mg/dL Estimated GFR ML/MIN Glucose (74-106) mg/dL Lactic Acid (0.4-2.0) Calcium (8.4-10.2) mg/dL Magnesium 1.8 (1.6-2.3) mg/dL Total Bilirubin (0.2-1.3) mg/dL AST (14-36) U/L ALT (0-35) U/L Alkaline Phosphatase (38-126) U/L Troponin I (0.000-0.033) ng/mL Serum Total Protein (6.3-8.2) g/dL Albumin (3.5-5.0) g/dL Lipase (23-300) U/L - Radiology Impressions Radiology Exams & Impressions: Radiology Procedures Category Date Time Status ABDOMEN AND PELVIS W/0 CONTRAS [CT] Stat Exams 09/07/23 16:22 Taken CHEST 1 VIEW (PORTABLE) Stat Exams 09/07/23 16:22 Completed Assessment/Plan (1) MAREN (acute kidney injury) Current Visit: Yes Status: Acute Assessment & Plan: Hypovolemic hyponatremia noted, likely due to prolonged GI fluid loss and poor po intake. IV fluids. Hold Lisinopril and decrease gabeptin dose. Monitor renal function and electrolytes. Code(s): N17.9 - ACUTE KIDNEY FAILURE, UNSPECIFIED (2) Dehydration Current Visit: Yes Status: Acute Assessment & Plan: IV fluids. Code(s): E86.0 - DEHYDRATION (3) Nausea & vomiting Current Visit: No Status: Acute Assessment & Plan: Suspect acute gastroenteritis, likely viral, due to report of subjective fevers and prolonged symptoms. Supportive care for now with IV antiemetics. Follow up UA. CT abdomen/pelvis read is pending and will need to be followed, but the patient has a benign abdominal exam and a history of cholecystectomy and no abdominal pain. Will monitor clinically. Suspect the elevated bilurbin is nonspecific in the setting of the acute illness. Code(s): R11.2 - NAUSEA WITH VOMITING, UNSPECIFIED (4) Hyperbilirubinemia Current Visit: Yes Status: Acute Assessment & Plan: As above, will trend and monitor the other liver labs, which were normal. Follow up CT read. Code(s): E80.6 - OTHER DISORDERS OF BILIRUBIN METABOLISM Telemedicine Encounter - Telemedicine Encounter Telemedicine Encounter: The entirety of this visit was performed using real-time audio and video connection between my location and the patients location with the assistance of a surrogate at the patients location. Written or verbal consent was obtained from the patient/guardian to perform this visit using synchronous telemedicine technology. Any patient questions regarding the telemedicine interaction were answered.
[2023-09-07] MEDS: Sodium Chloride 0.9% 1000 ML 1,000 ML IV SCH (23:14)
[2023-09-07] MEDS: NEURONTIN PO SCH (23:15)
[2023-09-07] MEDS: PROTONIX 40 MG IV IV SCH (23:15)
[2023-09-07] MEDS: Zofran 4 MG/2 ML VIAL IV PRN (23:15)
[2023-09-08 00:28] LABS: Appearance Cloudy (Clear); Bacteria Many /HPF (None Seen); Bilirubin Negative (Negative); Blood Moderate (Negative); Epithelial Cells None Seen /HPF (None Seen); Glucose, Urine Negative (Negative); Hyaline Casts NONE SEEN /LPF (0-2); Ketones Negative (Negative); Leukocyte Esterase Large (Negative); Nitrite Negative (Negative); Protein,Urine Dip 100 (Negative); WBC >100 /HPF (0-5)
[2023-09-08 00:30] LABS: ADD URINE CULTURE? YES (NO)
[2023-09-08] MEDS: ROCEPHIN 1 GM / 100 ML NaCl 1 GM/100 ML IVPB IV SCH ×2 (03:07→21:24)
[2023-09-08 04:42] LABS: BASOPHIL % 0.4 % (0.0-0.4); Basophil (Absolute #) 0.03 x10^3/uL (0-0.4); Eosinophil (Absolute #) 0 x10^3/uL (0-0.5); Hematocrit 31.2 % (35-47); Hemoglobin 10.4 g/dL (12.0-16.0); IMMATURE GRAN # 0.04 x10^3u/L (0.00-0.03); IMMATURE GRAN % 0.6 % (0.00-0.4); Lymphocyte (Absolute #) 0.78 x10^3/uL (1.0-4.6); Lymphocytes % 11.1 % (24.0-44.0); Mean Cell Volume 89.7 fL (78-100); Mean Corpuscular Hemoglobin 29.9 pg (26-32); Mean Corpuscular Hgb Concent. 33.3 g/dL (32-36); Mean Platelet Volume 8.9 fL (7.5-11.0); Monocytes % 9.9 % (0.0-12.0); Platelet Count 173 x10^3/uL (150-450); Red Blood Count 3.48 x10^6/uL (4.1-5.4); Red Cell Distribution Width 14.9 % (11.5-14.0); White Blood Count 7.1 x10^3/uL (4.0-10.5)
[2023-09-08 05:08] LABS: ALBUMIN 2.9 g/dL (3.5-5.0); ANION GAP 11.3 MEQ/L (5-15); BILIRUBIN,TOTAL 0.9 mg/dL (0.2-1.3); Calcium 7.4 mg/dL (8.4-10.2); Creatinine 1 1.29 mg/dL (0.52-1.04); EST GLOMERULAR FILTRATION RATE 46.1 ML/MIN; Potassium 3.6 mmol/L (3.5-5.1); Total Protein 6.3 g/dL (6.3-8.2)
--- NOTE | 2023-09-08 08:31 | XRAY ---
Indication: Pain, nausea, and vomiting. Multiple contiguous axial images obtained through the abdomen and pelvis without contrast. Comparison: September 13, 2022 Study is degraded by respiration artifact throughout. Lung bases grossly clear. Heart is not enlarged. Noncontrasted stomach and bowel loops appear nonobstructed. Appendix not seen. Again previous cholecystectomy and hysterectomy. No free fluid/air. Remaining liver, pancreas, spleen, adrenal glands, kidneys, ureters, and bladder are unremarkable for noncontrast exam. There remains minimal scattered aortoiliac calcifications without AAA. Osseous structures intact with osteopenia and mild degenerative changes of the lower thoracic spine. Left pubic ramus demonstrates stable sclerotic lesion, probable bone island. No ventral or inguinal hernias. Impression: 1. Respiration artifact. 2. Chronic findings including arteriosclerotic disease and chronic bony findings. 3. Remaining CT abdomen/pelvis without contrast exam is negative.
[2023-09-08] MEDS: Calcium 500MG W/Vit D Tablet PO SCH (09:55)
[2023-09-08] MEDS ORDERED: HEPARIN 5000 UNITS/0.5 ML (HIGH RISK MED) SQ SCH (10:00)
[2023-09-08] MEDS ORDERED: SYNTHROID 75 MCG PO SCH (10:00)
[2023-09-08] MEDS ORDERED: NON-FORMULARY ITEM (Apixaban [Eliquis] 5 MG Tablet) PO SCH (10:00)
[2023-09-08] MEDS: NORVASC 5 MG PO SCH (10:37)
[2023-09-08] MEDS: Lopressor 25MG Tab PO SCH (10:37)
[2023-09-08] MEDS: Imdur 60MG PO SCH (10:37)
[2023-09-08] MEDS: Protonix 40MG Tablet PO SCH (10:37)
[2023-09-08] MEDS: Klor Con PO SCH (10:37)
[2023-09-08] MEDS: ELIQUIS 2.5 MG TABLET PO SCH (10:37)
[2023-09-08] MEDS: Zetia 10 MG PO SCH (10:37)
[2023-09-08] MEDS: SYNTHROID 50 MCG PO SCH (10:38)
[2023-09-08] MEDS: Reglan 10 MG/2 ML IV ONE (10:41)
[2023-09-08] MEDS: Naprosyn 500 MG PO ONE (10:41)
[2023-09-08] MEDS: Imitrex 6 MG/0.5 ML SQ STA (10:41)
[2023-09-08] MEDS: Sodium Chloride 0.9% 1000 ML 1,000 ML IV SCH (10:57)
--- NOTE | 2023-09-08 13:07 | PCM.NOTE ---
Date and Time: 09/08/23 1258 Subjective Assessment: 09/08/23 is a 67 year old female with a history of remote cholecystectomy (several decades ago), asthma, hyperlipidemia, type I DM, hypothyroidism, HTN, arrhythmia, DJD, OA, GERD, hernia, MVP, and cardiac cath. She presented to the ED on 09/06 with intractable nausea and vomiting as well as subjective fevers which began approximately 4 days prior to presentation. The patient does not report any recent exotic travel and denies any sick contacts with similar symptoms. She denies diarrhea and also has not had any abdominal pain. However, she has been unable to hold down liquids for this time period and has become profoundly weak. Today she has continued weakness. Will have PT work with pt to eval for any needs. MAREN improving but not at baseline. Home meds list completed this AM. Pt is a poor historian and unable to recall what she is taking. Meds restarted per recent fill hx. Discussed with CM that pt may need help at home with meds. Sodium improved overnight and now 132. Corrected calcium 7.9- replacement started. She continues to have nausea and PRN meds gave. She appeared to have a fever of 102 this am at 7, however after blankets all taken off pt repeat temp was 98.7. Rocephin started for UTI, UC pending. Pt denies CP, SOB, abd. pain, V/D. Likely will d/c tomorrow. - Review of Systems Constitutional: Weakness, No Fever, No Chills Eyes: No Symptoms Ears, Nose, & Throat: No Symptoms Respiratory: No Cough, No Short Of Breath Cardiac: No Chest Pain, No Edema, No Syncope Abdominal/Gastrointestinal: Nausea, No Abdominal Pain, No Vomiting, No Diarrhea Genitourinary Symptoms: No Dysuria Musculoskeletal: No Back Pain, No Neck Pain Skin: No Rash Neurological: No Dizziness, No Focal Weakness, No Sensory Changes Psychological: No Symptoms Endocrine: No Symptoms Hematologic/Lymphatic: No Symptoms Immunological/Allergic: No Symptoms Objective Exam General Appearance: no apparent distress, alert Neurologic Exam: alert, oriented x 3, cooperative, normal mood/affect, nml cerebellar function, sensation nml, No motor deficits Skin Exam: normal color, warm, dry Eye Exam: PERRL, EOMI, eyes nml inspection Ears, Nose, Throat Exam: normal ENT inspection, pharynx normal, moist mucous membranes Neck Exam: normal inspection, non-tender, supple, full range of motion Respiratory Exam: normal breath sounds, lungs clear, No respiratory distress Cardiovascular Exam: regular rate/rhythm, normal heart sounds Gastrointestinal/Abdomen Exam: soft, No tenderness, No mass Extremity Exam: normal inspection, normal range of motion Back Exam: normal inspection, normal range of motion, No CVA tenderness, No vertebral tenderness Pelvic Exam: deferred Rectal Exam: deferred Objective Data Vital Signs: Vital Signs - 24 hr Temp Pulse Resp BP BP Pulse Ox 09/08/23 11:26 97.5 F 92 H 19 124/56 91 L 09/08/23 07:35 102 F 107 H 20 164/77 90 L 09/08/23 04:00 98.6 F 96 H 16 141/71 94 L 09/08/23 00:31 98.4 F 09/07/23 21:00 98 H 24 175/87 96 09/07/23 20:30 100 H 27 H 179/84 94 L 09/07/23 20:00 102 H 26 H 170/94 98 09/07/23 19:33 98 09/07/23 19:30 102 H 24 155/110 09/07/23 19:01 97 H 19 167/61 98 09/07/23 18:30 90 19 166/99 98 09/07/23 18:00 90 21 155/78 98 09/07/23 17:30 92 H 20 162/87 96 09/07/23 17:00 97 H 24 147/85 96 09/07/23 16:20 101 H 25 H 151/97 98 09/07/23 16:10 98.4 F 108 H 23 151/97 98 Pain Assessment - Last Documented Pain Intensity 0 Intake and Output: Intake & Output 09/06/23 09/07/23 09/08/23 09/09/23 11:59 11:59 11:59 11:59 Intake Total 240 Output Total 900 Balance -660 Weight 97.8 kg Lab Results: Lab Results-Last 24 Hours 09/07/23 09/07/23 09/07/23 Range/Units 00:10 16:35 16:35 WBC 10.4 (4.0-10.5) x10^3/uL RBC 3.95 L (4.1-5.4) x10^6/uL Hgb 12.0 (12.0-16.0) g/dL Hct 34.0 L (35-47) % MCV 86.1 (78-100) fL MCH 30.4 (26-32) pg MCHC 35.3 (32-36) g/dL RDW 14.6 H (11.5-14.0) % Plt Count 219 (150-450) x10^3/uL MPV 8.7 (7.5-11.0) fL Gran % 82.6 H (36.0-66.0) % Immature Gran % (Auto) 0.7 H (0.00-0.4) % Nucleat RBC Rel Count 0.0 (0.00-0.1) % Eos # (Auto) 0 (0-0.5) x10^3/uL Immature Gran # (Auto) 0.07 H (0.00-0.03) x10^3u/L Absolute Lymphs (auto) 0.91 L (1.0-4.6) x10^3/uL Absolute Monos (auto) 0.80 (0.0-1.3) x10^3/uL Absolute Nucleated RBC 0.00 (0.00-0.01) x10^3u/L Lymphocytes % 8.7 L (24.0-44.0) % Monocytes % 7.7 (0.0-12.0) % Eosinophils % 0.0 (0.00-5.0) % Basophils % 0.3 (0.0-0.4) % Absolute Granulocytes 8.63 H (1.4-6.9) x10^3/uL Basophils # 0.03 (0-0.4) x10^3/uL PT (9.4-12.5) SECONDS INR (0.8-3.0) Sodium 128 L (135-145) mmol/L Potassium 3.5 (3.5-5.1) mmol/L Chloride 95 L (98-107) mmol/L Carbon Dioxide 24 (22-30) mmol/L Anion Gap 12.9 (5-15) MEQ/L BUN 22 H (7-17) mg/dL Creatinine 1.35 H (0.52-1.04) mg/dL Estimated GFR 43.6 ML/MIN Glucose 206 H (74-106) mg/dL POC Glucometer (74 to 106) mg/dL Lactic Acid (0.4-2.0) Calcium 8.2 L (8.4-10.2) mg/dL Phosphorus (2.5-4.5) mg/dL Magnesium (1.6-2.3) mg/dL Total Bilirubin 1.40 H (0.2-1.3) mg/dL AST 19 (14-36) U/L ALT 13 (0-35) U/L Alkaline Phosphatase 64 (38-126) U/L Troponin I (0.000-0.033) ng/mL Serum Total Protein 7.2 (6.3-8.2) g/dL Albumin 3.5 (3.5-5.0) g/dL Lipase 46 (23-300) U/L 25-OH Vitamin D Total (30-100) ng/mL Urine Color Yellow (Yellow) Urine Appearance Cloudy A (Clear) Urine pH 6.0 (4.6-8.0) Ur Specific [place] 1.010 (1.005-1.030) Urine Protein 100 A (Negative) Urine Glucose (UA) Negative (Negative) mg/dL Urine Ketones Negative (Negative) Urine Blood Moderate A (Negative) Urine Nitrite Negative (Negative) Urine Bilirubin Negative (Negative) Urine Urobilinogen 4.0 A (0.2) mg/dL Ur Leukocyte Esterase Large A (Negative) U Hyaline Cast (Auto) NONE SEEN (0-2) /LPF Urine Microscopic RBC 11-20 A (0-5) /HPF Urine Microscopic WBC >100 A (0-5) /HPF Ur Epithelial Cells None Seen (None Seen) /HPF Urine Bacteria Many A (None Seen) /HPF Urine Culture Reflexed YES (NO) 09/07/23 09/07/23 09/07/23 Range/Units 16:35 16:35 16:40 WBC (4.0-10.5) x10^3/uL RBC (4.1-5.4) x10^6/uL Hgb (12.0-16.0) g/dL Hct (35-47) % MCV (78-100) fL MCH (26-32) pg MCHC (32-36) g/dL RDW (11.5-14.0) % Plt Count (150-450) x10^3/uL MPV (7.5-11.0) fL Gran % (36.0-66.0) % Immature Gran % (Auto) (0.00-0.4) % Nucleat RBC Rel Count (0.00-0.1) % Eos # (Auto) (0-0.5) x10^3/uL Immature Gran # (Auto) (0.00-0.03) x10^3u/L Absolute Lymphs (auto) (1.0-4.6) x10^3/uL Absolute Monos (auto) (0.0-1.3) x10^3/uL Absolute Nucleated RBC (0.00-0.01) x10^3u/L Lymphocytes % (24.0-44.0) % Monocytes % (0.0-12.0) % Eosinophils % (0.00-5.0) % Basophils % (0.0-0.4) % Absolute Granulocytes (1.4-6.9) x10^3/uL Basophils # (0-0.4) x10^3/uL PT 11.5 (9.4-12.5) SECONDS INR 1.06 (0.8-3.0) Sodium (135-145) mmol/L Potassium (3.5-5.1) mmol/L Chloride (98-107) mmol/L Carbon Dioxide (22-30) mmol/L Anion Gap (5-15) MEQ/L BUN (7-17) mg/dL Creatinine (0.52-1.04) mg/dL Estimated GFR ML/MIN Glucose (74-106) mg/dL POC Glucometer (74 to 106) mg/dL Lactic Acid 1.5 (0.4-2.0) Calcium (8.4-10.2) mg/dL Phosphorus (2.5-4.5) mg/dL Magnesium (1.6-2.3) mg/dL Total Bilirubin (0.2-1.3) mg/dL AST (14-36) U/L ALT (0-35) U/L Alkaline Phosphatase (38-126) U/L Troponin I < 0.012 (0.000-0.033) ng/mL Serum Total Protein (6.3-8.2) g/dL Albumin (3.5-5.0) g/dL Lipase (23-300) U/L 25-OH Vitamin D Total (30-100) ng/mL Urine Color (Yellow) Urine Appearance (Clear) Urine pH (4.6-8.0) Ur Specific [place] (1.005-1.030) Urine Protein (Negative) Urine Glucose (UA) (Negative) mg/dL Urine Ketones (Negative) Urine Blood (Negative) Urine Nitrite (Negative) Urine Bilirubin (Negative) Urine Urobilinogen (0.2) mg/dL Ur Leukocyte Esterase (Negative) U Hyaline Cast (Auto) (0-2) /LPF Urine Microscopic RBC (0-5) /HPF Urine Microscopic WBC (0-5) /HPF Ur Epithelial Cells (None Seen) /HPF Urine Bacteria (None Seen) /HPF Urine Culture Reflexed (NO) 09/07/23 09/07/23 09/08/23 Range/Units 20:25 20:25 00:20 WBC (4.0-10.5) x10^3/uL RBC (4.1-5.4) x10^6/uL Hgb (12.0-16.0) g/dL Hct (35-47) % MCV (78-100) fL MCH (26-32) pg MCHC (32-36) g/dL RDW (11.5-14.0) % Plt Count (150-450) x10^3/uL MPV (7.5-11.0) fL Gran % (36.0-66.0) % Immature Gran % (Auto) (0.00-0.4) % Nucleat RBC Rel Count (0.00-0.1) % Eos # (Auto) (0-0.5) x10^3/uL Immature Gran # (Auto) (0.00-0.03) x10^3u/L Absolute Lymphs (auto) (1.0-4.6) x10^3/uL Absolute Monos (auto) (0.0-1.3) x10^3/uL Absolute Nucleated RBC (0.00-0.01) x10^3u/L Lymphocytes % (24.0-44.0) % Monocytes % (0.0-12.0) % Eosinophils % (0.00-5.0) % Basophils % (0.0-0.4) % Absolute Granulocytes (1.4-6.9) x10^3/uL Basophils # (0-0.4) x10^3/uL PT (9.4-12.5) SECONDS INR (0.8-3.0) Sodium (135-145) mmol/L Potassium (3.5-5.1) mmol/L Chloride (98-107) mmol/L Carbon Dioxide (22-30) mmol/L Anion Gap (5-15) MEQ/L BUN (7-17) mg/dL Creatinine (0.52-1.04) mg/dL Estimated GFR ML/MIN Glucose (74-106) mg/dL POC Glucometer (74 to 106) mg/dL Lactic Acid (0.4-2.0) Calcium (8.4-10.2) mg/dL Phosphorus (2.5-4.5) mg/dL Magnesium 1.8 (1.6-2.3) mg/dL Total Bilirubin (0.2-1.3) mg/dL AST (14-36) U/L ALT (0-35) U/L Alkaline Phosphatase (38-126) U/L Troponin I < 0.012 0.014 (0.000-0.033) ng/mL Serum Total Protein (6.3-8.2) g/dL Albumin (3.5-5.0) g/dL Lipase (23-300) U/L 25-OH Vitamin D Total (30-100) ng/mL Urine Color (Yellow) Urine Appearance (Clear) Urine pH (4.6-8.0) Ur Specific [place] (1.005-1.030) Urine Protein (Negative) Urine Glucose (UA) (Negative) mg/dL Urine Ketones (Negative) Urine Blood (Negative) Urine Nitrite (Negative) Urine Bilirubin (Negative) Urine Urobilinogen (0.2) mg/dL Ur Leukocyte Esterase (Negative) U Hyaline Cast (Auto) (0-2) /LPF Urine Microscopic RBC (0-5) /HPF Urine Microscopic WBC (0-5) /HPF Ur Epithelial Cells (None Seen) /HPF Urine Bacteria (None Seen) /HPF Urine Culture Reflexed (NO) 09/08/23 09/08/23 09/08/23 Range/Units 04:16 04:16 05:00 WBC 7.1 (4.0-10.5) x10^3/uL RBC 3.48 L (4.1-5.4) x10^6/uL Hgb 10.4 L (12.0-16.0) g/dL Hct 31.2 L (35-47) % MCV 89.7 (78-100) fL MCH 29.9 (26-32) pg MCHC 33.3 (32-36) g/dL RDW 14.9 H (11.5-14.0) % Plt Count 173 (150-450) x10^3/uL MPV 8.9 (7.5-11.0) fL Gran % 78.0 H (36.0-66.0) % Immature Gran % (Auto) 0.6 H (0.00-0.4) % Nucleat RBC Rel Count 0.0 (0.00-0.1) % Eos # (Auto) 0 (0-0.5) x10^3/uL Immature Gran # (Auto) 0.04 H (0.00-0.03) x10^3u/L Absolute Lymphs (auto) 0.78 L (1.0-4.6) x10^3/uL Absolute Monos (auto) 0.70 (0.0-1.3) x10^3/uL Absolute Nucleated RBC 0.00 (0.00-0.01) x10^3u/L Lymphocytes % 11.1 L (24.0-44.0) % Monocytes % 9.9 (0.0-12.0) % Eosinophils % 0.0 (0.00-5.0) % Basophils % 0.4 (0.0-0.4) % Absolute Granulocytes 5.50 (1.4-6.9) x10^3/uL Basophils # 0.03 (0-0.4) x10^3/uL PT (9.4-12.5) SECONDS INR (0.8-3.0) Sodium 132 L (135-145) mmol/L Potassium 3.6 (3.5-5.1) mmol/L Chloride 101 (98-107) mmol/L Carbon Dioxide 23 (22-30) mmol/L Anion Gap 11.3 (5-15) MEQ/L BUN 19 H (7-17) mg/dL Creatinine 1.29 H (0.52-1.04) mg/dL Estimated GFR 46.1 ML/MIN Glucose 118 H (74-106) mg/dL POC Glucometer (74 to 106) mg/dL Lactic Acid (0.4-2.0) Calcium 7.4 L (8.4-10.2) mg/dL Phosphorus 2.7 (2.5-4.5) mg/dL Magnesium (1.6-2.3) mg/dL Total Bilirubin 0.90 (0.2-1.3) mg/dL AST 20 (14-36) U/L ALT 11 (0-35) U/L Alkaline Phosphatase 51 (38-126) U/L Troponin I (0.000-0.033) ng/mL Serum Total Protein 6.3 (6.3-8.2) g/dL Albumin 2.9 L (3.5-5.0) g/dL Lipase (23-300) U/L 25-OH Vitamin D Total (30-100) ng/mL Urine Color (Yellow) Urine Appearance (Clear) Urine pH (4.6-8.0) Ur Specific [place] (1.005-1.030) Urine Protein (Negative) Urine Glucose (UA) (Negative) mg/dL Urine Ketones (Negative) Urine Blood (Negative) Urine Nitrite (Negative) Urine Bilirubin (Negative) Urine Urobilinogen (0.2) mg/dL Ur Leukocyte Esterase (Negative) U Hyaline Cast (Auto) (0-2) /LPF Urine Microscopic RBC (0-5) /HPF Urine Microscopic WBC (0-5) /HPF Ur Epithelial Cells (None Seen) /HPF Urine Bacteria (None Seen) /HPF Urine Culture Reflexed (NO) 09/08/23 09/08/23 09/08/23 Range/Units 05:15 07:14 11:03 WBC (4.0-10.5) x10^3/uL RBC (4.1-5.4) x10^6/uL Hgb (12.0-16.0) g/dL Hct (35-47) % MCV (78-100) fL MCH (26-32) pg MCHC (32-36) g/dL RDW (11.5-14.0) % Plt Count (150-450) x10^3/uL MPV (7.5-11.0) fL Gran % (36.0-66.0) % Immature Gran % (Auto) (0.00-0.4) % Nucleat RBC Rel Count (0.00-0.1) % Eos # (Auto) (0-0.5) x10^3/uL Immature Gran # (Auto) (0.00-0.03) x10^3u/L Absolute Lymphs (auto) (1.0-4.6) x10^3/uL Absolute Monos (auto) (0.0-1.3) x10^3/uL Absolute Nucleated RBC (0.00-0.01) x10^3u/L Lymphocytes % (24.0-44.0) % Monocytes % (0.0-12.0) % Eosinophils % (0.00-5.0) % Basophils % (0.0-0.4) % Absolute Granulocytes (1.4-6.9) x10^3/uL Basophils # (0-0.4) x10^3/uL PT (9.4-12.5) SECONDS INR (0.8-3.0) Sodium (135-145) mmol/L Potassium (3.5-5.1) mmol/L Chloride (98-107) mmol/L Carbon Dioxide (22-30) mmol/L Anion Gap (5-15) MEQ/L BUN (7-17) mg/dL Creatinine (0.52-1.04) mg/dL Estimated GFR ML/MIN Glucose (74-106) mg/dL POC Glucometer 103 110 H (74 to 106) mg/dL Lactic Acid (0.4-2.0) Calcium (8.4-10.2) mg/dL Phosphorus (2.5-4.5) mg/dL Magnesium (1.6-2.3) mg/dL Total Bilirubin (0.2-1.3) mg/dL AST (14-36) U/L ALT (0-35) U/L Alkaline Phosphatase (38-126) U/L Troponin I (0.000-0.033) ng/mL Serum Total Protein (6.3-8.2) g/dL Albumin (3.5-5.0) g/dL Lipase (23-300) U/L 25-OH Vitamin D Total 52.0 (30-100) ng/mL Urine Color (Yellow) Urine Appearance (Clear) Urine pH (4.6-8.0) Ur Specific [place] (1.005-1.030) Urine Protein (Negative) Urine Glucose (UA) (Negative) mg/dL Urine Ketones (Negative) Urine Blood (Negative) Urine Nitrite (Negative) Urine Bilirubin (Negative) Urine Urobilinogen (0.2) mg/dL Ur Leukocyte Esterase (Negative) U Hyaline Cast (Auto) (0-2) /LPF Urine Microscopic RBC (0-5) /HPF Urine Microscopic WBC (0-5) /HPF Ur Epithelial Cells (None Seen) /HPF Urine Bacteria (None Seen) /HPF Urine Culture Reflexed (NO) Radiology Exams: Radiology Procedures Category Date Time Status ABDOMEN AND PELVIS W/0 CONTRAS [CT] Stat Exams 09/07/23 16:22 Completed CHEST 1 VIEW (PORTABLE) Stat Exams 09/07/23 16:22 Completed Multi-Disciplinary Progress Notes: Multi-Disciplinary Progress Notes 09/08/23 11:32 Case Management Note by Teresa Herbert NP CONCERNED THAT PATIENT NEEDS ASSISTANCE WITH HER MEDS AT HOME HER MED LIST OVERLAPPED AND WAS NOT CLEAR AND CONCISE. I ENCOURAGED PATIENT TO ACCEPT HHC FOR THIS- PATIENT DECLINES. SHE REPORTS HER DAUGHTER DOES THIS. I NOTIFIED PATIENT THAT THE MEDS WERE NOT CLEAR ON ADMISSION. SHE SAID HER DAUGHTER IS A NURSE AND SHE WOULD HAVE HER REDO THEM. PATIENT AGAIN ENCOURAGED TO ACCEPT HHC- SHE DECLINES Initialized on 09/08/23 11:32 - END OF NOTE Assessment/Plan (1) Urinary tract infection Current Visit: No Status: Acute Assessment & Plan: - Ceftriaxone - UC pending - IVF Code(s): N39.0 - URINARY TRACT INFECTION, SITE NOT SPECIFIED (2) Nausea & vomiting Current Visit: Yes Status: Acute Assessment & Plan: - IVF - Zofran - vomiting resolved, continued nausea - 2:2 UTI Code(s): R11.2 - NAUSEA WITH VOMITING, UNSPECIFIED (3) Hypocalcemia Current Visit: Yes Status: Acute Assessment & Plan: - corrected Ca+ 7.9 - Tums tabs started BID - Vit. D, PTH, Phos- labs ordered Code(s): E83.51 - HYPOCALCEMIA (4) Hyponatremia Current Visit: Yes Status: Acute Assessment & Plan: - on admission Na+ 128 - 6/4 Na+ 132-mild trend Code(s): E87.1 - HYPO-OSMOLALITY AND HYPONATREMIA (5) MAREN (acute kidney injury) Current Visit: Yes Status: Acute Assessment & Plan: - creat 1.29- baseline normal - continue IVF Code(s): N17.9 - ACUTE KIDNEY FAILURE, UNSPECIFIED (6) Hyperbilirubinemia Current Visit: Yes Status: Resolved Assessment & Plan: - resolved Code(s): E80.6 - OTHER DISORDERS OF BILIRUBIN METABOLISM (7) Diabetes Current Visit: No Status: Chronic Qualifiers: Diabetes mellitus type: type 2 Diabetes mellitus [employer] insulin use: without [place] [facility] use Diabetes mellitus complication status: without complication Qualified Code(s): E11.9 - Type 2 diabetes mellitus without complications Assessment & Plan: - accuchecks ac/hs, humalog s/s - A1C 6.58- 08/18/23- controlled VTE: Eliquis PPI: Protonix Next of KIN: Keenan Keenan- Child- [phone] D/C plan: tomorrow Code status: Full Code(s): E11.9 - TYPE 2 DIABETES MELLITUS WITHOUT COMPLICATIONS
[2023-09-08] MEDS ORDERED: HUMULIN R SQ PRN (13:13)
[2023-09-08] MEDS: MIRTAZAPINE PO SCH (21:25)
[2023-09-08] MEDS ORDERED: NON-FORMULARY ITEM (Mirtazapine [Mirtazapine] 7.5 MG Tablet) PO SCH (22:00)
[2023-09-09] MEDS: TYLENOL 325 MG PO PRN (04:46)
[2023-09-09 05:22] LABS: Hematocrit 29.7 % (35-47); Hemoglobin 9.8 g/dL (12.0-16.0); Mean Cell Volume 89.7 fL (78-100); Mean Corpuscular Hemoglobin 29.6 pg (26-32); Mean Platelet Volume 9.3 fL (7.5-11.0); Platelet Count 165 x10^3/uL (150-450); Red Blood Count 3.31 x10^6/uL (4.1-5.4); Red Cell Distribution Width 14.8 % (11.5-14.0); White Blood Count 4.8 x10^3/uL (4.0-10.5)
[2023-09-09 06:05] LABS: ALBUMIN 2.6 g/dL (3.5-5.0); ANION GAP 8.4 MEQ/L (5-15); BILIRUBIN,TOTAL 0.5 mg/dL (0.2-1.3); Calcium 7.6 mg/dL (8.4-10.2); Creatinine 1 1.06 mg/dL (0.52-1.04); EST GLOMERULAR FILTRATION RATE 58.3 ML/MIN; Potassium 3.4 mmol/L (3.5-5.1); Total Protein 5.8 g/dL (6.3-8.2)
[2023-09-09] MEDS: Klor Con PO SCH (08:32)
[2023-09-09] MEDS: ANTIVERT 25 MG PO ONE (11:55)
--- NOTE | 2023-09-09 12:32 | PCM.DS ---
Discharge Summary Date of Admission: 09/07/23 21:35 Date of Discharge: 09/09/23 Admitting Physician: TONYA ESCOBAR MD Primary Care Provider: BRE HERNANEDZ Allergies Allergies bee venom protein (honey bee) Allergy (Severe, Verified 09/07/23 16:15) Swelling erythromycin base Allergy (Intermediate, Verified 09/07/23 16:15) Nausea and Vomiting Penicillins Allergy (Intermediate, Verified 09/07/23 16:15) Nausea and Vomiting tetracycline Allergy (Intermediate, Verified 09/07/23 16:15) Nausea and Vomiting Hospital Summary - Hospital Course Hospital Course: 09/08/23 is a 67 year old female with a history of remote cholecystectomy (several decades ago), asthma, hyperlipidemia, type I DM, hypothyroidism, HTN, arrhythmia, DJD, OA, GERD, hernia, MVP, and cardiac cath. She presented to the ED on 09/06 with intractable nausea and vomiting as well as subjective fevers which began approximately 4 days prior to presentation. The patient does not report any recent exotic travel and denies any sick contacts with similar symptoms. She denies diarrhea and also has not had any abdominal pain. However, she has been unable to hold down liquids for this time period and has become profoundly weak. Today she has continued weakness. Will have PT work with pt to eval for any needs. MAREN improving but not at baseline. Home meds list completed this AM. Pt is a poor historian and unable to recall what she is taking. Meds restarted per recent fill hx. Discussed with CM that pt may need help at home with meds. Sodium improved overnight and now 132. Corrected calcium 7.9- replacement started. She continues to have nausea and PRN meds gave. She appeared to have a fever of 102 this am at 7, however after blankets all taken off pt repeat temp was 98.7. Rocephin started for UTI, UC pending. Pt denies CP, SOB, abd. pain, V/D. Likely will d/c tomorrow. 09/09/23 Pt sitting up in bed. This morning she reported some continued dizziness with standing. Orthostats negative. PT evaluated pt and feels she would benefit from OP PT and pt is agreeable. MAREN improved and almost resolved. K+ 3.4 and replaced. Meclizine started. She is not agreeable to [facility] for medication assistance and set up. She feels her daughters can help her with this. She is a poor historian and does not know her meds. Urine culture is gram negative and sensitivity pending. She denies CP, SOB, abd. pain, N/V/D. - Vitals & Intake/Output Vital Signs: Vital Signs Temperature 96.9 F 09/09/23 12:00 Pulse Rate 70 09/09/23 12:00 Respiratory Rate 16 09/09/23 12:00 Blood Pressure 121/65 09/09/23 12:00 O2 Sat by Pulse Oximetry 91 L 09/09/23 12:00 Intake & Output: Intake & Output 09/07/23 09/08/23 09/09/23 09/10/23 11:59 11:59 11:59 11:59 Intake Total 240 4388 120 Output Total 900 700 Balance -660 3688 120 Weight 97.8 kg 100.6 kg - Lab Result Diagrams: 09/09/23 04:53 09/09/23 04:53 Lab Results-Last 24 Hrs: Lab Results-Last 24 Hours 09/08/23 09/08/23 09/09/23 Range/Units 16:13 21:22 04:53 WBC 4.8 (4.0-10.5) x10^3/uL RBC 3.31 L (4.1-5.4) x10^6/uL Hgb 9.8 L (12.0-16.0) g/dL Hct 29.7 L (35-47) % MCV 89.7 (78-100) fL MCH 29.6 (26-32) pg MCHC 33.0 (32-36) g/dL RDW 14.8 H (11.5-14.0) % Plt Count 165 (150-450) x10^3/uL MPV 9.3 (7.5-11.0) fL Sodium (135-145) mmol/L Potassium (3.5-5.1) mmol/L Chloride (98-107) mmol/L Carbon Dioxide (22-30) mmol/L Anion Gap (5-15) MEQ/L BUN (7-17) mg/dL Creatinine (0.52-1.04) mg/dL Estimated GFR ML/MIN Glucose (74-106) mg/dL POC Glucometer 137 H 129 H (74 to 106) mg/dL Calcium (8.4-10.2) mg/dL Magnesium (1.6-2.3) mg/dL Total Bilirubin (0.2-1.3) mg/dL AST (14-36) U/L ALT (0-35) U/L Alkaline Phosphatase (38-126) U/L Serum Total Protein (6.3-8.2) g/dL Albumin (3.5-5.0) g/dL 09/09/23 09/09/23 09/09/23 Range/Units 04:53 04:53 06:59 WBC (4.0-10.5) x10^3/uL RBC (4.1-5.4) x10^6/uL Hgb (12.0-16.0) g/dL Hct (35-47) % MCV (78-100) fL MCH (26-32) pg MCHC (32-36) g/dL RDW (11.5-14.0) % Plt Count (150-450) x10^3/uL MPV (7.5-11.0) fL Sodium 134 L (135-145) mmol/L Potassium 3.4 L (3.5-5.1) mmol/L Chloride 107 (98-107) mmol/L Carbon Dioxide 23 (22-30) mmol/L Anion Gap 8.4 (5-15) MEQ/L BUN 17 (7-17) mg/dL Creatinine 1.06 H (0.52-1.04) mg/dL Estimated GFR 58.3 ML/MIN Glucose 105 (74-106) mg/dL POC Glucometer 132 H (74 to 106) mg/dL Calcium 7.6 L (8.4-10.2) mg/dL Magnesium 1.8 (1.6-2.3) mg/dL Total Bilirubin 0.50 (0.2-1.3) mg/dL AST 32 (14-36) U/L ALT 13 (0-35) U/L Alkaline Phosphatase 52 (38-126) U/L Serum Total Protein 5.8 L (6.3-8.2) g/dL Albumin 2.6 L (3.5-5.0) g/dL 09/09/23 Range/Units 11:42 WBC (4.0-10.5) x10^3/uL RBC (4.1-5.4) x10^6/uL Hgb (12.0-16.0) g/dL Hct (35-47) % MCV (78-100) fL MCH (26-32) pg MCHC (32-36) g/dL RDW (11.5-14.0) % Plt Count (150-450) x10^3/uL MPV (7.5-11.0) fL Sodium (135-145) mmol/L Potassium (3.5-5.1) mmol/L Chloride (98-107) mmol/L Carbon Dioxide (22-30) mmol/L Anion Gap (5-15) MEQ/L BUN (7-17) mg/dL Creatinine (0.52-1.04) mg/dL Estimated GFR ML/MIN Glucose (74-106) mg/dL POC Glucometer 138 H (74 to 106) mg/dL Calcium (8.4-10.2) mg/dL Magnesium (1.6-2.3) mg/dL Total Bilirubin (0.2-1.3) mg/dL AST (14-36) U/L ALT (0-35) U/L Alkaline Phosphatase (38-126) U/L Serum Total Protein (6.3-8.2) g/dL Albumin (3.5-5.0) g/dL Micro Results-Entire Visit: Microbiology 09/07/23 00:10 Urine Culture - Preliminary Clean Catch Midstream GRAM NEGATIVE ID AND SENSITIVITY PENDING Accuchecks Date 09/09/23 Date 09/09/23 Date 09/08/23 - Radiology Exams Ordered Rad Exams-Entire Visit: Radiology Procedures Category Date Time Status ABDOMEN AND PELVIS W/0 CONTRAS [CT] Stat Exams 09/07/23 16:22 Completed CHEST 1 VIEW (PORTABLE) Stat Exams 09/07/23 16:22 Completed - Procedures and Test Procedures and Tests throughout Hospitalization: Therapy Orders & Screens 09/08/23 08:00 PT Screen per Nursing Assess ONCE Comment: Protocol Order Physician Instructions: Greater than 3 points order PT Admission Screenin Reason For Exam: Triggered on Admission Diagnosis: MAREN, Dehydration, Hyperbilirubinemia Open Wound/Cellutlitis/Pressure Ulcers: No Acute Fx/ORIF/Change in wt bearing status: No Severe MUSCULOSKELETAL pain: No ADL Dysfunction: Yes Acute CVA w/Hemiparesis/Hemiplegia: No Decreased Functional Mobility/Strength: Yes Sprain/Strain: No Acute Post-op Mobility Dysfunction: No Total Points: 4 09/08/23 13:01 PT Eval & Treat (MD Order) ONCE Reason for Eval:: weakness Diagnosis: MAREN, Dehydration, Hyperbilirubinemia Discharge Exam General Appearance: no apparent distress, alert Neurologic Exam: alert, oriented x 3, cooperative, normal mood/affect, nml cerebellar function, No motor deficits Eye Exam: PERRL, EOMI, eyes nml inspection Ears, Nose, Throat Exam: normal ENT inspection, pharynx normal, moist mucous membranes Neck Exam: normal inspection, non-tender, supple, full range of motion Respiratory Exam: normal breath sounds, lungs clear, No respiratory distress Cardiovascular Exam: regular rate/rhythm, normal heart sounds Gastrointestinal/Abdomen Exam: soft, No tenderness, No mass Pelvic Exam: deferred Rectal Exam: deferred Back Exam: normal inspection, normal range of motion, No CVA tenderness, No vertebral tenderness Extremity Exam: normal inspection, normal range of motion Skin Exam: normal color, warm, dry Final Diagnosis/Problem List - Final Discharge Diagnosis/Problem (1) Urinary tract infection Current Visit: No Status: Acute Code(s): N39.0 - URINARY TRACT INFECTION, SITE NOT SPECIFIED (2) Nausea & vomiting Current Visit: Yes Status: Acute Code(s): R11.2 - NAUSEA WITH VOMITING, UNSPECIFIED (3) Hypocalcemia Current Visit: Yes Status: Acute Code(s): E83.51 - HYPOCALCEMIA (4) Hyponatremia Current Visit: Yes Status: Acute Code(s): E87.1 - HYPO-OSMOLALITY AND HYPONATREMIA (5) MAREN (acute kidney injury) Current Visit: Yes Status: Acute Code(s): N17.9 - ACUTE KIDNEY FAILURE, UNSPECIFIED (6) Hyperbilirubinemia Current Visit: Yes Status: Resolved Code(s): E80.6 - OTHER DISORDERS OF BILIRUBIN METABOLISM (7) Diabetes Current Visit: No Status: Chronic Assessment & Plan: (1) Urinary tract infection Current Visit: No Status: Acute Assessment & Plan: - Ceftriaxone - UC gram negative- sensitivity pending - IVF Code(s): N39.0 - URINARY TRACT INFECTION, SITE NOT SPECIFIED (2) Nausea & vomiting Current Visit: Yes Status: Acute Assessment & Plan: - IVF - Zofran - vomiting resolved, continued nausea - 2:2 UTI Code(s): R11.2 - NAUSEA WITH VOMITING, UNSPECIFIED (3) Hypocalcemia Current Visit: Yes Status: Acute Assessment & Plan: - corrected Ca+ 7.9 - Tums tabs started BID - Vit. D, PTH, Phos- labs ordered 09/08 - corrected Ca+ 8.3 Code(s): E83.51 - HYPOCALCEMIA (4) Hyponatremia Current Visit: Yes Status: Acute Assessment & Plan: - on admission Na+ 128 - 09/07 Na+ 132-mild trend 09/08 - Na+ 134 mild Code(s): E87.1 - HYPO-OSMOLALITY AND HYPONATREMIA (5) MAREN (acute kidney injury) Current Visit: Yes Status: Acute Assessment & Plan: - creat 1.29- baseline normal - continue IVF 09/08 - creat 1.06- almost at baseline Code(s): N17.9 - ACUTE KIDNEY FAILURE, UNSPECIFIED (6) Hyperbilirubinemia Current Visit: Yes Status: Resolved Assessment & Plan: - resolved Code(s): E80.6 - OTHER DISORDERS OF BILIRUBIN METABOLISM (7) Diabetes Current Visit: No Status: Chronic Qualifiers: Diabetes mellitus type: type 2 Diabetes mellitus fpc insulin use: without fpc use Diabetes mellitus complication status: without complication Qualified Code(s): E11.9 - Type 2 diabetes mellitus without complications Assessment & Plan: - accuchecks ac/hs, humalog s/s - A1C 6.58- 08/18/23- controlled Code(s): E11.9 - TYPE 2 DIABETES MELLITUS WITHOUT COMPLICATIONS (8) Dizziness Current Visit: Yes Status: Acute Assessment & Plan: - with standing - PT eval- will f/u OP with PT - Meclizine started Code(s): R42 - DIZZINESS AND GIDDINESS - Discharge Discharge Date: 09/09/23 Disposition: Home, Self-Care Condition: Fair Prescriptions: Continue Amlodipine Besylate 5 mg [Norvasc 5 mg] 2.5 mg PO BID PANTOPRAZOLE 40 mg Tablet [Protonix 40MG Tablet] 40 mg PO BID lisinopriL [Lisinopril] 20 mg PO BID Apixaban [Eliquis] 5 mg PO BID Ezetimibe 10 mg [Zetia 10 MG] 10 mg PO DAILY Gabapentin [Neurontin ] 300 mg PO DAILY Levothyroxine Sodium [Euthyrox] 50 mcg PO DAILY Alendronate Sodium [Fosamax] 70 mg PO WEEKLY Mirtazapine 7.5 mg PO HS Metoprolol Tartrate 25 mg [Lopressor 25MG Tab] 25 mg PO DAILY Potassium Chloride [Klor-Con 10] 20 meq PO DAILY Isosorbide Mononitrate [Isosorbide Mononitrate ER] 60 mg PO DAILY glipiZIDE [Glipizide ER] 2.5 mg PO DAILY Nitroglycerin 0.4 mg Tablet [Nitrostat 0.4 MG Tablet] 0.4 mg SL UD PRN PRN Reason: Chest Pain Gabapentin [Neurontin ] 300 mg PO HS Metoclopramide HCl [Reglan] 5 mg PO AC 5 Days #16 tab Rosuvastatin Calcium 20 mg PO DAILY Insulin Glargine,Hum.rec.anlog [Touswapna Solostrobyn] 12 units SQ HS Insulin Aspart (Niacinamide) [Fiasp 100 Unit/ml Flextouch] 100 unit SQ ACHS Outpatient Orders: Physical Therapy Eval & Treat Facility: [facility], Location: PHYSICAL THERAPY Additional Instructions: USE WALKER AT ALL TIMES AT HOME PLEASE HAVE YOUR FAMILY SET UP YOUR MEDICATIONS FOR YOUR AFTER DISCHARGE YOU HAVE AN APT WITH PHYSICAL THERAPY AT [facility] 09/16/23@ 11 AM Follow up with: BRE HERNANDEZ [Primary Care Provider] - Office will call patient
--- NOTE | 2023-09-09 15:48 | PCM.NOTE ---
Date and Time: 09/09/23 1547 Subjective Assessment: 09/08/23 is a 67 year old female with a history of remote cholecystectomy (several decades ago), asthma, hyperlipidemia, type I DM, hypothyroidism, HTN, arrhythmia, DJD, OA, GERD, hernia, MVP, and cardiac cath. She presented to the ED on 09/06 with intractable nausea and vomiting as well as subjective fevers which began approximately 4 days prior to presentation. The patient does not report any recent exotic travel and denies any sick contacts with similar symptoms. She denies diarrhea and also has not had any abdominal pain. However, she has been unable to hold down liquids for this time period and has become profoundly weak. Today she has continued weakness. Will have PT work with pt to eval for any needs. MAREN improving but not at baseline. Home meds list completed this AM. Pt is a poor historian and unable to recall what she is taking. Meds restarted per recent fill hx. Discussed with CM that pt may need help at home with meds. Sodium improved overnight and now 132. Corrected calcium 7.9- replacement started. She continues to have nausea and PRN meds gave. She appeared to have a fever of 102 this am at 7, however after blankets all taken off pt repeat temp was 98.7. Rocephin started for UTI, UC pending. Pt denies CP, SOB, abd. pain, V/D. Likely will d/c tomorrow. 09/09/23 Pt sitting up in bed. This morning she reported some continued dizziness with standing. Orthostats negative. PT evaluated pt and feels she would benefit from OP PT and pt is agreeable. MAREN improved and almost resolved. K+ 3.4 and replaced. Meclizine started but not helpful per pt. She is not agreeable to [facility] for medication assistance and set up. She feels her daughters can help her with this. She is a poor historian and does not know her meds. Urine culture is gram negative and sensitivity pending. She denies CP, SOB, abd. pain, N/V/D. She wants to stay another night as she has continued dizziness with walking. Will re-evaluate in the AM. - Review of Systems Constitutional: No Fever, No Chills Eyes: No Symptoms Ears, Nose, & Throat: No Symptoms Respiratory: No Cough, No Short Of Breath Cardiac: No Chest Pain, No Edema, No Syncope Abdominal/Gastrointestinal: No Abdominal Pain, No Nausea, No Vomiting, No Diarrhea Genitourinary Symptoms: No Dysuria Musculoskeletal: No Back Pain, No Neck Pain Skin: No Rash Neurological: Dizziness, Headache, No Focal Weakness, No Sensory Changes Psychological: No Symptoms Endocrine: No Symptoms Hematologic/Lymphatic: No Symptoms Immunological/Allergic: No Symptoms Objective Exam General Appearance: no apparent distress, alert Neurologic Exam: alert, oriented x 3, cooperative, normal mood/affect, nml cerebellar function, sensation nml, No motor deficits Skin Exam: normal color, warm, dry Eye Exam: PERRL, EOMI, eyes nml inspection Ears, Nose, Throat Exam: normal ENT inspection, pharynx normal, moist mucous membranes Neck Exam: normal inspection, non-tender, supple, full range of motion Respiratory Exam: normal breath sounds, lungs clear, No respiratory distress Cardiovascular Exam: regular rate/rhythm, normal heart sounds Gastrointestinal/Abdomen Exam: soft, No tenderness, No mass Extremity Exam: normal inspection, normal range of motion Back Exam: normal inspection, normal range of motion, No CVA tenderness, No vertebral tenderness Pelvic Exam: deferred Rectal Exam: deferred Objective Data Vital Signs: Vital Signs - 24 hr Temp Pulse Resp BP Pulse Ox 09/09/23 12:00 96.9 F 70 16 121/65 91 L 09/09/23 07:35 97.9 F 77 16 116/57 90 L 09/09/23 04:00 97.7 F 92 H 18 123/69 98 09/09/23 00:00 97.1 F 71 18 115/58 94 L 09/08/23 20:00 97.5 F 75 20 108/58 95 09/08/23 16:00 97.1 F 70 18 103/51 94 L Pain Assessment - Last Documented Pain Intensity 5 Pain Scale Used 0-10 Pain Scale Intake and Output: Intake & Output 09/07/23 09/08/23 09/09/23 09/10/23 11:59 11:59 11:59 11:59 Intake Total 240 4388 120 Output Total 900 700 Balance -660 3688 120 Weight 97.8 kg 100.6 kg Lab Results: Lab Results-Last 24 Hours 09/08/23 09/08/23 09/08/23 Range/Units 16:13 21:22 Unknown WBC (4.0-10.5) x10^3/uL RBC (4.1-5.4) x10^6/uL Hgb (12.0-16.0) g/dL Hct (35-47) % MCV (78-100) fL MCH (26-32) pg MCHC (32-36) g/dL RDW (11.5-14.0) % Plt Count (150-450) x10^3/uL MPV (7.5-11.0) fL Sodium (135-145) mmol/L Potassium (3.5-5.1) mmol/L Chloride (98-107) mmol/L Carbon Dioxide (22-30) mmol/L Anion Gap (5-15) MEQ/L BUN (7-17) mg/dL Creatinine (0.52-1.04) mg/dL Estimated GFR ML/MIN Glucose (74-106) mg/dL POC Glucometer 137 H 129 H (74 to 106) mg/dL Calcium (8.4-10.2) mg/dL Magnesium (1.6-2.3) mg/dL Total Bilirubin (0.2-1.3) mg/dL AST (14-36) U/L ALT (0-35) U/L Alkaline Phosphatase (38-126) U/L Serum Total Protein (6.3-8.2) g/dL Albumin (3.5-5.0) g/dL PTH Intact Whole Molec 34 (15-65) pg/mL 09/09/23 09/09/23 09/09/23 Range/Units 04:53 04:53 04:53 WBC 4.8 (4.0-10.5) x10^3/uL RBC 3.31 L (4.1-5.4) x10^6/uL Hgb 9.8 L (12.0-16.0) g/dL Hct 29.7 L (35-47) % MCV 89.7 (78-100) fL MCH 29.6 (26-32) pg MCHC 33.0 (32-36) g/dL RDW 14.8 H (11.5-14.0) % Plt Count 165 (150-450) x10^3/uL MPV 9.3 (7.5-11.0) fL Sodium 134 L (135-145) mmol/L Potassium 3.4 L (3.5-5.1) mmol/L Chloride 107 (98-107) mmol/L Carbon Dioxide 23 (22-30) mmol/L Anion Gap 8.4 (5-15) MEQ/L BUN 17 (7-17) mg/dL Creatinine 1.06 H (0.52-1.04) mg/dL Estimated GFR 58.3 ML/MIN Glucose 105 (74-106) mg/dL POC Glucometer (74 to 106) mg/dL Calcium 7.6 L (8.4-10.2) mg/dL Magnesium 1.8 (1.6-2.3) mg/dL Total Bilirubin 0.50 (0.2-1.3) mg/dL AST 32 (14-36) U/L ALT 13 (0-35) U/L Alkaline Phosphatase 52 (38-126) U/L Serum Total Protein 5.8 L (6.3-8.2) g/dL Albumin 2.6 L (3.5-5.0) g/dL PTH Intact Whole Molec (15-65) pg/mL 09/09/23 09/09/23 09/09/23 Range/Units 06:59 11:42 14:34 WBC (4.0-10.5) x10^3/uL RBC (4.1-5.4) x10^6/uL Hgb (12.0-16.0) g/dL Hct (35-47) % MCV (78-100) fL MCH (26-32) pg MCHC (32-36) g/dL RDW (11.5-14.0) % Plt Count (150-450) x10^3/uL MPV (7.5-11.0) fL Sodium (135-145) mmol/L Potassium 4.3 D (3.5-5.1) mmol/L Chloride (98-107) mmol/L Carbon Dioxide (22-30) mmol/L Anion Gap (5-15) MEQ/L BUN (7-17) mg/dL Creatinine (0.52-1.04) mg/dL Estimated GFR ML/MIN Glucose (74-106) mg/dL POC Glucometer 132 H 138 H (74 to 106) mg/dL Calcium (8.4-10.2) mg/dL Magnesium (1.6-2.3) mg/dL Total Bilirubin (0.2-1.3) mg/dL AST (14-36) U/L ALT (0-35) U/L Alkaline Phosphatase (38-126) U/L Serum Total Protein (6.3-8.2) g/dL Albumin (3.5-5.0) g/dL PTH Intact Whole Molec (15-65) pg/mL Radiology Exams: Radiology Procedures Category Date Time Status ABDOMEN AND PELVIS W/0 CONTRAS [CT] Stat Exams 09/07/23 16:22 Completed CHEST 1 VIEW (PORTABLE) Stat Exams 09/07/23 16:22 Completed Multi-Disciplinary Progress Notes: Multi-Disciplinary Progress Notes 09/09/23 10:46 Case Management Note by Teresa Herbert S/W MARYBETHR ABOUT CONCERNS WITH PATIENT'S MED LIST AND MOBILITY AT HOME (PATIENT REFUSING HHC). SHE VERIFIED UNDERSTANDING THAT PATIENT NEEDS HELP WITH HER MEDS. SHE REPORTS SHE IS TRYING TO GET PATIENT TO LIVE WITH HER AND FEELS LIKE PATIENT IS GOING TO BE AGREEABLE TO THAT. SHE SAID IF PATIENT IS NOT AGREEABLE TO STAY WITHHER, SHE ONLY LIVES A FEW MINS AWAY AND WILL CHECK ON HER FREQUENTLY Initialized on 09/09/23 10:46 - END OF NOTE 09/09/23 10:00 (created 09/09/23 10:48) Case Management Note by Teresa Herbert PATIENT AGAIN REFUSING HHC- SHE SAYS HER DAUGHTER CAN ASSIST HER. SHE REPORTS SHE FEELS SHE WILL BE ABLE TO CARE FOR HERSELF AT HOME. SHE DENIES ANY NEW NEEDS. SHE HAS A WALKER AT HOME ALREADY WELL Initialized on 09/09/23 10:48 - END OF NOTE Assessment/Plan (1) Urinary tract infection Current Visit: No Status: Acute Code(s): N39.0 - URINARY TRACT INFECTION, SITE NOT SPECIFIED (2) Nausea & vomiting Current Visit: Yes Status: Acute Code(s): R11.2 - NAUSEA WITH VOMITING, UNSPECIFIED (3) Hypocalcemia Current Visit: Yes Status: Acute Code(s): E83.51 - HYPOCALCEMIA (4) Hyponatremia Current Visit: Yes Status: Acute Code(s): E87.1 - HYPO-OSMOLALITY AND HYPONATREMIA (5) MAREN (acute kidney injury) Current Visit: Yes Status: Acute Code(s): N17.9 - ACUTE KIDNEY FAILURE, UNSPECIFIED (6) Hyperbilirubinemia Current Visit: Yes Status: Resolved Code(s): E80.6 - OTHER DISORDERS OF BILIRUBIN METABOLISM (7) Diabetes Current Visit: No Status: Chronic Qualifiers: Diabetes mellitus type: type 2 Diabetes mellitus mcc insulin use: without mcc use Diabetes mellitus complication status: without complication Qualified Code(s): E11.9 - Type 2 diabetes mellitus without complications Code(s): E11.9 - TYPE 2 DIABETES MELLITUS WITHOUT COMPLICATIONS (8) Dizziness Current Visit: Yes Status: Acute Assessment & Plan: (1) Urinary tract infection Current Visit: No Status: Acute Assessment & Plan: - Ceftriaxone - UC gram negative- sensitivity pending - IVF Code(s): N39.0 - URINARY TRACT INFECTION, SITE NOT SPECIFIED (2) Nausea & vomiting Current Visit: Yes Status: Acute Assessment & Plan: - IVF - Zofran - vomiting resolved, continued nausea - 2:2 UTI Code(s): R11.2 - NAUSEA WITH VOMITING, UNSPECIFIED (3) Hypocalcemia Current Visit: Yes Status: Acute Assessment & Plan: - corrected Ca+ 7.9 - Tums tabs started BID - Vit. D, PTH, Phos- labs ordered 09/08 - corrected Ca+ 8.3 improved Code(s): E83.51 - HYPOCALCEMIA (4) Hyponatremia Current Visit: Yes Status: Acute Assessment & Plan: - on admission Na+ 128 - / Na+ 132-mild trend / - Na+ 134 mild Code(s): E87.1 - HYPO-OSMOLALITY AND HYPONATREMIA (5) MAREN (acute kidney injury) Current Visit: Yes Status: Acute Assessment & Plan: - creat 1.29- baseline normal - continue IVF 09/08 - creat 1.06- almost at baseline Code(s): N17.9 - ACUTE KIDNEY FAILURE, UNSPECIFIED (6) Hyperbilirubinemia Current Visit: Yes Status: Resolved Assessment & Plan: - resolved Code(s): E80.6 - OTHER DISORDERS OF BILIRUBIN METABOLISM (7) Diabetes Current Visit: No Status: Chronic Qualifiers: Diabetes mellitus type: type 2 Diabetes mellitus intermediate card tender insulin use: without intermediate card tender use Diabetes mellitus complication status: without complication Qualified Code(s): E11.9 - Type 2 diabetes mellitus without complications Assessment & Plan: - accuchecks ac/hs, humalog s/s - A1C 6.58- 08/18/23- controlled Code(s): E11.9 - TYPE 2 DIABETES MELLITUS WITHOUT COMPLICATIONS (8) Dizziness Current Visit: Yes Status: Acute Assessment & Plan: - with standing - PT eval- will f/u OP with PT - Meclizine started - tele Code(s): R42 - DIZZINESS AND GIDDINESS (9) Headache Current Visit: Yes Status: Acute Assessment & Plan: - improved with tylenol - has has headaches and dizziness the last 2 days. - CT head for further evaluation. VTE: Eliquis PPI: Protonix Next of KIN: eKenan Keenan- Child- [phone] D/C plan: tomorrow Code status: Full Code(s): R51.9 - HEADACHE, UNSPECIFIED
--- NOTE | 2023-09-09 22:26 | XRAY ---
Indication: Vertigo. Headache. Multiple contiguous axial images obtained through the head without contrast. Comparison: August 22, 2023 Again age-appropriate global atrophy, minimal periventricular degenerative micro-ischemia, and remote lacunar infarct left basal ganglia. No acute intracranial hemorrhage, abnormal extra-axial fluid collection, or mass effect. Fourth ventricle is midline without hydrocephalus. Bony calvarium intact. Visualized paranasal sinuses and mastoid air cells are clear. Impression: Continued nonacute senile brain with remote lacunar infarct left basal ganglia.
[2023-09-10 04:53] LABS: Hematocrit 29.3 % (35-47); Hemoglobin 9.8 g/dL (12.0-16.0); Mean Cell Volume 89.9 fL (78-100); Mean Corpuscular Hemoglobin 30.1 pg (26-32); Mean Corpuscular Hgb Concent. 33.4 g/dL (32-36); Mean Platelet Volume 9.4 fL (7.5-11.0); Platelet Count 198 x10^3/uL (150-450); Red Blood Count 3.26 x10^6/uL (4.1-5.4); Red Cell Distribution Width 14.8 % (11.5-14.0)
[2023-09-10 05:34] LABS: ALBUMIN 2.4 g/dL (3.5-5.0); ANION GAP 9.9 MEQ/L (5-15); BILIRUBIN,TOTAL 0.4 mg/dL (0.2-1.3); Creatinine 1 0.85 mg/dL (0.52-1.04); Potassium 4.1 mmol/L (3.5-5.1); Total Protein 5.2 g/dL (6.3-8.2)
[2023-09-10 07:51] VITALS: O2SAT 95
[2023-09-10] MEDS: ANTIVERT 25 MG PO PRN (08:53)
[2023-09-10 10:26] LABS: Cholesterol 78 mg/dL (50-200); HDL CHOLESTEROL 17 mg/dL (40-60); LDL, DIRECT < 46 mg/dL (30-100); TRIGLYCERIDE 157 mg/dL (30-150)
[2023-09-10 11:32] VITALS: BP 129/76; PULSE 67; RESP 20; TEMP 97.5
--- NOTE | 2023-09-10 11:32 | PCM.DS ---
Discharge Summary Date of Admission: 09/07/23 21:35 Date of Discharge: 09/10/23 Admitting Physician: TONYA ESCOBAR MD Primary Care Provider: BRE HERNANDEZ Allergies Allergies bee venom protein (honey bee) Allergy (Severe, Verified 09/07/23 16:15) Swelling erythromycin base Allergy (Intermediate, Verified 09/07/23 16:15) Nausea and Vomiting Penicillins Allergy (Intermediate, Verified 09/07/23 16:15) Nausea and Vomiting tetracycline Allergy (Intermediate, Verified 09/07/23 16:15) Nausea and Vomiting Hospital Summary - Hospital Course Hospital Course: 09/08/23 is a 67 year old female with a history of remote cholecystectomy (several decades ago), asthma, hyperlipidemia, type I DM, hypothyroidism, HTN, arrhythmia, DJD, OA, GERD, hernia, MVP, and cardiac cath. She presented to the ED on 09/06 with intractable nausea and vomiting as well as subjective fevers which began approximately 4 days prior to presentation. The patient does not report any recent exotic travel and denies any sick contacts with similar symptoms. She denies diarrhea and also has not had any abdominal pain. However, she has been unable to hold down liquids for this time period and has become profoundly weak. Today she has continued weakness. Will have PT work with pt to eval for any needs. MAREN improving but not at baseline. Home meds list completed this AM. Pt is a poor historian and unable to recall what she is taking. Meds restarted per recent fill hx. Discussed with CM that pt may need help at home with meds. Sodium improved overnight and now 132. Corrected calcium 7.9- replacement started. She continues to have nausea and PRN meds gave. She appeared to have a fever of 102 this am at 7, however after blankets all taken off pt repeat temp was 98.7. Rocephin started for UTI, UC pending. Pt denies CP, SOB, abd. pain, V/D. Likely will d/c tomorrow. 09/09/23 Pt sitting up in bed. This morning she reported some continued dizziness with standing. Orthostats negative. PT evaluated pt and feels she would benefit from OP PT and pt is agreeable. MAREN improved and almost resolved. K+ 3.4 and replaced. Meclizine started but not helpful per pt. She is not agreeable to [facility] for medication assistance and set up. She feels her daughters can help her with this. She is a poor historian and does not know her meds. Urine culture is gram negative and sensitivity pending. She denies CP, SOB, abd. pain, N/V/D. She wants to stay another night as she has continued dizziness with walking. Will re-evaluate in the AM. 09/10/23 Pt sitting up in chair. She asked that I look in her ears, she has no pain, but concerned for infection as this has caused some dizziness in the past for her. Ears do not appear to be infected. She was able to work with PT today and sxs somewhat improved but she still has some dizziness. Will continue meclizine TID. Discussed CT results and it appears she has had an old stroke and she was unaware of this. She reports daily headaches. Will refer to neurology OP. MAREN has resolved. She refuses HHC but agreeable to OP PT. UC came back + for e-coli. Will continue OP antibiotics. She denies any further concerns at this time. - Vitals & Intake/Output Vital Signs: Vital Signs Temperature 97.8 F 09/10/23 07:51 Pulse Rate 94 H 09/10/23 07:51 Respiratory Rate 18 09/10/23 07:51 Blood Pressure 153/76 09/10/23 07:51 O2 Sat by Pulse Oximetry 95 09/10/23 07:51 Intake & Output: Intake & Output 09/07/23 09/08/23 09/09/23 09/10/23 11:59 11:59 11:59 11:59 Intake Total 240 4388 3672 Output Total 773 118 4310 Balance -660 3688 2372 Weight 97.8 kg 100.6 kg - Lab Result Diagrams: 09/10/23 04:30 09/10/23 04:30 Lab Results-Last 24 Hrs: Lab Results-Last 24 Hours 09/08/23 09/09/23 09/09/23 Range/Units Unknown 11:42 14:34 WBC (4.0-10.5) x10^3/uL RBC (4.1-5.4) x10^6/uL Hgb (12.0-16.0) g/dL Hct (35-47) % MCV (78-100) fL MCH (26-32) pg MCHC (32-36) g/dL RDW (11.5-14.0) % Plt Count (150-450) x10^3/uL MPV (7.5-11.0) fL Sodium (135-145) mmol/L Potassium 4.3 D (3.5-5.1) mmol/L Chloride (98-107) mmol/L Carbon Dioxide (22-30) mmol/L Anion Gap (5-15) MEQ/L BUN (7-17) mg/dL Creatinine (0.52-1.04) mg/dL Estimated GFR ML/MIN Glucose (74-106) mg/dL POC Glucometer 138 H (74 to 106) mg/dL Calcium (8.4-10.2) mg/dL Magnesium (1.6-2.3) mg/dL Total Bilirubin (0.2-1.3) mg/dL AST (14-36) U/L ALT (0-35) U/L Alkaline Phosphatase (38-126) U/L Serum Total Protein (6.3-8.2) g/dL Albumin (3.5-5.0) g/dL Triglycerides (30-150) mg/dL Cholesterol (50-200) mg/dL LDL Cholesterol (30-100) mg/dL HDL Cholesterol (40-60) mg/dL Heart Disease Risk Ratio PTH Intact Whole Molec 34 (15-65) pg/mL 09/09/23 09/09/23 09/10/23 Range/Units 16:45 22:10 04:30 WBC (4.0-10.5) x10^3/uL RBC (4.1-5.4) x10^6/uL Hgb (12.0-16.0) g/dL Hct (35-47) % MCV (78-100) fL MCH (26-32) pg MCHC (32-36) g/dL RDW (11.5-14.0) % Plt Count (150-450) x10^3/uL MPV (7.5-11.0) fL Sodium (135-145) mmol/L Potassium (3.5-5.1) mmol/L Chloride (98-107) mmol/L Carbon Dioxide (22-30) mmol/L Anion Gap (5-15) MEQ/L BUN (7-17) mg/dL Creatinine (0.52-1.04) mg/dL Estimated GFR ML/MIN Glucose (74-106) mg/dL POC Glucometer 124 H 119 H (74 to 106) mg/dL Calcium (8.4-10.2) mg/dL Magnesium 1.8 (1.6-2.3) mg/dL Total Bilirubin (0.2-1.3) mg/dL AST (14-36) U/L ALT (0-35) U/L Alkaline Phosphatase (38-126) U/L Serum Total Protein (6.3-8.2) g/dL Albumin (3.5-5.0) g/dL Triglycerides (30-150) mg/dL Cholesterol (50-200) mg/dL LDL Cholesterol (30-100) mg/dL HDL Cholesterol (40-60) mg/dL Heart Disease Risk Ratio PTH Intact Whole Molec (15-65) pg/mL 09/10/23 09/10/23 09/10/23 Range/Units 04:30 04:30 04:30 WBC 6.0 (4.0-10.5) x10^3/uL RBC 3.26 L (4.1-5.4) x10^6/uL Hgb 9.8 L (12.0-16.0) g/dL Hct 29.3 L (35-47) % MCV 89.9 (78-100) fL MCH 30.1 (26-32) pg MCHC 33.4 (32-36) g/dL RDW 14.8 H (11.5-14.0) % Plt Count 198 (150-450) x10^3/uL MPV 9.4 (7.5-11.0) fL Sodium 136 (135-145) mmol/L Potassium 4.1 (3.5-5.1) mmol/L Chloride 108 H (98-107) mmol/L Carbon Dioxide 22 (22-30) mmol/L Anion Gap 9.9 (5-15) MEQ/L BUN 11 (7-17) mg/dL Creatinine 0.85 (0.52-1.04) mg/dL Estimated GFR 76.0 ML/MIN Glucose 116 H (74-106) mg/dL POC Glucometer (74 to 106) mg/dL Calcium 8.0 L (8.4-10.2) mg/dL Magnesium (1.6-2.3) mg/dL Total Bilirubin 0.40 (0.2-1.3) mg/dL AST 40 H (14-36) U/L ALT 16 (0-35) U/L Alkaline Phosphatase 63 (38-126) U/L Serum Total Protein 5.2 L (6.3-8.2) g/dL Albumin 2.4 L (3.5-5.0) g/dL Triglycerides 157 H (30-150) mg/dL Cholesterol 78 (50-200) mg/dL LDL Cholesterol < 46 (30-100) mg/dL HDL Cholesterol 17 L (40-60) mg/dL Heart Disease Risk Ratio 5.0 PTH Intact Whole Molec (15-65) pg/mL 09/10/23 Range/Units 07:31 WBC (4.0-10.5) x10^3/uL RBC (4.1-5.4) x10^6/uL Hgb (12.0-16.0) g/dL Hct (35-47) % MCV (78-100) fL MCH (26-32) pg MCHC (32-36) g/dL RDW (11.5-14.0) % Plt Count (150-450) x10^3/uL MPV (7.5-11.0) fL Sodium (135-145) mmol/L Potassium (3.5-5.1) mmol/L Chloride (98-107) mmol/L Carbon Dioxide (22-30) mmol/L Anion Gap (5-15) MEQ/L BUN (7-17) mg/dL Creatinine (0.52-1.04) mg/dL Estimated GFR ML/MIN Glucose (74-106) mg/dL POC Glucometer 103 (74 to 106) mg/dL Calcium (8.4-10.2) mg/dL Magnesium (1.6-2.3) mg/dL Total Bilirubin (0.2-1.3) mg/dL AST (14-36) U/L ALT (0-35) U/L Alkaline Phosphatase (38-126) U/L Serum Total Protein (6.3-8.2) g/dL Albumin (3.5-5.0) g/dL Triglycerides (30-150) mg/dL Cholesterol (50-200) mg/dL LDL Cholesterol (30-100) mg/dL HDL Cholesterol (40-60) mg/dL Heart Disease Risk Ratio PTH Intact Whole Molec (15-65) pg/mL Micro Results-Entire Visit: Microbiology 09/07/23 00:10 Urine Culture - Final Clean Catch Midstream Escherichia Coli Accuchecks Date 09/10/23 Date 09/09/23 Date 09/09/23 Date 09/09/23 Time 22:15 - Radiology Exams Ordered Rad Exams-Entire Visit: Radiology Procedures Category Date Time Status HEAD WITHOUT CONTRAST [CT] Routine Exams 09/09/23 15:53 Completed - Procedures and Test Procedures and Tests throughout Hospitalization: Therapy Orders & Screens 09/08/23 08:00 PT Screen per Nursing Assess ONCE Comment: Protocol Order Physician Instructions: Greater than 3 points order PT Admission Screenin Reason For Exam: Triggered on Admission Diagnosis: MAREN, Dehydration, Hyperbilirubinemia Open Wound/Cellutlitis/Pressure Ulcers: No Acute Fx/ORIF/Change in wt bearing status: No Severe MUSCULOSKELETAL pain: No ADL Dysfunction: Yes Acute CVA w/Hemiparesis/Hemiplegia: No Decreased Functional Mobility/Strength: Yes Sprain/Strain: No Acute Post-op Mobility Dysfunction: No Total Points: 4 09/08/23 13:01 PT Eval & Treat (MD Order) ONCE Reason for Eval:: weakness Diagnosis: MAREN, Dehydration, Hyperbilirubinemia Discharge Exam General Appearance: no apparent distress, alert Neurologic Exam: alert, oriented x 3, cooperative, family lawyer II-XII nml as tested, normal mood/affect, nml cerebellar function, sensation nml, motor weakness, No motor deficits Eye Exam: PERRL, EOMI, eyes nml inspection Ears, Nose, Throat Exam: normal ENT inspection, pharynx normal, moist mucous membranes Neck Exam: normal inspection, non-tender, supple, full range of motion Respiratory Exam: normal breath sounds, lungs clear, No respiratory distress Cardiovascular Exam: regular rate/rhythm, normal heart sounds Gastrointestinal/Abdomen Exam: soft, No tenderness, No mass Pelvic Exam: deferred Rectal Exam: deferred Back Exam: normal inspection, normal range of motion, No CVA tenderness, No vertebral tenderness Extremity Exam: normal inspection, normal range of motion Skin Exam: normal color, warm, dry Final Diagnosis/Problem List - Final Discharge Diagnosis/Problem (1) Urinary tract infection Current Visit: No Status: Acute Code(s): N39.0 - URINARY TRACT INFECTION, SITE NOT SPECIFIED (2) Nausea & vomiting Current Visit: Yes Status: Resolved Code(s): R11.2 - NAUSEA WITH VOMITING, UNSPECIFIED (3) Hypocalcemia Current Visit: Yes Status: Resolved Code(s): E83.51 - HYPOCALCEMIA (4) Hyponatremia Current Visit: Yes Status: Resolved Code(s): E87.1 - HYPO-OSMOLALITY AND HYPONATREMIA (5) MAREN (acute kidney injury) Current Visit: Yes Status: Resolved Code(s): N17.9 - ACUTE KIDNEY FAILURE, UNSPECIFIED (6) Hyperbilirubinemia Current Visit: Yes Status: Resolved Code(s): E80.6 - OTHER DISORDERS OF BILIRUBIN METABOLISM (7) Diabetes Current Visit: No Status: Chronic Code(s): E11.9 - TYPE 2 DIABETES MELLITUS WITHOUT COMPLICATIONS (8) Dizziness Current Visit: Yes Status: Acute Code(s): R42 - DIZZINESS AND GIDDINESS (9) Headache Current Visit: Yes Status: Acute Assessment & Plan: (1) Urinary tract infection Current Visit: No Status: Acute Assessment & Plan: - Ceftriaxone - UC gram negative- sensitivity pending - IVF 09/09 - UC + e-coli - continue OP antibiotics Code(s): N39.0 - URINARY TRACT INFECTION, SITE NOT SPECIFIED (2) Nausea & vomiting Current Visit: Yes Status: Acute Assessment & Plan: - IVF - Zofran - vomiting resolved, continued nausea - 2:2 UTI 09/09 - resolved Code(s): R11.2 - NAUSEA WITH VOMITING, UNSPECIFIED (3) Hypocalcemia Current Visit: Yes Status: Acute Assessment & Plan: - corrected Ca+ 7.9 - Tums tabs started BID - Vit. D, PTH, Phos- labs ordered 09/08 - corrected Ca+ 8.3 improved 09/09 - corrected Ca+ 8.9- resolved Code(s): E83.51 - HYPOCALCEMIA (4) Hyponatremia Current Visit: Yes Status: Acute Assessment & Plan: - on admission Na+ 128 - 09/07 Na+ 132-mild trend 09/08 - Na+ 134 mild 09/09 - resolved Code(s): E87.1 - HYPO-OSMOLALITY AND HYPONATREMIA (5) MAREN (acute kidney injury) Current Visit: Yes Status: Acute Assessment & Plan: - creat 1.29- baseline normal - continue IVF 09/08 - creat 1.06- almost at baseline 09/09 - resolved Code(s): N17.9 - ACUTE KIDNEY FAILURE, UNSPECIFIED (6) Hyperbilirubinemia Current Visit: Yes Status: Resolved Assessment & Plan: - resolved Code(s): E80.6 - OTHER DISORDERS OF BILIRUBIN METABOLISM (7) Diabetes Current Visit: No Status: Chronic Qualifiers: Diabetes mellitus type: type 2 Diabetes mellitus senior living insulin use: without senior living use Diabetes mellitus complication status: without complication Qualified Code(s): E11.9 - Type 2 diabetes mellitus without complications Assessment & Plan: - accuchecks ac/hs, humalog s/s - A1C 6.58- 08/18/23- controlled Code(s): E11.9 - TYPE 2 DIABETES MELLITUS WITHOUT COMPLICATIONS (8) Dizziness Current Visit: Yes Status: Acute Assessment & Plan: - with standing - PT eval- will f/u OP with PT - Meclizine started - tele Code(s): R42 - DIZZINESS AND GIDDINESS (9) Headache Current Visit: Yes Status: Acute Assessment & Plan: - improved with tylenol - has has headaches and dizziness the last 2 days. - CT head for further evaluation. 09/09 - F/U OP with neurology - pt reports chronic H/A - CT head Again age-appropriate global atrophy, minimal periventricular degenerative micro-ischemia, and remote lacunar infarct left basal ganglia. No acute intracranial hemorrhage, abnormal extra-axial fluid collection, or mass effect. Fourth ventricle is midline without hydrocephalus. Bony calvarium intact. Visualized paranasal sinuses and mastoid air cells are clear. Impression: Continued nonacute senile brain with remote lacunar infarct left basal ganglia. - Pt reports she is unaware of ever having these findings - Continue meclizine TID PRN Op - BL ear exam clear Code(s): R51.9 - HEADACHE, UNSPECIFIED - Discharge Discharge Date: 09/10/23 Disposition: Home, Self-Care Condition: Fair Prescriptions: New Cefuroxime Axetil 500 mg [Ceftin 500 mg] 500 mg PO BID 7 Days #14 tablet Continue Amlodipine Besylate 5 mg [Norvasc 5 mg] 2.5 mg PO BID PANTOPRAZOLE 40 mg Tablet [Protonix 40MG Tablet] 40 mg PO BID lisinopriL [Lisinopril] 20 mg PO BID Apixaban [Eliquis] 5 mg PO BID Ezetimibe 10 mg [Zetia 10 MG] 10 mg PO DAILY Gabapentin [Neurontin ] 300 mg PO DAILY Levothyroxine Sodium [Euthyrox] 50 mcg PO DAILY Alendronate Sodium [Fosamax] 70 mg PO WEEKLY Mirtazapine 7.5 mg PO HS Metoprolol Tartrate 25 mg [Lopressor 25MG Tab] 25 mg PO DAILY Potassium Chloride [Klor-Con 10] 20 meq PO DAILY Isosorbide Mononitrate [Isosorbide Mononitrate ER] 60 mg PO DAILY glipiZIDE [Glipizide ER] 2.5 mg PO DAILY Nitroglycerin 0.4 mg Tablet [Nitrostat 0.4 MG Tablet] 0.4 mg SL UD PRN PRN Reason: Chest Pain Gabapentin [Neurontin ] 300 mg PO HS Metoclopramide HCl [Reglan] 5 mg PO AC 5 Days #16 tab Rosuvastatin Calcium 20 mg PO DAILY Insulin Glargine,Hum.rec.anlog [Wero Fletcher] 12 units SQ HS Insulin Aspart (Niacinamide) [Fiasp 100 Unit/ml Flextouch] 100 unit SQ ACHS Outpatient Orders: Physical Therapy Eval & Treat Facility: [facility] Hosp, Location: PHYSICAL THERAPY Additional Instructions: USE WALKER AT ALL TIMES AT HOME PLEASE HAVE YOUR FAMILY SET UP YOUR MEDICATIONS FOR YOUR AFTER DISCHARGE YOU HAVE AN APT WITH PHYSICAL THERAPY AT [facility] 09/16/23@ 11 AM Follow up with: AGUSTINA RICO MD [NON-STAFF PHY W/O PRIVILEGES] - 02/10/24 11:30 am BRE HERNANDEZ [Primary Care Provider] - Office will call patient
[2023-09-13] MEDS ORDERED: Fosamax 70 MG PO SCH (06:00)
== END 2023-09-10 12:24 | disposition home or self-care (01) ==
LOC: ED 15:59 → MED SURG 21:35
PROVIDERS: ADMIT Internal Medicine; ATTEND Internal Medicine
DX: N39.0 Urinary tract infection, site not specified (principal); R11.2 Nausea with vomiting, unspecified; E83.51 Hypocalcemia; E87.1 Hypo-osmolality and hyponatremia; N17.9 Acute kidney failure, unspecified; I10 Essential (primary) hypertension; E80.6 Other disorders of bilirubin metabolism; E11.9 Type 2 diabetes mellitus without complications; R42 Dizziness and giddiness; R51.9 Headache, unspecified; Z79.01 Long term (current) use of anticoagulants; Z79.899 Other long term (current) drug therapy
CPT/HCPCS: 36000; 36415; 70450; 71045; 74176; 80053; 80061; 81001; 82306; 82947; 83605; 83690; 83721; 83735; 83970; 84100; 84132; 84484; 85025; 85027; 85610; 87077; 87086; 87186; 93005; 93268; 96361; 96374; 97161; 99285; G0378; 96360; J0696; J1200; J2405; J3030; A9270-GY

== ENCOUNTER 2024-07-10 07:32 | Emergency (ER) | payer MEDICARE ==
[2024-07-10 07:56] VITALS: TEMP 98.9
--- NOTE | 2024-07-10 07:57 | ERPHSYRPT ---
- History of Present Illness Time Seen by Provider: 07/10/24 07:57 Source: patient Exam Limitations: no limitations Patient Subjective Stated Complaint: C/O low blood pressure. Patient states she hasn't felt well for a few days. Triage Nursing Assessment: Patient brought back to ER in a W/C. Stand by assistance to go from chair to bed. She is alert and oriented. NO SOB. Watters. Skin is dry. [place]OR[place] WNL. Physician History: The patient reports intermittent weakness and dizziness for the past two days, worsening this morning culminating in a syncopal episode. Home blood pressure measurement was reportedly 97/64. The patient states these symptoms began after starting furosemide (Lasix) daily this week, as prescribed by Dr. Sauer. Denies chest pain, palpitations, shortness of breath, nausea, vomiting, or abdominal pain. Denies lower extremity edema, and reports improvement in this since starting the furosemide. Timing/Duration: day(s) (2) Activities at Onset: rest Quality: other (NA) Location: other (NA) Chest Pain Radiation: no radiation Severity of Pain-Max: none Severity of Pain-Current: none Modifying Factors: Worsens With: movement, sitting up, change in position Nitro Today/Relief: no nitro taken today Aspirin Treatment Today: no aspirin today Associated Symptoms: loss of appetite, weakness, No nausea, No vomiting, No abdominal pain, No shortness of breath, No cough, No chest pain, No fever, No syncope Prior Chest Pain/Cardiac Workup: no prior chest pain, no prior cardiac workup, non-cardiac Allergies/Adverse Reactions: bee venom protein (honey bee) Allergy (Severe, Verified 07/10/24 07:42) Swelling erythromycin base Allergy (Intermediate, Verified 07/10/24 07:42) Nausea and Vomiting Penicillins Allergy (Intermediate, Verified 07/10/24 07:42) Nausea and Vomiting tetracycline Allergy (Intermediate, Verified 07/10/24 07:42) Nausea and Vomiting Home Medications: lisinopriL [Lisinopril] 20 mg PO DAILY 11/18/20 [History] Levothyroxine Sodium [Euthyrox] 50 mcg PO DAILY 12/05/21 [History] Nitroglycerin 0.4 mg Tablet [Nitrostat 0.4 MG Tablet] 0.4 mg SL UD PRN 04/20/23 [History] Insulin Aspart (Niacinamide) [Fiasp 100 Unit/ml Flextouch] 100 unit SQ ACHS 09/08/23 [History] Insulin Glargine,Hum.rec.anlog [Wero Solostrobyn] 12 units SQ HS 09/08/23 [History] Furosemide 40 mg [Lasix 40 MG] 40 mg PO DAILY 07/10/24 [History] Hydrocortisone 5 mg PO EVENING MEAL 07/10/24 [History] Hydrocortisone 10 mg PO DAILY 07/10/24 [History] Lisinopril 10 mg [Zestril 10 MG] 10 mg PO EVENING MEAL 07/10/24 [History] Metoprolol Succinate 25 mg Xl* [Toprol-Xl 25MG Tablets] 25 mg PO DAILY 07/10/24 [History] Rivaroxaban [Xarelto] 20 mg PO DAILY 07/10/24 [History] Tirzepatide [Mounjaro] 7.5 mg SQ WEEKLY 07/10/24 [History] Hx Tetanus, Diphtheria Vaccination/Date Given: Yes Hx Influenza Vaccination/Date Given: No Hx Pneumococcal Vaccination/Date Given: Yes Immunizations Up to Date: Yes Travel Risk - International Travel Have you traveled outside of the country in past 3 weeks: No - Emerging Infectious Disease Are you exhibiting symptoms associated with any current EIDs: No Symptoms: Vomitting - Review of Systems All Other Systems: Reviewed and Negative - Past Medical History Pertinent Past Medical History: Yes Neurological History: Stroke ENT History: No Pertinent History Cardiac History: Hypertension, Other Respiratory History: Asthma Endocrine Medical History: Diabetes Type II, Hypothyroidism Musculoskeletal History: Fractures GI Medical History: GERD, Gallbladder Disease, Hernia History: No Pertinent History Psycho-Social History: No Pertinent History Female Reproductive Disorders: Abnormal Uterine Bleeding Other Medical History: MITRAL VALVE PROLAPSE, 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 Fusion of 5th and 6th Vertebre Significant Family History: no pertinent family hx - Social History Smoking Status: Never smoker Exposure to second hand smoke: No Drug Use: none - Social Determinants of Health Will the patient participate in the screening: Yes Do you worry about a steady place to live?: No Do you have any problems with any of the following?: No known problems In the past 12 months,have you had to go without utilities?: No Transportation Issues: No Has anyone in your support network made you feel unsafe?: No Have you or anyone in your house had to go w/o enough food: No - Nursing Vital Signs Nursing Vital Signs: Initial Vital Signs Temperature 98.9 F 07/10/24 07:35 Pulse Rate 96 H 07/10/24 07:35 Respiratory Rate 19 07/10/24 07:35 Blood Pressure 125/84 07/10/24 07:35 O2 Sat by Pulse Oximetry 96 07/10/24 07:35 Pain Scale Pain Intensity 0 - Physical Exam General Appearance: no apparent distress, thin Eye Exam: PERRL/EOMI, eyes nml inspection Ears, Nose, Throat Exam: normal ENT inspection Neck Exam: normal inspection, supple, full range of motion Respiratory Exam: normal breath sounds, lungs clear, airway intact, No respiratory distress Cardiovascular Exam: regular rate/rhythm, normal heart sounds, capillary refill <2 sec, No edema Gastrointestinal/Abdomen Exam: soft, No tenderness, No distention, No guarding, No rebound Extremity Exam: No swelling, No tenderness Neurologic Exam: alert, oriented x 3, cooperative Skin Exam: normal color, warm, dry, No rash SpO2 Interpretation: normal SpO2: 96 O2 Delivery: Room Air - Course Nursing assessment & vital signs reviewed: Yes EKG Interpreted by Me: RATE (90), Sinus Rhythm, NORMAL AXIS, NORMAL INTERVALS, NORMAL QRS, Other (LVH) Ordered Tests: Active Orders 24 hr Category Date Time Status Canine Deputy STAT Care 07/10/24 07:57 Completed EKG-ER Only STAT Care 07/10/24 07:57 Completed IV Insertion STAT Care 07/10/24 07:57 Completed CBC W DIFF Stat Lab 07/10/24 08:25 Completed CMP Stat Lab 07/10/24 08:25 Completed CULTURE,URINE Stat Lab 07/10/24 10:31 Received Direct Bilirubin Stat Lab 07/10/24 08:28 Completed LDH-LACTATE DEHYDROGENASE Stat Lab 07/10/24 08:28 Completed Lactic Acid Stat Lab 07/10/24 08:24 Completed MAGNESIUM Stat Lab 07/10/24 08:25 Completed NT PRO BNPII Stat Lab 07/10/24 08:25 Completed TSH, 3RD Generation Stat Lab 07/10/24 08:25 Completed UA W/RFX UR CULTURE Stat Lab 07/10/24 10:31 Completed Medication Summary Discontinued Medications Generic Name Dose Route Start Last Admin Trade Name Ruiz PRN Reason Stop Dose Admin Sodium Chloride 1,000 mls @ 999 mls/hr 07/10/24 07:57 07/10/24 09:26 Sodium Chloride 0.9% 1000 Ml IV 07/10/24 08:57 Infused .Q1H1M STA Infusion Sodium Chloride Confirm 07/10/24 08:22 Sodium Chloride 0.9% 1000 Ml Administered 07/10/24 08:23 Dose 1,000 mls @ ud .ROUTE .STK-MED ONE Sodium Chloride 1,000 mls @ 999 mls/hr 07/10/24 09:27 07/10/24 10:32 Sodium Chloride 0.9% 1000 Ml IV 07/10/24 10:27 Infused .Q1H1M STA Infusion Sodium Chloride Confirm 07/10/24 09:27 Sodium Chloride 0.9% 1000 Ml Administered 07/10/24 09:28 Dose 1,000 mls @ ud .ROUTE .STK-MED ONE Ceftriaxone Sodium 1 gm in 100 mls @ 200 mls/hr 07/10/24 10:53 07/10/24 11:28 Rocephin 1 Gm / 100 Ml Nacl IV 07/10/24 11:22 Infused STAT ONE Infusion Ceftriaxone Sodium Confirm 07/10/24 10:56 Rocephin 1 Gm / 100 Ml Nacl Administered 07/10/24 10:57 Dose 1 gm in 100 mls @ ud IV .STK-MED ONE Lab/Rad Data: Laboratory Result Diagrams 07/10/24 08:25 07/10/24 08:25 Laboratory Results 07/10/24 07/10/24 07/10/24 Range/Units 10:31 08:28 08:25 WBC (3.98-10.04) x10^3/uL RBC (3.93-5.22) x10^6/uL Hgb (11.2-15.7) g/dL Hct (34.1-44.9) % MCV (79.4-94.8) fL MCH (25.6-32.2) pg MCHC (32.2-35.5) g/dL RDW (11.7-14.4) % Plt Count (182-369) x10^3/uL MPV (9.4-12.3) fL Gran % (34.0-71.1) % Immature Gran % (Auto) (0.001-0.429) % Nucleat RBC Rel Count (0.00-0.2) % Eos # (Auto) (0.04-0.36) x10^3/uL Immature Gran # (Auto) (0.001-0.031) x10^3u/L Absolute Lymphs (auto) (1.18-3.74) x10^3/uL Absolute Monos (auto) (0.24-0.86) x10^3/uL Absolute Nucleated RBC (0.00-0.012) x10^3u/L Lymphocytes % (19.3-51.7) % Monocytes % (4.7-12.5) % Eosinophils % (0.7-5.8) % Basophils % (0.1-1.2) % Absolute Granulocytes (1.56-6.13) x10^3/uL Basophils # (0.01-0.08) x10^3/uL Sodium (135-145) mmol/L Potassium (3.5-5.1) mmol/L Chloride (98-107) mmol/L Carbon Dioxide (22-30) mmol/L Anion Gap (5-15) MEQ/L BUN (7-17) mg/dL Creatinine (0.52-1.04) mg/dL Estimated GFR ML/MIN Glucose (74-106) mg/dL Lactic Acid (0.4-2.0) Calcium (8.4-10.2) mg/dL Magnesium (1.6-2.3) mg/dL Total Bilirubin (0.2-1.3) mg/dL Direct Bilirubin 0.3 (0.0-0.4) mg/dL AST (14-36) U/L ALT (0-35) U/L Alkaline Phosphatase (38-126) U/L Lactate Dehydrogenase 163 (120-246) U/L NT-Pro-B Natriuret Pep (<300) pg/mL Serum Total Protein (6.3-8.2) g/dL Albumin (3.5-5.0) g/dL Free T4 1.56 (0.78-2.19) ng/dL TSH 3rd Generation (0.470-4.680) mIU/L Urine Color YELLOW (Yellow) Urine Appearance Cloudy A (Clear) Urine pH 6.0 (4.6-8.0) Ur Specific Jeff 1.015 (1.005-1.030) Urine Protein 30 (Negative) Urine Glucose (UA) Negative (Negative) mg/dL Urine Ketones Negative (Negative) Urine Blood Small A (Negative) Urine Nitrite Positive A (Negative) Urine Bilirubin Negative (Negative) Urine Urobilinogen 4.0 A (0.2) mg/dL Ur Leukocyte Esterase Small A (Negative) Urine Microscopic RBC 0-2 (0-5) /HPF Urine Microscopic WBC 11-20 A (0-5) /HPF Ur Epithelial Cells Few (None Seen) /HPF Urine Bacteria Many A (None Seen) /HPF Urine Culture Reflexed YES (NO) 07/10/24 07/10/24 07/10/24 Range/Units 08:25 08:25 08:24 WBC 10.0 (3.98-10.04) x10^3/uL RBC 4.25 (3.93-5.22) x10^6/uL Hgb 12.6 (11.2-15.7) g/dL Hct 37.4 (34.1-44.9) % MCV 88.0 (79.4-94.8) fL MCH 29.6 (25.6-32.2) pg MCHC 33.7 (32.2-35.5) g/dL RDW 13.0 (11.7-14.4) % Plt Count 243 (182-369) x10^3/uL MPV 8.7 L (9.4-12.3) fL Gran % 77.1 H (34.0-71.1) % Immature Gran % (Auto) 0.6 H (0.001-0.429) % Nucleat RBC Rel Count 0.0 (0.00-0.2) % Eos # (Auto) 0 L (0.04-0.36) x10^3/uL Immature Gran # (Auto) 0.06 H (0.001-0.031) x10^3u/L Absolute Lymphs (auto) 0.94 L (1.18-3.74) x10^3/uL Absolute Monos (auto) 1.26 H (0.24-0.86) x10^3/uL Absolute Nucleated RBC 0.00 (0.00-0.012) x10^3u/L Lymphocytes % 9.4 L (19.3-51.7) % Monocytes % 12.6 H (4.7-12.5) % Eosinophils % 0.0 L (0.7-5.8) % Basophils % 0.3 (0.1-1.2) % Absolute Granulocytes 7.68 H (1.56-6.13) x10^3/uL Basophils # 0.03 (0.01-0.08) x10^3/uL Sodium 132 L (135-145) mmol/L Potassium 3.7 (3.5-5.1) mmol/L Chloride 98 (98-107) mmol/L Carbon Dioxide 22 (22-30) mmol/L Anion Gap 15.4 H (5-15) MEQ/L BUN 15 (7-17) mg/dL Creatinine 0.91 (0.52-1.04) mg/dL Estimated GFR 69.6 ML/MIN Glucose 170 H (74-106) mg/dL Lactic Acid 1.1 (0.4-2.0) Calcium 8.3 L (8.4-10.2) mg/dL Magnesium 1.8 (1.6-2.3) mg/dL Total Bilirubin 1.70 H (0.2-1.3) mg/dL Direct Bilirubin (0.0-0.4) mg/dL AST 30 (14-36) U/L ALT 15 (0-35) U/L Alkaline Phosphatase 55 (38-126) U/L Lactate Dehydrogenase (120-246) U/L NT-Pro-B Natriuret Pep 394 (<300) pg/mL Serum Total Protein 7.3 (6.3-8.2) g/dL Albumin 4.1 (3.5-5.0) g/dL Free T4 (0.78-2.19) ng/dL TSH 3rd Generation 0.447 L (0.470-4.680) mIU/L Urine Color (Yellow) Urine Appearance (Clear) Urine pH (4.6-8.0) Ur Specific Jeff (1.005-1.030) Urine Protein (Negative) Urine Glucose (UA) (Negative) mg/dL Urine Ketones (Negative) Urine Blood (Negative) Urine Nitrite (Negative) Urine Bilirubin (Negative) Urine Urobilinogen (0.2) mg/dL Ur Leukocyte Esterase (Negative) Urine Microscopic RBC (0-5) /HPF Urine Microscopic WBC (0-5) /HPF Ur Epithelial Cells (None Seen) /HPF Urine Bacteria (None Seen) /HPF Urine Culture Reflexed (NO) - Progress Progress: improved Air Movement: good Progress Note: Differential Diagnosis: -Dehydration (possible due to furosemide use and low blood pressure). -Vasovagal syncope (possible due to syncopal episode and preceding dizziness). -Orthostatic hypotension (possible due to dizziness and low blood pressure, although orthostatic blood pressures showed minimal change). Due to the chief complaint, the following diagnoses were also considered but the signs/symptoms, physical exam, and data points are not consistent with any of the following: Cardiac arrhythmia, myocardial infarction, stroke, seizure, hypoglycemia, hyperglycemia, anemia, infection, drug overdose, pulmonary embolism, aortic dissection, gastrointestinal bleed, adrenal insufficiency, thyroid storm, pheochromocytoma, intracranial hemorrhage, subarachnoid hemorrhage, meningitis, encephalitis. Rationale for Diagnosis and Decision Making: The patient presented with weakness, dizziness, and syncope after recently starting furosemide. The temporal relationship between starting the medication and symptom onset suggests a possible adverse reaction. While orthostatic hypote nsion is a possibility, the minimal change in orthostatic blood pressures makes it less likely. Dehydration secondary to furosemide use is also a consideration given the low blood pressure. Labs and EKG were ordered to further evaluate for other potential causes. IV fluids were initiated to address potential dehydration. Shared decision making was used with the patient regarding the plan of care. Laboratory results reviewed and were essentially unremarkable other than slightly decreased TSH, mildly elevated total bilirubin, and slightly low sodium, all of which were determined to require outpatient follow up. Two liters of IV fluids were administered. Patient to discuss medication regimen with PCP. Data Reviewed and Analyzed: A thorough review and analysis conducted of all available information to inform clinical decisions and patient management effectively, derived from all available information, including, but not limited to: Reviewed Prior External Notes and Results: To the best of my ability, available relevant records were reviewed, I reviewed most recent prior external notes and results, including history and physical exams, surgical procedures, discharge notes, and outpatient results that were relevant and available, ensuring a thorough understanding of the patient's h istorical and current medical condition. Ordered and Analyzed New Tests: Based on the clinical presentation, new tests were ordered and analyzed, including EKG and labs, aimed at clarifying the patient's condition or confirming the diagnosis. Interpreting Test Results and Discussing Management Strategies: Test results were interpreted and shared decision making was used in discussions with the patient, integrating these insights into the patient's care plan. Comparison to Historical Findings: New results were compared to relevant historical findings if available, such as most recent previous EKGs, lab results, imaging studies, to evaluate for any acute changes or similarities to prior findings. Problems addressed today: Weakness Dizziness Near syncope Hypotension Risks of Complications or Morbidity: The patient's current condition of weakness, dizziness, and syncope increases t he risk of falls. Independent Test Interpretations: All tests ordered and results interpreted are independently analyzed and interpreted with findings as noted. Hemoglobin, WBC count, potassium, and magnesium WNL. TSH slightly decreased at 0.4, but free T4 stable and unchanged from previous results in June. Sodium slightly low at 132 but within normal range. Lactate within normal limits. Total bilirubin mildly elevated at 1.7. Direct bilirubin ordered. 07/10/24 10:54 UA shows UTI, Ceftriaxone given in ED today, will DC with Cefdinir. Blood Culture(s) Obtained: No Antibiotics given: No Counseled pt/family regarding: lab results, diagnosis, need for follow-up Medical Desision Making - Diagnostic Testing Diagnostic test were ordered, analyzed, and reviewed by me: Yes Radiological Interpretation: Interpreted by me - Risk of complications The pt has a mod risk of morbidity or mortality based on: Need for prescription drug management - Departure Departure Disposition: Home Clinical Impression: Dehydration, Generalized weakness, Dizziness, UTI (urinary tract infection) Condition: Good Critical Care Time: No Referrals: BRE HERNANDEZ [Primary Care Provider] - Follow up/PCP as directed Instructions: Orthostatic Hypotension (DC), Urinary tract infection in adults - ED discharge instructions Prescriptions: Cefdinir 300 mg PO BID 7 Days #13 cap
[2024-07-10] MEDS ORDERED: Sodium Chloride 0.9% 1000 ML 1,000 ML ONE ×2 (08:22→09:27)
[2024-07-10] MEDS: Sodium Chloride 0.9% 1000 ML 1,000 ML IV STA ×2 (08:23→09:30)
[2024-07-10 08:29] LABS: Absolute Neutrophil Ct (ANC) 7.68 x10^3/uL (1.56-6.13); BASOPHIL % 0.3 % (0.1-1.2); Basophil (Absolute #) 0.03 x10^3/uL (0.01-0.08); Eosinophil (Absolute #) 0 x10^3/uL (0.04-0.36); Hematocrit 37.4 % (34.1-44.9); Hemoglobin 12.6 g/dL (11.2-15.7); IMMATURE GRAN # 0.06 x10^3u/L (0.001-0.031); IMMATURE GRAN % 0.6 % (0.001-0.429); Lymphocyte (Absolute #) 0.94 x10^3/uL (1.18-3.74); Lymphocytes % 9.4 % (19.3-51.7); Mean Corpuscular Hemoglobin 29.6 pg (25.6-32.2); Mean Corpuscular Hgb Concent. 33.7 g/dL (32.2-35.5); Mean Platelet Volume 8.7 fL (9.4-12.3); Monocyte (Absolute #) 1.26 x10^3/uL (0.24-0.86); Monocytes % 12.6 % (4.7-12.5); Neutrophil % 77.1 % (34.0-71.1); Platelet Count 243 x10^3/uL (182-369); Red Blood Count 4.25 x10^6/uL (3.93-5.22)
[2024-07-10 09:14] LABS: ALBUMIN 4.1 g/dL (3.5-5.0); ANION GAP 15.4 MEQ/L (5-15); BILIRUBIN,TOTAL 1.7 mg/dL (0.2-1.3); Calcium 8.3 mg/dL (8.4-10.2); Creatinine 1 0.91 mg/dL (0.52-1.04); EST GLOMERULAR FILTRATION RATE 69.6 ML/MIN; MAGNESIUM 1.8 mg/dL (1.6-2.3); Potassium 3.7 mmol/L (3.5-5.1); TSH, 3RD Generation 0.447 mIU/L (0.470-4.680); Total Protein 7.3 g/dL (6.3-8.2)
[2024-07-10 09:46] LABS: Direct Bilirubin 0.3 mg/dL (0.0-0.4)
[2024-07-10 10:47] LABS: Appearance Cloudy (Clear); Leukocyte Esterase Small (Negative); Nitrite Positive (Negative); Specific Gravity 1.015 (1.005-1.030)
[2024-07-10 10:48] LABS: Bilirubin Negative (Negative); Blood Small (Negative); Ketones Negative (Negative); Protein,Urine Dip 30 (Negative)
[2024-07-10 10:49] LABS: Bacteria Many /HPF (None Seen); Epithelial Cells Few /HPF (None Seen); Glucose, Urine Negative (Negative); RBC 0-2 /HPF (0-5)
[2024-07-10] MEDS ORDERED: ROCEPHIN 1 GM / 100 ML NaCl 1 GM/100 ML IVPB IV ONE (10:56)
[2024-07-10] MEDS: ROCEPHIN 1 GM / 100 ML NaCl 1 GM/100 ML IVPB IV ONE (10:57)
[2024-07-10 11:47] VITALS: BP 124/69; PULSE 80; RESP 18
[2024-07-10 14:28] VITALS: O2SAT 96
== END 2024-07-10 11:40 | disposition home or self-care (01) ==
LOC: ED 07:32
DX: N39.0 Urinary tract infection, site not specified (principal); E86.0 Dehydration; R53.1 Weakness; R42 Dizziness and giddiness; I10 Essential (primary) hypertension; E11.9 Type 2 diabetes mellitus without complications; Z79.4 Long term (current) use of insulin; Z79.01 Long term (current) use of anticoagulants; Z79.85 Long-term (current) use of injectable non-insulin antidiabetic drugs; Z79.899 Other long term (current) drug therapy
CPT/HCPCS: 36415; 80053; 81001; 82248; 83605; 83615; 83735; 83880; 84439; 84443; 85025; 87077; 87086; 87186; 93005; 93041; 96361; 96365; 99284; J0696